=== PATIENT | male | born 1950 | race African-American/Black ===

== ENCOUNTER 2016-08-04 13:10 | Emergency (ER) | payer MEDICARE, MEDICAID ==
[2014-08-27 12:48] VITALS: BMI 15.9
[~2016-08-04 13:10] MED LIST: CELEXA20 MG PO; HYDROCODONE-APA1 TAB PO; LOMOTIL TABLET1 TAB PO; MAG-OX 400 MG400 MG PO; METAMUCIL PACKE1 PKT PO; PROTONIX40 MG PO; TUMS500 MG PO; ULTRAM50 MG PO
== END 2016-08-04 16:50 | disposition home or self-care (01) ==
LOC: D.ER 13:10
DX: M25.551 Pain in right hip (principal); F17.200 Nicotine dependence, unspecified, uncomplicated

== ENCOUNTER 2016-09-28 07:57 | Emergency (ER) | payer MEDICARE, MEDICAID ==
[2014-08-27 12:48] VITALS: BMI 15.9
[2016-09-28 08:55] LABS: APPEARANCE CLEAR (CLEAR); BILIRUBIN NEGATIVE (NEGATIVE); COLOR DK YELLOW (YELLOW); GLUCOSE NEGATIVE (NEGATIVE); KETONE NEGATIVE (NEGATIVE); LEUKOCYTE ESTERASE NEGATIVE (NEGATIVE); NITRITE NEGATIVE (NEGATIVE); PROTEIN NEGATIVE (NEGATIVE); UROBILINOGEN NORMAL (NORMAL)
[2016-09-28 09:49] LABS: BASOPHILS 0.3 % (0-2); EOSINOPHILS 18.9 % (0-7); HEMATOCRIT 35.2 % (42.0-54.0); HEMOGLOBIN 10.8 g/dL (13.5-17.5); IMMATURE GRANULOCYTES 0.3 % (0-5); LYMPHOCYTES 12.2 % (15-50); MCH 28.4 pg (26.0-34.0); MCHC 30.7 g/dL (31.0-37.0); MCV 92.6 fL (80.0-100.0); MEAN PLATELET VOLUME 10.7 fL (7.4-10.4); MONOCYTES 11.2 % (2-11); NEUTROPHILS 57.1 % (40-80); RDW 13.5 % (11.5-14.5); WBC 7.3 10x3/uL (4.8-10.8)
[2016-09-28 09:51] LABS: APTT 28.5 SECONDS (22.8-39.4); INR 1.09 (0.85-1.17)
[2016-09-28 09:52] LABS: PLATELET COUNT 219 10x3/uL (130-400)
[2016-09-28 09:54] LABS: ALBUMIN 3.3 g/dL (3.4-5.0); ANION GAP 10.6 mmol/L (8-16); BILIRUBIN - TOTAL 0.2 mg/dL (0.2-1.3); CALCIUM 7.9 mg/dL (8.5-10.1); CARBON DIOXIDE 30.3 mmol/L (21.0-32.0); CREATININE - SERUM 1.6 mg/dL (0.6-1.3); POTASSIUM - SERUM 3.9 mmol/L (3.5-5.1); PROTEIN - SERUM 7.2 g/dL (6.4-8.2)
== END 2016-09-28 12:27 | disposition home or self-care (01) ==
LOC: D.ER 07:57
PROVIDERS: Emergency Medicine
DX: L40.9 Psoriasis, unspecified (principal); R60.9 Edema, unspecified; L03.90 Cellulitis, unspecified; R10.9 Unspecified abdominal pain; Z93.3 Colostomy status; N28.9 Disorder of kidney and ureter, unspecified

== ENCOUNTER 2016-10-11 01:14 | Inpatient (IN) | payer MEDICARE, MEDICAID ==
[~2016-10-11] VITALS: Ht 180.3 cm; Wt 64.6 kg
[2016-10-11] VITALS (7 sets, daily range): BP systolic 102–128; BP diastolic 71–87; Ht 180.3 cm; Wt 64.6 kg
--- NOTE | ~2016-10-11 | DS ---
PATIENT:VALENTINA WEIR SR :52 MEDICAL RECORD: [id number] DISCHARGE SUMMARY ADMISSION DATE: 10/11/16 DISCHARGE DATE: DATE OF ADMISSION: 10/11/2016 DATE OF DISCHARGE: 10/14/2016 ADMITTING DIAGNOSES: Acute kidney injury, hyperkalemia, hyponatremia, leukocytosis, nicotine dependence with withdrawal, colostomy dysfunction, chronic pain from his colostomy. HOSPITAL COURSE: This is a gentleman of Dr. Delgadillo's, admitted with diagnoses as outlined above. Details are well-outlined in the history of the present illness, H&P. All events, lab procedures, diagnostic testing are well documented in the records. The patient was admitted, appropriate home medicines continued. CONSULTANTS: Dr. Han with nephrology, Dr. Lundberg with urology. He was put on sodium bicarbonate drip, SCDs for DVT prophylaxis, PPI for GI prophylaxis, nicotine patch. Labs and volume was closely followed. Renal ultrasound showed mild fullness of the right renal pelvis without alea hydro and mild left hydro. The urinary bladder was markedly distended and the patient was unable to void. He did have Ballesteros catheter placed, Dr. Lundberg says, he needs to keep it in place for 2 weeks. His hyperkalemia corrected. His serum creatinine came down nicely. Today, he is afebrile, vital signs stable. He is eating. He is ambulating. He is stable by all disciplines for dismissal home. LABORATORY DATA: White count 7, hemoglobin 10, platelets are 243. Sodium 137, potassium 3.8, chloride 102, CO2 of 25, BUN 33, serum creatinine 1.9, phosphorus is 2.1 and it had been high. Magnesium 1.5. Dr. Sahu replaced it today, calcium 8. He is stable for dismissal home. DIAGNOSES: 1. Acute kidney injury, resolved. 2. Metabolic acidosis, resolved. 3. Hyperkalemia, resolved. He does have some chronic kidney disease, at least stage III, hyperphosphatemia improved, hyponatremia, improved, benign prostatic hypertrophy, started on medicines per Dr. Lundberg. He will follow up with Dr. Delgadillo. Home health has been arranged to assist him with the Ballesteros catheter. We will get follow up with freight agent as well as Dr. Lundberg with urology. Greater than 30 minutes was spent on this discharge. TRANSINT:[id number] Voice Confirmation ID: [id number] DOCUMENT ID: [id number] Dictated By: KEIRA HARPER RN I have interviewed/examined the above patient and agree with these documented findings. DISCHARGE SUMMARY REPORT [id number] VALENTINA WEIR SR, ANNA J MD CC: [id number] DICTATION DATE: 10/14/16 1244 PRINCIPAL EMBEDDED SOFTWARE ENGINEER: 10/15/16 0733 ADM IN [place] [place] [address]
[2016-10-11 02:08] LABS: HEMATOCRIT 45.9 % (42.0-54.0); HEMOGLOBIN 15.2 g/dL (13.5-17.5); LYMPHOCYTES 3.4 % (15-50); MCH 28.6 pg (26.0-34.0); MCHC 33.1 g/dL (31.0-37.0); MCV 86.4 fL (80.0-100.0); MEAN PLATELET VOLUME 9.9 fL (7.4-10.4); NEUTROPHILS 92.1 % (40-80); PLATELET COUNT 380 10x3/uL (130-400); RBC 5.31 10x6/uL (4.20-6.10); RDW 14.2 % (11.5-14.5); WBC 12.4 10x3/uL (4.8-10.8)
[2016-10-11 02:23] LABS: ALBUMIN 4.7 g/dL (3.4-5.0); ANION GAP 26.7 mmol/L (8-16); BILIRUBIN - TOTAL 0.35 mg/dL (0.2-1.3); CALCIUM 8.9 mg/dL (8.5-10.1); CARBON DIOXIDE 15.8 mmol/L (21.0-32.0); CREATININE - SERUM 5.8 mg/dL (0.6-1.3); POTASSIUM - SERUM 5.5 mmol/L (3.5-5.1); PROTEIN - SERUM 10.1 g/dL (6.4-8.2)
--- NOTE | 2016-10-11 04:15 | NUR ---
RECIEVED TO ROOM 210 FROM ER VIA WC. PT A&O. VITALS STABLE. RESPERATIONS EVEN ON RA. IV TO RIGHT AC WITH D5W AND SODIUM BIACRB INFUSING AT 125 CC/HR. PLACED ON TELEMETRY, 98 SR. RIGHT LOWER ABD COLOSTOMY. PT DENEIS NEEDS AT THIS TIME, CUP OF COFFEE AND ICE WATER GIVEN AT PT REQUEST, WILL CONT TO MONITOR.
[2016-10-11] MEDS ORDERED: VITAMIN B-12500 MCG PO (05:00)
[2016-10-11] MEDS ORDERED: PROBENECID500 MG PO (05:01)
[2016-10-11] MEDS ORDERED: BACTRIM DS TABL1 TAB PO (05:02)
--- NOTE | 2016-10-11 06:01 | NUR ---
NORCO 1 TAB GIVEN AT PT REQUEST FOT C/O GENERALIZED PAIN, RATES PAIN AT AN 8 ON PAIN SCALE.
[2016-10-11 13:55] LABS: CHOL - HDL RATIO 1.3 ratio (2.3-4.9); LDL-HDL RATIO 0.2 ratio (1.5-3.5); MAGNESIUM - SERUM 1.9 mg/dL (1.8-2.4); PHOSPHOROUS 8.5 mg/dL (2.5-4.9)
[2016-10-11 14:15] LABS: COMPLEMENT C4 13.4 mg/dL (17.4-52.2)
--- NOTE | 2016-10-11 16:00 | NUR ---
ALERT AND ORIENTED X4. COLOSTOMY CARE INDEPENDENTLY. SHOWER AND LINEN CHANGE COMPLETE. DENIES ANY NEEDS. CONTINUE PLAN OF CARE AND SAFETY PRECAUTIONS. SINUS TACH 108bpm ON TELEMETRY.
--- NOTE | 2016-10-11 19:50 | NUR ---
ULTRASOUND STAFF CALLED: PT HAS 600ML URINE RETAIN IN BLADDER, DOCTOR NOTIFIED. PT REFUSED IN AND OUT CATHETER.
--- NOTE | 2016-10-11 20:45 | NUR ---
PT STATE HE CAN USE URINAL AND URINATED ABOUT 15 ML. CONTINUE MONITOR CLOSELY.
--- NOTE | 2016-10-11 23:40 | NUR ---
PT RIGHT ARM HAS IV INFILTRATED, START IV IN LEFT FORARM.
--- NOTE | 2016-10-12 00:10 | NUR ---
PT URINATE AND EMPTY URINAL 15ML.
[2016-10-12 03:43] VITALS: BP 102/73
--- NOTE | 2016-10-12 05:03 | NUR ---
EMPTY PT URINAL 15ML.
--- NOTE | 2016-10-12 05:04 | NUR ---
EMPTY PT URINAL 25 ML.
--- NOTE | 2016-10-12 06:10 | NUR ---
EMPTY URINAL 30ML.
[2016-10-12 06:42] LABS: BASOPHILS 0.2 % (0-2); EOSINOPHILS 2.4 % (0-7); HEMOGLOBIN 13.1 g/dL (13.5-17.5); IMMATURE GRANULOCYTES 0.2 % (0-5); LYMPHOCYTES 8.9 % (15-50); MCH 28.5 pg (26.0-34.0); MCHC 33.6 g/dL (31.0-37.0); MCV 84.8 fL (80.0-100.0); MONOCYTES 14.4 % (2-11); NEUTROPHILS 73.9 % (40-80); PLATELET COUNT 320 10x3/uL (130-400); RDW 13.2 % (11.5-14.5)
[2016-10-12 07:06] LABS: CALCIUM 8.3 mg/dL (8.5-10.1); CREATININE - SERUM 4.6 mg/dL (0.6-1.3); MAGNESIUM - SERUM 1.8 mg/dL (1.8-2.4)
[2016-10-12 07:07] LABS: ANION GAP 15.1 mmol/L (8-16); POTASSIUM - SERUM 4.1 mmol/L (3.5-5.1)
[2016-10-12 09:24] VITALS: BP 112/67
[2016-10-12 10:17] LABS: ANA REFLEX - DBL STRANDED DNA 1 IU/mL (0-9); ANA REFLEX - DIRECT Negative (Negative)
--- NOTE | 2016-10-12 10:22 | NUR ---
ALERT AND ORIENTED X4. RESTING IN BED. REQUEST UA SAMPLE. CUP PROVIDED. ENCOURAGE TO CALL AFTER URINATING IN URINAL. GUTIERREZ PLACEMENT ORDERED. REFUSE GUTIERREZ PLACEMENT. DENIES ANY NEEDS. SELF COLOSTOMY CARE. SINUS TACH 126bpm ON TELEMETRY. DENIES SOB. REFUSE OXYGEN. CONTINUE PLAN OF CARE. BED LOCKED AND LOW. CALL LIGHT IN REACH. TWO SIDERAILS UP. REFUSE SCDs.
[2016-10-12 12:19] VITALS: BP 125/81
--- NOTE | 2016-10-12 13:59 | NUR ---
ALERT AND ORIENTED X4. RESTING IN BED. AND EDUCATE OPTIONS IF GUTIERREZ CATHETER IS NOT PLACED. AGREES TO HAVE GUTIERREZ PLACED. [facility] GUTIERREZ CATHERTER 14FR INSERTED. BULB INFLATED 10ml. URINE TEREZA COLOR. 1000mL IMMEDIATELY DRAIN IN BAG. UA COLLECTED AND TAKEN TO LAB. NOTIFY OF GUTIERREZ PLACEMENT PER REQUEST. GUTIERREZ SECURED TO RT LEG WITH STAT LOCK. GUTIERREZ DRAINING BY GRAVITY AT SIDE OF BED. CONTINUE PLAN OF CARE AND SAFETY PRECAUTIONS. SINUS RHTHYM 92bpm ON TELEMETRY.
--- NOTE | 2016-10-12 14:08 | NUR ---
Patient Name: VALENTINA WEIR Admission Status: ER Accout number: [id number] Admission Date: 10-11-2016 : 1950 Admission Diagnosis: Attending: CHIP Current LOS: 1 Anticipated DC Date: Planned Disposition: Home Primary Insurance: WELLC[employer] MEDICARE ADV Discharge Planning Comments: * Is the patient Alert and Oriented? Yes 0 * How many steps to enter\\exit or inside your home? " A BUNCH" 0 * PCP DR. PRICE 0 * Pharmacy [facility] ( REPORTED BY PATIENT) 0 * Preadmission Environment Home with Family 0 * ADLs Independent 0 * Equipment Ostomy Supplies 0 * Other Equipment [facility] - MEDICAL EQUIPMENT PROVIDER PREFERENCE 0 * List name and contact numbers for known caregivers / representatives who currently or will assist patient after discharge: JED LOVE, , 0 * Community resources currently utilized None 0 * Please name any agencies selected above. NONE 0 * Additional services required to return to the preadmission environment? No 0 * Can the patient safely return to the preadmission environment? Yes 0 * Has this patient been hospitalized within the prior 30 days at any hospital? No 0 CM MET WITH PT IN ROOM TO DISCUSS DISCHARGE PLANNING AND NEEDS. PT REPORTS LIVING AT HOME INDEPENDENTLY AND ALONE IN HIS APARTMENT BUT SPENDS MOST OF HIS TIME STAYING AT HIS SISTER'S HOME. PT HAS OSTOMY SUPPLIES FROM [facility]. PT HAS NO OUTSIDE SERVICES ASSISTING IN THE HOME. CM DISCUSSED AVAILABILITY OF HOME HEALTH, REHAB SERVICES AND MEDICAL EQUIPMENT. PT DENIES DISCHARGE NEEDS AT THIS TIME, REPORTS HIS SISTER WILL PICK HIM UP FOR DISCHARGE TO HER HOME. PT PLANS TO DISCHARGE HOME WITH HIS SISTER, DENIES DISCHARGE NEEDS AT THIS TIME. CM TO FOLLOW AND ASSIST NEEDED. Tire Mold Tester: Kam Nye
[2016-10-12 14:40] LABS: APPEARANCE CLEAR (CLEAR); BILIRUBIN NEGATIVE (NEGATIVE); COLOR YELLOW (YELLOW); GLUCOSE NEGATIVE (NEGATIVE); KETONE NEGATIVE (NEGATIVE); LEUKOCYTE ESTERASE NEGATIVE (NEGATIVE); NITRITE NEGATIVE (NEGATIVE); PROTEIN 1+ mg/dL (NEGATIVE); SPECIFIC GRAVITY 1.025 (1.005-1.020); UROBILINOGEN NORMAL (NORMAL)
[2016-10-12 14:41] LABS: BACTERIA FEW /hpf (NONE SEEN); EPITHELIAL CELLS OCC /hpf (0-5); RED CELLS - URINE NONE SEEN /hpf (0-5); WHITE CELLS - URINE NSEEN /hpf (0-5)
[2016-10-12 15:32] VITALS: BP 94/65
[2016-10-12 20:20] VITALS: BP 98/52
--- NOTE | 2016-10-12 20:20 | NUR ---
PT SIT UP IN BED AND WATCH TV.
[2016-10-12 23:52] VITALS: BP 101/62
--- NOTE | 2016-10-13 02:32 | NUR ---
PT REST QUIETLY IN BED WITH EYE CLOSE, CALL LIGHT WITHIN REACH.
[2016-10-13 03:53] VITALS: BP 100/60
[2016-10-13 05:22] LABS: BASOPHILS 0.3 % (0-2); EOSINOPHILS 11.8 % (0-7); HEMATOCRIT 32.7 % (42.0-54.0); IMMATURE GRANULOCYTES 0.3 % (0-5); MCH 29.3 pg (26.0-34.0); MCHC 33.6 g/dL (31.0-37.0); MEAN PLATELET VOLUME 10.4 fL (7.4-10.4); MONOCYTES 15.5 % (2-11); NEUTROPHILS 59.1 % (40-80); PLATELET COUNT 281 10x3/uL (130-400); RBC 3.76 10x6/uL (4.20-6.10); RDW 13.6 % (11.5-14.5)
[2016-10-13 05:28] LABS: WBC 6.4 10x3/uL (4.8-10.8)
[2016-10-13 05:46] LABS: ANION GAP 11.2 mmol/L (8-16); CALCIUM 7.7 mg/dL (8.5-10.1); CARBON DIOXIDE 29.6 mmol/L (21.0-32.0); MAGNESIUM - SERUM 1.6 mg/dL (1.8-2.4); POTASSIUM - SERUM 3.8 mmol/L (3.5-5.1)
[2016-10-13 05:48] LABS: CREATININE - SERUM 2.9 mg/dL (0.6-1.3); PHOSPHOROUS 3.9 mg/dL (2.5-4.9)
--- NOTE | 2016-10-13 08:29 | NUR ---
AM ROUNDS - PT IS ALERT AND AWAKE IN BED. MONITOR SHOWING SR, HR 78. IV TO LEFT FA, NS @ 100CC/HR. PT IS ON RA. COLOSTOMY TO RIGHT SIDE, PT IS SELF CARE. UP AD TAMY. GUTIERREZ DRAINING CLEAR YELLOW, NO ODATE. PT STATES GUTIERREZ WAS PUT IN WHEN HE GOT TO THE HOSPITAL. NO NEEDS AT THIS TIME. WILL CONTINUE TO MONITOR
[2016-10-13 16:03] VITALS: BP 98/66
[2016-10-13 20:00] VITALS: BP 96/65
[2016-10-14] VITALS: BP 97/61
--- NOTE | 2016-10-14 03:27 | NUR ---
NURSE ROUNDS 21:00 - PT AWAKE, ALERT, ORIENTED, DENIES ANY NEEDS. CONTINUE TO MONITOR CLOSELY. PT UP AD TAMY.
[2016-10-14 04:00] VITALS: BP 113/54
[2016-10-14 05:14] LABS: BASOPHILS 0.3 % (0-2); EOSINOPHILS 17.8 % (0-7); HEMATOCRIT 31.8 % (42.0-54.0); HEMOGLOBIN 10.1 g/dL (13.5-17.5); IMMATURE GRANULOCYTES 0.3 % (0-5); LYMPHOCYTES 9.1 % (15-50); MCH 28.6 pg (26.0-34.0); MCHC 31.8 g/dL (31.0-37.0); MCV 90.1 fL (80.0-100.0); MEAN PLATELET VOLUME 10.8 fL (7.4-10.4); MONOCYTES 15.2 % (2-11); NEUTROPHILS 57.3 % (40-80); PLATELET COUNT 243 10x3/uL (130-400); RBC 3.53 10x6/uL (4.20-6.10); RDW 13.6 % (11.5-14.5)
[2016-10-14 05:39] LABS: ANION GAP 13.4 mmol/L (8-16); CARBON DIOXIDE 25.4 mmol/L (21.0-32.0); MAGNESIUM - SERUM 1.5 mg/dL (1.8-2.4); POTASSIUM - SERUM 3.8 mmol/L (3.5-5.1)
[2016-10-14 05:44] LABS: CREATININE - SERUM 1.9 mg/dL (0.6-1.3); PHOSPHOROUS 2.1 mg/dL (2.5-4.9)
--- NOTE | 2016-10-14 07:36 | NUR ---
AM ROUNDS - PT IN BED AND APPEARS TO BE SLEEPING WITH EQUAL AND NON LABORED BREATHING. MONITOR SHOWS SR, HR 75. PT IS UP AD TAMY. LEFT FA, NS AT 100CC/HR. PT IS ON RA. WILL CONTINUE TO MONITOR
[2016-10-14 08:16] VITALS: BP 103/66
[2016-10-14 11:42] VITALS: BP 110/54
--- NOTE | 2016-10-14 12:00 | NUR ---
Patient Name: VALENTINA WEIR Encounter No: [id number] : 1950 Primary Insurance: WELL[employer] MEDICARE ADV Anticipated DC Date: 10-14-2016 Planned Disposition: Home with Home Health External Planned Provider: [facility] DCP follow-up note: CM SPOKE TO MILLI HARPER WHO REPORTED PLAN TO DISCHARGE PT HOME TODAY WITH GUTIERREZ, NEEDING HOME HEALTH; PCP . CM MET WITH PT IN ROOM. PT REPORTED THAT HE WANTS TREATMENT FOR PSORIASIS THAT IS ITCHING BADLY AND FOR THE CYST ON HIS NECK. CM EXPLAINED THAT CM WILL NOTIFY THE NURSE. CM DISCUSSED DISCHARGE PLANNING AND NEEDS, GUTIERREZ CATHETER AND HOME HEALTH. PT CHOSE [facility], CHOICE SIGNED; PT REPORTS FAMILY TO PICK HIM UP FOR TRANSPORT HOME. NURSE NOTIFIED OF PT'S REQUEST FOR TREATMENT. PT REPORTS DISCHARGE ADDRESS OF [address] [place] [address], [id number] [address] PRICE PRIMARY DOCTOR AND MISSED APPOINTMENT FOR YESTERDAY HE WAS HERE IN THE HOSPITAL. CM WILL COMPLETE HOME HEALTH ARRANGEMENT WITH [facility] FOR DISCHARGE HOME UPON RECEIPT OF PHYSICIAN HOME HEALTH ORDERS. Kam Nye, CASE MANAGEMENT
[2016-10-14] MEDS ORDERED: FLOMAX0.4 MG PO (12:38)
[2016-10-14] MEDS ORDERED: LOTRISONE CREAM45 GM TOPICAL (12:39)
[2016-10-14] MEDS ORDERED: PROSCAR5 MG PO (12:40)
[2016-10-14 16:10] VITALS: BP 105/60
--- NOTE | 2016-10-14 18:09 | NUR ---
PT IN BED, AWAKE. IV TO LEFT FA WITH NS AT 100CC/HR. WILL CONTINUE TO MONITOR
[2016-10-14 20:00] VITALS: BP 101/61
--- NOTE | 2016-10-14 20:12 | NUR ---
PT AWAKE, ALERT, ORIENTED, LYING IN BED, LOOKING AT TV, DENIES ANY NEEDS. CONTINUE TO MONITOR CLOSELY. BED LOW, CALL LIGHT IN REACH, SIDE RAILS X 2, HOB 30 DEGREES.
[2016-10-15 04:00] VITALS: BP 99/62
--- NOTE | 2016-10-15 05:58 | NUR ---
PT LYING IN BED, EYES CLOSED, RESPIRATIONS EVEN AND UNLABORED. CONTINUE TO MONITOR CLOSELY.
[2016-10-15 05:59] LABS: BASOPHILS 0.4 % (0-2); EOSINOPHILS 16.2 % (0-7); HEMATOCRIT 30.6 % (42.0-54.0); HEMOGLOBIN 9.6 g/dL (13.5-17.5); IMMATURE GRANULOCYTES 0.3 % (0-5); LYMPHOCYTES 8.9 % (15-50); MCH 28.7 pg (26.0-34.0); MCHC 31.4 g/dL (31.0-37.0); MCV 91.6 fL (80.0-100.0); MEAN PLATELET VOLUME 10.7 fL (7.4-10.4); MONOCYTES 12.6 % (2-11); NEUTROPHILS 61.6 % (40-80); PLATELET COUNT 234 10x3/uL (130-400); RBC 3.34 10x6/uL (4.20-6.10); RDW 13.6 % (11.5-14.5); WBC 7.9 10x3/uL (4.8-10.8)
[2016-10-15 06:58] LABS: ANION GAP 12.4 mmol/L (8-16); CALCIUM 7.7 mg/dL (8.5-10.1); CARBON DIOXIDE 24.3 mmol/L (21.0-32.0); MAGNESIUM - SERUM 1.3 mg/dL (1.8-2.4)
[2016-10-15 06:59] LABS: POTASSIUM - SERUM 4.7 mmol/L (3.5-5.1)
--- NOTE | 2016-10-15 07:25 | NUR ---
AM ROUNDS - PT IS AWAKE IN BED AND ALERT. PT IS ON RA. IV TO LEFT FA WITH NS AT 100CC/HR. RIGHT COLOTOMY, PT IS SELF CARE. GUTIERREZ DRAINING CLEAR YELLOW. NON SKID SOCKS ON. SIDE RAILS UP X2. BED AT LOWEST POSITION. CALL REID IN REACH. PT IS UP AD TAMY. NO FUTHER NEEDS AT THIS TIME. WILL CONTINUE TO MONITOR.
[2016-10-15 08:00] VITALS: BP 109/65
[2016-10-15 08:18] LABS: SPE - ALBUMIN 3.9 g/dL (2.9-4.4); SPE - ALPHA-1 GLOBULIN 0.3 g/dL (0.0-0.4); SPE - ALPHA-2 GLOBULIN 0.8 g/dL (0.4-1.0); SPE - BETA GLOBULIN 1.5 g/dL (0.7-1.3); SPE - GAMMA GLOBULIN 1.5 g/dL (0.4-1.8); SPE - M-SPIKE Not Observed g/dL (Not Observed); SPE - TOTAL PROTEIN 7.9 g/dL (6.0-8.5)
[2016-10-15] MEDS ORDERED: MAG-OXIDE400 MG PO (10:56)
[2016-10-15 12:00] VITALS: BP 99/70
--- NOTE | 2016-10-15 15:59 | NUR ---
WRITTEN AND VERBAL D/C INSTRUCTIONS GIVEN TO PT. IV TO LEFT HAND D/C. CATH TIP INTACT. PT TOLERATED WELL. GUTIERREZ CARE/CLEANING INSTRUCTIONS GIVEN TO PT. PT IS WAITING ON A RIDE HOME. WILL CONTINUE TO MONITOR.
== END 2016-10-15 16:00 | disposition home or self-care (01) | DRG 683 ==
LOC: D.ER 01:14 → D.M2 03:42 → D.SDCHOLD 16:42 → D.M2 16:46
PROVIDERS: Family Medicine; Internal Medicine; ADMIT Family Medicine
PROC: 0T9B70Z Drainage of Bladder with Drainage Device, Via Natural or Artificial Opening (ICD-10-PCS; principal; 2016-10-12)
DX: N17.0 Acute kidney failure with tubular necrosis (principal); E87.1 Hypo-osmolality and hyponatremia; N13.8 Other obstructive and reflux uropathy; F17.203 Nicotine dependence unspecified, with withdrawal; E87.2 Acidosis; E87.5 Hyperkalemia; N40.1 Benign prostatic hyperplasia with lower urinary tract symptoms; N18.3 Chronic kidney disease, stage 3 (moderate); G89.29 Other chronic pain; Z93.3 Colostomy status; L40.9 Psoriasis, unspecified

== ENCOUNTER 2016-12-13 05:48 | Emergency (ER) | payer MEDICARE, MEDICAID ==
[2016-10-11 10:41] VITALS: BMI 17.3
[~2016-12-13 05:48] MED LIST changes: +BACTRIM DS TABL1 TAB PO; +FLOMAX0.4 MG PO; +LOTRISONE CREAM45 GM TOPICAL; +MAG-OXIDE400 MG PO; +PROBENECID500 MG PO; +PROSCAR5 MG PO; +VITAMIN B-12500 MCG PO
[2016-12-13 06:18] LABS: APPEARANCE HAZY (CLEAR); BILIRUBIN NEGATIVE (NEGATIVE); COLOR DK YELLOW (YELLOW); GLUCOSE NEGATIVE (NEGATIVE); KETONE NEGATIVE (NEGATIVE); LEUKOCYTE ESTERASE NEGATIVE (NEGATIVE); NITRITE NEGATIVE (NEGATIVE); PROTEIN NEGATIVE (NEGATIVE); UROBILINOGEN NORMAL (NORMAL)
[2016-12-13 06:42] LABS: BASOPHILS 0.1 % (0-2); EOSINOPHILS 4.9 % (0-7); HEMATOCRIT 39.2 % (42.0-54.0); LYMPHOCYTES 10.3 % (15-50); MCH 28.7 pg (26.0-34.0); MCHC 33.2 g/dL (31.0-37.0); MCV 86.5 fL (80.0-100.0); MEAN PLATELET VOLUME 9.8 fL (7.4-10.4); MONOCYTES 8.6 % (2-11); NEUTROPHILS 76.1 % (40-80); RBC 4.53 10x6/uL (4.20-6.10); RDW 13.8 % (11.5-14.5); WBC 8.9 10x3/uL (4.8-10.8)
[2016-12-13 06:46] LABS: PLATELET COUNT 355 10x3/uL (130-400)
[2016-12-13 07:02] LABS: ALBUMIN 4.4 g/dL (3.4-5.0); ANION GAP 17.1 mmol/L (8-16); BILIRUBIN - TOTAL 0.5 mg/dL (0.2-1.3); CALCIUM 9.7 mg/dL (8.5-10.1); CARBON DIOXIDE 26.3 mmol/L (21.0-32.0); CREATININE - SERUM 3.9 mg/dL (0.6-1.3); POTASSIUM - SERUM 5.4 mmol/L (3.5-5.1); PROTEIN - SERUM 10.4 g/dL (6.4-8.2)
== END 2016-12-13 10:00 | disposition home or self-care (01) ==
LOC: D.ER 05:48
PROVIDERS: Emergency Medicine
DX: K59.00 Constipation, unspecified (principal); N18.9 Chronic kidney disease, unspecified; R10.9 Unspecified abdominal pain; F17.200 Nicotine dependence, unspecified, uncomplicated

== ENCOUNTER 2017-04-27 17:22 | Emergency (ER) | payer MEDICARE, MEDICAID ==
[2016-10-11 10:41] VITALS: BMI 17.3
== END 2017-04-27 20:55 | disposition home or self-care (01) ==
LOC: D.ER 17:22
DX: L03.115 Cellulitis of right lower limb (principal); M25.461 Effusion, right knee; F17.200 Nicotine dependence, unspecified, uncomplicated

== ENCOUNTER 2017-06-17 08:12 | Inpatient (IN) | payer MEDICARE, MEDICAID ==
[~2017-06-17] VITALS: Ht 180.3 cm; Wt 65.8 kg
--- NOTE | ~2017-06-17 | OP ---
PATIENT NAME: VALENTINA WEIR SR MEDICAL RECORD: [id number] :52 LOCATION:D.MS [id number] ADMISSION DATE:06/17/17 SURGEON: TAWANDA EVANGELISTA MD DATE OF OPERATION: 06/18/2017 PREOPERATIVE DIAGNOSIS: Septic arthritis of the right knee. POSTOPERATIVE DIAGNOSIS: Septic arthritis of the right knee. PROCEDURE: Arthroscopic I&D of the right knee, arthroscopic synovectomy. SURGEON: Tawanda Evangelista MD ANESTHESIA: General. INTRAOPERATIVE COMPLICATIONS: None. SUMMARY OF PATHOLOGIC FINDINGS: Fluid obtained from the knee at the time of surgery did not appear to be gouty although the specimen was sent for synovial fluid analysis as well as cultures. The scope did not show any intraarticular pathology except synovitis. OPERATIVE SUMMARY IN DETAIL: After obtaining the appropriate preoperative orthopedic surgery consent as well as anesthetic consultation, evaluation and clearance, the patient was brought to the operating room and placed on the operating table in supine position. After general laryngeal mask was administered, tourniquet was placed about the proximal aspect of the right lower extremity. Right lower extremity was then prepped and draped in routine sterile fashion. Leg was elevated, tourniquet was inflated to 350 mmHg. A 18-gauge spinal needle was then placed from a lateral approach to the knee and 30 cc of turbid appearing fluid was withdrawn and sent to the lab for synovial fluid analysis as well as cultures. At this point, the inferolateral portal was created and the rest of the knee was drained for approximately another 100 mL of turbid fluid, superior medial and inferior medial portal were created. Under direct arthroscopic visualization, a 5.0 resector was utilized to clean out the medial and lateral gutters, the suprapopliteal recess, the meniscus were probed and evaluated and then a total of approximately 12 cc of fluid was washed throughout the knee. The synovium in all places was debrided and taken down. Having completed this, arthroscopy portals were closed in routine interrupted fashion using 4-0 Prolene. Sterile dressings were applied. Tourniquet was deflated. The patient was awakened, taken to recovery room in stable condition. All final needle and sponge counts were correct. TRANSINT:[id number] Voice Confirmation ID: [id number] DOCUMENT ID: [id number] TAAWNDA EVANGELISTA MD at 3552 CC: [id number] DICTATION DATE: 06/18/17 1431 TECHNICAL SERVICES LIBRARIAN: 06/18/17 1455 ADM IN [facility] [address] [id number]
[2017-06-17 11:16] LABS: BASOPHILS 0.2 % (0-2); EOSINOPHILS 0.1 % (0-7); HEMATOCRIT 29.3 % (42.0-54.0); IMMATURE GRANULOCYTES 0.2 % (0-5); LYMPHOCYTES 7.7 % (15-50); MCH 28.5 pg (26.0-34.0); MCHC 34.1 g/dL (31.0-37.0); MCV 83.5 fL (80.0-100.0); MEAN PLATELET VOLUME 9.1 fL (7.4-10.4); MONOCYTES 24.6 % (2-11); NEUTROPHILS 67.2 % (40-80); PLATELET COUNT 326 10x3/uL (130-400); RBC 3.51 10x6/uL (4.20-6.10); RDW 15.6 % (11.5-14.5); WBC 9.5 10x3/uL (4.8-10.8)
[2017-06-17 11:23] LABS: APPEARANCE HAZY (CLEAR); BILIRUBIN NEGATIVE (NEGATIVE); COLOR YELLOW (YELLOW); GLUCOSE NEGATIVE (NEGATIVE); KETONE NEGATIVE (NEGATIVE); NITRITE NEGATIVE (NEGATIVE); PROTEIN NEGATIVE (NEGATIVE); SPECIFIC GRAVITY 1.015 (1.005-1.020); UROBILINOGEN NORMAL (NORMAL)
[2017-06-17 11:24] LABS: BACTERIA MANY /hpf (NONE SEEN); WHITE CELLS - URINE 0-5 /hpf (0-5)
[2017-06-17 11:25] LABS: GRANULAR CAST 0-5 /lpf (NONE SEEN); HYALINE CAST OCC /lpf (NONE SEEN); MUCUS <1+ /lpf (NONE SEEN)
[2017-06-17 11:28] LABS: ANION GAP 16.4 mmol/L (8-16); BILIRUBIN - TOTAL 0.66 mg/dL (0.2-1.3); C-REACTIVE PROTEIN 7.4 mg/dL (0.0-0.9); CARBON DIOXIDE 22.7 mmol/L (21.0-32.0); POTASSIUM - SERUM 3.1 mmol/L (3.5-5.1); PROTEIN - SERUM 7.4 g/dL (6.4-8.2); URIC ACID 7.1 mg/dL (2.6-7.2)
[2017-06-17 11:36] LABS: CALCIUM 6.5 mg/dL (8.5-10.1); MAGNESIUM - SERUM 0.5 mg/dL (1.8-2.4)
[2017-06-17 12:55] LABS: ERYTHROCYTE SEDIMENTATION RATE 55 mm/hr (0-20)
[2017-06-17 23:50] VITALS: BP 109/71; BMI 20.2
[2017-06-18] VITALS: BP 101/70
[2017-06-18 04:00] VITALS: BP 127/59
[2017-06-18 07:55] LABS: HEMATOCRIT 25.2 % (42.0-54.0); HEMOGLOBIN 8.3 g/dL (13.5-17.5); MCH 27.8 pg (26.0-34.0); MCHC 32.9 g/dL (31.0-37.0); MCV 84.3 fL (80.0-100.0); MEAN PLATELET VOLUME 9.1 fL (7.4-10.4); RBC 2.99 10x6/uL (4.20-6.10); RDW 15.8 % (11.5-14.5)
[2017-06-18 07:59] LABS: WBC 7.1 10x3/uL (4.8-10.8)
[2017-06-18 08:11] LABS: ANION GAP 14.8 mmol/L (8-16); CARBON DIOXIDE 19.5 mmol/L (21.0-32.0); CREATININE - SERUM 1.9 mg/dL (0.6-1.3); POTASSIUM - SERUM 3.3 mmol/L (3.5-5.1)
[2017-06-18 08:12] LABS: CALCIUM 6.2 mg/dL (8.5-10.1); MAGNESIUM - SERUM 0.4 mg/dL (1.8-2.4)
[2017-06-18 08:21] VITALS: BP 107/72
[2017-06-18 12:59] VITALS: Ht 180.3 cm; Wt 65.8 kg
[2017-06-18 13:10] VITALS: BP 122/80
[2017-06-18 15:18] LABS: PROTEIN - BODY FLUID 3.6 G/DL
[2017-06-18 16:05] LABS: NEUT - BF 86 %
[2017-06-18 23:37] VITALS: BP 98/66
[2017-06-19 00:06] VITALS: BP 110/70
[2017-06-19 04:00] VITALS: BP 120/73
[2017-06-19 08:04] VITALS: BP 94/60
[2017-06-19 11:58] VITALS: BP 92/60
[2017-06-19 16:24] VITALS: BP 94/61
[2017-06-19 20:00] VITALS: BP 100/67
[2017-06-20 04:00] VITALS: BP 117/82
[2017-06-20 07:40] LABS: HEMATOCRIT 29.1 % (42.0-54.0); HEMOGLOBIN 9.4 g/dL (13.5-17.5); MCH 27.6 pg (26.0-34.0); MCHC 32.3 g/dL (31.0-37.0); MCV 85.6 fL (80.0-100.0); MEAN PLATELET VOLUME 9.3 fL (7.4-10.4); RDW 15.7 % (11.5-14.5)
[2017-06-20 07:42] LABS: PLATELET COUNT 340 10x3/uL (130-400); WBC 5.3 10x3/uL (4.8-10.8)
[2017-06-20 07:55] LABS: C-REACTIVE PROTEIN 11.6 mg/dL (0.0-0.9); CARBON DIOXIDE 18.1 mmol/L (21.0-32.0); CREATININE - SERUM 1.9 mg/dL (0.6-1.3)
[2017-06-20 07:57] LABS: ANION GAP 16.2 mmol/L (8-16); POTASSIUM - SERUM 4.3 mmol/L (3.5-5.1)
[2017-06-20 08:59] LABS: ERYTHROCYTE SEDIMENTATION RATE 60 mm/hr (0-20)
[2017-06-20 09:41] VITALS: BP 114/78
[2017-06-20 11:48] VITALS: BP 103/69
[2017-06-20 15:53] VITALS: BP 107/71
[2017-06-21 04:00] VITALS: BP 108/72
[2017-06-21] MEDS ORDERED: HYDROCODONE-APA1 TAB PO (08:00)
[2017-06-21 08:30] VITALS: BP 117/80
== END 2017-06-21 11:52 | disposition home or self-care (01) | DRG 488 ==
LOC: D.ER 08:12 → D.SDCHOLD 15:40 → D.MS 15:40
PROVIDERS: Nurse Practitioner Family; Orthopaedic Surgery
PROC: 0S9C4ZZ Drainage of Right Knee Joint, Percutaneous Endoscopic Approach (ICD-10-PCS; principal; 2017-06-17)
PROC: 0SBC4ZZ Excision of Right Knee Joint, Percutaneous Endoscopic Approach (ICD-10-PCS; 2017-06-17)
DX: M00.9 Pyogenic arthritis, unspecified (principal); E87.1 Hypo-osmolality and hyponatremia; F17.203 Nicotine dependence unspecified, with withdrawal; M10.9 Gout, unspecified; E83.42 Hypomagnesemia; E87.6 Hypokalemia; N18.9 Chronic kidney disease, unspecified; F41.9 Anxiety disorder, unspecified; K21.9 Gastro-esophageal reflux disease without esophagitis; M65.861 Other synovitis and tenosynovitis, right lower leg

== ENCOUNTER 2017-06-27 07:01 | Emergency (ER) | payer MEDICARE, MEDICAID ==
[2017-06-18 12:59] VITALS: BMI 20.2
[2017-06-27 07:41] LABS: BASOPHILS 0.3 % (0-2); HEMATOCRIT 35.5 % (42.0-54.0); HEMOGLOBIN 11.5 g/dL (13.5-17.5); IMMATURE GRANULOCYTES 0.5 % (0-5); LYMPHOCYTES 13.3 % (15-50); MCHC 32.4 g/dL (31.0-37.0); MCV 86.6 fL (80.0-100.0); MEAN PLATELET VOLUME 9.3 fL (7.4-10.4); MONOCYTES 13.9 % (2-11); RDW 15.6 % (11.5-14.5)
[2017-06-27 07:49] LABS: PLATELET COUNT 525 10x3/uL (130-400)
[2017-06-27 08:03] LABS: UDS - AMPHET NEGATIVE QUAL (NEGATIVE); UDS - BARB NEGATIVE QUAL (NEGATIVE); UDS - BENZO NEGATIVE QUAL (NEGATIVE); UDS - COCAINE NEGATIVE QUAL (NEGATIVE); UDS - OPIATE NEGATIVE QUAL (NEGATIVE); UDS - PCP NEGATIVE QUAL (NEGATIVE); UDS - THC NEGATIVE QUAL (NEGATIVE)
[2017-06-27 08:12] LABS: APPEARANCE HAZY (CLEAR); BILIRUBIN NEGATIVE (NEGATIVE); COLOR YELLOW (YELLOW); GLUCOSE NEGATIVE (NEGATIVE); KETONE NEGATIVE (NEGATIVE); NITRITE NEGATIVE (NEGATIVE); PROTEIN 1+ mg/dL (NEGATIVE); SPECIFIC GRAVITY 1.015 (1.005-1.020); UROBILINOGEN NORMAL (NORMAL)
[2017-06-27 08:14] LABS: BACTERIA MODERATE /hpf (NONE SEEN); EPITHELIAL CELLS 0-5 /hpf (0-5); MUCUS <1+ /lpf (NONE SEEN); RED CELLS - URINE OCC /hpf (0-5); SPERMATOZOA PRESENT /hpf (NONE SEEN); WHITE CELLS - URINE OCC /hpf (0-5)
[2017-06-27 08:15] LABS: AMORPHOUS SEDIMENT <1+ /lpf (NONE SEEN)
[2017-06-27 08:19] LABS: ALKALINE PHOSPHATASE 75 U/L (46-116); ALT (SGPT) 62 U/L (10-68); BILIRUBIN - TOTAL 0.15 mg/dL (0.2-1.3); CALC OSMOLALITY 272 mosm/kg (275-300); CARBON DIOXIDE 24.8 mmol/L (21.0-32.0); CHLORIDE - SERUM 96 mmol/L (98-107); CREATINE KINASE 1073 UL (21-232); CREATININE - SERUM 2.5 mg/dL (0.6-1.3); GLUCOSE 84 mg/dL (74-106); LIPASE 187 U/L (73-393); POTASSIUM - SERUM 4.8 mmol/L (3.5-5.1); PRO BNP 130 pg/mL (0-125); PROTEIN - SERUM 9.1 g/dL (6.4-8.2); SODIUM 135 mmol/L (136-145); TROPONIN-I < 0.017 ng/mL (0.000-0.060); UREA NITROGEN 24 mg/dL (7-18); eGFR NON AFRICAN AMERICAN 28 mL/min (90-120)
[2017-06-27 08:20] LABS: CKMB 5.9 U/L (0.0-3.6); MAGNESIUM - SERUM 0.6 mg/dL (1.8-2.4)
== END 2017-06-27 11:03 | disposition home or self-care (01) ==
LOC: D.ER 07:01
PROVIDERS: Family Medicine
DX: M25.561 Pain in right knee (principal); E83.51 Hypocalcemia; E83.42 Hypomagnesemia; N18.9 Chronic kidney disease, unspecified

== ENCOUNTER 2017-06-28 07:17 | Emergency (ER) | payer MEDICARE, MEDICAID ==
[2017-06-18 12:59] VITALS: BMI 20.2
[2017-06-28 08:09] LABS: HEMATOCRIT 34.8 % (42.0-54.0); HEMOGLOBIN 11.2 g/dL (13.5-17.5); LYMPHOCYTES 9.6 % (15-50); MCH 27.5 pg (26.0-34.0); MCHC 32.2 g/dL (31.0-37.0); MCV 85.5 fL (80.0-100.0); MEAN PLATELET VOLUME 8.9 fL (7.4-10.4); NEUTROPHILS 78.7 % (40-80); PLATELET COUNT 447 10x3/uL (130-400); RBC 4.07 10x6/uL (4.20-6.10); RDW 14.7 % (11.5-14.5); WBC 8.2 10x3/uL (4.8-10.8)
[2017-06-28 08:25] LABS: APPEARANCE HAZY (CLEAR); BACTERIA MODERATE /hpf (NONE SEEN); BILIRUBIN NEGATIVE (NEGATIVE); COLOR YELLOW (YELLOW); EPITHELIAL CELLS 0-5 /hpf (0-5); GLUCOSE NEGATIVE (NEGATIVE); KETONE NEGATIVE (NEGATIVE); MUCUS <1+ /lpf (NONE SEEN); NITRITE NEGATIVE (NEGATIVE); PROTEIN TRACE mg/dL (NEGATIVE); UROBILINOGEN NORMAL (NORMAL); YEAST >1+ WITH HYPHAE /hpf (NONE SEEN)
[2017-06-28 08:26] LABS: UDS - AMPHET NEGATIVE QUAL (NEGATIVE); UDS - BARB NEGATIVE QUAL (NEGATIVE); UDS - BENZO NEGATIVE QUAL (NEGATIVE); UDS - COCAINE POSITIVE QUAL (NEGATIVE); UDS - OPIATE NEGATIVE QUAL (NEGATIVE); UDS - PCP NEGATIVE QUAL (NEGATIVE); UDS - THC NEGATIVE QUAL (NEGATIVE)
[2017-06-28 08:44] LABS: ALBUMIN 3.8 g/dL (3.4-5.0); ALKALINE PHOSPHATASE 72 U/L (46-116); ALT (SGPT) 59 U/L (10-68); BILIRUBIN - TOTAL 0.27 mg/dL (0.2-1.3); C-REACTIVE PROTEIN 0.6 mg/dL (0.0-0.9); CALC OSMOLALITY 270 mosm/kg (275-300); CHLORIDE - SERUM 96 mmol/L (98-107); CREATININE - SERUM 2.7 mg/dL (0.6-1.3); GLUCOSE 83 mg/dL (74-106); LIPASE 180 U/L (73-393); POTASSIUM - SERUM 5.4 mmol/L (3.5-5.1); PRO BNP 267 pg/mL (0-125); PROTEIN - SERUM 9.1 g/dL (6.4-8.2); SODIUM 133 mmol/L (136-145); UREA NITROGEN 29 mg/dL (7-18); eGFR NON AFRICAN AMERICAN 25 mL/min (90-120)
[2017-06-28 08:49] LABS: CREATINE KINASE 1562 UL (21-232); TROPONIN-I < 0.017 ng/mL (0.000-0.060)
[2017-06-28 08:50] LABS: CALCIUM 5.6 mg/dL (8.5-10.1); MAGNESIUM - SERUM 0.7 mg/dL (1.8-2.4)
[2017-06-28 08:51] LABS: CKMB 7.2 U/L (0.0-3.6)
== END 2017-06-28 12:22 | disposition home or self-care (01) ==
LOC: D.ER 07:17
PROVIDERS: Family Medicine
DX: M25.50 Pain in unspecified joint (principal); E83.42 Hypomagnesemia; E83.51 Hypocalcemia; R74.8 Abnormal levels of other serum enzymes; N28.9 Disorder of kidney and ureter, unspecified

== ENCOUNTER 2018-01-25 09:03 | Emergency (ER) | payer MEDICARE, MEDICAID ==
[~2018-01-25] VITALS: Ht 180.3 cm; Wt 61.8 kg
[2018-01-25 09:05] VITALS: Ht 180.3 cm; Wt 61.8 kg
[2018-01-25] MEDS ORDERED: ATARAX 25 MG TA25 MG PO (09:08)
[2018-01-25 09:35] LABS: BASOPHILS 0.1 % (0-2); EOSINOPHILS 0.1 % (0-7); HEMATOCRIT 34.1 % (42.0-54.0); HEMOGLOBIN 11.3 g/dL (13.5-17.5); IMMATURE GRANULOCYTES 0.2 % (0-5); MCH 29.5 pg (26.0-34.0); MCHC 33.1 g/dL (31.0-37.0); MEAN PLATELET VOLUME 10.1 fL (7.4-10.4); MONOCYTES 10.2 % (2-11); NEUTROPHILS 77.4 % (40-80); RBC 3.83 10x6/uL (4.20-6.10); RDW 12.8 % (11.5-14.5); WBC 16.4 10x3/uL (4.8-10.8)
[2018-01-25 09:36] LABS: PLATELET COUNT 219 10x3/uL (130-400)
[2018-01-25 09:49] LABS: ALBUMIN 3.3 g/dL (3.4-5.0); ANION GAP 12.6 mmol/L (8-16); BILIRUBIN - TOTAL 1.48 mg/dL (0.2-1.3); CARBON DIOXIDE 27.3 mmol/L (21.0-32.0); CREATININE - SERUM 1.8 mg/dL (0.6-1.3); POTASSIUM - SERUM 3.9 mmol/L (3.5-5.1); PROTEIN - SERUM 8.1 g/dL (6.4-8.2); URIC ACID 10.5 mg/dL (2.6-7.2)
[2018-01-25] MEDS ORDERED: PREDNISONE20 MG PO (11:06)
[2018-01-25] MEDS ORDERED: TORADOL10 MG PO (11:06)
[2018-01-25 14:11] VITALS: BP 148/92
== END 2018-01-25 14:12 | disposition home or self-care (01) ==
LOC: D.ER 09:03
PROVIDERS: Emergency Medicine
DX: L40.50 Arthropathic psoriasis, unspecified (principal); M10.9 Gout, unspecified; Z93.3 Colostomy status

== ENCOUNTER 2018-07-06 14:13 | Inpatient (IN) | payer MEDICARE, MEDICAID ==
[~2018-07-06] VITALS: Ht 180.3 cm; Wt 62.8 kg
[~2018-07-06 14:13] MED LIST changes: +ATARAX 25 MG TA25 MG PO; +PREDNISONE20 MG PO; +TORADOL10 MG PO
[2018-07-06 15:31] LABS: BASOPHILS 0.3 % (0-2); HEMATOCRIT 34.2 % (42.0-54.0); HEMOGLOBIN 11.7 g/dL (13.5-17.5); IMMATURE GRANULOCYTES 0.9 % (0-5); LYMPHOCYTES 7.8 % (15-50); MCH 28.3 pg (26.0-34.0); MCHC 34.2 g/dL (31.0-37.0); MCV 82.6 fL (80.0-100.0); MEAN PLATELET VOLUME 9.1 fL (7.4-10.4); MONOCYTES 8.6 % (2-11); NEUTROPHILS 80.4 % (40-80); RBC 4.14 10x6/uL (4.20-6.10); RDW 13.6 % (11.5-14.5); WBC 11.1 10x3/uL (4.8-10.8)
[2018-07-06 15:36] LABS: PLATELET COUNT 474 10x3/uL (130-400)
[2018-07-06 15:57] LABS: ALBUMIN 3.5 g/dL (3.4-5.0); ANION GAP 27.9 mmol/L (8-16); BILIRUBIN - TOTAL 1.09 mg/dL (0.2-1.3); CALCIUM 7.1 mg/dL (8.5-10.1); CARBON DIOXIDE 16.9 mmol/L (21.0-32.0); CREATININE - SERUM 7.7 mg/dL (0.6-1.3); POTASSIUM - SERUM 4.8 mmol/L (3.5-5.1); PROTEIN - SERUM 8.6 g/dL (6.4-8.2)
[2018-07-06 15:58] LABS: APPEARANCE CLOUDY (CLEAR); BILIRUBIN NEGATIVE (NEGATIVE); COLOR YELLOW (YELLOW); GLUCOSE NEGATIVE (NEGATIVE); KETONE NEGATIVE (NEGATIVE); NITRITE NEGATIVE (NEGATIVE); PROTEIN 1+ mg/dL (NEGATIVE); UROBILINOGEN NORMAL (NORMAL)
[2018-07-06 15:59] LABS: RED CELLS - URINE 0-5 /hpf (0-5)
[2018-07-06 16:01] LABS: BACTERIA MODERATE /hpf (NONE SEEN); HYALINE CAST 0-5 /lpf (NONE SEEN); MUCUS <1+ /lpf (NONE SEEN)
--- NOTE | 2018-07-06 18:22 | NUR ---
PATIENT ACCIDENTLY DC'D IV STARTED BY EMS, CATH INTACT, RESITED IV 22G RIGHT HAND, AND 20G RIGHT AC BOTH S-LOCS AND PATENT.
--- NOTE | 2018-07-06 19:59 | NUR ---
68 yr old male admitted to Med 2 from ED. FULL Code status, alert and oriented x 4, ambulatory and in dependent with ADLs. Has a [id number] which he cares for himself. Came in with complaints of severe cramping in right flank area. Was Dx with UTI, has Hx of ARF but is not on dialysis yet. Has a Hx of heavy drinking, sober for many years, became quite upset when asked. Has two PIVs, one in Rt hand SL and one in Rt AC infusing NS @75ml/hr. Settled into room 2104.
[2018-07-06 20:00] VITALS: BP 117/81
[2018-07-06 20:10] VITALS: BP 125/84
--- NOTE | 2018-07-06 20:10 | NUR ---
Patient has psoriasis on arms and neck.
--- NOTE | 2018-07-06 20:45 | NUR ---
Given sandwich tray, and soda. States has not eaten since this morning.
--- NOTE | 2018-07-06 22:03 | NUR ---
educational assistant on, rhythm ST. HR currently = 116.
[2018-07-07] VITALS: BP 90/63
--- NOTE | 2018-07-07 00:14 | NUR ---
Resting quietly, no voiced concerns at this time.
--- NOTE | 2018-07-07 04:41 | NUR ---
Up to BR, ambulating well, pushing IV pole with him. Hungry, requested another snack, given soda and a sandwich. Has been in and out of bed several times, states he likes to keep active, SCDs not placed due to patient's frequent activity in and out of bed.
[2018-07-07 04:50] VITALS: BP 102/69
[2018-07-07 05:50] LABS: BASOPHILS 0.4 % (0-2); EOSINOPHILS 6.4 % (0-7); HEMATOCRIT 31.3 % (42.0-54.0); HEMOGLOBIN 10.4 g/dL (13.5-17.5); IMMATURE GRANULOCYTES 0.6 % (0-5); LYMPHOCYTES 8.9 % (15-50); MCH 27.8 pg (26.0-34.0); MCHC 33.2 g/dL (31.0-37.0); MCV 83.7 fL (80.0-100.0); MEAN PLATELET VOLUME 9.3 fL (7.4-10.4); MONOCYTES 10.4 % (2-11); NEUTROPHILS 73.3 % (40-80); PLATELET COUNT 453 10x3/uL (130-400); RBC 3.74 10x6/uL (4.20-6.10); RDW 13.9 % (11.5-14.5); WBC 9.7 10x3/uL (4.8-10.8)
[2018-07-07 05:59] LABS: CARBON DIOXIDE 14.6 mmol/L (21.0-32.0); CREATININE - SERUM 7.6 mg/dL (0.6-1.3); MAGNESIUM - SERUM 1.1 mg/dL (1.8-2.4); PHOSPHOROUS 8.2 mg/dL (2.5-4.9)
[2018-07-07 06:17] LABS: POTASSIUM - SERUM 3.6 mmol/L (3.5-5.1)
[2018-07-07 06:18] LABS: CALCIUM 6.2 mg/dL (8.5-10.1)
--- NOTE | 2018-07-07 07:00 | NUR ---
Lab called with critical lab value, Calcium = 6.2, Sodium, Chloride and Mag also are low. Called notified of same, received orders for Renal US, UA with micro and Jose Stain. Patient also to be placed on electrolyte protocol.
--- NOTE | 2018-07-07 07:55 | NUR ---
PT WAS COMING OUT OF BATHROOM I ENTERED. IN PLESANT MOOD, REQUESTS COFFEE. STATES NO PAIN/QUESTIONS/CONCERNS AT THIS TIME. CL IN REACH. SRX1.
[2018-07-07 08:14] VITALS: BP 105/67
--- NOTE | 2018-07-07 09:07 | NUR ---
PT IV CAME OUT. OTHER IV IS BAD. WHILE INSPECTING I/V'S I ASKED PT HOW IT CAME OUT. PT STARTS GETTING ANGRY WITH ME AND ACCUSING ME OF SAYING HE PULLED IT OUT ON PURPOSE. I DID NOT SAY THAT. EVERY TIME I TALK, PT TALKS OVER ME AND GETS ANGRY AT THINGS I DIDN'T SAY. I'M VERY CONFUSED. PT REQUESTED PAIN MEDS, I SAID OK LET ME FIX THIS IV REAL QUICK, PT IMMEDIATELY GOT ANGRY AND TOLD ME I DIDN'T NEED TO SPEAK TO HIM THAT WAY
[2018-07-07 12:31] VITALS: Ht 180.3 cm; Wt 62.8 kg
--- NOTE | 2018-07-07 14:14 | NUR ---
I have reviewed this patient and I concur with the Shift Assessment completed by the Licensed Practical Nurse today this shift.
[2018-07-07 14:48] LABS: % SATURATION 23 % (15-55); IRON 66 ug/dl (35-150); TOTAL IRON BIND CAPACITY 282 ug/dl (260-445); UNSAT IRON BIND CAPACITY 216 ug/dl (150-375)
[2018-07-07 15:02] VITALS: BP 108/79
--- NOTE | 2018-07-07 17:03 | NUR ---
ATTEMPT POST RESIDUAL, PT REFUSES TO ATTEMPT TO URINATE AGAIN AFTER FIRST URINATION. EXPLAINED THE PROCESS. PT STILL REFUSED.
[2018-07-07 20:00] VITALS: BP 148/90
--- NOTE | 2018-07-07 20:20 | NUR ---
RESUMING PT CARE. PT IS ALERT LAYING IN BED WATCHING TV. NO C/O VOICED AT THIS TIME. PT HAS A IV IN THE LEFT FOREARM. BED IN LOW POSITION WITH CALL LIGHT IN REACH. WILL CONTINUE TO MONITOR PT AND FOLLOW PLAN OF CARE.
[2018-07-08] VITALS (7 sets, daily range): BP systolic 101–113; BP diastolic 57–81
--- NOTE | 2018-07-08 03:06 | NUR ---
PT ASLEEP. AROUSES TO NURSE IN ROOM. PT IS AAO, HAS NS INFUSING TO LEFT FOREARM ORDERED. COLOSTOMY NOTED RIGHT QUAD. PT HAS DRY FLACKY SKIN. NO S/S OF DISTRESS. RESP EVEN AND UNLABORED. NO S/S OF DISTRESS. NURSE IN AGREEMENT WITH MANAGER ICU ASSESSMENT THIS SHIFT. WILL CPOC
[2018-07-08 12:16] LABS: CARBON DIOXIDE 15.4 mmol/L (21.0-32.0)
[2018-07-08 12:18] LABS: ANION GAP 22.8 mmol/L (8-16); POTASSIUM - SERUM 4.2 mmol/L (3.5-5.1)
[2018-07-08 12:20] LABS: CALCIUM 6.3 mg/dL (8.5-10.1)
[2018-07-08 12:28] LABS: BASOPHILS 0.3 % (0-2); EOSINOPHILS 14.2 % (0-7); HEMATOCRIT 25.9 % (42.0-54.0); HEMOGLOBIN 8.8 g/dL (13.5-17.5); IMMATURE GRANULOCYTES 0.4 % (0-5); LYMPHOCYTES 14.2 % (15-50); MCH 28.2 pg (26.0-34.0); MEAN PLATELET VOLUME 8.9 fL (7.4-10.4); MONOCYTES 11.5 % (2-11); NEUTROPHILS 59.4 % (40-80); PLATELET COUNT 420 10x3/uL (130-400); RBC 3.12 10x6/uL (4.20-6.10); RDW 13.9 % (11.5-14.5)
[2018-07-08 12:29] LABS: WBC 6.8 10x3/uL (4.8-10.8)
--- NOTE | 2018-07-08 12:29 | NUR ---
PT ASLEEP DID NOT WAKE I ENTERED. CL IN REACH. SRX2.
--- NOTE | 2018-07-08 14:35 | NUR ---
I have reviewed this patient and I concur with the Shift Assessment completed by the Licensed Practical Nurse today this shift.
--- NOTE | 2018-07-08 18:41 | NUR ---
PT REQUESTED RAZOR TO SHAVE FACE, PROVIDED. ASKED PT ABOUT COLOSTOMY, HE STATES HE TAKES CARE OF IT HIMSELF.
--- NOTE | 2018-07-08 21:41 | NUR ---
INITIAL ROUNDS COMPLETED AT 1910 HRS. PT DENIED ANY DISCOMFORT. ASSESSMENT COMPLETED AT 1945 HRS. VSS. IV TO RFA WITH NS AT 75CC/HR. IV PATENT. LUNGS ESSENTIALLY CTA. COLOSTOMY NOTED. ALERT AND ORIENTED TO PERSON, PLACE AND TIME. REMINDED PT NEED UA. PT STATED UNDERSTANDING. PT CURRENTLY RESTING WITH EYES CLOSED. RESP EVEN AND REGULAR. SR UP X2, CALL LIGHT WITHIN REACH.
--- NOTE | 2018-07-09 00:39 | NUR ---
MORTEZA SANCHES GIVEN PER REQUEST. VSS. PT DENIES ANY NEEDS. SR UP X2, CALL LIGHT WITHIN REACH.
--- NOTE | 2018-07-09 01:53 | NUR ---
PT AWAKE; DENIES ANY DISCOMFORT. ORANGE SHERBERT GIVEN PER REQUEST. SR UP X2, CALL LIGHT WITHIN REACH.
--- NOTE | 2018-07-09 04:14 | NUR ---
PT AWAKE; DENIES AN DISCOMFORT. PT DENIES SAVING ANY URINE. REMINDED PT NEED A URINE SAMPLE. CALL LIGHT WITHIN REACH.
[2018-07-09 04:30] VITALS: BP 107/65
[2018-07-09 04:55] LABS: BASOPHILS 0.3 % (0-2); EOSINOPHILS 13.7 % (0-7); HEMATOCRIT 30.9 % (42.0-54.0); HEMOGLOBIN 10.2 g/dL (13.5-17.5); IMMATURE GRANULOCYTES 0.5 % (0-5); LYMPHOCYTES 15.9 % (15-50); MCH 28.4 pg (26.0-34.0); MONOCYTES 9.7 % (2-11); NEUTROPHILS 59.9 % (40-80); PLATELET COUNT 443 10x3/uL (130-400); RBC 3.59 10x6/uL (4.20-6.10); RDW 14.2 % (11.5-14.5); WBC 7.7 10x3/uL (4.8-10.8)
[2018-07-09 05:18] LABS: MCV 86.1 fL (80.0-100.0)
[2018-07-09 05:39] LABS: CARBON DIOXIDE 12.7 mmol/L (21.0-32.0); POTASSIUM - SERUM 4.7 mmol/L (3.5-5.1)
[2018-07-09 05:40] LABS: CALCIUM 6.5 mg/dL (8.5-10.1); CREATININE - SERUM 3.4 mg/dL (0.6-1.3)
--- NOTE | 2018-07-09 06:30 | NUR ---
VSS THROUGHOUT NIGHT. PT DENIED ANY DISCOMFORT. PT AMBULATING HALLS AT THIS TIME. GAIT EVEN AND STEADY. NEEDS MET; WILL CONTINUE TO MONITOR.
--- NOTE | 2018-07-09 07:27 | NUR ---
PT LYING IN BED. C/O OF HEADACHE. REQUESTS TYLENOL. WILL PROVIDE WITH MORNING MEDS. NO OTHER CONCERNS/COMLAINTS AT THIS TIME. CL IN REACH. SRX2.
[2018-07-09 08:30] VITALS: BP 92/57
--- NOTE | 2018-07-09 11:00 | NUR ---
I have reviewed this patient and I concur with the Shift Assessment completed by the Licensed Practical Nurse today this shift.
[2018-07-09 12:09] VITALS: BP 121/82
[2018-07-09 15:59] VITALS: BP 94/67
[2018-07-09 20:31] VITALS: BP 103/72
--- NOTE | 2018-07-09 20:48 | NUR ---
INITIAL ROOUNDS COMPLETED AT 1910 HRS. PT DENIED ANY DISCOMFORT. ASSESSMENT COMPLETED AT [address] PER CM HR 107. ALERT AND ORIENTED TO PERSON, PLACE AND TIME. [place]. LUNGS CTA. COLOSTOMY NOTED. PT CURRENTLY WATCHING TV; DENIES ANY DISCOMFORT. SR UP X2, CALL LIGHT WITHIN REACH.
--- NOTE | 2018-07-09 23:57 | NUR ---
PT RESTING WITH EYES CLOSED. RESP EVEN AND REGULAR. SR UP X2, CALL LIGHT WITHIN REACH.
[2018-07-10 00:23] VITALS: BP 104/71
--- NOTE | 2018-07-10 03:10 | NUR ---
ICE CREAM GIVEN PER REQUEST. DENIES ANY DISCOMFORT. CALL LIGHT WITHIN REACH.
--- NOTE | 2018-07-10 04:07 | NUR ---
PT AWKE; DENIES ANY DISCOMFORT. CALL LIGHT WITHIN REACH.
[2018-07-10 05:09] LABS: BASOPHILS 0.1 % (0-2); EOSINOPHILS 14.4 % (0-7); HEMOGLOBIN 9.6 g/dL (13.5-17.5); IMMATURE GRANULOCYTES 0.7 % (0-5); MCH 28.3 pg (26.0-34.0); MCHC 33.1 g/dL (31.0-37.0); MCV 85.5 fL (80.0-100.0); MEAN PLATELET VOLUME 9.2 fL (7.4-10.4); MONOCYTES 11.8 % (2-11); PLATELET COUNT 425 10x3/uL (130-400); RBC 3.39 10x6/uL (4.20-6.10); RDW 14.2 % (11.5-14.5); WBC 7.6 10x3/uL (4.8-10.8)
[2018-07-10 05:27] LABS: CARBON DIOXIDE 14.8 mmol/L (21.0-32.0); POTASSIUM - SERUM 4.8 mmol/L (3.5-5.1)
[2018-07-10 05:30] VITALS: BP 114/82
[2018-07-10 05:33] LABS: CREATININE - SERUM 2.5 mg/dL (0.6-1.3)
[2018-07-10 05:34] LABS: CALCIUM 6.4 mg/dL (8.5-10.1)
--- NOTE | 2018-07-10 06:10 | NUR ---
VSS THROUGHOUT NIGHT. SR PER CM. PT DENIED ANY DISCOMFORT. NEDS MET; WILL CONTINUE TO MONITOR.
[2018-07-10 08:04] VITALS: BP 120/82
--- NOTE | 2018-07-10 08:20 | NUR ---
PT SITTING ON SIDE OF BED. EATING BREAKFAST. PT HAS NO FURTHER NEEDS AT THIS TIME. WILL CONTINUE WITH PLAN OF CARE. BED LOW. CL IN REACH. ROOM AIR. UP ADLIB.
--- NOTE | 2018-07-10 10:52 | NUR ---
Nutrition follow-up: Diet: Renal ADA PO intake 75-100% of meals Labs reviewed +BM Wt: 136# RDN following.
[2018-07-10 11:23] VITALS: BP 100/71
[2018-07-10 15:11] VITALS: BP 121/78
--- NOTE | 2018-07-10 15:37 | MORECARE ---
CASE MANAGEMENT DISCHARGE SUMMARY PATIENT: VALENTINA WEIR SR UNIT: [id number] ADM DATE: 07/06/18 AGE: 68 : 51 SEX: M ROOM/BED: D.2105 AUTHOR: ADINA PAREKH PHYSICIAN: REFERRING PHYSICIAN: NOELLE OATES MD DATE OF SERVICE: 07/10/18 Discharge Plan Patient Name: VALENTINA WEIR [facility] [facility] 1950 Planned Disposition: Home Anticipated Discharge Date: 07/11/18 Discharge Date: Expected LOS: 5 Initial Reviewer: [email or web address] Initial Review Date: 07/06/2018 Generated: 07/10/18 4:37 pm Patient Name: VALENTINA WEIR Page [phone] at 1537 All edits/amendments must be made on the electronic document DICTATION DATE: 07/10/18 153 BASS STRING WINDER: CATERINA 07/10/18 153 RPT#: [id number] DC DATE: STATUS: ADM IN [facility] [address] [place] [address] END OF REPORT
--- NOTE | 2018-07-10 15:46 | MORECARE ---
CASE MANAGEMENT DISCHARGE SUMMARY PATIENT: VALENTINA WEIR SR UNIT: [id number] ADM DATE: 07/06/18 AGE: 68 : 51 SEX: M ROOM/BED: D.2105 AUTHOR: ADINA PAREKH PHYSICIAN: REFERRING PHYSICIAN: NOELLE OATES MD DATE OF SERVICE: 07/10/18 Discharge Plan Patient Name: VALENTINA WEIR [facility] [facility] 1950 Planned Disposition: Home Anticipated Discharge Date: 07/11/18 Discharge Date: Expected LOS: 5 Initial Reviewer: [email or web address] Initial Review Date: 07/06/2018 Generated: 07/10/18 4:45 pm DCPIA - Discharge Planning Initial Assessment Updated by [email or web address]: Kam Nye on 07/10/18 3:38 pm * Is the patient Alert and Oriented? Yes * How many steps to enter\exit or inside your home? 13 * PCP DR. NESBITT IN [place] * Pharmacy [facility]. * Preadmission Environment Home with Family * ADLs Independent * Equipment None * Other Equipment NO MEDICAL EQUIPMENT PROVIDER PREFERENCE * List name and contact numbers for known caregivers / representatives who currently or will assist patient after discharge: JED LOVE, , * Verbal permission to speak to the caregivers and representatives has been obtained from the patient. N/A * Community resources currently utilized None * Please name any agencies selected above. NONE * Additional services required to return to the preadmission environment? No * Can the patient safely return to the preadmission environment? Yes * Has this patient been hospitalized within the prior 30 days at any hospital? No Last DP export: 07/10/18 2:37 pm Patient Name: VALENTINA WEIR Page [phone] at 1546 All edits/amendments must be made on the electronic document DICTATION DATE: 07/10/18 154 FEATHER SEPARATOR: CATERINA 07/10/18 1545 RPT#: [id number] DC DATE: STATUS: ADM IN [facility] [address] [place] [address] END OF REPORT
--- NOTE | 2018-07-10 16:03 | MORECARE ---
CASE MANAGEMENT DISCHARGE SUMMARY PATIENT: VALENTINA WEIR SR UNIT: [id number] ADM DATE: 07/06/18 AGE: 68 : 51 SEX: M ROOM/BED: D.2105 AUTHOR: IZABELLA,DOC PHYSICIAN: REFERRING PHYSICIAN: NOELLE OATES MD DATE OF SERVICE: 07/10/18 Discharge Plan Patient Name: VALENTINA WEIR Facility: [facility]:[place] : 1950 Planned Disposition: Home Anticipated Discharge Date: 07/11/18 Discharge Date: Expected LOS: 5 Initial Reviewer: [email or web address] Initial Review Date: 07/06/2018 Generated: 07/10/18 5:03 pm Comments DCP- Discharge Planning Updated by [email or web address]: Kam Nye on 07/10/18 3:[address] Patient Name: VALENTINA WEIR Admission Status: ER Accout number: [id number] Admission Date: 07-06-2018 : 1950 Admission Diagnosis:RIGHT LOWER QUADRANT PAIN Attending: NOELLE OATES Current LOS: 4 Anticipated DC Date: 07-11-2018 Planned Disposition: Home Primary Insurance: WELL[employer] MEDICARE ADV Discharge Planning Comments: CM MET WITH PT IN ROOM TO DISCUSS DISCHARGE PLANNING AND NEEDS. PT REPORTS LIVING AT HOME INDEPENDENTLY WITH HIS SISTER. PT HAS NO MEDICAL EQUIPMENT AND NO OUTSIDE SERVICES ASSISTING IN THE HOME. CM DISCUSSED AVAILABILITY OF HOME HEALTH, REHAB SERVICES AND MEDICAL EQUIPMENT. PT DENIES DISCHARGE NEEDS, REPORTS HIS SISTER WILL SEND ONE OF HER ADULT CHILDREN TO PICK HIM UP FOR DISCHARGE HOME. IMPORTANT MESSAGE FROM MEDICARE PROVIDED AND EXPLAINED. PT REPORTS HE IS GETTING UP AND OUT OF BED AND IS INDEPENDENT IN THE ROOM WITHOUT ANY ISSUES WITH STRENGTH OR BALANCE. PT DENIES NEEDS, REPORTS PLAN TO DISCHARGE HOME WITH ADULT SISTER, FAMILY TO TRANSPORT. Swage Tender: Kam Nye DCPIA - Discharge Planning Initial Assessment Updated by [email or web address]: Kam Nye on 07/10/18 3:38 pm * Is the patient Alert and Oriented? Yes * How many steps to enter\exit or inside your home? 13 * PCP DR. NESBITT IN [place] * Pharmacy [facility]. * Preadmission Environment Home with Family * ADLs Independent * Equipment None * Other Equipment NO MEDICAL EQUIPMENT PROVIDER PREFERENCE * List name and contact numbers for known caregivers / representatives who currently or will assist patient after discharge: JED LOVE, SISTER, * Verbal permission to speak to the caregivers and representatives has been obtained from the patient. N/A * Community resources currently utilized None * Please name any agencies selected above. NONE * Additional services required to return to the preadmission environment? No * Can the patient safely return to the preadmission environment? Yes * Has this patient been hospitalized within the prior 30 days at any hospital? No Last DP export: 07/10/18 2:45 pm Patient Name: VALENTINA WEIR Page [phone] at 1603 All edits/amendments must be made on the electronic document DICTATION DATE: 07/10/181602 CUTTER OPERATOR: CATERINA 07/10/181602 RPT#: [id number] DC DATE: STATUS: ADM IN [facility] [address] [place] [address] END OF REPORT
--- NOTE | 2018-07-10 19:51 | NUR ---
RESUMING PATIENT CARE. PATIENT IS ALERT AND ORIENTED. RESPIRATIONS ARE EVEN AND UNLABORED. NO S/S OF DISTRESS. NO C/O PAIN. DENIES NEEDS AT THIS TIME. CALL LIGHT WITHIN REACH. WILL CPOC.
[2018-07-10 21:26] VITALS: BP 112/72
[2018-07-11 00:29] VITALS: BP 92/64
[2018-07-11 05:38] LABS: BASOPHILS 0.1 % (0-2); EOSINOPHILS 12.3 % (0-7); HEMATOCRIT 31.5 % (42.0-54.0); HEMOGLOBIN 10.3 g/dL (13.5-17.5); IMMATURE GRANULOCYTES 0.7 % (0-5); MCH 28.5 pg (26.0-34.0); MCHC 32.7 g/dL (31.0-37.0); MCV 87.3 fL (80.0-100.0); MEAN PLATELET VOLUME 9.4 fL (7.4-10.4); MONOCYTES 6.7 % (2-11); NEUTROPHILS 66.2 % (40-80); PLATELET COUNT 458 10x3/uL (130-400); RBC 3.61 10x6/uL (4.20-6.10); RDW 14.7 % (11.5-14.5); WBC 9.1 10x3/uL (4.8-10.8)
[2018-07-11 05:51] LABS: ANION GAP 21.3 mmol/L (8-16); CARBON DIOXIDE 15.2 mmol/L (21.0-32.0); CREATININE - SERUM 2.4 mg/dL (0.6-1.3); POTASSIUM - SERUM 4.5 mmol/L (3.5-5.1)
[2018-07-11 06:06] LABS: CALCIUM 6.2 mg/dL (8.5-10.1)
[2018-07-11 06:22] VITALS: BP 106/55
--- NOTE | 2018-07-11 07:15 | NUR ---
REPORT RECIEVED AND MORNING ROUNDING COMPLETE. PT LAYING IN BED EYES CLOSED. EASILY AROUSED BY ME ENETERING ROOM. PT HAS A LEFT FOREARM PIV RUNNING NORMAL SALINE @ 75. PT REQUESTED SUPPLIES FOR HIS COLOSTOMY. PT STATES NO THER NEEDS AT THIS TIME CALL LIGHT WITHIN REACH AND BED IN LOWEST POSTION.
[2018-07-11 09:52] VITALS: BP 113/78
[2018-07-11 15:18] VITALS: BP 101/76
--- NOTE | 2018-07-11 17:26 | NUR ---
I have reviewed this patient and I concur with the Shift Assessment completed by the Licensed Practical Nurse today this shift.
--- NOTE | 2018-07-11 18:22 | NUR ---
PT REPORTS IV IS LEAKING. ASSESED PIV IN LEFT FOREARM, THE CATH TIP WAS OUT OF THE SKIN. REMOVED PIV FROM LEFT FOREARM. PLACED A 22 GAUGE PIV IN LEFT HAND 1 STICK PT TOLERATED WELL. NO OTHER NEEDS AT THIS TIME. CALL LIGHT WITHIN REACH.
--- NOTE | 2018-07-11 19:44 | NUR ---
RESUMING PATIENT CARE. PATIENT IS ALERT AND ORIENTED, RESTING COMFORTABLY IN BED. RESPIRATIONS ARE EVEN AND UNLABORED. DENIES NEEDS AT THIS TIME. NO S/S OF DISTRESS. NO C/O PAIN. CALL LIGHT WITHIN REACH. WILL CPOC.
[2018-07-11 21:01] VITALS: BP 99/71
[2018-07-12 01:06] VITALS: BP 94/71
--- NOTE | 2018-07-12 02:00 | NUR ---
PATIENT RESTING COMFORTABLY IN BED. RESPIRATIONS ARE EVEN AND UNLABORED. NO S/S OF DISTRESS. NO C/O PAIN. NS CONTINUES TO INFUSE. CALL LIGHT WITHIN REACH. WILL CPOC.
--- NOTE | 2018-07-12 04:39 | NUR ---
PATIENT RESTING COMFORTABLY IN BED. RESPIRATIONS ARE EVEN AND UNLABORED. NS CONTINUES TO INFUSE. NO S/S OF DISTRESS. CALL LIGHT WITHIN REACH. WILL CPOC.
[2018-07-12 06:05] VITALS: BP 103/76
[2018-07-12 06:12] LABS: APPEARANCE CLEAR (CLEAR); BILIRUBIN NEGATIVE (NEGATIVE); COLOR YELLOW (YELLOW); GLUCOSE NEGATIVE (NEGATIVE); KETONE NEGATIVE (NEGATIVE); NITRITE NEGATIVE (NEGATIVE); PROTEIN 2+ mg/dL (NEGATIVE); UROBILINOGEN NORMAL (NORMAL)
[2018-07-12 06:13] LABS: BACTERIA FEW /hpf (NONE SEEN); EPITHELIAL CELLS 0-5 /hpf (0-5); GRANULAR CAST OCC /lpf (NONE SEEN); RED CELLS - URINE 0-5 /hpf (0-5); WHITE CELLS - URINE 0-5 /hpf (0-5)
[2018-07-12 06:47] LABS: BASOPHILS 0.2 % (0-2); EOSINOPHILS 12.4 % (0-7); HEMATOCRIT 27.9 % (42.0-54.0); HEMOGLOBIN 9.1 g/dL (13.5-17.5); IMMATURE GRANULOCYTES 0.5 % (0-5); LYMPHOCYTES 11.7 % (15-50); MCH 27.9 pg (26.0-34.0); MCHC 32.6 g/dL (31.0-37.0); MCV 85.6 fL (80.0-100.0); MEAN PLATELET VOLUME 8.9 fL (7.4-10.4); NEUTROPHILS 65.2 % (40-80); PLATELET COUNT 385 10x3/uL (130-400); RBC 3.26 10x6/uL (4.20-6.10); RDW 14.7 % (11.5-14.5); WBC 9.5 10x3/uL (4.8-10.8)
--- NOTE | 2018-07-12 07:20 | NUR ---
REPORT RECEIVED. WILL CONTINUE WITH POC. PT CURRENTLY SITTING ON EDGE OF BED. CALL LIGHT W/I REACH. PT IS AAO AND UP AD TAMY. RR EVEN AND UNLABORED ON 2L 02. NS INFUSING @50ML/HR VIA R.HAND PIV. PT DENIES ANY NEEDS AT THIS TIME. NO S/S OF DISTRESS NOTED. WILL CTM.
[2018-07-12 07:21] LABS: CARBON DIOXIDE 17.3 mmol/L (21.0-32.0); POTASSIUM - SERUM 4.3 mmol/L (3.5-5.1)
[2018-07-12 07:37] LABS: CALCIUM 5.8 mg/dL (8.5-10.1)
[2018-07-12 09:38] VITALS: BP 101/67
--- NOTE | 2018-07-12 11:31 | NUR ---
PREVIOUS PIV INFILTRATED. LIZA MORAN INITIATED NEW PIV TO THE L.HAND 22GA X1 ATTEMPT. PT TOLERATED WELL. FLUSHED WITH 10CC NS TO CONFIRM PATENCY. PT DENIES ANY NEEDS. WILL CTM.
[2018-07-12] MEDS ORDERED: LEVOFLOXACIN500 MG PO (12:22)
[2018-07-12 13:17] VITALS: BP 100/67
--- NOTE | 2018-07-12 13:26 | NUR ---
PT DISCHARGED HOME VIA WHEELCHAIR WITH FAMILY. TELEMETRY REMOVED AND RETURNED. PIV REMOVED WITH CATHETER TIP FULLY INTACT. PT SIGNED PROPER DISCHARGE PAPERWORK AND REMOVED ALL VALUALBES FROM THE ROOM.
--- NOTE | 2018-07-12 14:25 | MORECARE ---
CASE MANAGEMENT DISCHARGE SUMMARY PATIENT: VALENTINA WEIR SR UNIT: [id number] ADM DATE: 07/06/18 AGE: 68 : 51 SEX: M ROOM/BED: D.2105 AUTHOR: IZABELLA,DOC PHYSICIAN: REFERRING PHYSICIAN: NOELLE OATES MD DATE OF SERVICE: 07/12/18 Discharge Plan Patient Name: VALENTINA WEIR Facility: [facility]:[place] : 1950 Planned Disposition: Home Anticipated Discharge Date: 07/12/18 Discharge Date: 07/12/2018 Expected LOS: 6 Initial Reviewer: [email or web address] Initial Review Date: 07/06/2018 Generated: 07/12/18 3:25 pm DCP- Discharge Planning Updated by [email or web address]: Kam Nye on 07/10/18 3:[address] Patient Name: VALENTINA WEIR Admission Status: ER Accout number: [id number] Admission Date: 07-06-2018 : 1950 Admission Diagnosis:RIGHT LOWER QUADRANT PAIN Attending: NOELLE OATES Current LOS: 4 Anticipated DC Date: 07-11-2018 Planned Disposition: Home Primary Insurance: [employer] ADV Discharge Planning Comments: CM MET WITH PT IN ROOM TO DISCUSS DISCHARGE PLANNING AND NEEDS. PT REPORTS LIVING AT HOME INDEPENDENTLY WITH HIS SISTER. PT HAS NO MEDICAL EQUIPMENT AND NO OUTSIDE SERVICES ASSISTING IN THE HOME. CM DISCUSSED AVAILABILITY OF HOME HEALTH, REHAB SERVICES AND MEDICAL EQUIPMENT. PT DENIES DISCHARGE NEEDS, REPORTS HIS SISTER WILL SEND ONE OF HER ADULT CHILDREN TO PICK HIM UP FOR DISCHARGE HOME. IMPORTANT MESSAGE FROM MEDICARE PROVIDED AND EXPLAINED. PT REPORTS HE IS GETTING UP AND OUT OF BED AND IS INDEPENDENT IN THE ROOM WITHOUT ANY ISSUES WITH STRENGTH OR BALANCE. PT DENIES NEEDS, REPORTS PLAN TO DISCHARGE HOME WITH ADULT SISTER, FAMILY TO TRANSPORT. Child Health Associate: Kam Nye DCPIA - Discharge Planning Initial Assessment Updated by [id number]: Kam Nye on 07/10/18 3:38 pm * Is the patient Alert and Oriented? Yes * How many steps to enter\exit or inside your home? 13 * PCP DR. NESBITT IN [place] * Pharmacy [facility]. * Preadmission Environment Home with Family * ADLs Independent * Equipment None * Other Equipment NO MEDICAL EQUIPMENT PROVIDER PREFERENCE * List name and contact numbers for known caregivers / representatives who currently or will assist patient after discharge: JED LOVE, SISTER, * Verbal permission to speak to the caregivers and representatives has been obtained from the patient. N/A * Community resources currently utilized None * Please name any agencies selected above. NONE * Additional services required to return to the preadmission environment? No * Can the patient safely return to the preadmission environment? Yes * Has this patient been hospitalized within the prior 30 days at any hospital? No Coverage Notice Reviewer: [id number] Bianca Nye Notice Issued Date-Time: 07/10/2018 14:25 Notice Type: IM Discharge Notice Notice Delivered To: Patient Relationship to Patient: Tribal Delegate Name: Delivery Method: HAND - Hand Delivered Jennifer Days: Prior Verbal Notification: Recipient Understood Notice: Yes Recipient Signature: Yes Med Rec Note Co-signed by Attending: Coverage Notice Comment: Last DP export: 07/10/18 3:03 pm Patient Name: VALENTINA WEIR Page [phone] at 1425 All edits/amendments must be made on the electronic document DICTATION DATE: 07/12/18 1425 ROVING WINDER: CATERINA 07/12/18 1425 RPT#: [id number] DC DATE:07/12/18 STATUS: DIS IN [facility] [address] [place] [address] END OF REPORT
== END 2018-07-12 13:27 | disposition home or self-care (01) | DRG 683 ==
LOC: D.ER 14:13 → D.M2 19:00 → D.EDHOLD 19:00 → D.M2 19:30
PROVIDERS: Family Medicine; ADMIT Internal Medicine Nephrology; ATTEND Internal Medicine Nephrology
DX: N17.9 Acute kidney failure, unspecified (principal); N39.0 Urinary tract infection, site not specified; E87.1 Hypo-osmolality and hyponatremia; F17.213 Nicotine dependence, cigarettes, with withdrawal; D50.9 Iron deficiency anemia, unspecified; N18.9 Chronic kidney disease, unspecified; E83.42 Hypomagnesemia; L40.9 Psoriasis, unspecified; B95.4 Other streptococcus as the cause of diseases classified elsewhere; N12 Tubulo-interstitial nephritis, not specified as acute or chronic

== ENCOUNTER 2018-07-19 10:03 | Inpatient (IN) | payer MEDICARE, MEDICAID ==
[~2018-07-19] VITALS: Ht 180.3 cm; Wt 62.6 kg
[~2018-07-19 10:03] MED LIST changes: +LEVOFLOXACIN500 MG PO
--- NOTE | 2018-07-19 10:45 | NUR ---
PT REFUSING INSERTION OF GUTIERREZ CATHETER, TREATING PROVIDER NOTIFIED.
[2018-07-19 10:50] LABS: BASOPHILS 0.1 % (0-2); EOSINOPHILS 0.6 % (0-7); HEMATOCRIT 35.4 % (42.0-54.0); IMMATURE GRANULOCYTES 0.3 % (0-5); LYMPHOCYTES 4.6 % (15-50); MCH 28.6 pg (26.0-34.0); MCHC 33.9 g/dL (31.0-37.0); MCV 84.5 fL (80.0-100.0); MEAN PLATELET VOLUME 9.5 fL (7.4-10.4); MONOCYTES 10.4 % (2-11); RBC 4.19 10x6/uL (4.20-6.10); WBC 15.7 10x3/uL (4.8-10.8)
[2018-07-19 10:56] LABS: PLATELET COUNT 470 10x3/uL (130-400)
[2018-07-19 11:04] LABS: ALBUMIN 3.9 g/dL (3.4-5.0); ALKALINE PHOSPHATASE 104 U/L (46-116); ALT (SGPT) 29 U/L (10-68); CALC OSMOLALITY 284 mosm/kg (275-300); CALCIUM 7.7 mg/dL (8.5-10.1); CARBON DIOXIDE 16.8 mmol/L (21.0-32.0); CHLORIDE - SERUM 99 mmol/L (98-107); CREATININE - SERUM 4.3 mg/dL (0.6-1.3); GLUCOSE 109 mg/dL (74-106); POTASSIUM - SERUM 5.1 mmol/L (3.5-5.1); PROTEIN - SERUM 9.8 g/dL (6.4-8.2); SODIUM 133 mmol/L (136-145); UREA NITROGEN 64 mg/dL (7-18); eGFR NON AFRICAN AMERICAN 15 mL/min (90-120)
--- NOTE | 2018-07-19 11:10 | NUR ---
MULTIPLE SMALL INSECTS NOTED ON PT'S BEDDING. ONE INSECT COLLECTED AND VERIFIED WITH INFECTION CONTROL NURSE THAT IT WAS A BED BUG. INFECTION CONTROL POLICY INITIATED. BED BATH PERFORMED BY THIS NURSE AND CHARGE NURSE. ONCE PT'S BELONGINGS HAD BENT SENT WITH EVS, PT STATED THAT HE NEEDED HIS PHONE AND WALLET. THESE ITEMS WERE PROMTLY RETURNED TO PT.
[2018-07-19 11:15] LABS: AMYLASE - SERUM 235 U/L (25-115); CKMB 1.3 U/L (0.0-3.6); CREATINE KINASE 115 UL (21-232); LIPASE 130 U/L (73-393); MAGNESIUM - SERUM 1.2 mg/dL (1.8-2.4)
[2018-07-19 11:19] LABS: TROPONIN-I < 0.017 ng/mL (0.000-0.060)
[2018-07-19 11:51] LABS: APPEARANCE SL CLDY (CLEAR); BACTERIA MODERATE /hpf (NONE SEEN); BILIRUBIN NEGATIVE (NEGATIVE); COLOR YELLOW (YELLOW); EPITHELIAL CELLS 0-5 /hpf (0-5); GLUCOSE NEGATIVE (NEGATIVE); KETONE NEGATIVE (NEGATIVE); MUCUS <1+ /lpf (NONE SEEN); NITRITE NEGATIVE (NEGATIVE); PROTEIN 1+ mg/dL (NEGATIVE); SPECIFIC GRAVITY 1.015 (1.005-1.020); SPERMATOZOA PRESENT /hpf (NONE SEEN); UROBILINOGEN NORMAL (NORMAL)
[2018-07-19 11:56] LABS: YEAST >1+ WITH HYPHAE /hpf (NONE SEEN)
[2018-07-19 12:26] VITALS: BP 139/103
--- NOTE | 2018-07-19 12:41 | NUR ---
PT LEFT ED VIA STRETCHER FOR ORDERED CT SCAN. NO SIGNS OF DISTRESS NOTED WHEN LEAVING. IV INFUSING ORDERED WITHOUT SIGNS OF INFILTRATION.
--- NOTE | 2018-07-19 12:51 | NUR ---
PT RETURNED TO THE ED AT THIS TIME VIA STRETCHER.
[2018-07-19 13:45] VITALS: BP 127/104
--- NOTE | 2018-07-19 14:02 | NUR ---
PT PREVIOUSLY REFUSED GUTIERREZ CATHETER, PER EDP DR. HAWKINS, PT NEEDING GUTIERREZ AT THIS TIME. PT AGREES TO ALLOW NURSE TO DO SO.
--- NOTE | 2018-07-19 15:02 | NUR ---
PRIOR TO ADMINISTERING ORDERED VANCOMYIN, THIS NURSE SPOKE WITH MADI IN PHARMACY TO VERIFY THAT ORDERED DOSE WAS SAFE TO ADMINISTER D/T ELEVATED STAINED GLASS WINDOW DESIGNER LEVEL.
--- NOTE | 2018-07-19 15:15 | NUR ---
PT ARRIVED TO ROOM 2206 VIA STRETCHER AWAKE AND ALERT. RESP EVEN AND UNLABORED WITH NO DISTRESS NOTED. CAN EXPRESS NEEDS AND WANTS. DENIES ANY PAIN OR DISCOMFORT. ORIENTED TO C/L SYSTEM AND VOICE UNDERSTANDING. ASSESSMENT COMPLETED. H2O AND C/L IN REACH AT BEDSIDE
[2018-07-19 16:19] VITALS: BMI 19.2
[2018-07-19 16:45] VITALS: BP 122/71
[2018-07-19 16:50] LABS: % SATURATION 18 % (15-55); IRON 78 ug/dl (35-150); TOTAL IRON BIND CAPACITY 422 ug/dl (260-445); UNSAT IRON BIND CAPACITY 344 ug/dl (150-375)
[2018-07-19] MEDS ORDERED: ATARAX 25 MG TA25 MG (17:21)
[2018-07-19] MEDS ORDERED: CYCLOBENZAPRINE10 MG PO (17:23)
[2018-07-20 01:16] VITALS: BP 112/60
--- NOTE | 2018-07-20 03:31 | NUR ---
REC'D. AT CHGE OF SHIFT SITTING ON SIDE OF BED TALKING ON PHONE.STATES BETTER NOW NO PAIN AT PRESENT TIME WILL CONTINUE TO MONITOR FOR ANY CHGES. AND FOLLOW CURRENT PLAN OF CARE
[2018-07-20 04:37] VITALS: BP 100/71
[2018-07-20 04:52] LABS: BASOPHILS 0.3 % (0-2); EOSINOPHILS 3.3 % (0-7); HEMATOCRIT 29.2 % (42.0-54.0); HEMOGLOBIN 9.7 g/dL (13.5-17.5); IMMATURE GRANULOCYTES 0.3 % (0-5); LYMPHOCYTES 7.4 % (15-50); MCHC 33.2 g/dL (31.0-37.0); MCV 84.4 fL (80.0-100.0); MEAN PLATELET VOLUME 9.6 fL (7.4-10.4); MONOCYTES 9.3 % (2-11); NEUTROPHILS 79.4 % (40-80); PLATELET COUNT 392 10x3/uL (130-400); RBC 3.46 10x6/uL (4.20-6.10); RDW 14.6 % (11.5-14.5)
[2018-07-20 05:01] LABS: WBC 11.3 10x3/uL (4.8-10.8)
[2018-07-20 05:10] LABS: BILIRUBIN - TOTAL 0.46 mg/dL (0.2-1.3); CARBON DIOXIDE 17.7 mmol/L (21.0-32.0); CREATININE - SERUM 3.8 mg/dL (0.6-1.3); PROTEIN - SERUM 7.5 g/dL (6.4-8.2); VANCOMYCIN - RANDOM 13.5 ug/mL (10.0-20.0)
[2018-07-20 05:13] LABS: ANION GAP 19.2 mmol/L (8-16); POTASSIUM - SERUM 3.9 mmol/L (3.5-5.1)
[2018-07-20 05:14] LABS: CALCIUM 6.7 mg/dL (8.5-10.1)
--- NOTE | 2018-07-20 07:51 | NUR ---
PT WATCHING TV. AAOX4. NO S/S OF ACUTE DISTRESS. CL IN PLACE.
--- NOTE | 2018-07-20 07:53 | NUR ---
I have reviewed this patient and I concur with the Shift Assessment completed by the Licensed Practical Nurse today this shift.
[2018-07-20 10:39] VITALS: BP 92/47
[2018-07-20 11:04] VITALS: BMI 19.2
[2018-07-20 13:03] VITALS: BP 91/55
--- NOTE | 2018-07-20 14:05 | NUR ---
1015 SPN DC IV WITH TIP IN TACT TO L AC.
--- NOTE | 2018-07-20 14:50 | NUR ---
Went to expalin the lung ventilation and perfusion scan to the patient. He refused the ventilation portion and did not want to do it. Explained the perfusion portion of the exam and he stated he did not want to do any part of the exam. Exam is cancelled. Please re-order if patient agrees
[2018-07-20 17:59] VITALS: BP 101/49
--- NOTE | 2018-07-20 18:32 | NUR ---
IV CAME OUT WITH TIP IN TACT. RESITED TO R HAND PER KATY MORAN. FLUSHED WELL. NO S/S OF ACUTE DISTRESS. CL IN PLACE.
[2018-07-20 18:47] VITALS: Ht 180.3 cm; Wt 62.6 kg
[2018-07-20 20:20] VITALS: BP 94/54
[2018-07-20 22:06] LABS: HEMOGLOBIN 8.1 g/dL (13.5-17.5)
[2018-07-21 00:31] VITALS: BP 91/51
[2018-07-21 04:17] VITALS: BP 156/115
[2018-07-21 04:28] LABS: BASOPHILS 0.1 % (0-2); EOSINOPHILS 7.2 % (0-7); HEMATOCRIT 24.9 % (42.0-54.0); HEMOGLOBIN 8.2 g/dL (13.5-17.5); IMMATURE GRANULOCYTES 0.2 % (0-5); LYMPHOCYTES 8.4 % (15-50); MCH 27.8 pg (26.0-34.0); MCHC 32.9 g/dL (31.0-37.0); MCV 84.4 fL (80.0-100.0); MEAN PLATELET VOLUME 9.4 fL (7.4-10.4); MONOCYTES 12.1 % (2-11); PLATELET COUNT 332 10x3/uL (130-400); RBC 2.95 10x6/uL (4.20-6.10); RDW 14.7 % (11.5-14.5); WBC 8.5 10x3/uL (4.8-10.8)
[2018-07-21 05:09] LABS: % SATURATION 12 % (15-55); IRON 31 ug/dl (35-150); TOTAL IRON BIND CAPACITY 249 ug/dl (260-445); UNSAT IRON BIND CAPACITY 218 ug/dl (150-375)
[2018-07-21 05:14] LABS: ANION GAP 19.4 mmol/L (8-16); CARBON DIOXIDE 16.9 mmol/L (21.0-32.0); CREATININE - SERUM 3.3 mg/dL (0.6-1.3); POTASSIUM - SERUM 4.3 mmol/L (3.5-5.1); VANCOMYCIN - RANDOM 8.1 ug/mL (10.0-20.0)
--- NOTE | 2018-07-21 05:56 | NUR ---
LAB CALLED WITH CALCIUM OF 6.[address] OATES NO NEW ORDERS
[2018-07-21 09:38] VITALS: BP 84/57
[2018-07-21 10:20] LABS: FOLATE (FOLIC ACID) - SERUM 15.9 ng/mL (>3.0)
[2018-07-21 11:31] LABS: UDS - AMPHET NEGATIVE QUAL (NEGATIVE); UDS - BARB NEGATIVE QUAL (NEGATIVE); UDS - BENZO NEGATIVE QUAL (NEGATIVE); UDS - COCAINE POSITIVE QUAL (NEGATIVE); UDS - OPIATE POSITIVE QUAL (NEGATIVE); UDS - PCP NEGATIVE QUAL (NEGATIVE); UDS - THC NEGATIVE QUAL (NEGATIVE)
[2018-07-21 13:16] LABS: SPE - A/G RATIO 1.1 (0.7-1.7); SPE - ALBUMIN 3.6 g/dL (2.9-4.4); SPE - ALPHA-1 GLOBULIN 0.2 g/dL (0.0-0.4); SPE - ALPHA-2 GLOBULIN 0.7 g/dL (0.4-1.0); SPE - BETA GLOBULIN 1.1 g/dL (0.7-1.3); SPE - GAMMA GLOBULIN 1.1 g/dL (0.4-1.8); SPE - M-SPIKE Not Observed g/dL (Not Observed); SPE - TOTAL PROTEIN 6.8 g/dL (6.0-8.5)
[2018-07-21 13:55] VITALS: BP 85/50
[2018-07-21 14:17] LABS: HEMATOCRIT 29.3 % (42.0-54.0); HEMOGLOBIN 9.6 g/dL (13.5-17.5)
[2018-07-21 18:07] VITALS: BP 82/54
--- NOTE | 2018-07-21 19:00 | NUR ---
PT ALERT AND ORIENTED WHEN ENTERING ROOM. PT REPORTS NO ISSUES AT THIS TIME. LEFT HAND IV PATENT AND SALINE LOCKED. RIGHT THUMB IV PATENT INFUSING LR AT 100 ML PER HOUR. PT HAS COLOSTOMY BAG TO RIGHT SIDE AND PROVIDES SELF CARE. PT ALSO HAS GUTIERREZ CATHETER. REPORTS NO PAIN OR DISTRESS. DEMONSTRATES HOW TO USE CALL LIGHT. WEARING TELEMETRY AT THIS TIME.
[2018-07-21 20:53] VITALS: BP 84/59
[2018-07-21 21:54] LABS: HEMATOCRIT 25.2 % (42.0-54.0); HEMOGLOBIN 8.3 g/dL (13.5-17.5)
--- NOTE | 2018-07-21 22:00 | NUR ---
HCT 25.2 FROM 2200 LABS. ORDER STATES H&H EVERY 8 HOURS. SPOKE WITH CHARGE NURSE. CBC WITH DIFF ORDERED FOR 0500. WILL OBTAIN H&H FROM THOSE LABS INSTEAD OF ORDERING AN ADDITIONAL H&H AT 0600.
[2018-07-22 01:19] VITALS: BP 100/59
--- NOTE | 2018-07-22 04:41 | NUR ---
I have reviewed this patient and I concur with the Shift Assessment completed by the Licensed Practical Nurse today this shift.
[2018-07-22 05:27] VITALS: BP 91/56
[2018-07-22 06:59] LABS: BASOPHILS 0.2 % (0-2); EOSINOPHILS 8.8 % (0-7); HEMATOCRIT 25.1 % (42.0-54.0); HEMOGLOBIN 8.1 g/dL (13.5-17.5); IMMATURE GRANULOCYTES 0.4 % (0-5); LYMPHOCYTES 13.2 % (15-50); MCH 27.6 pg (26.0-34.0); MCHC 32.3 g/dL (31.0-37.0); MCV 85.4 fL (80.0-100.0); MEAN PLATELET VOLUME 9.7 fL (7.4-10.4); NEUTROPHILS 70.4 % (40-80); PLATELET COUNT 360 10x3/uL (130-400); RBC 2.94 10x6/uL (4.20-6.10); RDW 14.9 % (11.5-14.5)
[2018-07-22 07:00] LABS: WBC 11.8 10x3/uL (4.8-10.8)
[2018-07-22 07:08] LABS: ANION GAP 17.3 mmol/L (8-16); CARBON DIOXIDE 18.2 mmol/L (21.0-32.0); POTASSIUM - SERUM 4.5 mmol/L (3.5-5.1); VANCOMYCIN - RANDOM 5.6 ug/mL (10.0-20.0)
[2018-07-22 07:09] LABS: CREATININE - SERUM 2.4 mg/dL (0.6-1.3)
[2018-07-22 07:11] LABS: CALCIUM 5.9 mg/dL (8.5-10.1)
[2018-07-22 09:19] VITALS: BP 106/70
--- NOTE | 2018-07-22 12:15 | NUR ---
FAMILY TAKING MEDICATIONS HOME.
[2018-07-22 14:25] VITALS: BP 113/76
[2018-07-22 15:15] LABS: HEMATOCRIT 27.3 % (42.0-54.0)
--- NOTE | 2018-07-22 15:16 | NUR ---
PATIENT CO GOUT IN HIS THUMBS. TRIED AN ICE PACK IT DIDN'T WORK. GAVE A NORCO 7.5 AT 1309. TRYING A HEATING PACK
[2018-07-22 18:05] VITALS: BP 116/80
[2018-07-22 20:00] VITALS: BP 125/81
[2018-07-23] VITALS: BP 130/78
--- NOTE | 2018-07-23 02:59 | NUR ---
PT STARTED NIGHT OFF COMPLAINING OF HAND PAIN. NOTICED JOINTS WERE SWOLLEN. ADMINSITERED PAIN MEDICINES PER EMAR SEE FOR DOCUMENTATION. PT COLOSTOMY LEAKING. CHANGED PT COLOSTOMY. AIRPORT OPERATIONS SPECIALIST CALLED ABOUT PATIENT HEART RATE RUNNING BETWEEN 130-140. STAYED WITH PATIENT FOR ALMOST AN HOUR PROVIDING OSTOMY CARE AND ASSISTING WITH OTHER NEEDS. PT DOES NOT HAVE ANY OTHER COMPLAINTS OTHER THAN HANDS HURTING. CPOC.
[2018-07-23 04:00] VITALS: BP 126/70
--- NOTE | 2018-07-23 04:06 | NUR ---
I have reviewed this patient and I concur with the Shift Assessment completed by the Licensed Practical Nurse today this shift.
[2018-07-23 05:00] LABS: BASOPHILS 0.1 % (0-2); EOSINOPHILS 3.6 % (0-7); HEMOGLOBIN 8.9 g/dL (13.5-17.5); IMMATURE GRANULOCYTES 0.4 % (0-5); LYMPHOCYTES 6.1 % (15-50); MCH 27.8 pg (26.0-34.0); MCV 84.4 fL (80.0-100.0); MEAN PLATELET VOLUME 9.2 fL (7.4-10.4); MONOCYTES 20.7 % (2-11); NEUTROPHILS 69.1 % (40-80); PLATELET COUNT 311 10x3/uL (130-400); RDW 14.6 % (11.5-14.5); WBC 14.3 10x3/uL (4.8-10.8)
[2018-07-23 05:21] LABS: ANION GAP 17.6 mmol/L (8-16); CARBON DIOXIDE 19.1 mmol/L (21.0-32.0); CREATININE - SERUM 2.1 mg/dL (0.6-1.3); POTASSIUM - SERUM 4.7 mmol/L (3.5-5.1); VANCOMYCIN - RANDOM 3.4 ug/mL (10.0-20.0)
[2018-07-23 05:23] LABS: CALCIUM 6.3 mg/dL (8.5-10.1)
[2018-07-23 10:10] VITALS: BP 119/74
[2018-07-23 14:23] VITALS: BP 119/81
[2018-07-23 16:00] VITALS: BP 111/76
[2018-07-23 20:00] VITALS: BP 125/86
[2018-07-23 22:48] LABS: HEMATOCRIT 24.7 % (42.0-54.0); HEMOGLOBIN 8.4 g/dL (13.5-17.5)
[2018-07-24] VITALS: BP 123/79
[2018-07-24 03:00] VITALS: BP 113/83
--- NOTE | 2018-07-24 04:58 | NUR ---
PT IN BED IN LOW FOWLERS POSITION. ALERT AND ORIENTED X4. RESPIRATIONS EVEN AND UNLABORED. VITAL SIGNS STABLE AND AFEBRILE. NO VISUAL CUES OF DISTRESS NOTED. DENIES ANY OTHER NEEDS AT THIS TIME. BED LOW, SIDE RAILS UP X2. CALL LIGHT IN REACH. WILL CONTINUE TO MONITOR.
[2018-07-24 05:41] LABS: ANION GAP 16.8 mmol/L (8-16); CARBON DIOXIDE 20.8 mmol/L (21.0-32.0); CREATININE - SERUM 1.9 mg/dL (0.6-1.3); POTASSIUM - SERUM 4.6 mmol/L (3.5-5.1)
[2018-07-24 05:48] LABS: BASOPHILS 0.1 % (0-2); CALCIUM 6.1 mg/dL (8.5-10.1); EOSINOPHILS 3.8 % (0-7); HEMOGLOBIN 10.1 g/dL (13.5-17.5); IMMATURE GRANULOCYTES 0.4 % (0-5); LYMPHOCYTES 12.1 % (15-50); MCH 28.3 pg (26.0-34.0); MCHC 33.7 g/dL (31.0-37.0); MEAN PLATELET VOLUME 10.1 fL (7.4-10.4); MONOCYTES 11.1 % (2-11); NEUTROPHILS 72.5 % (40-80); PLATELET COUNT 308 10x3/uL (130-400); RBC 3.57 10x6/uL (4.20-6.10); RDW 14.5 % (11.5-14.5); WBC 13.6 10x3/uL (4.8-10.8)
--- NOTE | 2018-07-24 08:00 | NUR ---
MORNING ASSSESSMENT COMPLETE. SEE ASSESSMENT FLOWSHEET FOR FURTHER DETAILS PT LYING IN BED AAO X4 TO PERSON, PLACE, TIME, AND SITUATION. DENIES NEEDS AT THIS TIME. CL IN REACH
[2018-07-24 09:23] VITALS: BP 113/80
--- NOTE | 2018-07-24 13:42 | NUR ---
NUTRITION F/U CHART REVIEWED. PT TOLERATING AHA DIET WITH 50% INTAKE LUNCH. WILL CONTINUE TO PROVIDE DIET, MONITOR PO INTAKE. RD FOLLOWING
[2018-07-24 13:49] VITALS: BP 107/67
[2018-07-24 15:03] LABS: HEMATOCRIT 31.5 % (42.0-54.0); HEMOGLOBIN 10.7 g/dL (13.5-17.5)
[2018-07-24 18:34] VITALS: BP 114/79
--- NOTE | 2018-07-24 19:00 | NUR ---
ALERT AND ORIENTED WHEN ENTERING THE ROOM. RIGHT SIDE COLOSTOMY. PT STATES HE PROVIDES HIS OWN COLOSTOMY CARE. RIGHT HAND JOINTS SLIGHTLY SWOLLEN TO HAND. LEFT HAND PRESENTS MORE SWOLLEN. RIGHT SHOULDER IV WITH LR @ 100 INFUSING. LEFT FOREARM SALINE LOCKED. GUTIERREZ CATHETER WITH DARK URINE NOTED. CALL LIGHT IN REACH. CPOC.
[2018-07-24 21:09] VITALS: BP 116/77
[2018-07-24 23:01] LABS: HEMATOCRIT 29.6 % (42.0-54.0); HEMOGLOBIN 10.1 g/dL (13.5-17.5)
[2018-07-25 00:23] VITALS: BP 124/80
--- NOTE | 2018-07-25 03:07 | NUR ---
I have reviewed this patient and I concur with the Shift Assessment completed by the Licensed Practical Nurse today this shift.
[2018-07-25 05:09] VITALS: BP 138/84
[2018-07-25 06:06] LABS: BASOPHILS 0.1 % (0-2); EOSINOPHILS 0.2 % (0-7); HEMATOCRIT 27.8 % (42.0-54.0); HEMOGLOBIN 9.4 g/dL (13.5-17.5); IMMATURE GRANULOCYTES 0.3 % (0-5); LYMPHOCYTES 4.4 % (15-50); MCH 28.4 pg (26.0-34.0); MCHC 33.8 g/dL (31.0-37.0); MEAN PLATELET VOLUME 10.1 fL (7.4-10.4); MONOCYTES 14.2 % (2-11); NEUTROPHILS 80.8 % (40-80); PLATELET COUNT 292 10x3/uL (130-400); RBC 3.31 10x6/uL (4.20-6.10); RDW 14.7 % (11.5-14.5); WBC 12.6 10x3/uL (4.8-10.8)
[2018-07-25 06:13] LABS: ANION GAP 17.5 mmol/L (8-16); CARBON DIOXIDE 21.2 mmol/L (21.0-32.0); POTASSIUM - SERUM 4.7 mmol/L (3.5-5.1)
[2018-07-25 06:24] LABS: CREATININE - SERUM 2.4 mg/dL (0.6-1.3)
[2018-07-25 06:27] LABS: CALCIUM 5.7 mg/dL (8.5-10.1)
--- NOTE | 2018-07-25 06:40 | NUR ---
PAGED KEIRA HARPER APRN ABOUT 5.7 CALCIUM. IMMEDIATE RETURN PHONE CALL. RELAYED CALCIUM TO QC TECH. NO ORDERS GIVEN AT THIS TIME.
--- NOTE | 2018-07-25 08:00 | NUR ---
MORNING ASSESSMENT COMPLETE. SEE ASSESSMENT FLOWSHEET FOR FURTHER DETAILS. PT LYING IN BED AAO X4 TO PERSON, PLACE, TIME, AND SITUATION. DENIES NEEDS AT THIS TIME. CL IN REACH
[2018-07-25 08:13] VITALS: BP 113/83
[2018-07-25 12:21] VITALS: BP 97/73
--- NOTE | 2018-07-25 14:01 | MORECARE ---
CASE MANAGEMENT DISCHARGE SUMMARY PATIENT: VALENTINA WEIR SR UNIT: [id number] ADM DATE: 07/19/18 AGE: 68 : 51 SEX: M ROOM/BED: D.2206 AUTHOR: ADINA PAREKH PHYSICIAN: REFERRING PHYSICIAN: NOELLE OATES MD DATE OF SERVICE: 07/25/18 Discharge Plan Patient Name: VALENTINA WEIR [facility] [facility] 1950 Planned Disposition: Home Anticipated Discharge Date: Discharge Date: Expected LOS: Initial Reviewer: [email or web address] Initial Review Date: 07/19/2018 Generated: 07/25/18 3:01 pm DCPIA - Discharge Planning Initial Assessment Updated by [email or web address]: Tracey Tolbert on 07/25/18 2:00 pm * Is the patient Alert and Oriented? Yes * How many steps to enter\exit or inside your home? * PCP [facility]IRA [facility] [place] * Pharmacy [facility] * Preadmission Environment Home with Family * ADLs Independent * Equipment Cane Ostomy Supplies * List name and contact numbers for known caregivers / representatives who currently or will assist patient after discharge: JED LOVE (SISTER) [phone] * Verbal permission to speak to the caregivers and representatives has been obtained from the patient. N/A * Community resources currently utilized None * Additional services required to return to the preadmission environment? No * Can the patient safely return to the preadmission environment? Yes * Has this patient been hospitalized within the prior 30 days at any hospital? No Patient Name: VALENTINA WEIR Page [phone] at 1401 All edits/amendments must be made on the electronic document DICTATION DATE: 07/25/18 1401 CLAIMS ANALYST: CATERINA 07/25/18 1401 RPT#: [id number] DC DATE: STATUS: ADM IN [facility] [address] [place] [address] END OF REPORT
--- NOTE | 2018-07-25 14:09 | MORECARE ---
CASE MANAGEMENT DISCHARGE SUMMARY PATIENT: VALENTINA WEIR UNIT: [id number] ADM DATE: 07/19/18 AGE: 68 : 51 SEX: M ROOM/BED: D.2206 AUTHOR: IZABELLA,DOC PHYSICIAN: REFERRING PHYSICIAN: NOELLE OATES MD DATE OF SERVICE: 07/25/18 Discharge Plan Patient Name: VALENTINA WEIR Facility: [facility]:[place] : 1950 Planned Disposition: Home Anticipated Discharge Date: Discharge Date: Expected LOS: Initial Reviewer: [email or web address] Initial Review Date: 07/19/2018 Generated: 07/25/18 3:09 pm Comments DCP- Discharge Planning Updated by [email or web address]: Tracey Tolbert on 07/25/18 1:[address] Patient Name: VALENTINA WEIR Admission Status: ER Accout number: [id number] Admission Date: 07-19-2018 : 1950 Admission Diagnosis:SEPSIS, UNSPECIFIED ORGANISM Attending: NOELLE OATES Current LOS: 6 Anticipated DC Date: Planned Disposition: Home Primary Insurance: [employer]ICARE ADV Discharge Planning Comments: CM met with patient to complete initial dc planning assessment. CM educated patient on the CM role and verbal consent given by patient to complete assessment. Patient lives at home with his sister. At discharge patient plans to return home and feels this is a safe discharge. CM discussed availability of home health, rehab services, and medical equipment. He stated that a family member will be driving him home at discharge. Patient denied known discharge needs at this time. He does have ostomy supplies and a cane, but stated he does not use it. CM will continue to follow and will assist as needed with dc plans/needs. Indexer: Tracey Tolbert DCPIA - Discharge Planning Initial Assessment Updated by [email or web address]: Tracey Tolbert on 07/25/18 2:00 pm * Is the patient Alert and Oriented? Yes * How many steps to enter\exit or inside your home? * PCP NADIRA [place] * Pharmacy [facility] * Preadmission Environment Home with Family * ADLs Independent * Equipment Cane Ostomy Supplies * List name and contact numbers for known caregivers / representatives who currently or will assist patient after discharge: JED LOVE (SISTER) [phone] * Verbal permission to speak to the caregivers and representatives has been obtained from the patient. N/A * Community resources currently utilized None * Additional services required to return to the preadmission environment? No * Can the patient safely return to the preadmission environment? Yes * Has this patient been hospitalized within the prior 30 days at any hospital? No Last DP export: 07/25/18 1:01 p Patient Name: VALENTINA WEIR Page [phone] at 1409 All edits/amendments must be made on the electronic document DICTATION DATE: 07/25/181408 MARKETING ASSISTANT MANAGER: CATERINA 07/25/181408 RPT#: [id number] DC DATE: STATUS: ADM IN [facility] [address] [place] [address] END OF REPORT
[2018-07-25 16:30] VITALS: BP 115/82
--- NOTE | 2018-07-25 20:14 | NUR ---
AWAKE,ALERT,UP AD TAMY IN ROOM. RESP EVEN AND UNLABORED. COMPLAINTS OF PAIN TO HANDS AND COLOSTOMY SITE. NORCO 7.5 MG GIVEN PER ORDERS. IV INFUSING TO LEFT SHOULDER WITHOUT REDNESS OR EDEMA NOTED. HAS SL TO LFA INTACT. CL IN REACH
[2018-07-25 21:05] VITALS: BP 112/85
--- NOTE | 2018-07-26 02:50 | NUR ---
I have reviewed this patient and I concur with the Shift Assessment completed by the Licensed Practical Nurse today this shift.
--- NOTE | 2018-07-26 04:03 | NUR ---
I have reviewed this patient and I concur with the Shift Assessment completed by the Licensed Practical Nurse today this shift.
[2018-07-26 04:43] VITALS: BP 134/84
[2018-07-26 05:02] LABS: BASOPHILS 0.1 % (0-2); HEMATOCRIT 29.3 % (42.0-54.0); HEMOGLOBIN 9.9 g/dL (13.5-17.5); IMMATURE GRANULOCYTES 0.6 % (0-5); MCH 28.4 pg (26.0-34.0); MCHC 33.8 g/dL (31.0-37.0); MCV 84.2 fL (80.0-100.0); MEAN PLATELET VOLUME 9.5 fL (7.4-10.4); NEUTROPHILS 66.3 % (40-80); PLATELET COUNT 290 10x3/uL (130-400); RBC 3.48 10x6/uL (4.20-6.10); WBC 9.7 10x3/uL (4.8-10.8)
[2018-07-26 05:21] LABS: ALBUMIN 2.5 g/dL (3.4-5.0); BILIRUBIN - TOTAL 0.17 mg/dL (0.2-1.3); CARBON DIOXIDE 19.3 mmol/L (21.0-32.0); CREATININE - SERUM 2.3 mg/dL (0.6-1.3); POTASSIUM - SERUM 4.3 mmol/L (3.5-5.1); PROTEIN - SERUM 7.1 g/dL (6.4-8.2)
[2018-07-26 05:24] LABS: CALCIUM 5.7 mg/dL (8.5-10.1); MAGNESIUM - SERUM 0.5 mg/dL (1.8-2.4)
[2018-07-26 08:47] VITALS: BP 115/84
[2018-07-26 12:17] LABS: UPE RAND - ALBUMIN 29.1 % (()); UPE RAND - ALPHA 1 GLOBULIN 3.2 % (()); UPE RAND - BETA GLOBULIN 29.5 % (()); UPE RAND - GAMMA GLOBULIN 25.1 % (())
[2018-07-26 12:49] VITALS: BP 122/94
[2018-07-26 16:48] VITALS: BP 118/79
--- NOTE | 2018-07-26 20:51 | NUR ---
AWAKE,ALERT,NO COMPLAITNS VOICED. UP AD TAMY IN ROOM. RESP UNLABORED. IV INFUSING TO RIGHT SHOULDER WITHOUT REDNESS OR EDEMA NOTED. CL IN REACH
[2018-07-26 21:03] VITALS: BP 98/60
[2018-07-27 04:45] VITALS: BP 104/59
--- NOTE | 2018-07-27 04:48 | NUR ---
PT IN BED IN LOW FOWLERS POSITION. REPIRATIONS EVEN AND UNLABORED. VITAL SIGNS STABLE AND AFEBRILE. NO VISUAL CUES OF DISTRESS NOTED. DENIES ANY OTHER NEEDS AT THIS TIME. BED LOW, SIDE RAILS UP X2. CALL LIGHT IN REACH. WILL CONTINUE TO MONITOR.
[2018-07-27 06:00] LABS: BASOPHILS 0.2 % (0-2); EOSINOPHILS 14.5 % (0-7); HEMATOCRIT 27.9 % (42.0-54.0); HEMOGLOBIN 9.4 g/dL (13.5-17.5); IMMATURE GRANULOCYTES 0.3 % (0-5); LYMPHOCYTES 16.4 % (15-50); MCH 28.2 pg (26.0-34.0); MCHC 33.7 g/dL (31.0-37.0); MCV 83.8 fL (80.0-100.0); MEAN PLATELET VOLUME 9.6 fL (7.4-10.4); MONOCYTES 4.6 % (2-11); PLATELET COUNT 308 10x3/uL (130-400); RBC 3.33 10x6/uL (4.20-6.10); RDW 14.9 % (11.5-14.5); WBC 9.3 10x3/uL (4.8-10.8)
[2018-07-27 06:11] LABS: INR 1.09 (0.85-1.17); PROTIME 13.6 SECONDS (11.6-15.0)
[2018-07-27 06:27] LABS: ALBUMIN 2.2 g/dL (3.4-5.0); ANION GAP 17.3 mmol/L (8-16); BILIRUBIN - TOTAL 0.33 mg/dL (0.2-1.3); CARBON DIOXIDE 20.5 mmol/L (21.0-32.0); CREATININE - SERUM 2.4 mg/dL (0.6-1.3); PHOSPHOROUS 3.5 mg/dL (2.5-4.9); POTASSIUM - SERUM 3.8 mmol/L (3.5-5.1); PROTEIN - SERUM 6.4 g/dL (6.4-8.2)
[2018-07-27 06:32] LABS: MAGNESIUM - SERUM 1.8 mg/dL (1.8-2.4)
[2018-07-27 06:33] LABS: CALCIUM 5.6 mg/dL (8.5-10.1)
--- NOTE | 2018-07-27 07:00 | NUR ---
OFF UNIT VIA BED TO GI LAB.
--- NOTE | 2018-07-27 08:25 | NUR ---
REQUESTED AND GIVNE ONE HYDROCODONE PO FOR C/O LEFTLOWER QUAD PAIN LEVEL 10. HE REPORTS THIS CHRONIC. WILL MONITOR.
--- NOTE | 2018-07-27 09:00 | NUR ---
RETURNED FROM GI LAB. A/O X3. LUNGS ARE CLEAR BILATERALLY, NO COUGH NOTED. SKIN IS INTACT WITHOUT REDNESS. COLOSTOMY IS PATENT WITH LIQUID GREEN STOOL. IV TO RIGHT FOREARM IS PATENT WITHOUT REDNESS AT INSERTION SITE. GUTIERREZ PATENT WITH CLEAR YELLOW URINE. DENIES NEEDS.
--- NOTE | 2018-07-27 10:19 | NUR ---
NUTRITION F/U PT TOLERATING REG SOFT DIET. 75% INTAKE BREAKFAST. WILL CONTINUE TO PROVIDE DIET, ADD ENSURE. MONITOR INTAKE. RD FOLLOWING
--- NOTE | 2018-07-27 12:00 | NUR ---
CHANGED OSTOMY BAG PER SELF. ATTEMPTS TO INSTRUCT IN PROPER TECHNIQUE WERE REPULSSED. WILL CONTINUE TO MONITOR.
[2018-07-27 13:37] VITALS: BP 124/89
--- NOTE | 2018-07-27 15:45 | NUR ---
REQUESTED AND GIVEN ONE HYDROCODONE PO FOR C/O LEFT LOWER QUAD PAIN LEVEL 10. WILL MONITOR.
[2018-07-27 17:26] VITALS: BP 98/69
--- NOTE | 2018-07-27 18:32 | NUR ---
ATE MOST OF SUPPER TRAY. DENIES NEEDS. NO CHANGES NOTED.
[2018-07-27 20:37] VITALS: BP 103/64
[2018-07-28 00:55] VITALS: BP 124/60
--- NOTE | 2018-07-28 01:22 | NUR ---
REFUSED TELEMETRY. 20G IV RESITED TO LEFT FOREARM. WILL CONTINUE TO MONITOR.
--- NOTE | 2018-07-28 04:52 | NUR ---
I have reviewed this patient and I concur with the Shift Assessment completed by the Licensed Practical Nurse today this shift.
[2018-07-28 05:33] VITALS: BP 112/60
[2018-07-28 06:22] LABS: BASOPHILS 0.2 % (0-2); EOSINOPHILS 20.6 % (0-7); HEMATOCRIT 27.2 % (42.0-54.0); IMMATURE GRANULOCYTES 0.4 % (0-5); LYMPHOCYTES 15.3 % (15-50); MCH 28.1 pg (26.0-34.0); MCHC 33.1 g/dL (31.0-37.0); MEAN PLATELET VOLUME 9.5 fL (7.4-10.4); MONOCYTES 7.5 % (2-11); PLATELET COUNT 294 10x3/uL (130-400); RDW 14.8 % (11.5-14.5); WBC 8.5 10x3/uL (4.8-10.8)
[2018-07-28 06:40] LABS: ALBUMIN 2.2 g/dL (3.4-5.0); BILIRUBIN - TOTAL 0.19 mg/dL (0.2-1.3); CARBON DIOXIDE 21.5 mmol/L (21.0-32.0); CREATININE - SERUM 2.2 mg/dL (0.6-1.3); PHOSPHOROUS 4.2 mg/dL (2.5-4.9); PROTEIN - SERUM 6.4 g/dL (6.4-8.2)
[2018-07-28 06:42] LABS: ANION GAP 15.9 mmol/L (8-16); MAGNESIUM - SERUM 1.3 mg/dL (1.8-2.4); POTASSIUM - SERUM 4.4 mmol/L (3.5-5.1)
--- NOTE | 2018-07-28 07:35 | NUR ---
REQUESTED AND GIVEN ONE HYDROCODONE PO FOR C/O LEFT LOWER QUAD PAIN LEVEL 10. WILL MONITOR. LUNGS ARE CLEAR BILATERALLY, NO COUGH NOTED. SKIN IS INTACT WITHOUT REDNESS. COLOSTOMY IS PATENT WITH LIQUID GREEN STOOL. PATIENT HAD TO REPLACE APPLIANCE THIS AM. WILL ATTEMPT TO EDUCATE ON CORRECT PLACEMENT AGAIN. IV TO LEFT FOREARM IS PATENT WITHOUT REDNESS AT INSERTION SITE. DISCUSSED REMOVAL OF GUTIERREZ. PATIENT REQUESTED I REMOVE IT. D/C WITH TIP INTACT WITHOUT DIFFCULTY. DENIES NEEDS.
[2018-07-28 08:54] VITALS: BP 109/77
[2018-07-28 12:11] VITALS: BP 108/75
--- NOTE | 2018-07-28 12:30 | NUR ---
ATE ABOUT HALF OF LUNCH TRAY. DENIES NEEDS.
[2018-07-28] MEDS ORDERED: QUESTRAN PACKET PO (14:01)
[2018-07-28] MEDS ORDERED: CARAFATE1 G PO (14:01)
[2018-07-28] MEDS ORDERED: PROTONIX40 MG PO (14:01)
[2018-07-28] MEDS ORDERED: MAG-OXIDE400 MG PO (14:01)
[2018-07-28] MEDS ORDERED: ZYLOPRIM100 MG PO (14:01)
[2018-07-28] MEDS ORDERED: FLORAJEN3 CAPS460 MG PO (14:01)
[2018-07-28] MEDS ORDERED: OMNICEF300 MG PO (14:01)
--- NOTE | 2018-07-28 15:00 | NUR ---
ATTEMPTED TO INSTRUCT ON APPLIING OSTOMY APPLIANCE. PATIENT UNWILLING TO LISTEN. STATED THIS WAS THE WAY HE DID IT AND STAFF DIDN'T KNOW WHAT THEY WERE TALKNG ABOUT.
--- NOTE | 2018-07-28 15:49 | NUR ---
DISCHARGE ON HOLD PER NEPHROLOGY AT THIS TIME. PATIENT CONTENT TO STAY SINCE HE HAS NO RIDE TODAY.
--- NOTE | 2018-07-28 15:55 | MORECARE ---
CASE MANAGEMENT DISCHARGE SUMMARY PATIENT: VALENTINA WEIR UNIT: [id number] ADM DATE: 07/19/18 AGE: 68 : 51 SEX: M ROOM/BED: D.2206 AUTHOR: IZABELLADOC PHYSICIAN: REFERRING PHYSICIAN: NOELLE OATES MD DATE OF SERVICE: 07/28/18 Discharge Plan Patient Name: VALENTINA WEIR Facility: [facility]:[place] : 1950 Planned Disposition: Home Anticipated Discharge Date: Discharge Date: Expected LOS: Initial Reviewer: [email or web address] Initial Review Date: 07/19/2018 Generated: 07/28/18 4:55 pm Comments DCP- Discharge Planning Updated by [id number]: Tracey Tolbert on 07/28/18 2:[address] Patient will be discharged home tomorrow, per renal. IMM served and explained DCP- Discharge Planning Updated by [id number]: Tracey Tolbert on 07/25/18 1:[address] Patient Name: VALENTINA WEIR Admission Status: ER Accout number: [id number] Admission Date: 07-19-2018 : 1950 Admission Diagnosis:SEPSIS, UNSPECIFIED ORGANISM Attending: NOELLE OATES Current LOS: 6 Anticipated DC Date: Planned Disposition: Home Primary Insurance: [employer] [facility] Discharge Planning Comments: CM met with patient to complete initial dc planning assessment. CM educated patient on the CM role and verbal consent given by patient to complete assessment. Patient lives at home with his sister. At discharge patient plans to return home and feels this is a safe discharge. CM discussed availability of home health, rehab services, and medical equipment. He stated that a family member will be driving him home at discharge. Patient denied known discharge needs at this time. He does have ostomy supplies and a cane, but stated he does not use it. CM will continue to follow and will assist as needed with dc plans/needs. Hose Finisher: Tracey Tolbert DCPIA - Discharge Planning Initial Assessment Updated by [email or web address]: Tracey Tolbert on 07/25/18 2:00 pm * Is the patient Alert and Oriented? Yes * How many steps to enter\exit or inside your home? * PCP [facility]IRA [facility] [place] * Pharmacy [facility] * Preadmission Environment Home with Family * ADLs Independent * Equipment Cane Ostomy Supplies * List name and contact numbers for known caregivers / representatives who currently or will assist patient after discharge: JED LOVE (SISTER) [phone] * Verbal permission to speak to the caregivers and representatives has been obtained from the patient. N/A * Community resources currently utilized None * Additional services required to return to the preadmission environment? No * Can the patient safely return to the preadmission environment? Yes * Has this patient been hospitalized within the prior 30 days at any hospital? No Coverage Notice Reviewer: [email or web address] Bianca Tolbert Notice Issued Date-Time: 07/28/2018 15:50 Notice Type: IM Discharge Notice Notice Delivered To: Patient Relationship to Patient: Geriatric Psychiatrist Name: Delivery Method: HAND - Hand Delivered Jennifer Days: Prior Verbal Notification: Recipient Understood Notice: Yes Recipient Signature: Yes Med Rec Note Co-signed by Attending: Coverage Notice Comment: Last DP export: 07/25/18 1:09 p Patient Name: VALENTINA WEIR Page [phone] at 1555 All edits/amendments must be made on the electronic document DICTATION DATE: 07/28/181553 CREW SCHEDULER: CATERINA 07/28/181553 RPT#: [id number] DC DATE: STATUS: ADM IN [facility] [address] [place] [address] END OF REPORT
[2018-07-28 16:58] VITALS: BP 112/80
[2018-07-29 00:13] VITALS: BP 120/80
--- NOTE | 2018-07-29 04:20 | NUR ---
I have reviewed this patient and I concur with the Shift Assessment completed by the Licensed Practical Nurse today this shift.
--- NOTE | 2018-07-29 04:21 | NUR ---
SUPINE IN BED, EYES CLOSED, RESPIRATIONS EVEN. SPONTANEOUS EYE OPENING UPON VERBAL STIMULATION. DENIES NEEDS AT THIS TIME.
[2018-07-29 05:47] LABS: BASOPHILS 0.1 % (0-2); EOSINOPHILS 21.6 % (0-7); HEMATOCRIT 28.4 % (42.0-54.0); HEMOGLOBIN 9.3 g/dL (13.5-17.5); IMMATURE GRANULOCYTES 0.5 % (0-5); LYMPHOCYTES 9.1 % (15-50); MCH 28.4 pg (26.0-34.0); MCHC 32.7 g/dL (31.0-37.0); MCV 86.6 fL (80.0-100.0); MEAN PLATELET VOLUME 9.7 fL (7.4-10.4); MONOCYTES 14.9 % (2-11); NEUTROPHILS 53.8 % (40-80); PLATELET COUNT 325 10x3/uL (130-400); RBC 3.28 10x6/uL (4.20-6.10); WBC 8.6 10x3/uL (4.8-10.8)
[2018-07-29 06:05] LABS: ALBUMIN 2.2 g/dL (3.4-5.0); ANION GAP 15.8 mmol/L (8-16); BILIRUBIN - TOTAL 0.21 mg/dL (0.2-1.3); CARBON DIOXIDE 21.7 mmol/L (21.0-32.0); CREATININE - SERUM 2.1 mg/dL (0.6-1.3); MAGNESIUM - SERUM 1.1 mg/dL (1.8-2.4); POTASSIUM - SERUM 4.5 mmol/L (3.5-5.1); PROTEIN - SERUM 6.5 g/dL (6.4-8.2)
[2018-07-29 06:19] LABS: PHOSPHOROUS 2.9 mg/dL (2.5-4.9)
--- NOTE | 2018-07-29 08:04 | NUR ---
PT SITTING UP IN BED WATCHING TV. DENIES ANY NEEDS. NO S/S OF ACUTE DISTRESS. CL IN PLACE.
[2018-07-29] MEDS ORDERED: MAG-OXIDE400 MG PO ×2 (08:43→10:09)
[2018-07-29 09:57] VITALS: BP 103/68
[2018-07-29] MEDS ORDERED: TUMS X-STR300 MG PO (09:59)
[2018-07-29] MEDS ORDERED: OS-CAL500 MG PO (10:09)
--- NOTE | 2018-07-29 10:13 | NUR ---
SPOKE WITH JAYJAY AWAN FOR RENAL ABOUT IV MG. PT HAS NO IV AND HAD PREVIOUSLY REFUSED TO BE RESITED. [employer] AIRCRAFT CONTROLLER WANTED ME TO ATTEMPT. SPOKE WITH PT ABOUT IMPORTANCE OF REPLACING MAGNESUIM AND NEEDING NEW IV. PT "UNDERSTANDS", BUT REFUSED TO HAVE IV RESITED. CONT TO FOLLOW EP. NO S/S OF ACUTE DISTRESS. CL IN PLACE.
--- NOTE | 2018-07-29 12:53 | NUR ---
DC INSTRUCTIONS AND EDUCATION GIVEN TO PT. STRESSED IMPORTANCE OF TAKING MEDICATIONS AND FOLLOWING UP WITH THE MD. EXPLAINED THE NEGATIVE EFFECTS NOT HAVING A GOOD MAGNESIUM AND CALCIUM LEVEL CAN TAKE ON A PT. PT "UNDERSTANDS" A;L BELONGINGS WITH PT. PT PHONED NIECE FOR EXPLOSION WELDER. NO S/S OF ACUTE DISTRESS. NO IV NOTED. CL IN PLACE.
--- NOTE | 2018-07-29 13:19 | NUR ---
NETWORK CONTROL TECHNICIAN ASSISTED PT OFF THE FLOOR. ALL BELONGINGS WITH PT. NO S/S OF ACUTE DISTRESS.
--- NOTE | 2018-07-31 12:59 | MORECARE ---
CASE MANAGEMENT DISCHARGE SUMMARY PATIENT: VALENTINA WEIR UNIT: [id number] ADM DATE: 07/19/18 AGE: 68 : 51 SEX: M ROOM/BED: D.2206 AUTHOR: IZABELLADOC PHYSICIAN: REFERRING PHYSICIAN: NOELLE OATES MD DATE OF SERVICE: 07/31/18 Discharge Plan Patient Name: VALENTINA WEIR Facility: [facility]:[place] : 1950 Planned Disposition: Home Anticipated Discharge Date: Discharge Date: 07/29/2018 Expected LOS: 0 Initial Reviewer: [email or web address] Initial Review Date: 07/19/2018 Generated: 07/31/18 1:59 pm Comments DCP- Discharge Planning Updated by [id number]: Tracey Tolbert on 07/28/18 2:[address] Patient will be discharged home tomorrow, per renal. IMM served and explained DCP- Discharge Planning Updated by [id number]: Tracey Tolbert on 07/25/18 1:[address] Patient Name: VALENTINA WEIR Admission Status: ER Accout number: [id number] Admission Date: 07-19-2018 : 1950 Admission Diagnosis:SEPSIS, UNSPECIFIED ORGANISM Attending: NOELLE OATES Current LOS: 6 Anticipated DC Date: Planned Disposition: Home Primary Insurance: WELLC[employer] MEDICARE ADV Discharge Planning Comments: CM met with patient to complete initial dc planning assessment. CM educated patient on the CM role and verbal consent given by patient to complete assessment. Patient lives at home with his sister. At discharge patient plans to return home and feels this is a safe discharge. CM discussed availability of home health, rehab services, and medical equipment. He stated that a family member will be driving him home at discharge. Patient denied known discharge needs at this time. He does have ostomy supplies and a cane, but stated he does not use it. CM will continue to follow and will assist as needed with dc plans/needs. Embedded Software Manager: Tracey Tolbert DCPIA - Discharge Planning Initial Assessment Updated by [id number]: Tracey Tolbert on 07/25/18 2:00 pm * Is the patient Alert and Oriented? Yes * How many steps to enter\exit or inside your home? * PCP NADIRA BRAXTON * Pharmacy [facility] * Preadmission Environment Home with Family * ADLs Independent * Equipment Cane Ostomy Supplies * List name and contact numbers for known caregivers / representatives who currently or will assist patient after discharge: JED LOVE (SISTER) [phone] * Verbal permission to speak to the caregivers and representatives has been obtained from the patient. N/A * Community resources currently utilized None * Additional services required to return to the preadmission environment? No * Can the patient safely return to the preadmission environment? Yes * Has this patient been hospitalized within the prior 30 days at any hospital? No Coverage Notice Reviewer: [id number] Bianca Tolbert Notice Issued Date-Time: 07/28/2018 15:50 Notice Type: IM Discharge Notice Notice Delivered To: Patient Relationship to Patient: Hospital Insurance Clerk Name: Delivery Method: HAND - Hand Delivered Jennifer Days: Prior Verbal Notification: Recipient Understood Notice: Yes Recipient Signature: Yes Med Rec Note Co-signed by Attending: Coverage Notice Comment: Last DP export: 07/28/18 2:55 p Patient Name: VALENTINA WEIR Page 60670 at 1259 All edits/amendments must be made on the electronic document DICTATION DATE: 07/31/181257 TABLE MAKER: CATERINA 07/31/181257 RPT#: [id number] DC DATE:07/29/18 STATUS: DIS IN [place] [address] [place] [address] END OF REPORT
== END 2018-07-29 13:24 | disposition home or self-care (01) | DRG 683 ==
LOC: D.ER 10:03 → D.EDHOLD 14:16 → D.MS 14:16
PROVIDERS: Emergency Medicine; Family Medicine; Internal Medicine Gastroenterology; ADMIT Internal Medicine Nephrology; ATTEND Internal Medicine Nephrology
DX: N17.9 Acute kidney failure, unspecified (principal); K94.03 Colostomy malfunction; K56.609 Unspecified intestinal obstruction, unspecified as to partial versus complete obstruction; N13.8 Other obstructive and reflux uropathy; N39.0 Urinary tract infection, site not specified; E87.1 Hypo-osmolality and hyponatremia; K91.2 Postsurgical malabsorption, not elsewhere classified; N13.30 Unspecified hydronephrosis; N40.1 Benign prostatic hyperplasia with lower urinary tract symptoms; R33.8 Other retention of urine; D64.9 Anemia, unspecified; N18.9 Chronic kidney disease, unspecified

== ENCOUNTER 2018-08-02 13:42 | Emergency (ER) | payer MEDICARE, MEDICAID ==
[~2018-08-02] VITALS: Ht 180.3 cm; Wt 59.1 kg
[~2018-08-02 13:42] MED LIST changes: +ATARAX 25 MG TA25 MG; +CARAFATE1 G PO; +CYCLOBENZAPRINE10 MG PO; +FLORAJEN3 CAPS460 MG PO; +OMNICEF300 MG PO; +OS-CAL500 MG PO; +QUESTRAN PACKET PO; +TUMS X-STR300 MG PO; +ZYLOPRIM100 MG PO
[2018-08-02 13:47] VITALS: Ht 180.3 cm; Wt 59.1 kg
[2018-08-02 15:54] LABS: BASOPHILS 0.2 % (0-2); EOSINOPHILS 7.3 % (0-7); HEMATOCRIT 34.1 % (42.0-54.0); IMMATURE GRANULOCYTES 0.3 % (0-5); LYMPHOCYTES 9.6 % (15-50); MCH 28.5 pg (26.0-34.0); MCHC 32.3 g/dL (31.0-37.0); MCV 88.3 fL (80.0-100.0); MEAN PLATELET VOLUME 9.2 fL (7.4-10.4); MONOCYTES 9.2 % (2-11); NEUTROPHILS 73.4 % (40-80); PLATELET COUNT 381 10x3/uL (130-400); RBC 3.86 10x6/uL (4.20-6.10); RDW 15.2 % (11.5-14.5); WBC 9.6 10x3/uL (4.8-10.8)
[2018-08-02 16:27] LABS: ALBUMIN 3.1 g/dL (3.4-5.0); ANION GAP 19.4 mmol/L (8-16); BILIRUBIN - TOTAL 0.36 mg/dL (0.2-1.3); CALCIUM 7.8 mg/dL (8.5-10.1); CARBON DIOXIDE 22.3 mmol/L (21.0-32.0); CREATININE - SERUM 2.4 mg/dL (0.6-1.3); POTASSIUM - SERUM 4.7 mmol/L (3.5-5.1); PROTEIN - SERUM 8.6 g/dL (6.4-8.2)
[2018-08-02 17:58] LABS: APPEARANCE CLEAR (CLEAR); BILIRUBIN NEGATIVE (NEGATIVE); COLOR YELLOW (YELLOW); GLUCOSE NEGATIVE (NEGATIVE); KETONE NEGATIVE (NEGATIVE); NITRITE NEGATIVE (NEGATIVE); PROTEIN NEGATIVE (NEGATIVE); SPECIFIC GRAVITY 1.015 (1.005-1.020); UROBILINOGEN NORMAL (NORMAL)
[2018-08-02 20:30] VITALS: BP 124/82
== END 2018-08-02 20:30 | disposition home or self-care (01) ==
LOC: D.ER 13:42
PROVIDERS: Emergency Medicine
DX: R33.9 Retention of urine, unspecified (principal); F17.200 Nicotine dependence, unspecified, uncomplicated

== ENCOUNTER 2018-09-26 08:26 | Inpatient (IN) | payer MEDICARE, MEDICAID ==
[~2018-09-26] VITALS: Ht 180.3 cm; Wt 62.6 kg
[2018-09-26 08:47] LABS: BASOPHILS 0.3 % (0-2); EOSINOPHILS 1.8 % (0-7); HEMATOCRIT 42.7 % (42.0-54.0); HEMOGLOBIN 14.5 g/dL (13.5-17.5); IMMATURE GRANULOCYTES 0.7 % (0-5); LYMPHOCYTES 12.2 % (15-50); MCH 30.1 pg (26.0-34.0); MCV 88.8 fL (80.0-100.0); MEAN PLATELET VOLUME 9.6 fL (7.4-10.4); MONOCYTES 12.6 % (2-11); NEUTROPHILS 72.4 % (40-80); RBC 4.81 10x6/uL (4.20-6.10); RDW 15.9 % (11.5-14.5)
[2018-09-26 08:58] LABS: PLATELET COUNT 281 10x3/uL (130-400)
[2018-09-26 09:09] LABS: ALBUMIN 4.4 g/dL (3.4-5.0); ALKALINE PHOSPHATASE 107 U/L (46-116); ALT (SGPT) 54 U/L (10-68); BILIRUBIN - TOTAL 0.49 mg/dL (0.2-1.3); CALC OSMOLALITY 281 mosm/kg (275-300); CALCIUM 8.9 mg/dL (8.5-10.1); CARBON DIOXIDE 21.8 mmol/L (21.0-32.0); CHLORIDE - SERUM 97 mmol/L (98-107); CREATININE - SERUM 2.4 mg/dL (0.6-1.3); GLUCOSE 94 mg/dL (74-106); PROTEIN - SERUM 8.9 g/dL (6.4-8.2); SODIUM 134 mmol/L (136-145); UREA NITROGEN 51 mg/dL (7-18); eGFR NON AFRICAN AMERICAN 29 mL/min (90-120)
[2018-09-26 09:25] LABS: AMYLASE - SERUM 167 U/L (25-115); CKMB 3.9 U/L (0.0-3.6); CREATINE KINASE 452 UL (21-232); LIPASE 253 U/L (73-393); MAGNESIUM - SERUM 1.3 mg/dL (1.8-2.4); TROPONIN-I < 0.017 ng/mL (0.000-0.060)
[2018-09-26 10:43] VITALS: BP 132/98
--- NOTE | 2018-09-26 11:51 | NUR ---
PT TO FLOOR VIA WHEELCHAIR. A/O X 4. UP AB TAMY. IV TO L FA, PATENT, DRSG C/D/I, MAG SULFATE INFUSING UPON TRANSFER. TELE APPLIED, SINUS TACH. RM AIR. BREATHING EVEN AND UNLABORED. COLOSTOMY TO RLQ. NO EDEMA NOTED. PT STATES PAIN TO RLQ. INFOMED PT THAT NEEDED URINE SAMPLE. URINAL GIVEN. DENIES PUTTING ON A GOWN AT THIS TIME. NON SKID SOCKS APPLIED. FALL PRECAUTIONS IN PLACE. BED LOWERED AND LOCKED. CL IN REACH. WILL CTM.
[2018-09-26 12:02] VITALS: BP 124/82; BMI 19.2
[2018-09-26 12:03] VITALS: BP 124/82
[2018-09-26 14:48] LABS: APPEARANCE CLEAR (CLEAR); BILIRUBIN NEGATIVE (NEGATIVE); COLOR YELLOW (YELLOW); GLUCOSE NEGATIVE (NEGATIVE); KETONE NEGATIVE (NEGATIVE); NITRITE NEGATIVE (NEGATIVE); PROTEIN 1+ mg/dL (NEGATIVE); SPECIFIC GRAVITY 1.015 (1.005-1.020); UROBILINOGEN NORMAL (NORMAL)
[2018-09-26 14:51] LABS: BACTERIA FEW /hpf (NONE SEEN); EPITHELIAL CELLS 0-5 /hpf (0-5); WHITE CELLS - URINE 0-5 /hpf (0-5)
[2018-09-26 14:52] LABS: AMORPHOUS SEDIMENT >1+ /lpf (NONE SEEN)
--- NOTE | 2018-09-26 14:57 | NUR ---
PT C/O PAIN IN ABD NEAR COLOSTOMY. 4 MG MORPHINE GIVEN IN IV TO L FA, PATENT, NO REDNESS OR EDEMA NOTED, DRSG C/D/I. DENIES FURTHER CONCERNS AT THIS TIME. WILL CTM.
[2018-09-26 15:55] VITALS: BP 121/76
--- NOTE | 2018-09-26 20:08 | NUR ---
PT SITTING UP IN BED ALERT AND ORIENTED X4 DRINKING COFFEE. PT DENIES ANY PAIN OR NEEDS AT THIS TIME. PT HAS MEDICATIONS THAT NEED TO BE RECONCILED. STATES HE HASN'T TAKEN MEDS IN TWO WEEKS. BED LOW CALL LIGHT WITHIN REACH. WILL CONTINUE TO MONITOR.
[2018-09-26 20:28] VITALS: BP 109/78
--- NOTE | 2018-09-26 22:14 | NUR ---
PT EATING ORANGE SHERBERT ALERT AND ORIENTED X4 WATCHING TV. BED LOW CALL LIGHT WITHIN REACH. WILL CONTINU TO MONITOR.
--- NOTE | 2018-09-27 00:06 | NUR ---
I have reviewed this patient and I concur with the Shift Assessment completed by the Licensed Practical Nurse today this shift.
[2018-09-27 00:14] VITALS: BP 109/78
--- NOTE | 2018-09-27 00:27 | NUR ---
PT RESTING IN BED ALERT AND ORIENTED. PT DENIES ANY PAIN OR NEEDS AT THIS TIME. BED LOW CALL LIGHT WITHIN REACH. WILL CONTINUE TO MONITOR.
--- NOTE | 2018-09-27 03:35 | NUR ---
PT COMPLAINS OF PAIN 8/10 IN LLQ OF ABDOMEN. PT ALERT AND ORIENTEDX4. PRN PAIN MEDICATION GIVEN. PT DENIES ANY FURTHER NEEDSAT THIS TIME. WILL CONTINUE TO MONITOR.
[2018-09-27 04:46] VITALS: BP 120/78
[2018-09-27 07:04] LABS: BASOPHILS 0.3 % (0-2); EOSINOPHILS 3.7 % (0-7); HEMATOCRIT 37.6 % (42.0-54.0); HEMOGLOBIN 12.4 g/dL (13.5-17.5); IMMATURE GRANULOCYTES 0.4 % (0-5); LYMPHOCYTES 11.6 % (15-50); MCH 29.5 pg (26.0-34.0); MCV 89.5 fL (80.0-100.0); MEAN PLATELET VOLUME 9.5 fL (7.4-10.4); MONOCYTES 10.5 % (2-11); NEUTROPHILS 73.5 % (40-80); PLATELET COUNT 270 10x3/uL (130-400); RDW 15.9 % (11.5-14.5); WBC 7.7 10x3/uL (4.8-10.8)
[2018-09-27 07:43] LABS: ALBUMIN 3.5 g/dL (3.4-5.0); ALKALINE PHOSPHATASE 88 U/L (46-116); BILIRUBIN - TOTAL 0.64 mg/dL (0.2-1.3); CALCIUM 8.4 mg/dL (8.5-10.1); CARBON DIOXIDE 21.4 mmol/L (21.0-32.0); CHLORIDE - SERUM 101 mmol/L (98-107); CREATINE KINASE 357 UL (21-232); CREATININE - SERUM 1.9 mg/dL (0.6-1.3); GLUCOSE 93 mg/dL (74-106); POTASSIUM - SERUM 3.5 mmol/L (3.5-5.1); PROTEIN - SERUM 7.8 g/dL (6.4-8.2); SODIUM 134 mmol/L (136-145); eGFR NON AFRICAN AMERICAN 38 mL/min (90-120)
[2018-09-27 07:45] LABS: ALT (SGPT) 38 U/L (10-68); CALC OSMOLALITY 275 mosm/kg (275-300); UREA NITROGEN 35 mg/dL (7-18)
[2018-09-27 07:46] LABS: CKMB 2.9 U/L (0.0-3.6)
[2018-09-27 08:15] VITALS: BP 93/68
[2018-09-27 11:40] VITALS: BP 123/77
[2018-09-27 14:56] VITALS: Ht 180.3 cm; Wt 62.6 kg
[2018-09-27 15:24] VITALS: BP 108/87
--- NOTE | 2018-09-27 15:31 | NUR ---
POST VOID RESIDUAL 0ML ON THE BLADDER SCANNER.
--- NOTE | 2018-09-27 19:29 | NUR ---
PT IN BED. DENIES NEEDS AT THIS TIME.
[2018-09-27 22:50] VITALS: BP 113/78
[2018-09-28 05:14] VITALS: BP 96/70
[2018-09-28 07:27] VITALS: BP 99/71
--- NOTE | 2018-09-28 07:36 | NUR ---
ROUNDING DONE WITH PATIENT REQUESTING IV PAIN MEDS TO SIDE OF COLOSTOMY. MS 4 MG GIVEN AT 0715 PER REQUEST. LEFT FA PIV SEEN WITH SALINE LOCK. ON ROOM AIR. HX OF PATIENT HAVING COLOSTOMY.
--- NOTE | 2018-09-28 08:22 | NUR ---
URINE SENT TO LAB FOR CULTURE ORDERED.
--- NOTE | 2018-09-28 08:52 | NUR ---
POTASSIUM THIS AM IS 4.5.
[2018-09-28 11:10] VITALS: BP 100/75
--- NOTE | 2018-09-28 14:00 | NUR ---
SALINE LOCK REMOVED WITH CATH TIP INTACT. BELONGINGS BAG GIVEN TO PATIENT FOR HIS STUFF HE IS BEING DISCHARGED, WAITING ON PAPERWORK. PATIENT STATES HE IS GOING TO GO "WALK AROUND" FOR A BIT WHILE WORKING ON PAPERWORK.
--- NOTE | 2018-09-28 15:06 | NUR ---
VERBAL AND WRITTEN DISCHARGE INSTRUCTIONS GIVEN TO PATIENT. PATIENT IS AMBULATORY HIMSELF TO BUS STOP.
--- NOTE | 2018-09-28 17:20 | MORECARE ---
CASE MANAGEMENT DISCHARGE SUMMARY PATIENT: VALENTINA WEIR SR UNIT: [id number] ADM DATE: 09/26/18 AGE: 68 : 51 SEX: M ROOM/BED: D.2133 AUTHOR: IZABELLA,DOC PHYSICIAN: REFERRING PHYSICIAN: NOELLE OATES MD DATE OF SERVICE: 09/28/18 Discharge Plan Patient Name: VALENTINA WEIR Facility: [facility]:[place] : 1950 Planned Disposition: Home Anticipated Discharge Date: 09/28/18 Discharge Date: 09/28/2018 Expected LOS: 2 Initial Reviewer: [id number] Initial Review Date: 09/28/2018 Generated: 09/28/18 6:19 pm Comments DCP- Discharge Planning Updated by [id number]: Kam Nye on 09/28/18 4:[address] Patient Name: VALENTINA WEIR Admission Status: ER Accout number: [id number] Admission Date: 09-26-2018 : 1950 Admission Diagnosis: Attending: NOELLE OATES Current LOS: 2 Anticipated DC Date: 09-28-2018 Planned Disposition: Home Primary Insurance: WELLCARE MEDICARE ADV Discharge Planning Comments: CM MET WITH PT IN ROOM TO DISCUSS DISCHARGE PLANNING AND NEEDS. PT REPORTS LIVING AT HOME INDEPENDENTLY WITH HIS ADULT SISTER. PT HAS NO MEDICAL EQUIPMENT AND NO OUTSIDE SERVICES ASSISTING IN THE HOME. PT HAS COLOSTOMY THAT HE RECEIVES MAIL ORDER SUPPLIES AND MANAGES ON HIS OWN. CM DISCUSSED AVAILABILITY OF HOME HEALTH, REHAB SERVICES AND MEDICAL EQUIPMENT. PT DENIES DISCHARGE NEEDS, REPORTS HE IS RIDING [employer] BUS HOME FOR DISCHARGE TODAY. IMPORTANT MESSAGE FROM MEDICARE PROVIDED AND EXPLAINED. AMUSEMENT RIDE OPERATOR NURSE NOTIFIED. Equipment Engineer: Kam Nye DCPIA - Discharge Planning Initial Assessment Updated by [id number]: Kam Nye on 09/28/18 5:16 pm * Is the patient Alert and Oriented? Yes * How many steps to enter\exit or inside your home? NONE * PCP DR. NADIRA NESBITT, [place] * Pharmacy CHANGING TO [facility] [place] [facility] USING [facility] [address] * Preadmission Environment Home with Family * ADLs Independent * Equipment Ostomy Supplies * Other Equipment NO MEDICAL EQUIPMENT PROVIDER PREFERENCE * List name and contact numbers for known caregivers / representatives who currently or will assist patient after discharge: JED LOVE, SPOUSE, * Verbal permission to speak to the caregivers and representatives has been obtained from the patient. N/A * Community resources currently utilized None * Please name any agencies selected above. NONE * Additional services required to return to the preadmission environment? No * Can the patient safely return to the preadmission environment? Yes * Has this patient been hospitalized within the prior 30 days at any hospital? No Coverage Notice Reviewer: [id number] Bianca Nye Notice Issued Date-Time: 09/28/2018 13:00 Notice Type: IM Discharge Notice Notice Delivered To: Patient Relationship to Patient: Shaper Operator Name: Delivery Method: HAND - Hand Delivered Jennifer Days: Prior Verbal Notification: Recipient Understood Notice: Yes Recipient Signature: Yes Med Rec Note Co-signed by Attending: Coverage Notice Comment: Patient Name: VALENTINA WEIR Page 96402 at 1720 All edits/amendments must be made on the electronic document DICTATION DATE: 09/28/181718 FOOD SERVICES COORDINATOR: CATERINA 09/28/181718 RPT#: [id number] DC DATE:09/28/18 STATUS: DIS IN [facility] [address] [place] [address] END OF REPORT
== END 2018-09-28 15:07 | disposition home or self-care (01) | DRG 392 ==
LOC: D.ER 08:26 → D.M2 10:44
PROVIDERS: Family Medicine; ADMIT Internal Medicine Nephrology; ATTEND Internal Medicine Nephrology
DX: K29.70 Gastritis, unspecified, without bleeding (principal); N17.9 Acute kidney failure, unspecified; E87.1 Hypo-osmolality and hyponatremia; N18.3 Chronic kidney disease, stage 3 (moderate); D64.9 Anemia, unspecified; E83.42 Hypomagnesemia; M10.9 Gout, unspecified; E86.0 Dehydration; K25.9 Gastric ulcer, unspecified as acute or chronic, without hemorrhage or perforation; K20.9 Esophagitis, unspecified; K44.9 Diaphragmatic hernia without obstruction or gangrene; K31.7 Polyp of stomach and duodenum; Z87.891 Personal history of nicotine dependence

== ENCOUNTER 2019-01-24 09:10 | Emergency (ER) | payer MEDICARE, MEDICAID ==
[~2019-01-24] VITALS: Ht 180.3 cm; Wt 61.4 kg
[2019-01-24 09:15] VITALS: Ht 180.3 cm; Wt 61.4 kg
[2019-01-24 10:01] LABS: ALBUMIN 4.5 g/dL (3.4-5.0); ALKALINE PHOSPHATASE 76 U/L (46-116); ALT (SGPT) 25 U/L (10-68); BILIRUBIN - TOTAL 0.96 mg/dL (0.2-1.3); CALC OSMOLALITY 279 mosm/kg (275-300); CARBON DIOXIDE 21.1 mmol/L (21.0-32.0); CHLORIDE - SERUM 98 mmol/L (98-107); CREATININE - SERUM 3.3 mg/dL (0.6-1.3); GLUCOSE 82 mg/dL (74-106); PROTEIN - SERUM 8.9 g/dL (6.4-8.2); SODIUM 135 mmol/L (136-145); UREA NITROGEN 42 mg/dL (7-18); eGFR NON AFRICAN AMERICAN 20 mL/min (90-120)
[2019-01-24 10:05] LABS: AMYLASE - SERUM 140 U/L (25-115); LIPASE 165 U/L (73-393)
[2019-01-24 10:10] LABS: TROPONIN-I < 0.017 ng/mL (0.000-0.060)
[2019-01-24 10:11] LABS: HEMATOCRIT 40.8 % (42.0-54.0); HEMOGLOBIN 13.6 g/dL (13.5-17.5); LYMPHOCYTES 14.5 % (15-50); MCH 30.5 pg (26.0-34.0); MCHC 33.3 g/dL (31.0-37.0); MCV 91.5 fL (80.0-100.0); MEAN PLATELET VOLUME 10.1 fL (7.4-10.4); NEUTROPHILS 74.3 % (40-80); PLATELET COUNT 247 10x3/uL (130-400); POTASSIUM - SERUM 5.3 mmol/L (3.5-5.1); RBC 4.46 10x6/uL (4.20-6.10); RDW 13.7 % (11.5-14.5); WBC 8.2 10x3/uL (4.8-10.8)
[2019-01-24 10:45] LABS: APPEARANCE CLEAR (CLEAR); BACTERIA FEW /hpf (NONE SEEN); BILIRUBIN NEGATIVE (NEGATIVE); COLOR YELLOW (YELLOW); EPITHELIAL CELLS OCC /hpf (0-5); GLUCOSE NEGATIVE (NEGATIVE); HYALINE CAST 0-5 /lpf (NONE SEEN); KETONE SMALL mg/dL (NEGATIVE); MUCUS <1+ /lpf (NONE SEEN); NITRITE NEGATIVE (NEGATIVE); PROTEIN 1+ mg/dL (NEGATIVE); RED CELLS - URINE 0-5 /hpf (0-5); SPECIFIC GRAVITY 1.015 (1.005-1.020); UROBILINOGEN NORMAL (NORMAL); WHITE CELLS - URINE RARE /hpf (0-5)
[2019-01-24] MEDS ORDERED: HYDROCODON-ACE1 EAC7 PO (12:05)
[2019-01-24 12:46] VITALS: BP 109/68
[2019-01-24] MEDS ORDERED: MACROBID100 MG PO (23:54)
== END 2019-01-24 12:30 | disposition home or self-care (01) ==
LOC: D.ER 09:10
PROVIDERS: Emergency Medicine
DX: N39.0 Urinary tract infection, site not specified (principal)

== ENCOUNTER 2019-01-24 16:51 | Inpatient (IN) | payer MEDICARE, MEDICAID ==
[~2019-01-24] VITALS: Ht 180.3 cm; Wt 60.9 kg
[~2019-01-24 16:51] MED LIST changes: +HYDROCODON-ACE1 EAC7 PO
[2019-01-24 19:16] VITALS: BP 119/91
[2019-01-24 22:53] LABS: BASOPHILS 0.2 % (0-2); EOSINOPHILS 0.6 % (0-7); IMMATURE GRANULOCYTES 0.4 % (0-5); LYMPHOCYTES 10.8 % (15-50); MCH 31.1 pg (26.0-34.0); MCHC 34.9 g/dL (31.0-37.0); MEAN PLATELET VOLUME 10.2 fL (7.4-10.4); MONOCYTES 11.1 % (2-11); NEUTROPHILS 76.9 % (40-80); PLATELET COUNT 286 10x3/uL (130-400); RBC 4.82 10x6/uL (4.20-6.10); RDW 13.3 % (11.5-14.5)
[2019-01-24 23:03] LABS: MCV 89.2 fL (80.0-100.0); WBC 10.9 10x3/uL (4.8-10.8)
[2019-01-24 23:08] LABS: ALBUMIN 4.8 g/dL (3.4-5.0); ANION GAP 23.9 mmol/L (8-16); BILIRUBIN - TOTAL 0.86 mg/dL (0.2-1.3); CALCIUM 7.9 mg/dL (8.5-10.1); CARBON DIOXIDE 20.3 mmol/L (21.0-32.0); PROTEIN - SERUM 9.7 g/dL (6.4-8.2)
[2019-01-24 23:11] LABS: CREATININE - SERUM 5.2 mg/dL (0.6-1.3); POTASSIUM - SERUM 4.2 mmol/L (3.5-5.1)
[2019-01-24] MEDS ORDERED: MACROBID100 MG PO (23:54)
[2019-01-25] VITALS (7 sets, daily range): BP systolic 104–144; BP diastolic 68–94; Ht 180.3 cm; Wt 60.9 kg
[2019-01-25 00:11] LABS: APPEARANCE CLEAR (CLEAR); BILIRUBIN NEGATIVE (NEGATIVE); COLOR YELLOW (YELLOW); GLUCOSE NEGATIVE (NEGATIVE); KETONE NEGATIVE (NEGATIVE); NITRITE NEGATIVE (NEGATIVE); PROTEIN 1+ mg/dL (NEGATIVE); SPECIFIC GRAVITY 1.025 (1.005-1.020); UROBILINOGEN NORMAL (NORMAL)
[2019-01-25 00:12] LABS: BACTERIA MODERATE /hpf (NEGATIVE); EPITHELIAL CELLS 0-5 /hpf (0-5); HYALINE CAST 0-5 /lpf (NONE SEEN); RED CELLS - URINE 0-5 /hpf (0-5); WHITE CELLS - URINE 0-5 /hpf (NEGATIVE)
[2019-01-25 01:25] LABS: CREATINE KINASE 720 UL (21-232)
[2019-01-25 01:28] LABS: CKMB 6.3 U/L (0.0-3.6)
--- NOTE | 2019-01-25 03:48 | NUR ---
WENT TO CONDUCT MEDICAL RECONCILIATION WITH PATIENT. PATIENT STATED HE COULD NOT REMEMBER THE NAMES OF THE MEDICATIONS HE WAS TAKING AND THAT HE HAS NOT TAKING THEM IN AWHILE. PATIENT PROVIDED A PHARMACY CARD TO [facility]. WILL PASS ON TO DAY SHIFT TO CALL [facility] TO VERIFY MEDICATIONS.
--- NOTE | 2019-01-25 07:49 | NUR ---
ASSESSMENT DONE. DENIES NEEDS
--- NOTE | 2019-01-25 09:10 | NUR ---
I have reviewed this patient and I concur with the Shift Assessment completed by the Licensed Practical Nurse today this shift.
[2019-01-25 12:38] LABS: BASOPHILS 0.2 % (0-2); EOSINOPHILS 1.1 % (0-7); HEMATOCRIT 39.4 % (42.0-54.0); HEMOGLOBIN 13.8 g/dL (13.5-17.5); IMMATURE GRANULOCYTES 0.3 % (0-5); LYMPHOCYTES 11.6 % (15-50); MCH 31.2 pg (26.0-34.0); MCV 88.9 fL (80.0-100.0); MEAN PLATELET VOLUME 9.9 fL (7.4-10.4); MONOCYTES 12.7 % (2-11); NEUTROPHILS 74.1 % (40-80); PLATELET COUNT 260 10x3/uL (130-400); RBC 4.43 10x6/uL (4.20-6.10)
[2019-01-25 12:47] LABS: INR 1.06 (0.85-1.17); PROTIME 13.3 SECONDS (11.6-15.0)
[2019-01-25 12:49] LABS: D-DIMER-QUANTITATIVE 0.58 ug/mLFEU (0.20-0.54)
[2019-01-25 13:07] LABS: CKMB 9.5 U/L (0.0-3.6); PRO BNP 389 pg/mL (0-125)
[2019-01-25 13:09] LABS: CREATINE KINASE 1099 UL (21-232); TROPONIN-I < 0.017 ng/mL (0.000-0.060)
--- NOTE | 2019-01-25 17:36 | NUR ---
WITHOUT CHANGES OR DISTRESS NOTED AT TIME. DENIES NEEDS
--- NOTE | 2019-01-25 19:11 | NUR ---
MANAGER IMPLEMENTATION AT BED SIDE.
[2019-01-25 19:38] LABS: CKMB 8.5 U/L (0.0-3.6)
[2019-01-25 19:39] LABS: CREATINE KINASE 1050 UL (21-232); TROPONIN-I < 0.017 ng/mL (0.000-0.060)
--- NOTE | 2019-01-25 20:50 | NUR ---
HS MEDS GIVEN WITH FRESH ICE WATER. PT DENIES PAIN OR NEEDS, BED LOW, CL IN REACH.
[2019-01-25 23:45] LABS: CKMB 6.9 U/L (0.0-3.6)
[2019-01-25 23:47] LABS: CREATINE KINASE 921 UL (21-232); TROPONIN-I < 0.017 ng/mL (0.000-0.060)
[2019-01-26] VITALS (7 sets, daily range): BP systolic 98–153; BP diastolic 65–85
--- NOTE | 2019-01-26 02:07 | NUR ---
RESTING WITH EYES CLOSED, RESPERATIONS EVEN, NO S/S DISTRESS NOTED.
--- NOTE | 2019-01-26 03:22 | NUR ---
I have reviewed this patient and I concur with the Shift Assessment completed by the Licensed Practical Nurse today this shift.
[2019-01-26 06:40] LABS: BASOPHILS 0.2 % (0-2); EOSINOPHILS 2.9 % (0-7); HEMATOCRIT 32.8 % (42.0-54.0); HEMOGLOBIN 11.2 g/dL (13.5-17.5); IMMATURE GRANULOCYTES 0.2 % (0-5); LYMPHOCYTES 9.7 % (15-50); MCH 30.2 pg (26.0-34.0); MCHC 34.1 g/dL (31.0-37.0); MCV 88.4 fL (80.0-100.0); MEAN PLATELET VOLUME 10.3 fL (7.4-10.4); PLATELET COUNT 235 10x3/uL (130-400); RBC 3.71 10x6/uL (4.20-6.10); RDW 12.8 % (11.5-14.5); WBC 8.5 10x3/uL (4.8-10.8)
[2019-01-26 07:04] LABS: BILIRUBIN - TOTAL 0.65 mg/dL (0.2-1.3); CARBON DIOXIDE 22.2 mmol/L (21.0-32.0); MAGNESIUM - SERUM 2.2 mg/dL (1.8-2.4); PHOSPHOROUS 4.6 mg/dL (2.5-4.9)
[2019-01-26 07:22] LABS: ALBUMIN 3.2 g/dL (3.4-5.0); ANION GAP 16.2 mmol/L (8-16); CREATININE - SERUM 3.6 mg/dL (0.6-1.3); POTASSIUM - SERUM 3.4 mmol/L (3.5-5.1); PROTEIN - SERUM 6.5 g/dL (6.4-8.2)
[2019-01-26 07:23] LABS: CALCIUM 6.4 mg/dL (8.5-10.1)
--- NOTE | 2019-01-26 07:30 | NUR ---
ASSESSMENT DONE. DENIES NEEDS
--- NOTE | 2019-01-26 10:36 | NUR ---
I have reviewed this patient and I concur with the Shift Assessment completed by the Licensed Practical Nurse today this shift.
[2019-01-26 11:57] LABS: UDS - AMPHET NEGATIVE QUAL (NEGATIVE); UDS - BARB NEGATIVE QUAL (NEGATIVE); UDS - BENZO NEGATIVE QUAL (NEGATIVE); UDS - COCAINE POSITIVE QUAL (NEGATIVE); UDS - OPIATE NEGATIVE QUAL (NEGATIVE); UDS - PCP NEGATIVE QUAL (NEGATIVE); UDS - THC NEGATIVE QUAL (NEGATIVE)
--- NOTE | 2019-01-26 22:15 | NUR ---
INITIAL ROUNDS CMPLETED AT 1915 HRS. PT DNEID ANY DISCOMFORT. ASSESSMENT COMPLETED AT [address] PER CM HR 105. ALERT AND ORIENTED TO PERSON, PLACE AND TIME. [place]. LUNGS ESSENTIALLY CTA. COLOSTOMY NOTED. [place]. PALPABLE PERIPHERAL PULSES. IV TO LFA WITH NS AT 150CC/HR. IV PATENT. PT CHANGED OUT HIS COLOSTOMY BAG AT 2030 HRS. PM MEDS GIVEN. PT CURRENTLY RESTING WITH EYES CLOSED. RESP EVEN AND REGULAR. SR UP X2,CALL LIGHT WITHIN REACH.
--- NOTE | 2019-01-26 23:57 | NUR ---
PT RESTING WITH EYES CLOSED. RESP EVEN AND REGULAR. SR UP X2, CALL LIGHT WITHIN REACH.
--- NOTE | 2019-01-27 02:36 | NUR ---
PT AWAKE; DENIES ANY DISCOMFORT. SR UP X2, CALL LIGHT WITHIN REACH.
[2019-01-27 04:13] VITALS: BP 101/68
--- NOTE | 2019-01-27 04:13 | NUR ---
PT AWAKE; DENIES ANY DISCOMFORT. SR UP X2, CALL LIGHT WITHIN REACH.
--- NOTE | 2019-01-27 06:03 | NUR ---
VSSTHROUGHOUT NIGHT. ST PER CM. PT DENIED ANY DISCOMFORT. NEEDS MET; WILL CONTINUE TO MONITOR.
[2019-01-27 06:04] LABS: BASOPHILS 0.3 % (0-2); EOSINOPHILS 5.2 % (0-7); HEMATOCRIT 29.7 % (42.0-54.0); HEMOGLOBIN 9.8 g/dL (13.5-17.5); LYMPHOCYTES 13.3 % (15-50); MCH 30.2 pg (26.0-34.0); MEAN PLATELET VOLUME 10.2 fL (7.4-10.4); MONOCYTES 11.9 % (2-11); NEUTROPHILS 69.3 % (40-80); PLATELET COUNT 209 10x3/uL (130-400); RBC 3.25 10x6/uL (4.20-6.10)
[2019-01-27 06:10] LABS: MCV 91.4 fL (80.0-100.0); WBC 6.3 10x3/uL (4.8-10.8)
[2019-01-27 06:42] LABS: ALBUMIN 3.1 g/dL (3.4-5.0); ANION GAP 14.4 mmol/L (8-16); BILIRUBIN - TOTAL 0.47 mg/dL (0.2-1.3); CARBON DIOXIDE 21.4 mmol/L (21.0-32.0); POTASSIUM - SERUM 3.8 mmol/L (3.5-5.1); PROTEIN - SERUM 6.2 g/dL (6.4-8.2)
[2019-01-27 06:43] LABS: CREATININE - SERUM 2.1 mg/dL (0.6-1.3); MAGNESIUM - SERUM 1.5 mg/dL (1.8-2.4)
[2019-01-27 06:44] LABS: CALCIUM 6.9 mg/dL (8.5-10.1)
[2019-01-27 08:00] VITALS: BP 108/80
--- NOTE | 2019-01-27 09:18 | NUR ---
AM MEDS GIVEN AT THIS TIME. PT A/O X4, RESP EVEN AND NONLABORED ON RA. LT FA INFUSING NS AT 150CC/HR. PT DENIES ANY NEEDS AT THIS TIME. CALL LIGHT IN REACH, NAD NOTED, WILL CONTINUE TO MONITOR.
[2019-01-27 12:00] VITALS: BP 109/84
--- NOTE | 2019-01-27 14:12 | NUR ---
IVPB ANGELA HUNG AT THIS TIME. PT REQUESTED A CUP OF ICE WATER. PT DENIES ANY OTHER NEEDS AT THIS TIME. CALL LIGHT IN REACH, NAD NOTED, WILL CONITNUE TO MONITOR.
--- NOTE | 2019-01-27 15:57 | NUR ---
PT UP TO BATHROOM, DENIES ANY NEEDS AT THIS TIME. CALL LIGHT IN REACH.
[2019-01-27 16:11] VITALS: BP 104/75
--- NOTE | 2019-01-27 19:35 | NUR ---
INITIAL ROUNDS COMPLETED. PT DENIES ANY DISCOMFORT. AMBULATING HALLS. GAIT EVEN AND STEADY.
[2019-01-27 20:04] VITALS: BP 110/75
--- NOTE | 2019-01-27 22:42 | NUR ---
ASSESSMENT COMPLETED AT 1935 HRS. VSS. ALERT AND ORIENTED TO PERSON, PLACE AND TIME. [place]UR[place]. ST PER CM HR 103. LUNGS CTA. IV TO LFA WITH NS AT 150CC/HR. IV PATENT. COLOSTOMY BAG DRAINING LIQUID STOOL. PM MEDS GIVEN. PT CURRENTLY DOING SELF COLOSTOMY CARE. CALL LIGHT WITHIN REACH.
[2019-01-27 23:23] VITALS: BP 98/69
--- NOTE | 2019-01-28 00:30 | NUR ---
PT RESTING WITH EYES CLOSED. RESP EVEN AND REGULAR. SR UP X2,CALL LIGHT WITHIN REACH.
--- NOTE | 2019-01-28 01:16 | NUR ---
IV OUT WITH CATHETER INTACT. PT REFUSES NEW IV STATING IS GOING HOME IN THE AM. CALL LIGHT WITHIN REACH.
--- NOTE | 2019-01-28 02:29 | NUR ---
PT RESTING WITH EYES CLOSED. RESP EVEN AND REGULAR. SR UP X1, CALL LIGHT WITHIN REACH.
[2019-01-28 04:00] VITALS: BP 98/70
--- NOTE | 2019-01-28 04:30 | NUR ---
PT RESTING WITH EYES CLOSED. RESP EVEN AND REGULAR. SR UP X1, CALL LIGHT WITHIN REACH.
[2019-01-28 06:18] LABS: ALBUMIN 2.9 g/dL (3.4-5.0); ANION GAP 13.8 mmol/L (8-16); BILIRUBIN - TOTAL 0.49 mg/dL (0.2-1.3); CARBON DIOXIDE 21.9 mmol/L (21.0-32.0); CREATININE - SERUM 1.6 mg/dL (0.6-1.3); POTASSIUM - SERUM 3.7 mmol/L (3.5-5.1); PROTEIN - SERUM 5.8 g/dL (6.4-8.2)
[2019-01-28 06:26] LABS: BASOPHILS 0.3 % (0-2); EOSINOPHILS 5.7 % (0-7); HEMATOCRIT 28.3 % (42.0-54.0); HEMOGLOBIN 9.3 g/dL (13.5-17.5); IMMATURE GRANULOCYTES 0.1 % (0-5); LYMPHOCYTES 12.9 % (15-50); MCH 29.9 pg (26.0-34.0); MCHC 32.9 g/dL (31.0-37.0); MEAN PLATELET VOLUME 10.2 fL (7.4-10.4); MONOCYTES 12.2 % (2-11); NEUTROPHILS 68.8 % (40-80); PLATELET COUNT 213 10x3/uL (130-400); RBC 3.11 10x6/uL (4.20-6.10); RDW 13.1 % (11.5-14.5); WBC 7.1 10x3/uL (4.8-10.8)
[2019-01-28 06:34] LABS: CALCIUM 6.6 mg/dL (8.5-10.1); MAGNESIUM - SERUM 0.9 mg/dL (1.8-2.4)
--- NOTE | 2019-01-28 06:40 | NUR ---
AM MAG 0.9. MAG-OX 400MG PO GIVEN PER ELECTROLYTE PROTOCOL. NEEDS MET; WILL CONTINUE TO MONITOR.
--- NOTE | 2019-01-28 07:40 | NUR ---
ASSESSMENT COMPLETED. DENIES ANY NEEDS. TELEMERTY SHOWS SR 84. REFUSES TO HAVE IV RESTARTED. PT IS UP AB TAMY. ALERT AND ORIENTED. WILL MONITOR
--- NOTE | 2019-01-28 07:53 | NUR ---
PT HAS A COLOSTOMY
[2019-01-28 08:00] VITALS: BP 116/83
--- NOTE | 2019-01-28 11:27 | NUR ---
I have reviewed this patient and I concur with the Shift Assessment completed by the Licensed Practical Nurse today this shift.
[2019-01-28 12:00] VITALS: BP 105/83
[2019-01-28] MEDS ORDERED: SODIUM BICARBO650 MG PO (12:58)
--- NOTE | 2019-01-28 17:12 | NUR ---
PT DISCHARGED. INSTRUCTIONS GIVEN TO PT. TO PRIVATE CAR PER WHEELCHAIR.
--- NOTE | 2019-01-29 08:55 | MORECARE ---
CASE MANAGEMENT DISCHARGE SUMMARY PATIENT: VALENTINA WEIR SR UNIT: [id number] ADM DATE: 01/25/19 AGE: 68 : 51 SEX: M ROOM/BED: D.2125 AUTHOR: ADINA PAREKH PHYSICIAN: REFERRING PHYSICIAN: DAVIDE GARCIAS MD DATE OF SERVICE: 01/29/19 Discharge Plan Patient Name: VALENTINA WEIR [facility] : 1950 Planned Disposition: Home Anticipated Discharge Date: 01/28/19 Discharge Date: 01/28/2019 Expected LOS: 3 Initial Reviewer: [email or web address] Initial Review Date: 01/29/2019 Generated: 01/29/19 9:54 am Patient Name: VALENTINA WEIR Page [phone] at 0855 All edits/amendments must be made on the electronic document DICTATION DATE: 01/29/19 0854 HISTOLOGY TECH: CATERINA 01/29/19 0854 RPT#: [id number] DC DATE:01/28/19 STATUS: DIS IN [facility] [address] [place] [address] END OF REPORT
== END 2019-01-28 17:13 | disposition home or self-care (01) | DRG 689 ==
LOC: D.ER 16:51 → D.M2 01-25 00:59 → D.SDCHOLD 01-25 15:39 → D.M2 01-25 15:39
PROVIDERS: Family Medicine; ADMIT Emergency Medicine; ATTEND Emergency Medicine
DX: N39.0 Urinary tract infection, site not specified (principal); N17.0 Acute kidney failure with tubular necrosis; E87.1 Hypo-osmolality and hyponatremia; K91.2 Postsurgical malabsorption, not elsewhere classified; K29.70 Gastritis, unspecified, without bleeding; E83.42 Hypomagnesemia; M10.9 Gout, unspecified; N18.3 Chronic kidney disease, stage 3 (moderate); E86.0 Dehydration; F14.10 Cocaine abuse, uncomplicated

== ENCOUNTER 2019-03-13 08:27 | Inpatient (IN) | payer MEDICARE, MEDICAID ==
[2019-03-13] VITALS (7 sets, daily range): BP systolic 96–111; BP diastolic 70–88; BMI 19.4
[~2019-03-13] VITALS: Ht 180.3 cm; Wt 63.0 kg
[~2019-03-13 08:27] MED LIST changes: +MACROBID100 MG PO; +SODIUM BICARBO650 MG PO
[2019-03-13 09:26] LABS: BASOPHILS 0.2 % (0-2); EOSINOPHILS 1.3 % (0-7); HEMATOCRIT 42.3 % (42.0-54.0); HEMOGLOBIN 14.6 g/dL (13.5-17.5); IMMATURE GRANULOCYTES 0.3 % (0-5); LYMPHOCYTES 12.6 % (15-50); MCHC 34.5 g/dL (31.0-37.0); MCV 89.8 fL (80.0-100.0); MEAN PLATELET VOLUME 10.3 fL (7.4-10.4); MONOCYTES 7.6 % (2-11); RBC 4.71 10x6/uL (4.20-6.10); WBC 9.6 10x3/uL (4.8-10.8)
[2019-03-13 09:33] LABS: ANION GAP 21.6 mmol/L (8-16); CALCIUM 8.3 mg/dL (8.5-10.1); CARBON DIOXIDE 22.5 mmol/L (21.0-32.0); CREATININE - SERUM 5.9 mg/dL (0.6-1.3); POTASSIUM - SERUM 3.1 mmol/L (3.5-5.1)
[2019-03-13 09:35] LABS: PLATELET COUNT 317 10x3/uL (130-400)
[2019-03-13 09:39] LABS: ALBUMIN 4.8 g/dL (3.4-5.0); BILIRUBIN - TOTAL 0.68 mg/dL (0.2-1.3); PROTEIN - SERUM 9.8 g/dL (6.4-8.2)
--- NOTE | 2019-03-13 14:48 | NUR ---
CALLED WATCH REPAIRER APPRENTICE FOR HEART MONITOR NONE AVAILABLE, WILL BE PLACE ON WAITING LIST.
--- NOTE | 2019-03-13 15:42 | NUR ---
RECEIVED PT TO ROOM 1213 VIA STRETCHER, PT WAS ALBE TO AMBULATE FROM STRETCHER TO BED WITH STAND BY ASSIST. ORIENTED PT TO ROOM AND CALL LIGHT, WILL ASSESS PT AND START PLAN OF CARE.
--- NOTE | 2019-03-13 16:23 | NUR ---
PROVIDED VERBAL AND WRITTEN DISCHARGE TEACHING. HEP LOCK INFUSAPORT. D.C GIMENEZ NEEDLE WITH TIP INTACT. PT WILL NOTIFY WHEN READY FOR WHEELCHAIR.
--- NOTE | 2019-03-13 18:28 | NUR ---
GAVE 2MG OF MORPHINE FOR PAIN LEVEL OF 10/10. BLADDER SCAN DONE AT THIS TIME. 130CC IN BLADDER AT THIS TIME. PT DENIES ANY OTHER NEEDS AT THIS TIME. CALL LIGHT IN REACH, NAD NOTED, WILL CONTINUE TO MONITOR.
[2019-03-14 04:00] VITALS: BP 105/79
[2019-03-14 07:24] VITALS: BP 100/67
[2019-03-14 07:31] LABS: ANION GAP 19.8 mmol/L (8-16); CARBON DIOXIDE 19.4 mmol/L (21.0-32.0); PHOSPHOROUS 5.8 mg/dL (2.5-4.9); POTASSIUM - SERUM 4.2 mmol/L (3.5-5.1)
--- NOTE | 2019-03-14 07:40 | NUR ---
NEW BAG OF LR HUNG TO INFUSE TO LT FA. PT A/O X4, RESP EVEN AND NONLABORED ON RA. PT DENIES ANY PAIN AT THIS TIME. PROVIDED PT WITH A URINAL AND COLLECTION CUP FOR UA NEEDED. PT DENIES ANY NEEDS AT THIS TIME. CALL LIT IN REACH, NAD NOTED,WILL CONTINUE TO MONITOR.
[2019-03-14 07:56] LABS: BASOPHILS 0.3 % (0-2); EOSINOPHILS 2.7 % (0-7); HEMATOCRIT 36.5 % (42.0-54.0); IMMATURE GRANULOCYTES 0.1 % (0-5); LYMPHOCYTES 15.3 % (15-50); MCH 29.9 pg (26.0-34.0); MCHC 32.9 g/dL (31.0-37.0); MCV 90.8 fL (80.0-100.0); MEAN PLATELET VOLUME 10.4 fL (7.4-10.4); NEUTROPHILS 70.6 % (40-80); RBC 4.02 10x6/uL (4.20-6.10); RDW 12.1 % (11.5-14.5)
[2019-03-14 07:58] LABS: PLATELET COUNT 236 10x3/uL (130-400); WBC 6.7 10x3/uL (4.8-10.8)
[2019-03-14 09:29] LABS: UDS - AMPHET NEGATIVE QUAL (NEGATIVE); UDS - BARB NEGATIVE QUAL (NEGATIVE); UDS - BENZO NEGATIVE QUAL (NEGATIVE); UDS - COCAINE POSITIVE QUAL (NEGATIVE); UDS - OPIATE POSITIVE QUAL (NEGATIVE); UDS - PCP NEGATIVE QUAL (NEGATIVE); UDS - THC NEGATIVE QUAL (NEGATIVE)
[2019-03-14 09:40] LABS: APPEARANCE CLEAR (CLEAR); BILIRUBIN NEGATIVE (NEGATIVE); COLOR YELLOW (YELLOW); GLUCOSE NEGATIVE (NEGATIVE); KETONE NEGATIVE (NEGATIVE); NITRITE NEGATIVE (NEGATIVE); PROTEIN NEGATIVE (NEGATIVE); SPECIFIC GRAVITY 1.025 (1.005-1.020); UROBILINOGEN NORMAL (NORMAL)
[2019-03-14 11:47] VITALS: BP 93/64
--- NOTE | 2019-03-14 12:27 | NUR ---
GAVE 2MG OF MORPHINE FOR PAIN LEVEL OF 10/10, ALSO HUNG MAG FOR LOW MAG OF 1.1. PT DENIES ANY OTHER NEEDS AT THIS TIME. CALL LIGHT IN REACH,NAD NOTED, WILL CONTINUE TO MONITOR.
[2019-03-14 15:25] VITALS: BP 102/75
--- NOTE | 2019-03-14 17:50 | NUR ---
BED BATH AND COMPLETE LINEN CHANGE DONE. PT RESTING COMFORTABLY IN BED, DENIES ANY NEEDS AT THIS TIME. CALL LIGHT IN REACH, NAD NOTED.
[2019-03-14 19:19] VITALS: BP 95/64
--- NOTE | 2019-03-14 21:43 | MORECARE ---
CASE MANAGEMENT DISCHARGE SUMMARY PATIENT: VALENTINA WEIR SR UNIT: [id number] ADM DATE: 03/13/19 AGE: 68 : 51 SEX: M ROOM/BED: D.1213 AUTHOR: IZABELLA,DOC PHYSICIAN: REFERRING PHYSICIAN: NOELLE OATES MD DATE OF SERVICE: 03/14/19 Discharge Plan Patient Name: VALENTINA WEIR Facility: [facility]:[place] : 1950 Planned Disposition: Home Anticipated Discharge Date: Discharge Date: Expected LOS: Initial Reviewer: [email or web address] Initial Review Date: 03/14/2019 Generated: 03/14/19 10:42 pm Comments DCP- Discharge Planning Updated by [email or web address]: Tereza Louis on 03/14/19 8:[address] Patient Name: VALENTINA WEIR Admission Status: ER Accout number: [id number] Admission Date: 03-13-2019 : 1950 Admission Diagnosis: Attending: NOELLE OATES Current LOS: 1 Anticipated DC Date: Planned Disposition: Home Primary Insurance: WELLC[employer] MEDICARE ADV Discharge Planning Comments: CM met with patient at bedside after explaining CM role and obtaining verbal consent. Patient lives at home with his sister Nella where he is independent with his care and plans to return there upon discharge. Patient feels this would be a safe discharge. CM discussed availability / needs of home health and medical equipment. Patient denies any discharge needs at this time. Patient states he will have his family drive him home upon discharge. CM will continue to follow and assist as needed with discharge planning / needs. Goal Umpire: Tereza Louis DCPIA - Discharge Planning Initial Assessment Updated by [id number]: Tereza Louis on 03/14/19 9:39 pm * Is the patient Alert and Oriented? Yes * How many steps to enter\exit or inside your home? 5-6 * PCP NADIRA KAMINSKI * Pharmacy [facility] * Preadmission Environment Home with Family * ADLs Independent * Other Equipment CANE * List name and contact numbers for known caregivers / representatives who currently or will assist patient after discharge: NELLA LOVE - SISTER- [phone] * Verbal permission to speak to the caregivers and representatives has been obtained from the patient. Yes * Community resources currently utilized None * Additional services required to return to the preadmission environment? No * Can the patient safely return to the preadmission environment? Yes * Has this patient been hospitalized within the prior 30 days at any hospital? No Patient Name: VALENTINA WEIR Page [phone] at 2143 All edits/amendments must be made on the electronic document DICTATION DATE: 03/14/192141 TELECOMMUNICATIONS CABLE JOINTER: CATERINA 03/14/192141 RPT#: [id number] DC DATE: STATUS: ADM IN [facility] [address] [place] [address] END OF REPORT
[2019-03-14 23:31] VITALS: BP 112/72
[2019-03-15 04:00] VITALS: BP 120/65
[2019-03-15 05:25] LABS: BASOPHILS 0.2 % (0-2); EOSINOPHILS 2.7 % (0-7); IMMATURE GRANULOCYTES 0.2 % (0-5); LYMPHOCYTES 14.8 % (15-50); MCH 29.9 pg (26.0-34.0); MCHC 32.7 g/dL (31.0-37.0); MCV 91.2 fL (80.0-100.0); MEAN PLATELET VOLUME 9.7 fL (7.4-10.4); MONOCYTES 11.3 % (2-11); NEUTROPHILS 70.8 % (40-80); PLATELET COUNT 209 10x3/uL (130-400); RDW 12.1 % (11.5-14.5)
[2019-03-15 06:02] LABS: HEMATOCRIT 28.1 % (42.0-54.0); HEMOGLOBIN 9.2 g/dL (13.5-17.5); RBC 3.08 10x6/uL (4.20-6.10)
[2019-03-15 06:27] LABS: ANION GAP 14.1 mmol/L (8-16); CARBON DIOXIDE 23.1 mmol/L (21.0-32.0); PHOSPHOROUS 5.2 mg/dL (2.5-4.9); POTASSIUM - SERUM 4.2 mmol/L (3.5-5.1)
[2019-03-15 06:29] LABS: CREATININE - SERUM 4.1 mg/dL (0.6-1.3)
[2019-03-15 06:31] LABS: CALCIUM 6.6 mg/dL (8.5-10.1)
--- NOTE | 2019-03-15 07:10 | NUR ---
REPORT RECEIVED FROM WAFER MOUNTER AND PATIENT CARE ASSUMED. PATIENT LAYING IN BED ON BACK AWAKE, ALERT AND ORIENTED X 4. PATIENT IS STABLE AND VSS. PATIENT DEINES ANY NEEDS OR PAIN. WILL CONTINUE WITH PLAN OF CARE. SR UP X 2 BED IN LOW POSITION AND CALL LIGHT IN REACH.
[2019-03-15 09:30] VITALS: Ht 180.3 cm; Wt 63.0 kg
--- NOTE | 2019-03-15 10:38 | NUR ---
GAVE PATIENT ICE CREAM PER PATIENT REQUEST. PATIENT IS STABLE AND DENIES ANY OTHER NEEDS OR PAIN. SR UP X 2 BED IN LOW POSITION AND CALL LIGHT IN REACH.
--- NOTE | 2019-03-15 16:31 | NUR ---
PATIENT COMPLAINS OF RT SIDE PAIN OF A 10. MEDICATED PER MAR WITH MORPHINE 2 MG. PATIENT TOLERATED WELL. WILL CONTINUE TO MONITOR. SR UP X 2 BED IN LOW POSITION AND CALL LIGHT IN REACH.
--- NOTE | 2019-03-15 17:20 | NUR ---
PATIENT STATES FEELS MUCH BETTER. PATIENT SITTING UP EATING SUPPER. WILL CONTINUE TO MONITOR. SR UP X 2 BED IN LOW POSITION AND CALL LIGHT IN REACH.
[2019-03-15 20:42] VITALS: BP 106/73
[2019-03-16] VITALS: BP 127/67
[2019-03-16 04:00] VITALS: BP 101/70
[2019-03-16 07:30] VITALS: BP 118/72
[2019-03-16 07:44] LABS: BASOPHILS 0.2 % (0-2); EOSINOPHILS 2.4 % (0-7); HEMATOCRIT 26.8 % (42.0-54.0); HEMOGLOBIN 8.8 g/dL (13.5-17.5); IMMATURE GRANULOCYTES 0.2 % (0-5); LYMPHOCYTES 13.9 % (15-50); MCH 30.3 pg (26.0-34.0); MCHC 32.8 g/dL (31.0-37.0); MCV 92.4 fL (80.0-100.0); MEAN PLATELET VOLUME 10.1 fL (7.4-10.4); MONOCYTES 12.7 % (2-11); NEUTROPHILS 70.6 % (40-80); PLATELET COUNT 185 10x3/uL (130-400); RDW 12.3 % (11.5-14.5); WBC 6.4 10x3/uL (4.8-10.8)
[2019-03-16 07:53] LABS: ANION GAP 14.2 mmol/L (8-16); CARBON DIOXIDE 20.5 mmol/L (21.0-32.0); MAGNESIUM - SERUM 1.1 mg/dL (1.8-2.4); POTASSIUM - SERUM 3.7 mmol/L (3.5-5.1)
[2019-03-16 08:02] LABS: CREATININE - SERUM 2.5 mg/dL (0.6-1.3); PHOSPHOROUS 3.4 mg/dL (2.5-4.9)
[2019-03-16 08:03] LABS: CALCIUM 6.9 mg/dL (8.5-10.1)
[2019-03-16 20:28] VITALS: BP 105/66
[2019-03-17] VITALS: BP 95/67
[2019-03-17 04:51] VITALS: BP 106/71
[2019-03-17 06:58] LABS: BASOPHILS 0.3 % (0-2); EOSINOPHILS 2.9 % (0-7); HEMATOCRIT 28.3 % (42.0-54.0); HEMOGLOBIN 9.2 g/dL (13.5-17.5); IMMATURE GRANULOCYTES 0.3 % (0-5); LYMPHOCYTES 8.1 % (15-50); MCH 30.4 pg (26.0-34.0); MCHC 32.5 g/dL (31.0-37.0); MCV 93.4 fL (80.0-100.0); MEAN PLATELET VOLUME 10.1 fL (7.4-10.4); MONOCYTES 17.6 % (2-11); NEUTROPHILS 70.8 % (40-80); PLATELET COUNT 196 10x3/uL (130-400); RBC 3.03 10x6/uL (4.20-6.10); RDW 12.7 % (11.5-14.5); WBC 7.3 10x3/uL (4.8-10.8)
--- NOTE | 2019-03-17 07:10 | NUR ---
REPORT RECEIVED FROM CONTINUOUS PROCESS ROTARY DRUM TANNER AND PATIENT CARE ASSUMED. PATIENT UP TO BR. PATIENT IS STABLE AND VSS. WILL CONTINUE WITH PLAN OF CARE.
[2019-03-17 07:11] LABS: ANION GAP 12.4 mmol/L (8-16); CALCIUM 7.1 mg/dL (8.5-10.1); CARBON DIOXIDE 22.6 mmol/L (21.0-32.0); MAGNESIUM - SERUM 1.2 mg/dL (1.8-2.4)
[2019-03-17 07:14] LABS: CREATININE - SERUM 1.8 mg/dL (0.6-1.3); PHOSPHOROUS 1.8 mg/dL (2.5-4.9)
[2019-03-17 08:11] VITALS: BP 103/68
--- NOTE | 2019-03-17 11:30 | NUR ---
PATIENT LAYING IN BED ON BACK WITH EYES CLOSED AND BREATHING EVENLY. PATIENT IS STABLE AND VSS. WILL CONTINUE TO MONITOR. SR UP X 2 BED IN LOW POSITION AND CALL LIGHT IN REACH.
[2019-03-17 12:47] VITALS: BP 105/77
--- NOTE | 2019-03-17 14:46 | NUR ---
PATIENT IS STABLE AND VSS. PATIENT DENIES ANY NEEDS OR PAIN. ORDERS RECIEVED FOR DC . WRITTEN AND VERBAL INSTRUCTIONS GIVEN. PATIENT VERBALIZED UNDERSTANDING AND SIGNED WRITTEN INSTRUCTIONS. PATIENT CALLED FOR RIDE HOME AND AWAITING ARRIVAL.
--- NOTE | 2019-03-17 16:12 | NUR ---
PATIENT IS STABLE AND VSS. PATIENT RIDE HERE IV DCD W/O DIFFICULTY WITH ENTIRE CATHETER REMOVED. DRSG APPLIED. PATIENT TO FRONT DOOR VIA WC ACCOMPANIED BY HOPSITAL PERSONNEL AND FAMILY MEMBER. PATIENT DCD HOME FOR SELF CARE TO PRIVATE VEHICLE DRIVEN BY FAMILY MEMBER.
--- NOTE | 2019-03-19 08:57 | MORECARE ---
CASE MANAGEMENT DISCHARGE SUMMARY PATIENT: VALENTINA WEIR SR UNIT: [id number] ADM DATE: 03/13/19 AGE: 68 : 51 SEX: M ROOM/BED: D.1213 AUTHOR: IZABELLA,DOC PHYSICIAN: REFERRING PHYSICIAN: NOELLE OATES MD DATE OF SERVICE: 03/19/19 Discharge Plan Patient Name: VALENTINA WEIR Facility: [facility]:[place] : 1950 Planned Disposition: Home Anticipated Discharge Date: Discharge Date: 03/17/2019 Expected LOS: Initial Reviewer: [email or web address] Initial Review Date: 03/14/2019 Generated: 03/19/19 9:56 am DCP- Discharge Planning Updated by [email or web address]: Tereza Louis on 03/14/19 8:[address] Patient Name: VALENTINA WEIR Admission Status: ER Accout number: [id number] Admission Date: 03-13-2019 : 1950 Admission Diagnosis: Attending: NOELLE OATES Current LOS: 1 Anticipated DC Date: Planned Disposition: Home Primary Insurance: WELLCARE MEDICARE ADV Discharge Planning Comments: CM met with patient at bedside after explaining CM role and obtaining verbal consent. Patient lives at home with his sister Nella where he is independent with his care and plans to return there upon discharge. Patient feels this would be a safe discharge. CM discussed availability / needs of home health and medical equipment. Patient denies any discharge needs at this time. Patient states he will have his family drive him home upon discharge. CM will continue to follow and assist as needed with discharge planning / needs. Barrel Washer Machine: Tereza Louis DCPIA - Discharge Planning Initial Assessment Updated by [id number]: Tereza Louis on 03/14/19 9:39 pm * Is the patient Alert and Oriented? Yes * How many steps to enter\exit or inside your home? 5-6 * PCP NADIRA KAMINSKI * Pharmacy [facility] * Preadmission Environment Home with Family * ADLs Independent * Other Equipment CANE * List name and contact numbers for known caregivers / representatives who currently or will assist patient after discharge: NELLA LOVE - SISTER- [phone] * Verbal permission to speak to the caregivers and representatives has been obtained from the patient. Yes * Community resources currently utilized None * Additional services required to return to the preadmission environment? No * Can the patient safely return to the preadmission environment? Yes * Has this patient been hospitalized within the prior 30 days at any hospital? No Coverage Notice Reviewer: [id number] Bianca Louis Notice Issued Date-Time: 03/16/2019 12:25 Notice Type: IM Discharge Notice Notice Delivered To: Patient Relationship to Patient: Self Telephone Sales Representative Name: Delivery Method: HAND - Hand Delivered Jennifer Days: Prior Verbal Notification: Recipient Understood Notice: Yes Recipient Signature: Yes Med Rec Note Co-signed by Attending: Coverage Notice Comment: Last DP export: 03/14/19 8:43 p Patient Name: VALENTINA WEIR Page [phone] at 0857 All edits/amendments must be made on the electronic document DICTATION DATE: 03/19/19855 QC ANALYST: CATERINA 03/19/1955 RPT#: [id number] DC DATE:03/17/19 STATUS: DIS IN [facility] [address] [place] [address] END OF REPORT
== END 2019-03-17 16:13 | disposition home or self-care (01) | DRG 640 ==
LOC: D.ER 08:27 → D.M3 13:10
PROVIDERS: Emergency Medicine; Internal Medicine Nephrology; ADMIT Internal Medicine Nephrology; ATTEND Internal Medicine Nephrology
DX: E86.0 Dehydration (principal); N17.0 Acute kidney failure with tubular necrosis; N18.3 Chronic kidney disease, stage 3 (moderate); E87.1 Hypo-osmolality and hyponatremia; E87.6 Hypokalemia; F60.89 Other specific personality disorders; F14.10 Cocaine abuse, uncomplicated

== ENCOUNTER 2019-05-17 13:59 | Inpatient (IN) | payer MEDICARE, MEDICAID ==
[~2019-05-17] VITALS: Ht 180.3 cm; Wt 69.6 kg
--- NOTE | 2019-05-17 14:51 | NUR ---
PT PRESENTS TO ED VIA [facility] WITH REPORTS OF RLQ ABDOMINAL PAIN RADIATING INTO THE FLANK. HE HAS A COLOSTOMY THAT APPEARS TO BE WORKING EXPECTED. HE REPORTS "I HAVE KIDNEY FAILURE BUT I DON'T DO DIALYSIS." PT REPORTS HE HAS BEEN NAUSEOUS AND WEAK.
[2019-05-17 16:23] LABS: BASOPHILS 0.2 % (0-2); EOSINOPHILS 0.3 % (0-7); HEMATOCRIT 39.5 % (42.0-54.0); HEMOGLOBIN 13.7 g/dL (13.5-17.5); IMMATURE GRANULOCYTES 0.3 % (0-5); MCH 30.2 pg (26.0-34.0); MCHC 34.7 g/dL (31.0-37.0); MCV 87.2 fL (80.0-100.0); MEAN PLATELET VOLUME 10.4 fL (7.4-10.4); MONOCYTES 7.7 % (2-11); NEUTROPHILS 82.5 % (40-80); RBC 4.53 10x6/uL (4.20-6.10); RDW 12.5 % (11.5-14.5); WBC 10.9 10x3/uL (4.8-10.8)
[2019-05-17 16:27] LABS: PLATELET COUNT 317 10x3/uL (130-400)
[2019-05-17 16:36] LABS: CALC OSMOLALITY 287 mosm/kg (275-300); CALCIUM 9.6 mg/dL (8.5-10.1); CARBON DIOXIDE 21.1 mmol/L (21.0-32.0); CHLORIDE - SERUM 97 mmol/L (98-107); CREATININE - SERUM 4.2 mg/dL (0.6-1.3); GLUCOSE 81 mg/dL (74-106); POTASSIUM - SERUM 4.4 mmol/L (3.5-5.1); SODIUM 133 mmol/L (136-145); UREA NITROGEN 76 mg/dL (7-18); eGFR NON AFRICAN AMERICAN 15 mL/min (90-120)
[2019-05-17 16:46] LABS: ALBUMIN 4.6 g/dL (3.4-5.0); ALKALINE PHOSPHATASE 76 U/L (46-116); ALT (SGPT) 29 U/L (10-68); AMYLASE - SERUM 208 U/L (25-115); BILIRUBIN - TOTAL 0.76 mg/dL (0.2-1.3); LIPASE 354 U/L (73-393); PROTEIN - SERUM 9.2 g/dL (6.4-8.2); TROPONIN-I < 0.017 ng/mL (0.000-0.060)
--- NOTE | 2019-05-17 17:06 | NUR ---
PT BOLUS HAD TO BE STOPPED. PT CO PAIN AT IV SITE. IV REMOVED DUE TO SUSPECT POSSIBLE INFILTRATE
[2019-05-17 18:34] LABS: APPEARANCE CLEAR (CLEAR); BILIRUBIN NEGATIVE (NEGATIVE); COLOR YELLOW (YELLOW); GLUCOSE NEGATIVE (NEGATIVE); KETONE NEGATIVE (NEGATIVE); NITRITE NEGATIVE (NEGATIVE); PROTEIN 1+ mg/dL (NEGATIVE); SPECIFIC GRAVITY 1.015 (1.005-1.020); UROBILINOGEN NORMAL (NORMAL)
[2019-05-17 18:37] LABS: BACTERIA FEW /hpf (NEGATIVE); EPITHELIAL CELLS OCC /hpf (0-5); RED CELLS - URINE RARE /hpf (0-5); WHITE CELLS - URINE RARE /hpf (NEGATIVE)
[2019-05-17 19:04] VITALS: BP 109/79
--- NOTE | 2019-05-17 20:20 | NUR ---
1000 ML NORMAL SALINE BOLUS RESTARTED AT THIS TIME IN NEW PATENT IV.
[2019-05-17 20:54] VITALS: BP 124/90; BMI 17.6
--- NOTE | 2019-05-17 21:00 | NUR ---
REC'D PT FROM ER AT 2039. NS AT 125 ML/HR INFUSING ALONG WITH 1 L NS BOLUS. C/O 02/15 PAIN TO RLQ ABD RADIATING TO FLANK. NEW ORDER FOR MORPHINE PRN. ADMINISTERED AT THIS TIME. PULSE OX RUNNING IN 80'S%, PLACED O2 AT 2L VIA NC AND PULSE OX CAME UP TO 93%. RT AND MG RAYGOZA SOFTWARE MANAGER AWARE. COLOSTOMY BAG INTACT. PATIENT EMPTIED BAG ON OWN PER HIS REQUEST. CALL LIGHT IN REACH OF PATIENT
[2019-05-17 22:00] VITALS: BP 113/93
[2019-05-17 23:00] VITALS: BP 107/89
--- NOTE | 2019-05-17 23:00 | NUR ---
RE-ASSESSMENT COMPLETED. NO CHANGES SINCE ADMISSION
[2019-05-17 23:20] LABS: INR 1.03 (0.85-1.17); PROTIME 13.5 SECONDS (11.6-15.0)
[2019-05-18] VITALS (24 sets, daily range): BP systolic 81–112; BP diastolic 32–93; Ht 180.3 cm; Wt 69.6 kg
--- NOTE | 2019-05-18 01:00 | NUR ---
LAYING IN BED, EYES OPEN. WATCHING TV. REQUESTING MORPHINE FOR RLQ PAIN. PT REFUSED TO WEAR THE SCD ANY LONGER.
[2019-05-18 02:37] LABS: BASOPHILS 0.2 % (0-2); EOSINOPHILS 0.3 % (0-7); HEMATOCRIT 37.4 % (42.0-54.0); HEMOGLOBIN 12.5 g/dL (13.5-17.5); IMMATURE GRANULOCYTES 0.2 % (0-5); MCH 29.4 pg (26.0-34.0); MCHC 33.4 g/dL (31.0-37.0); MEAN PLATELET VOLUME 10.5 fL (7.4-10.4); NEUTROPHILS 82.3 % (40-80); PLATELET COUNT 296 10x3/uL (130-400); RBC 4.25 10x6/uL (4.20-6.10); RDW 12.7 % (11.5-14.5); WBC 10.4 10x3/uL (4.8-10.8)
[2019-05-18 02:58] LABS: ALBUMIN 3.7 g/dL (3.4-5.0); ANION GAP 18.3 mmol/L (8-16); BILIRUBIN - TOTAL 0.65 mg/dL (0.2-1.3); CALCIUM 8.1 mg/dL (8.5-10.1); CARBON DIOXIDE 20.2 mmol/L (21.0-32.0); CREATININE - SERUM 4.4 mg/dL (0.6-1.3); MAGNESIUM - SERUM 1.2 mg/dL (1.8-2.4); PHOSPHOROUS 5.6 mg/dL (2.5-4.9); POTASSIUM - SERUM 4.5 mmol/L (3.5-5.1); PROTEIN - SERUM 7.9 g/dL (6.4-8.2)
--- NOTE | 2019-05-18 03:00 | NUR ---
RE-ASSESSMENT COMPLETED. NO CHANGES SINCE LAST ASSESSMENT. WATCHING TV
--- NOTE | 2019-05-18 05:02 | NUR ---
PATIENT SITTING UP APPROX EVERY COUPLE HOURS TO EMPTY COLOSTOMY BAG. DENIES ANY NEEDS AT THIS TIME
[2019-05-18 12:53] LABS: AMYLASE - SERUM 212 U/L (25-115)
[2019-05-18 12:54] LABS: LIPASE 209 U/L (73-393)
--- NOTE | 2019-05-18 13:51 | NUR ---
PATIENT STATED HAVING A PAIN OF 10/10. MORPHINE GIVEN PER SALVADOR
--- NOTE | 2019-05-18 19:00 | NUR ---
ASSESSMENT COMPLETED. DENIES ANY NEEDS. INDEPENDENT WITH REPOSITIONING. REFUSES TO WEAR SCD
--- NOTE | 2019-05-18 21:00 | NUR ---
DENIES ANY NEEDS. REFUSES CHG BATH. STATES HE WILL GET ONE TOMORROW
--- NOTE | 2019-05-18 23:00 | NUR ---
RE-ASSESSMENT COMPLETED. NO CHANGES SINCE LAST ASSESSMENT. PATIENT STATES HE CANNOT GIVE A SPUTUM SAMPLE AT THIS TIME.
[2019-05-19] VITALS (23 sets, daily range): BP systolic 89–118; BP diastolic 49–87
--- NOTE | 2019-05-19 01:00 | NUR ---
LAYING IN BED, EYES CLOSED, EASILY WAKES. DENIES ANY NEEDS
--- NOTE | 2019-05-19 03:00 | NUR ---
RE-ASSESSMENT COMPLETED. NO CHANGES SINCE LAST ASSESSMENT. DENIES ANY NEEDS
[2019-05-19 04:37] LABS: BASOPHILS 0.3 % (0-2); EOSINOPHILS 2.9 % (0-7); IMMATURE GRANULOCYTES 0.1 % (0-5); LYMPHOCYTES 10.6 % (15-50); MCH 29.4 pg (26.0-34.0); MCHC 33.7 g/dL (31.0-37.0); MCV 87.3 fL (80.0-100.0); MEAN PLATELET VOLUME 9.9 fL (7.4-10.4); NEUTROPHILS 74.1 % (40-80); RDW 12.7 % (11.5-14.5)
[2019-05-19 04:40] LABS: HEMATOCRIT 26.7 % (42.0-54.0); RBC 3.06 10x6/uL (4.20-6.10); WBC 6.8 10x3/uL (4.8-10.8)
[2019-05-19 04:41] LABS: PLATELET COUNT 193 10x3/uL (130-400)
[2019-05-19 04:50] LABS: ANION GAP 12.2 mmol/L (8-16); CALCIUM 7.1 mg/dL (8.5-10.1); CARBON DIOXIDE 21.3 mmol/L (21.0-32.0); MAGNESIUM - SERUM 1.9 mg/dL (1.8-2.4); PHOSPHOROUS 4.5 mg/dL (2.5-4.9)
[2019-05-19 04:51] LABS: CREATININE - SERUM 2.9 mg/dL (0.6-1.3); POTASSIUM - SERUM 3.5 mmol/L (3.5-5.1)
--- NOTE | 2019-05-19 05:00 | NUR ---
DENIES ANY COMPLAINTS. CALL LIGHT IN REACH. INDEPENDENT WITH REPOSTITIONING
--- NOTE | 2019-05-19 09:12 | NUR ---
0800 AM ASSESMENT IS COMPLETE SEE FLOW SHEET FOR FINDINGS.. PT IS AWAKE AND VOCAL.. STATES THAT HE DOS NOT WANT TO BE IN THIS AREA AND TO LEAVE HIM ALONE.. 0815 BREAKFAST IS SERVED AND DR MONZON IS AT THE BESIDE.. UPDATE IS GIVEN EDWIN NEFF APN RENAL IN TO ERIN PT AT THIS TIME ALSO AND UPDATE IS GIVEN.. 0900 WITHOUT VISITORS AND 100 % DIET IS EATEN..
--- NOTE | 2019-05-19 14:08 | NUR ---
1100 PT VOIDS WITHOUT DIFFICULTY INTO URINAL.. PT ALSO DOES SELF COLOSTOMY CARE.. 1200 LUNCH SERVED FEEDING SELF.. WIHTOUT VISITORS 1300 DOZING AT THIS TIME.. 100% DIET EATEN
--- NOTE | 2019-05-19 17:20 | NUR ---
1600 I AND O DONE 1700 DIET SERVED PT FEEDINMG SELF
--- NOTE | 2019-05-19 19:35 | NUR ---
PT A/OX4, LUNGS CLEAR, LEFT FOREARM PIV INTACT WITH LR @ 100 CC/HR, URINAL IN REACH AT BEDSIDE, NO C/O @ THIS TIME, VITALS STABLE
--- NOTE | 2019-05-19 21:15 | NUR ---
PT REMAINS AWAKE WATCHING TV, TAKES PO MEDS WITHOUT DIFFICULTY, WILL CONT TO MONITOR
--- NOTE | 2019-05-19 23:16 | NUR ---
PT REMAINS AWAKE WITH NO C/O, WILL CONT TO MONITOR
[2019-05-20] VITALS (12 sets, daily range): BP systolic 96–120; BP diastolic 52–77
--- NOTE | 2019-05-20 01:00 | NUR ---
PT RESTING QUIETLY WITH NO DISTRESS, VITALS STABLE
--- NOTE | 2019-05-20 03:20 | NUR ---
PT AWAKE IN BED WATCHING TV, NO CHANGES NOTED, WILL CONT TO MONITOR
--- NOTE | 2019-05-20 04:20 | NUR ---
PT CONT TO C/O SEVERE RIGHT EAR PAIN RADIATING INTO HIS JAW, D/C'D DOBUTAMINE GTT, PT FELL ASLEEP AFTER ABOUT 15 MINUTES
[2019-05-20 04:55] LABS: BASOPHILS 0.2 % (0-2); EOSINOPHILS 2.6 % (0-7); HEMATOCRIT 28.7 % (42.0-54.0); HEMOGLOBIN 9.3 g/dL (13.5-17.5); IMMATURE GRANULOCYTES 0.1 % (0-5); LYMPHOCYTES 12.4 % (15-50); MCH 29.2 pg (26.0-34.0); MCHC 32.4 g/dL (31.0-37.0); MEAN PLATELET VOLUME 10.5 fL (7.4-10.4); MONOCYTES 13.7 % (2-11); PLATELET COUNT 222 10x3/uL (130-400); RBC 3.18 10x6/uL (4.20-6.10); RDW 12.9 % (11.5-14.5)
[2019-05-20 04:59] LABS: MCV 90.3 fL (80.0-100.0); WBC 8.8 10x3/uL (4.8-10.8)
[2019-05-20 05:09] LABS: ANION GAP 13.3 mmol/L (8-16); CALCIUM 7.4 mg/dL (8.5-10.1); CARBON DIOXIDE 22.5 mmol/L (21.0-32.0); POTASSIUM - SERUM 3.8 mmol/L (3.5-5.1)
[2019-05-20 05:11] LABS: MAGNESIUM - SERUM 1.1 mg/dL (1.8-2.4); PHOSPHOROUS 3.2 mg/dL (2.5-4.9)
--- NOTE | 2019-05-20 05:20 | NUR ---
SPOKE WITH DR JETT, INFORMED HIM DOBUTAMINE GTT WAS D/C'D, PT STATES HIS EAR FEELS BETTER, VITALS STABLE AT THIS TIME
--- NOTE | 2019-05-20 05:20 | NUR ---
PT SLEEPING WITH NO DISTRESS, VITALS STABLE
--- NOTE | 2019-05-20 10:01 | NUR ---
0800 AM ASSESMENT IS COMPLETE SEE FLOW SHEET FOR FINDINGS.. PT IS C/O PAIN IN RIGHT GREATER TOE.. STATES THAT HE HAS GOUT.. 0820 ROYAL FROM RENAL IN TO SEE PT.. UPDATE GIVEN .. OK TO TRANSFER TO FLOOR FROM RENAL STANDPOINT 0830 BREAKFAST SERVED PT IS FEEDING SELF 0845 OOB AND VOIDING INTO URINAL SELF CARE OF COLOSTOMY [address] STACK IN TO SEE PT UPDATE GIVEN ORDER TO TRANSFER TO FLOOR RECIEVED 1000 ROOM OBTAINED ON FLOOR. 2136
--- NOTE | 2019-05-20 10:50 | NUR ---
1045 NEW IV BAG WITH TUBING CHNAGE DONE.. REPORT CALLED TO FLOOR AND PT TRANSPORTED VIA WHEELCHAIR TO [phone]
--- NOTE | 2019-05-20 13:04 | NUR ---
PATIENT RESTING IN BED WITH EYES OPEN. RESP EVEN AND UNLABORED. PATIENT REQUESTING PAIN MEDICATION, EXPLAINED TO PATIENT THAT IT IS TOO SOON TO ADMINISTERED. PATIENT VERBALIZED HIS UNDERSTANDS. PATIENT RECENT TRANSFER FROM ICU IN STABLE CONDITION. NO DISTRESS. CALL LIGHT WITHIN REACH.
--- NOTE | 2019-05-20 19:55 | NUR ---
RECEIVED UP IN BED IWTH EYES OPEN AND TV ON. ALERT AND ORIENTED X4. UP AD TAMY TO B/R. IV TO LEFT FA SL. DSG CLEAN DRY AND INTACT. RIGHT FOOT SWOLLEN AND PAINFUL. STATED MORPHINE WORKED AND HAS NO PAIN AT THIS TIME. COLOSTOMY TO LEFT ABD QUADRANT. DENIES ANY NEEDS AT THIS TIME.
[2019-05-21] VITALS: BP 103/74
[2019-05-21 04:28] VITALS: BP 100/67
[2019-05-21 05:26] LABS: BASOPHILS 0.1 % (0-2); EOSINOPHILS 0 % (0-7); HEMATOCRIT 29.5 % (42.0-54.0); HEMOGLOBIN 9.4 g/dL (13.5-17.5); IMMATURE GRANULOCYTES 0.2 % (0-5); LYMPHOCYTES 4.4 % (15-50); MCH 28.6 pg (26.0-34.0); MCHC 31.9 g/dL (31.0-37.0); MCV 89.7 fL (80.0-100.0); MONOCYTES 5.1 % (2-11); NEUTROPHILS 90.2 % (40-80); PLATELET COUNT 226 10x3/uL (130-400); RBC 3.29 10x6/uL (4.20-6.10); RDW 13.2 % (11.5-14.5); WBC 10.3 10x3/uL (4.8-10.8)
[2019-05-21 05:55] LABS: CARBON DIOXIDE 21.2 mmol/L (21.0-32.0); CREATININE - SERUM 1.7 mg/dL (0.6-1.3)
[2019-05-21 06:00] LABS: ANION GAP 14.9 mmol/L (8-16); CALCIUM 6.9 mg/dL (8.5-10.1); MAGNESIUM - SERUM 0.8 mg/dL (1.8-2.4); PHOSPHOROUS 2.3 mg/dL (2.5-4.9); POTASSIUM - SERUM 3.1 mmol/L (3.5-5.1)
[2019-05-21 10:09] VITALS: BP 115/72
--- NOTE | 2019-05-21 10:28 | NUR ---
PT AWAKE AN DORIENTED, LYIGN IN BE. NO COMPLAINTS/CONCERNS. REQUESTING PAIN MEDICATION FOR PAIN PILLS. CL IN REACH,SRX2.
[2019-05-21 13:01] VITALS: BP 96/66
[2019-05-21 13:12] LABS: % SATURATION 12 % (15-55); IRON 31 ug/dl (35-150); TOTAL IRON BIND CAPACITY 249 ug/dl (260-445); UNSAT IRON BIND CAPACITY 218 ug/dl (150-375)
[2019-05-21 14:31] LABS: FERRITIN 234 ng/mL (3-244)
--- NOTE | 2019-05-21 14:54 | NUR ---
I have reviewed this patient and I concur with the Shift Assessment completed by the Licensed Practical Nurse today this shift.
--- NOTE | 2019-05-21 15:16 | NUR ---
Nutrition Follow-up: Eating well. 100% intake today. Diet: Renal Wt: 153.2# (05/20) Last BM: 05/21 Labs noted: K+ 3.1, GFR 52, Glu 133, Ca 6.9, PO4 2.3, Claudia 149 Meds noted: MagOx, LR @ 100, KDur, Oscal -May consider cardiac diet; renal labs normalizing. -Monitor wt; noted daily wts ordered. -RD following.
[2019-05-21 16:09] LABS: MAGNESIUM - SERUM 1.3 mg/dL (1.8-2.4); POTASSIUM - SERUM 3.6 mmol/L (3.5-5.1)
[2019-05-21 16:55] VITALS: BP 100/61
[2019-05-21 18:32] LABS: APPEARANCE CLEAR (CLEAR); COLOR YELLOW (YELLOW)
[2019-05-21 18:33] LABS: BILIRUBIN NEGATIVE (NEGATIVE); GLUCOSE NEGATIVE (NEGATIVE); KETONE NEGATIVE (NEGATIVE); NITRITE NEGATIVE (NEGATIVE); PROTEIN NEGATIVE (NEGATIVE); UROBILINOGEN NORMAL (NORMAL)
[2019-05-21 18:39] LABS: UDS - AMPHET NEGATIVE QUAL (NEGATIVE); UDS - BARB NEGATIVE QUAL (NEGATIVE); UDS - BENZO NEGATIVE QUAL (NEGATIVE); UDS - COCAINE NEGATIVE QUAL (NEGATIVE); UDS - OPIATE POSITIVE QUAL (NEGATIVE); UDS - PCP NEGATIVE QUAL (NEGATIVE); UDS - THC NEGATIVE QUAL (NEGATIVE)
--- NOTE | 2019-05-21 19:40 | NUR ---
RECEIVED UP IN BED WITH EYES OPEN AND TV ON. ALERT AND ORIENTED X4. UP AD TAMY. IV TO LEFT FA SL.. COLOSTOMY TO LLQ WITH SELF CARE. RIGHT FOOT REMAINS SWOLLEN. DOES AMBULATE ON IT WITH OUT DIFFICULTY. GOT UP TO GO GET COFFEE AFTER ASSESSMENT COMPLETED.
[2019-05-21 20:30] VITALS: BP 100/65
[2019-05-22 00:30] VITALS: BP 98/67
[2019-05-22 04:30] VITALS: BP 118/75
[2019-05-22 07:01] LABS: BASOPHILS 0.1 % (0-2); EOSINOPHILS 0 % (0-7); HEMATOCRIT 30.2 % (42.0-54.0); HEMOGLOBIN 9.6 g/dL (13.5-17.5); IMMATURE GRANULOCYTES 0.3 % (0-5); LYMPHOCYTES 3.9 % (15-50); MCH 28.7 pg (26.0-34.0); MCHC 31.8 g/dL (31.0-37.0); MCV 90.1 fL (80.0-100.0); MEAN PLATELET VOLUME 10.5 fL (7.4-10.4); MONOCYTES 7.6 % (2-11); NEUTROPHILS 88.1 % (40-80); PLATELET COUNT 239 10x3/uL (130-400); RBC 3.35 10x6/uL (4.20-6.10); RDW 13.6 % (11.5-14.5); WBC 12.4 10x3/uL (4.8-10.8)
[2019-05-22 07:28] LABS: ANION GAP 14.8 mmol/L (8-16); CALCIUM 7.2 mg/dL (8.5-10.1); CARBON DIOXIDE 21.7 mmol/L (21.0-32.0); MAGNESIUM - SERUM 1.1 mg/dL (1.8-2.4); POTASSIUM - SERUM 3.5 mmol/L (3.5-5.1)
--- NOTE | 2019-05-22 07:29 | NUR ---
REPORT RECEIVED. WILL CONTINUE WITH POC. PT CURRENTLY LYING SUPINE. CALL LIGHT W/I REACH. PT IS AAO AND UP AD TAMY. RR EVEN AND UNLABORED ON RA. L.FOR PIV IS SALINE LOCKED. NO S/S OF DISTRESS NOTED. PT DENIES ANY NEEDS. WILL CTM.
[2019-05-22 07:52] LABS: PHOSPHOROUS 1.3 mg/dL (2.5-4.9)
[2019-05-22 09:58] VITALS: BP 132/69
--- NOTE | 2019-05-22 10:23 | NUR ---
PHOSPHOROUS TREATED ALONG WITH MAGNESIUM PER PROTOCOL. SPUTUM COLLECTION GIVEN TO PT AND INSTRUCTION PROVIDED. WILL CTM.
--- NOTE | 2019-05-22 15:28 | NUR ---
I have reviewed this patient and I concur with the Shift Assessment completed by the Licensed Practical Nurse today this shift.
--- NOTE | 2019-05-22 16:55 | NUR ---
REDRAW FOR PHOSPHOROUS LAB PLACED PER PROTOCOL. WILL CTM.
[2019-05-22 17:32] VITALS: BP 107/76
--- NOTE | 2019-05-22 19:11 | NUR ---
RECIEVED UP IN BED WITH EYES OPEN AND TV ON. A;ERT AND ORIENTED X4. UP AD TAMY. IV TO LEFT FA SL. COLOSTOMY TO LLQ. DENIES ANY NEEDS AT THIS TIME.
[2019-05-22 20:45] VITALS: BP 101/63
--- NOTE | 2019-05-22 23:48 | NUR ---
CRITICAL LAB OF PHOS OF 1.4 CALLED TO ME NOTED PHOS WAS 1.3 TOLD RESULT TO PTS NURSE
[2019-05-23 00:56] VITALS: BP 111/79
[2019-05-23 05:19] VITALS: BP 100/64
[2019-05-23 05:20] LABS: BASOPHILS 0.1 % (0-2); EOSINOPHILS 0 % (0-7); HEMATOCRIT 29.8 % (42.0-54.0); HEMOGLOBIN 9.8 g/dL (13.5-17.5); IMMATURE GRANULOCYTES 0.3 % (0-5); LYMPHOCYTES 6.6 % (15-50); MCH 29.3 pg (26.0-34.0); MCHC 32.9 g/dL (31.0-37.0); MEAN PLATELET VOLUME 10.8 fL (7.4-10.4); MONOCYTES 8.4 % (2-11); NEUTROPHILS 84.6 % (40-80); PLATELET COUNT 264 10x3/uL (130-400); RBC 3.35 10x6/uL (4.20-6.10); RDW 13.8 % (11.5-14.5); WBC 13.7 10x3/uL (4.8-10.8)
[2019-05-23 05:30] LABS: CALCIUM 7.1 mg/dL (8.5-10.1); CARBON DIOXIDE 22.2 mmol/L (21.0-32.0); CREATININE - SERUM 1.6 mg/dL (0.6-1.3)
[2019-05-23 05:37] LABS: PHOSPHOROUS 1.5 mg/dL (2.5-4.9); POTASSIUM - SERUM 4.2 mmol/L (3.5-5.1)
--- NOTE | 2019-05-23 07:45 | NUR ---
REPORT RECEIVED FROM CRA AND PATIENT CARE ASSUMED. PATIENT AMBULATING IN HW WITH STEADY GAIT AND TOLERATING WELL. WILL CONTINUE WITH PLAN OF CARE. SR UPX 2 BED IN LOW POSITION AND CALL LIGHT IN REACH.
[2019-05-23 10:21] VITALS: BP 108/81
[2019-05-23] MEDS ORDERED: NEUTRA-PHOS PAC1 PK1 PO (10:53)
[2019-05-23] MEDS ORDERED: CYANOCOBAL1000 MCG/4 IM (10:54)
--- NOTE | 2019-05-23 14:30 | NUR ---
PATIENT IS STABLE AND VSS. PATIENT DENIES ANY NEEDS OR PAIN. ORDERS RECEIVED FOR DC. WRITTEN AND VERBAL INSTGRUCTIONS GIVEN. PATIENT VERBALIZED UNDERSTANDING AND SIGNED DC ORDERS. IV DCD WITHOUT DIFFICULTY WITH ENTIRE CATHERTER INTACT. PRESSURE BANDAGE APPLIED. PATIENT TO FRONT DOOR VIA WC ACCOMPANIED BY [facility]OPS[facility] PERSONNEL TO PRIVATE VEHICLE DRIVEN BY FAMILY MEMBER. PATIENT IS DC HOME FOR SELF CARE.
[2019-05-23 14:52] VITALS: BP 125/75
--- NOTE | 2019-05-23 17:53 | MORECARE ---
CASE MANAGEMENT DISCHARGE SUMMARY PATIENT: VALENTINA WEIR SR UNIT: [id number] ADM DATE: 05/17/19 AGE: 68 : 51 SEX: M ROOM/BED: D.2137 AUTHOR: ADINA PAREKH PHYSICIAN: REFERRING PHYSICIAN: RENO CARTER MD DATE OF SERVICE: 05/23/19 Discharge Plan Patient Name: VALENTINA WEIR [facility] [facility] 1950 Planned Disposition: Home Anticipated Discharge Date: 05/23/19 Discharge Date: 05/23/2019 Expected LOS: 6 Initial Reviewer: [email or web address] Initial Review Date: 05/23/2019 Generated: 05/23/19 6:53 pm DCPIA - Discharge Planning Initial Assessment Updated by [email or web address]: Kam Nye on 05/23/19 5:52 pm * Is the patient Alert and Oriented? Yes * How many steps to enter\exit or inside your home? * PCP DR. BROOKS IN [place] * Pharmacy [facility] IN [place] * Preadmission Environment Home with Family * ADLs Independent * Equipment Cane * Other Equipment NO MEDICAL EQUIPMENT PROVIDER PREFERENCE * List name and contact numbers for known caregivers / representatives who currently or will assist patient after discharge: JED LOVE, , * Verbal permission to speak to the caregivers and representatives has been obtained from the patient. N/A * Community resources currently utilized None * Please name any agencies selected above. NONE * Additional services required to return to the preadmission environment? No * Can the patient safely return to the preadmission environment? Yes * Has this patient been hospitalized within the prior 30 days at any hospital? No Patient Name: VALENTINA WEIR Page [phone] at 1753 All edits/amendments must be made on the electronic document DICTATION DATE: 05/23/191752 OFFICE ASSISTANT RECEPTIONIST: CATERINA 05/23/191752 RPT#: [id number] DC DATE:05/23/19 STATUS: DIS IN [place] [address] [place] [address] END OF REPORT
--- NOTE | 2019-05-23 18:02 | MORECARE ---
CASE MANAGEMENT DISCHARGE SUMMARY PATIENT: VALENTINA WEIR SR UNIT: [id number] ADM DATE: 05/17/19 AGE: 68 : 51 SEX: M ROOM/BED: D.3444 AUTHOR: IZABELLA,DOC PHYSICIAN: REFERRING PHYSICIAN: RENO CARTER MD DATE OF SERVICE: 05/23/19 Discharge Plan Patient Name: VALENTINA WEIR Facility: [facility]:[place] : 1950 Planned Disposition: Home Anticipated Discharge Date: 05/23/19 Discharge Date: 05/23/2019 Expected LOS: 6 Initial Reviewer: [email or web address] Initial Review Date: 05/23/2019 Generated: 05/23/19 7:01 pm Comments DCP- Discharge Planning Updated by [email or web address]: Kam Nye on 05/23/19 4:[address] Patient Name: VALENTINA WEIR Admission Status: ER Accout number: [id number] Admission Date: 05-17-2019 : 1950 Admission Diagnosis: Attending: RUBY Current LOS: 6 Anticipated DC Date: 05-23-2019 Planned Disposition: Home Primary Insurance: meets MEDICARE ADV Discharge Planning Comments: CM MET WITH PT IN ROOM TO DISCUSS DISCHARGE PLANNING AND NEEDS. PT REPORTS LIVING AT HOME INDEPENDENTLY WITH HIS SISTER. PT HAS CANE WITH NO MEDICAL EQUIPMENT PROVIDER PREFERENCE. PT HAS NO OUTSIDE SERVICES ASSISTING IN THE HOME. CM DISCUSSED AVAILABILITY OF HOME HEALTH, REHAB SERVICES AND MEDICAL EQUIPMENT. PT DENIES DISCHARGE NEEDS, REPORTS NEEDING RIDE FOR DISCHARGE HOME. CM ASSISTED WITH EXPLORING OPTIONS, PT HAS meets, CM ASSISTED PT WITH CALLING meets, , WHO ARRANGE METAL ROLLING MILL OPERATOR FOR TRANSPORTION TODAY. IMPORTANT MESSAGE FROM MEDICARE PROVIDED AND EXPLAINED. COTTON TIPPER NURSE NOTIFIED. Feed Mill Lab Technician: Kam Nye DCPIA - Discharge Planning Initial Assessment Updated by [email or web address]: Kam Nye on 05/23/19 5:52 pm * Is the patient Alert and Oriented? Yes * How many steps to enter\exit or inside your home? * PCP DR. BROOKS IN [place] * Pharmacy [facility] IN [place] * Preadmission Environment Home with Family * ADLs Independent * Equipment Cane * Other Equipment NO MEDICAL EQUIPMENT PROVIDER PREFERENCE * List name and contact numbers for known caregivers / representatives who currently or will assist patient after discharge: JED LOVE, , * Verbal permission to speak to the caregivers and representatives has been obtained from the patient. N/A * Community resources currently utilized None * Please name any agencies selected above. NONE * Additional services required to return to the preadmission environment? No * Can the patient safely return to the preadmission environment? Yes * Has this patient been hospitalized within the prior 30 days at any hospital? No Coverage Notice Reviewer: [email or web address] Bianca Nye Notice Issued Date-Time: 05/23/2019 13:45 Notice Type: IM Discharge Notice Notice Delivered To: Patient Relationship to Patient: Seed Sales Manager Name: Delivery Method: HAND - Hand Delivered Jennifer Days: Prior Verbal Notification: Recipient Understood Notice: Yes Recipient Signature: Yes Med Rec Note Co-signed by Attending: Coverage Notice Comment: Last DP export: 05/23/19 4:53 p Patient Name: VALENTINA WEIR Page [phone] at 1802 All edits/amendments must be made on the electronic document DICTATION DATE: 05/23/191800 NATIONAL SERVICE OFFICER: CATERINA 05/23/191800 RPT#: [id number] DC DATE:05/23/19 STATUS: DIS IN [facility] [address] [place] [address] END OF REPORT
== END 2019-05-23 14:30 | disposition home or self-care (01) | DRG 683 ==
LOC: D.ER 13:59 → D.ICU 19:05 → D.M2 05-20 10:47
PROVIDERS: Family Medicine; Internal Medicine Nephrology; ADMIT Family Medicine; ATTEND Family Medicine
DX: N17.9 Acute kidney failure, unspecified (principal); E87.1 Hypo-osmolality and hyponatremia; E87.2 Acidosis; N18.3 Chronic kidney disease, stage 3 (moderate); E83.42 Hypomagnesemia; R10.9 Unspecified abdominal pain; Z93.3 Colostomy status; M10.9 Gout, unspecified; F10.21 Alcohol dependence, in remission; E53.8 Deficiency of other specified B group vitamins; E86.0 Dehydration

== ENCOUNTER 2019-05-29 05:33 | Emergency (ER) | payer MEDICARE, MEDICAID ==
[~2019-05-29] VITALS: Ht 180.3 cm; Wt 63.6 kg
[~2019-05-29 05:33] MED LIST changes: +CYANOCOBAL1000 MCG/4 IM; +NEUTRA-PHOS PAC1 PK1 PO
[2019-05-29 05:35] VITALS: Ht 180.3 cm; Wt 63.6 kg
[2019-05-29 06:34] LABS: ANION GAP 13.9 mmol/L (8-16); CALCIUM 7.2 mg/dL (8.5-10.1); CARBON DIOXIDE 26.9 mmol/L (21.0-32.0); CREATININE - SERUM 1.9 mg/dL (0.6-1.3); POTASSIUM - SERUM 3.8 mmol/L (3.5-5.1)
[2019-05-29 06:40] LABS: ALBUMIN 3.4 g/dL (3.4-5.0); BILIRUBIN - TOTAL 0.85 mg/dL (0.2-1.3); PROTEIN - SERUM 8.3 g/dL (6.4-8.2); URIC ACID 9.3 mg/dL (2.6-7.2)
[2019-05-29] MEDS ORDERED: HYDROCODON-ACE1 EAC7 PO (06:50)
[2019-05-29] MEDS ORDERED: INDOCIN-SR75 MG PO (06:50)
[2019-05-29 06:52] LABS: BASOPHILS 0.1 % (0-2); EOSINOPHILS 0.5 % (0-7); HEMATOCRIT 32.1 % (42.0-54.0); HEMOGLOBIN 10.3 g/dL (13.5-17.5); IMMATURE GRANULOCYTES 0.3 % (0-5); LYMPHOCYTES 12.3 % (15-50); MCH 29.3 pg (26.0-34.0); MCHC 32.1 g/dL (31.0-37.0); MCV 91.2 fL (80.0-100.0); MONOCYTES 8.6 % (2-11); NEUTROPHILS 78.2 % (40-80); PLATELET COUNT 284 10x3/uL (130-400); RBC 3.52 10x6/uL (4.20-6.10); RDW 13.8 % (11.5-14.5); WBC 11.9 10x3/uL (4.8-10.8)
[2019-05-29] MEDS ORDERED: ZYLOPRIM100 MG PO (07:02)
[2019-05-29] MEDS ORDERED: ULTRAM50 MG PO (07:02)
[2019-05-29 07:40] VITALS: BP 134/78
== END 2019-05-29 07:41 | disposition home or self-care (01) ==
LOC: D.ER 05:33
PROVIDERS: Emergency Medicine
DX: M10.031 Idiopathic gout, right wrist (principal); M10.09 Idiopathic gout, multiple sites; N18.3 Chronic kidney disease, stage 3 (moderate)

== ENCOUNTER 2019-05-31 07:48 | Emergency (ER) | payer MEDICARE, MEDICAID ==
[~2019-05-31] VITALS: Ht 180.3 cm; Wt 63.2 kg
[~2019-05-31 07:48] MED LIST changes: +INDOCIN-SR75 MG PO
[2019-05-31 07:52] VITALS: Ht 180.3 cm; Wt 63.2 kg
[2019-05-31 08:23] LABS: BASOPHILS 0.1 % (0-2); EOSINOPHILS 1.1 % (0-7); HEMATOCRIT 37.9 % (42.0-54.0); HEMOGLOBIN 12.4 g/dL (13.5-17.5); IMMATURE GRANULOCYTES 0.1 % (0-5); LYMPHOCYTES 15.6 % (15-50); MCH 29.2 pg (26.0-34.0); MCHC 32.7 g/dL (31.0-37.0); MCV 89.4 fL (80.0-100.0); MEAN PLATELET VOLUME 10.1 fL (7.4-10.4); MONOCYTES 11.3 % (2-11); NEUTROPHILS 71.8 % (40-80); PLATELET COUNT 337 10x3/uL (130-400); RBC 4.24 10x6/uL (4.20-6.10); RDW 13.6 % (11.5-14.5); WBC 7.2 10x3/uL (4.8-10.8)
[2019-05-31 08:36] LABS: ANION GAP 23.1 mmol/L (8-16); CALCIUM 8.7 mg/dL (8.5-10.1); CARBON DIOXIDE 25.3 mmol/L (21.0-32.0); CREATININE - SERUM 5.2 mg/dL (0.6-1.3); POTASSIUM - SERUM 4.4 mmol/L (3.5-5.1)
[2019-05-31 08:40] LABS: ALBUMIN 3.9 g/dL (3.4-5.0); BILIRUBIN - TOTAL 0.66 mg/dL (0.2-1.3); PROTEIN - SERUM 10.2 g/dL (6.4-8.2)
[2019-05-31] MEDS ORDERED: PHOSLO667 MG PO (10:06)
[2019-05-31 10:31] VITALS: BP 114/82
[2019-06-01 15:10] LABS: SPE - A/G RATIO 0.8 (0.7-1.7); SPE - ALBUMIN 3.9 g/dL (2.9-4.4); SPE - ALPHA-1 GLOBULIN 0.5 g/dL (0.0-0.4); SPE - ALPHA-2 GLOBULIN 1.2 g/dL (0.4-1.0); SPE - GAMMA GLOBULIN 1.2 g/dL (0.4-1.8); SPE - M-SPIKE 0.7 g/dL (Not Observed); SPE - TOTAL PROTEIN 8.9 g/dL (6.0-8.5)
== END 2019-05-31 10:31 | disposition home or self-care (01) ==
LOC: D.ER 07:48
PROVIDERS: Emergency Medicine
DX: D64.9 Anemia, unspecified (principal); M79.18 Myalgia, other site; N18.9 Chronic kidney disease, unspecified; E88.09 Other disorders of plasma-protein metabolism, not elsewhere classified; R74.8 Abnormal levels of other serum enzymes

== ENCOUNTER 2019-06-02 08:12 | Inpatient (IN) | payer MEDICARE, MEDICAID ==
[~2019-06-02] VITALS: Ht 180.3 cm; Wt 54.1 kg
[~2019-06-02 08:12] MED LIST changes: +PHOSLO667 MG PO
[2019-06-02 08:33] LABS: BASOPHILS 0.2 % (0-2); EOSINOPHILS 0.3 % (0-7); HEMATOCRIT 35.7 % (42.0-54.0); HEMOGLOBIN 12.3 g/dL (13.5-17.5); IMMATURE GRANULOCYTES 0.2 % (0-5); LYMPHOCYTES 10.7 % (15-50); MCH 30.1 pg (26.0-34.0); MCHC 34.5 g/dL (31.0-37.0); MCV 87.5 fL (80.0-100.0); MEAN PLATELET VOLUME 9.4 fL (7.4-10.4); MONOCYTES 8.7 % (2-11); NEUTROPHILS 79.9 % (40-80); PLATELET COUNT 326 10x3/uL (130-400); RBC 4.08 10x6/uL (4.20-6.10); WBC 10.8 10x3/uL (4.8-10.8)
[2019-06-02 08:40] LABS: CALC OSMOLALITY 286 mosm/kg (275-300); CALCIUM 7.7 mg/dL (8.5-10.1); CARBON DIOXIDE 24.9 mmol/L (21.0-32.0); CHLORIDE - SERUM 86 mmol/L (98-107); CREATININE - SERUM 9.6 mg/dL (0.6-1.3); GLUCOSE 93 mg/dL (74-106); SODIUM 130 mmol/L (136-145); UREA NITROGEN 85 mg/dL (7-18); eGFR NON AFRICAN AMERICAN 6 mL/min (90-120)
[2019-06-02 08:53] LABS: ALBUMIN 3.9 g/dL (3.4-5.0); ALKALINE PHOSPHATASE 93 U/L (30-120); ALT (SGPT) 35 U/L (10-68); BILIRUBIN - TOTAL 0.53 mg/dL (0.2-1.3); LIPASE 119 U/L (73-393); PROTEIN - SERUM 9.7 g/dL (6.4-8.2)
[2019-06-02 08:54] LABS: AMYLASE - SERUM 2371 U/L (25-115); TROPONIN-I < 0.017 ng/mL (0.000-0.060)
--- NOTE | 2019-06-02 08:56 | NUR ---
CRITICAL AMYLASE 6723 EDP, ROSS DICKEY.
[2019-06-02 10:55] VITALS: BP 128/68
[2019-06-02 11:07] LABS: APPEARANCE CLEAR (CLEAR); COLOR YELLOW (YELLOW); GLUCOSE NEGATIVE (NEGATIVE); KETONE NEGATIVE (NEGATIVE); NITRITE NEGATIVE (NEGATIVE); PROTEIN 1+ mg/dL (NEGATIVE)
[2019-06-02 11:08] LABS: BACTERIA MODERATE /hpf (NEGATIVE); BILIRUBIN NEGATIVE (NEGATIVE); EPITHELIAL CELLS 0-5 /hpf (0-5); UROBILINOGEN NORMAL (NORMAL); WHITE CELLS - URINE 0-5 /hpf (NEGATIVE)
[2019-06-02 11:09] LABS: AMORPHOUS SEDIMENT >1+ /lpf (NONE SEEN); GRANULAR CAST OCC /lpf (NONE SEEN); MUCUS >1+ /lpf (NONE SEEN)
--- NOTE | 2019-06-02 12:59 | NUR ---
PT IN ROOM, [facility]. ALERT AND ORIENTED, CL IN REACH, SRX2
[2019-06-02 14:57] VITALS: BP 136/96
[2019-06-02 14:58] LABS: ERYTHROCYTE SEDIMENTATION RATE 76 mm/hr (0-20)
[2019-06-02 16:00] VITALS: BP 120/76
[2019-06-02 16:35] VITALS: BP 136/96; BMI 16.7
[2019-06-02 16:59] LABS: % SATURATION 39 % (15-55); IRON 65 ug/dl (35-150); TOTAL IRON BIND CAPACITY 164 ug/dl (260-445); UNSAT IRON BIND CAPACITY 99 ug/dl (150-375)
[2019-06-02] MEDS ORDERED: HYDROCO/APAP TAB 7.5 PO (20:20)
[2019-06-02 20:29] VITALS: BP 130/84
[2019-06-03 01:24] VITALS: BP 122/68
[2019-06-03 04:59] VITALS: BP 103/78
[2019-06-03 05:14] LABS: BASOPHILS 0.1 % (0-2); EOSINOPHILS 0.7 % (0-7); HEMATOCRIT 34.7 % (42.0-54.0); HEMOGLOBIN 11.8 g/dL (13.5-17.5); IMMATURE GRANULOCYTES 0.2 % (0-5); LYMPHOCYTES 11.8 % (15-50); MCH 29.2 pg (26.0-34.0); MCV 85.9 fL (80.0-100.0); MEAN PLATELET VOLUME 9.8 fL (7.4-10.4); NEUTROPHILS 80.2 % (40-80); PLATELET COUNT 327 10x3/uL (130-400); RBC 4.04 10x6/uL (4.20-6.10); RDW 12.8 % (11.5-14.5); WBC 8.2 10x3/uL (4.8-10.8)
[2019-06-03 05:46] LABS: ALBUMIN 3.5 g/dL (3.4-5.0); ANION GAP 23.5 mmol/L (8-16); BILIRUBIN - TOTAL 0.48 mg/dL (0.2-1.3); CALCIUM 7.2 mg/dL (8.5-10.1); CARBON DIOXIDE 23.1 mmol/L (21.0-32.0); MAGNESIUM - SERUM 1.6 mg/dL (1.8-2.4); POTASSIUM - SERUM 4.6 mmol/L (3.5-5.1); PROTEIN - SERUM 8.8 g/dL (6.4-8.2)
--- NOTE | 2019-06-03 07:22 | NUR ---
PT AWAKE AND ORIETNED, LYING IN BED RELAXING. NO COMPLAINTS, STATES PAIN IS BETTER TODAY. NO FAMILY AT BEDSIDE. CL IN REACH, SRX2.
[2019-06-03 09:08] LABS: URIC ACID 18.8 mg/dL (2.6-7.2)
[2019-06-03 09:15] LABS: PHOSPHOROUS 10.8 mg/dL (2.5-4.9)
[2019-06-03 09:50] VITALS: BP 120/87
--- NOTE | 2019-06-03 13:54 | NUR ---
PT AWAKE AND ORIENTED, LYING IN BED WATCHING TV, DOSING ON AND OFF. STATES THAT OVERALL HIS PAIN IS BETTER AND MORE MANAGED TODAY. REFUSED VITAMIN B12 SHOT THIS AM STATING HE WON'T GIVE HIS SELF A SHOT AT HOME AND HE WON'T RECIEVE ONE HERE. NO COMPLAINTS/CONCERNS, ALL QUESTIONS ANSWERD TO THE BEST OF MY ABILTIY. CL IN REACH, SRX2.
[2019-06-03 14:15] VITALS: BP 114/86
[2019-06-03 16:19] LABS: CKMB 7.6 U/L (0.0-3.6); CREATINE KINASE 1082 UL (21-232)
--- NOTE | 2019-06-03 17:18 | NUR ---
I have reviewed this patient and I concur with the Shift Assessment completed by the Licensed Practical Nurse today this shift.
[2019-06-03 17:38] LABS: CREATINE KINASE 1049 UL (21-232)
[2019-06-03 18:34] VITALS: BP 107/71
--- NOTE | 2019-06-03 19:00 | NUR ---
RECEIVED PT, BEDSIDE SHIFT REPORT COMPLETE. PT UP IN BED, RR EVEN AND UNLABORED. NO S/SX OF DISTRESS OBSERVED AT THIS TIME. SRX2, CALL LIGHT IN REACH. DENIES NEEDS. WILL CTM.
[2019-06-03 19:55] LABS: CKMB 6.3 U/L (0.0-3.6)
[2019-06-03 20:00] VITALS: BP 118/66
[2019-06-04] VITALS (7 sets, daily range): BP systolic 92–126; BP diastolic 65–86; Ht 180.3 cm; Wt 54.1 kg
[2019-06-04 05:35] LABS: HEMATOCRIT 31.4 % (42.0-54.0); HEMOGLOBIN 10.5 g/dL (13.5-17.5); MCH 29.1 pg (26.0-34.0); MCHC 33.4 g/dL (31.0-37.0); MEAN PLATELET VOLUME 10.7 fL (7.4-10.4); NEUTROPHILS 59.6 % (40-80); RBC 3.61 10x6/uL (4.20-6.10); RDW 12.8 % (11.5-14.5)
[2019-06-04 05:47] LABS: PLATELET COUNT 223 10x3/uL (130-400)
--- NOTE | 2019-06-04 07:13 | NUR ---
PT AWAKE AND ORIENTED, LYING IN BED. NO COMPLAINTS OR CONCERNS AT THIS TIME. PLESANT MOOD. CL IN REACH, SRX2, NO FAMILY PRESENT AT BEDSIDE.
[2019-06-04 07:31] LABS: ALBUMIN 3.2 g/dL (3.4-5.0); ALKALINE PHOSPHATASE 80 U/L (30-120); ALT (SGPT) 28 U/L (10-68); BILIRUBIN - TOTAL 0.34 mg/dL (0.2-1.3); CALC OSMOLALITY 284 mosm/kg (275-300); CARBON DIOXIDE 28.4 mmol/L (21.0-32.0); CHLORIDE - SERUM 87 mmol/L (98-107); GLUCOSE 89 mg/dL (74-106); MAGNESIUM - SERUM 1.3 mg/dL (1.8-2.4); PROTEIN - SERUM 7.7 g/dL (6.4-8.2); SODIUM 129 mmol/L (136-145); UREA NITROGEN 87 mg/dL (7-18)
[2019-06-04 07:38] LABS: CREATINE KINASE 1206 UL (21-232); CREATININE - SERUM 5.8 mg/dL (0.6-1.3); PHOSPHOROUS 7.6 mg/dL (2.5-4.9); POTASSIUM - SERUM 3.2 mmol/L (3.5-5.1); eGFR NON AFRICAN AMERICAN 10 mL/min (90-120)
[2019-06-04 07:40] LABS: CALCIUM 5.8 mg/dL (8.5-10.1)
[2019-06-04 07:41] LABS: CKMB 5.1 U/L (0.0-3.6)
--- NOTE | 2019-06-04 09:48 | NUR ---
PT AWAKE AND ORIENTED, STARTED I/V FLUIDS PER NEPHROLOGY'S BUT PTS I/V WENT BAD. WILL RESTART SOON POSSIBLE. TOOK PILLS WELL AND UNASSISTED, TX POTASSIUM AND MAGNESIUM.
[2019-06-04 09:50] LABS: PROTEIN - URINE 76.8 mg/dL (0.0-11.9)
[2019-06-04 09:51] LABS: CREATININE - URINE 300.6 mg/dL (30-125); PRO/CRE RATIO URINE 0.3 mg/g
[2019-06-04 10:29] LABS: APPEARANCE CLEAR (CLEAR); BILIRUBIN NEGATIVE (NEGATIVE); COLOR YELLOW (YELLOW); EPITHELIAL CELLS 0-5 /hpf (0-5); GLUCOSE NEGATIVE (NEGATIVE); KETONE NEGATIVE (NEGATIVE); NITRITE NEGATIVE (NEGATIVE); PROTEIN TRACE mg/dL (NEGATIVE); RED CELLS - URINE OCC /hpf (0-5); SPECIFIC GRAVITY 1.025 (1.005-1.020); UROBILINOGEN NORMAL (NORMAL); WHITE CELLS - URINE OCC /hpf (NEGATIVE)
[2019-06-04 10:30] LABS: BACTERIA FEW /hpf (NEGATIVE)
--- NOTE | 2019-06-04 10:51 | NUR ---
I have reviewed this patient and I concur with the Shift Assessment completed by the Licensed Practical Nurse today this shift.
--- NOTE | 2019-06-04 12:14 | MORECARE ---
CASE MANAGEMENT DISCHARGE SUMMARY PATIENT: VALENTINA WEIR SR UNIT: [id number] ADM DATE: 06/02/19 AGE: 69 : 51 SEX: M ROOM/BED: D.2105 AUTHOR: IZABELLA,DOC PHYSICIAN: REFERRING PHYSICIAN: NOELLE OATES MD DATE OF SERVICE: 06/04/19 Discharge Plan Patient Name: VALENTINA WEIR Facility: [facility]:[place] : 1950 Planned Disposition: Home Anticipated Discharge Date: Discharge Date: Expected LOS: Initial Reviewer: [email or web address] Initial Review Date: 06/02/2019 Generated: 06/04/19 1:13 pm Comments DCP- Discharge Planning Updated by [id number]: Bette Omer on 06/04/19 11:[address] Patient Name: VALENTINA WEIR Admission Status: ER Accout number: [id number] Admission Date: 06-02-2019 : 1950 Admission Diagnosis: Attending: NOELLE OATES Current LOS: 2 Anticipated DC Date: Planned Disposition: Home Primary Insurance: WELL[employer] MEDICARE ADV Discharge Planning Comments: CM met with patient to complete initial dc planning assessment. CM educated patient on the CM role and verbal consent given by patient to complete assessment. CM verified patient's address, phone number, and emergency contact phone numbers. Patient lives at home alone. At discharge patient plans to return home and feels this is a safe discharge. CM discussed availability of home health, rehab services, and medical equipment. Patient denied known discharge needs at this time, states he needs ostomy supplies but does not remember where he gets them. Transportation provider at discharge will be . CM will continue to follow and will assist as needed with dc plans/needs. DC IMM delivered, explained, signed by the patient, and placed in his chart. Signed form also left with patient. Glue Size Machine Operator: Bette Omer MSN,CM DCPIA - Discharge Planning Initial Assessment Updated by [email or web address]: Bette Omer on 06/04/19 12:07 pm * Is the patient Alert and Oriented? Yes * How many steps to enter\exit or inside your home? 0/0 * PCP Satish * [facility] * Preadmission Environment Home Alone * ADLs Independent * Equipment Ostomy Supplies * List name and contact numbers for known caregivers / representatives who currently or will assist patient after discharge: Nella Hullt [phone] * Verbal permission to speak to the caregivers and representatives has been obtained from the patient. Yes * Community resources currently utilized None * Additional services required to return to the preadmission environment? No * Can the patient safely return to the preadmission environment? Yes * Has this patient been hospitalized within the prior 30 days at any hospital? No Patient Name: VALENTINA WEIR Page [phone] at 1214 All edits/amendments must be made on the electronic document DICTATION DATE: 06/04/191212 PLANT CONTROLLER: CATERINA 06/04/191212 RPT#: [id number] DC DATE: STATUS: ADM IN [facility] [address] [place] [address] END OF REPORT
--- NOTE | 2019-06-04 13:02 | NUR ---
PT AWAKE AND ORIENTED, LYING IN BED WATCHING T/V. I/V RESITED TO LEFT FOREARM. NO COMPLAINTS OR CONCERNS AT THIS TIME. CL INREACH, SRX2.
--- NOTE | 2019-06-04 17:37 | MORECARE ---
CASE MANAGEMENT DISCHARGE SUMMARY PATIENT: VALENTINA WEIR SR UNIT: [id number] ADM DATE: 06/02/19 AGE: 69 : 52 SEX: M ROOM/BED: D.2103 AUTHOR: IZABELLA,DOC PHYSICIAN: REFERRING PHYSICIAN: NOELLE OATES MD DATE OF SERVICE: 06/04/19 Discharge Plan Patient Name: VALENTINA WEIR Facility: [facility]:[place] : 1950 Planned Disposition: Home Anticipated Discharge Date: 06/04/19 Discharge Date: Expected LOS: 2 Initial Reviewer: [email or web address] Initial Review Date: 06/02/2019 Generated: 06/04/19 6:37 pm Comments DCP- Discharge Planning Updated by [email or web address]: Bette Omer on 06/04/19 11:[address] Patient Name: VALENTINA WEIR Admission Status: ER Accout number: [id number] Admission Date: 06-02-2019 : 1950 Admission Diagnosis: Attending: NOELLE OATES Current LOS: 2 Anticipated DC Date: Planned Disposition: Home Primary Insurance: WELL[employer] MEDICARE ADV Discharge Planning Comments: CM met with patient to complete initial dc planning assessment. CM educated patient on the CM role and verbal consent given by patient to complete assessment. CM verified patient's address, phone number, and emergency contact phone numbers. Patient lives at home alone. At discharge patient plans to return home and feels this is a safe discharge. CM discussed availability of home health, rehab services, and medical equipment. Patient denied known discharge needs at this time, states he needs ostomy supplies but does not remember where he gets them. Transportation provider at discharge will be . CM will continue to follow and will assist as needed with dc plans/needs. DC IMM delivered, explained, signed by the patient, and placed in his chart. Signed form also left with patient. Frit Coater: Betet Omer MSN,CM DCPIA - Discharge Planning Initial Assessment Updated by [id number]: Bette Omer on 06/04/19 12:07 pm * Is the patient Alert and Oriented? Yes * How many steps to enter\exit or inside your home? 0/0 * PCP Satish * [facility]acy [facility] * Preadmission Environment Home Alone * ADLs Independent * Equipment Ostomy Supplies * List name and contact numbers for known caregivers / representatives who currently or will assist patient after discharge: Nella Sands [phone] * Verbal permission to speak to the caregivers and representatives has been obtained from the patient. Yes * Community resources currently utilized None * Additional services required to return to the preadmission environment? No * Can the patient safely return to the preadmission environment? Yes * Has this patient been hospitalized within the prior 30 days at any hospital? No Coverage Notice Reviewer: [email or web address] Bianca Omer Notice Issued Date-Time: 06/04/2019 11:25 Notice Type: IM Discharge Notice Notice Delivered To: Patient Relationship to Patient: Plate Worker Name: Delivery Method: HAND - Hand Delivered Jennifer Days: Prior Verbal Notification: Recipient Understood Notice: Yes Recipient Signature: Yes Med Rec Note Co-signed by Attending: Coverage Notice Comment: IMM delivered, explained, signed by the patient, and placed in his chart. Signed form also left with patient. Last DP export: 06/04/19 11:14 a Patient Name: VALENTINA WEIR Page [phone] at 1737 All edits/amendments must be made on the electronic document DICTATION DATE: 06/04/191736 MILLINERY BLOCKER: CATERINA 06/04/191736 RPT#: [id number] DC DATE: STATUS: ADM IN [facility] [address] [place] [address] END OF REPORT
--- NOTE | 2019-06-04 19:15 | NUR ---
REPORT RECEIVED, WILL CONTINUE POC. PATIENT IS AAOX4, LYING ON RT SIDE. NO S/S OF DISTRESS OBSERVED, RR EVEN AND UNLABORED ON ROOM AIR. PIV TO LT FA INFUSING NS @ 75ML/HR. PATIENT HAS A COLOSTOMY THAT HE MAINTAINS HIMSELF. PATIENT DENIES NEEDS AT THIS TIME. CL IN REACH, BED LOCKED AND LOWERED. WILL CTM.
--- NOTE | 2019-06-04 22:05 | NUR ---
PATIENT C/O PAIN TO SIDE. PRN NORCO ADMINISTERED PER ORDERS.
--- NOTE | 2019-06-05 03:47 | NUR ---
I have reviewed this patient and I concur with the Shift Assessment completed by the Licensed Practical Nurse today this shift.
[2019-06-05 04:30] VITALS: BP 116/74
[2019-06-05 06:34] LABS: BASOPHILS 0.2 % (0-2); EOSINOPHILS 0.8 % (0-7); HEMATOCRIT 29.6 % (42.0-54.0); IMMATURE GRANULOCYTES 0.2 % (0-5); LYMPHOCYTES 8.6 % (15-50); MCH 29.4 pg (26.0-34.0); MCHC 33.8 g/dL (31.0-37.0); MCV 87.1 fL (80.0-100.0); MEAN PLATELET VOLUME 10.2 fL (7.4-10.4); MONOCYTES 10.5 % (2-11); NEUTROPHILS 79.7 % (40-80); RDW 13.1 % (11.5-14.5)
[2019-06-05 06:49] LABS: PLATELET COUNT 277 10x3/uL (130-400); WBC 6.3 10x3/uL (4.8-10.8)
--- NOTE | 2019-06-05 07:22 | NUR ---
REPORT RECEIVED. WILL CONTINUE WITH POC. PT CURRENTLY LYING SEMI FOWLERS. CALL LIGHT W/I REACH. PT IS AAO AND UP AD TAMY. RR EVEN AND UNLABORED ON RA. NS INFUSING @75ML/HR VIA L.FOR PIV. NO S/S OF DISTRESS NOTED. PT DENIES ANY NEEDS AT THIS TIME. WILL CTM.
[2019-06-05 07:26] LABS: ALBUMIN 3.3 g/dL (3.4-5.0); ALKALINE PHOSPHATASE 69 U/L (30-120); ALT (SGPT) 29 U/L (10-68); BILIRUBIN - TOTAL 0.39 mg/dL (0.2-1.3); CALC OSMOLALITY 285 mosm/kg (275-300); CARBON DIOXIDE 25.6 mmol/L (21.0-32.0); CHLORIDE - SERUM 92 mmol/L (98-107); GLUCOSE 115 mg/dL (74-106); POTASSIUM - SERUM 3.4 mmol/L (3.5-5.1); PROTEIN - SERUM 7.5 g/dL (6.4-8.2); SODIUM 131 mmol/L (136-145); UREA NITROGEN 73 mg/dL (7-18)
[2019-06-05 07:43] LABS: CREATINE KINASE 936 UL (21-232); MAGNESIUM - SERUM 1.7 mg/dL (1.8-2.4); eGFR NON AFRICAN AMERICAN 16 mL/min (90-120)
[2019-06-05 07:44] LABS: CALCIUM 6.4 mg/dL (8.5-10.1); CKMB 3.1 U/L (0.0-3.6)
[2019-06-05 08:32] VITALS: BP 109/77
--- NOTE | 2019-06-05 08:48 | MORECARE ---
CASE MANAGEMENT DISCHARGE SUMMARY PATIENT: VALENTINA WEIR SR UNIT: [id number] ADM DATE: 06/02/19 AGE: 69 : 52 SEX: M ROOM/BED: D.2108 AUTHOR: IZABELLA,DOC PHYSICIAN: REFERRING PHYSICIAN: NOELLE OATES MD DATE OF SERVICE: 06/05/19 Discharge Plan Patient Name: VALENTINA WEIR Facility: [facility]:[place] : 1950 Planned Disposition: Home Anticipated Discharge Date: 06/04/19 Discharge Date: Expected LOS: 2 Initial Reviewer: [email or web address] Initial Review Date: 06/02/2019 Generated: 06/05/19 9:48 am Comments DCP- Discharge Planning Updated by [email or web address]: Bette Omer on 06/04/19 11:[address] Patient Name: VALENTINA WEIR Admission Status: ER Accout number: [id number] Admission Date: 06-02-2019 : 1950 Admission Diagnosis: Attending: NOELLE OATES Current LOS: 2 Anticipated DC Date: Planned Disposition: Home Primary Insurance: WELL[employer] MEDICARE ADV Discharge Planning Comments: CM met with patient to complete initial dc planning assessment. CM educated patient on the CM role and verbal consent given by patient to complete assessment. CM verified patient's address, phone number, and emergency contact phone numbers. Patient lives at home alone. At discharge patient plans to return home and feels this is a safe discharge. CM discussed availability of home health, rehab services, and medical equipment. Patient denied known discharge needs at this time, states he needs ostomy supplies but does not remember where he gets them. Transportation provider at discharge will be . CM will continue to follow and will assist as needed with dc plans/needs. DC IMM delivered, explained, signed by the patient, and placed in his chart. Signed form also left with patient. Caregivers Homecare: Bette Omer MSN,CM DCPIA - Discharge Planning Initial Assessment Updated by [email or web address]: Bette Omer on 06/04/19 12:07 pm * Is the patient Alert and Oriented? Yes * How many steps to enter\exit or inside your home? 0/0 * PCP Satish * [facility]acy [facility]/ * Preadmission Environment Home Alone * ADLs Independent * Equipment Ostomy Supplies * List name and contact numbers for known caregivers / representatives who currently or will assist patient after discharge: Nella Sands [phone] * Verbal permission to speak to the caregivers and representatives has been obtained from the patient. Yes * Community resources currently utilized None * Additional services required to return to the preadmission environment? No * Can the patient safely return to the preadmission environment? Yes * Has this patient been hospitalized within the prior 30 days at any hospital? No Coverage Notice Reviewer: [email or web address] Bianca Omer Notice Issued Date-Time: 06/04/2019 11:25 Notice Type: IM Discharge Notice Notice Delivered To: Patient Relationship to Patient: Legal Associate Name: Delivery Method: HAND - Hand Delivered Jennifer Days: Prior Verbal Notification: Recipient Understood Notice: Yes Recipient Signature: Yes Med Rec Note Co-signed by Attending: Coverage Notice Comment: IMM delivered, explained, signed by the patient, and placed in his chart. Signed form also left with patient. Last DP export: 06/04/19 4:37 p Patient Name: VALENTINA WEIR Page [phone] at 0848 All edits/amendments must be made on the electronic document DICTATION DATE: 06/05/19847 OFFSHORE DIVER: CATERINA 06/05/19847 RPT#: [id number] DC DATE: STATUS: ADM IN [facility] [address] [place] [address] END OF REPORT
[2019-06-05 13:01] VITALS: BP 124/95
[2019-06-05 15:10] LABS: SPE - A/G RATIO 0.8 (0.7-1.7); SPE - ALBUMIN 3.4 g/dL (2.9-4.4); SPE - ALPHA-1 GLOBULIN 0.4 g/dL (0.0-0.4); SPE - BETA GLOBULIN 1.9 g/dL (0.7-1.3); SPE - GAMMA GLOBULIN 1.1 g/dL (0.4-1.8); SPE - M-SPIKE Not Observed g/dL (Not Observed); SPE - TOTAL PROTEIN 7.8 g/dL (6.0-8.5)
--- NOTE | 2019-06-05 15:41 | NUR ---
I have reviewed this patient and I concur with the Shift Assessment completed by the Licensed Practical Nurse today this shift.
[2019-06-05 16:53] VITALS: BP 125/84
[2019-06-05 19:08] LABS: UPE RAND - ALBUMIN 40.1 % (()); UPE RAND - ALPHA 1 GLOBULIN 3.1 % (()); UPE RAND - ALPHA 2 GLOBULIN 10.6 % (()); UPE RAND - GAMMA GLOBULIN 24.2 % (())
--- NOTE | 2019-06-05 19:20 | NUR ---
REPORT RECEIVED, WILL CONTINUE POC. PATIENT IS AAOX4, LYING ON LT SIDE. NO S/S OF DISTRESS OBSERVED, RR EVEN AND UNLABORED ON ROOM AIR. PATIENT C/O PAIN AND WANTED TO KNOW WHEN HE CAN HAVE A NORCO. INFORMED PATIENT HE CAN HAVE ONE NOW AND WOULD BRING IT BACK IN A FEW MINUTES. PIV TO LT AC INFUSING LR @ 100ML/HR DRSG C/D/I. PATIENT DENIES FURTHER NEEDS AT THIS TIME. CL IN REACH, BED LOCKED AND LOWERED. WILL CTM.
--- NOTE | 2019-06-05 19:34 | NUR ---
ADMINISTERED PRN NORCO FOR PAIN
[2019-06-05 20:00] VITALS: BP 121/84
--- NOTE | 2019-06-05 22:07 | NUR ---
I ENTERED PATIENT ROOM HE SAID HE VOMITED ON THE FLOOR. PATIENT REFUSED QUESTRAN. GOT ASSISTANCE TO CLEAN UP VOMIT AND CHANGE LINENS.
--- NOTE | 2019-06-05 22:31 | NUR ---
PATIENT VOMITED APPROXIMATELY 500CC OF BROWN LIQUID. PATIENT FEELING VERY WEAK AND NAUSEATED. WILL ADMINISTERED PRN ZOFRAN PER ORDERS.
--- NOTE | 2019-06-05 23:33 | NUR ---
PATIENT BP 145/105 AFTER THE VOMITING EPISODE. HAD AGRISCIENCE INSTRUCTOR RECHECK NOW AND IS 153/107 HR 108. CONSULTED JAYJAY HOLLIDAY, ORDERS RECEIVED.
[2019-06-06] VITALS (7 sets, daily range): BP systolic 88–145; BP diastolic 51–105
--- NOTE | 2019-06-06 01:13 | NUR ---
I have reviewed this patient and I concur with the Shift Assessment completed by the Licensed Practical Nurse today this shift.
--- NOTE | 2019-06-06 03:45 | NUR ---
PATIENT C/O NAUSEA. NOTICE IV WAS OUT WITH CATH TIP INTACT. RESITED IV TO RT FOREARM WITH 22G X1 ATTEMPT. GOOD BLOOD RETURN, FLUSHED WITH EASE. PATIENT C/O ABDMONIAL PAIN, THAT SLIGHTLY EASES WITH ZOFRAN. PRN ZOFRAN ADMINISTERED PER ORDERS. PATIENT BLOOD PRESSUE STILL ELEVATED 144/101. HAVEN'T HAD ANY CONTENTS IN COLOSTOMY.
--- NOTE | 2019-06-06 07:40 | NUR ---
PATIENT IS VERY NAUSEATED AND IN PAIN. HE IS VOMITING BROWN LIQUID. HE DOES NOT HAVE ANY STOOL IN HIS COLOSTOMY BAG. THE VOMIT IS BLACK AND BROWN. DR IS AWARE. WILL REPORT THIS AGAIN.
[2019-06-06 08:06] LABS: BASOPHILS 0 % (0-2); EOSINOPHILS 0.1 % (0-7); HEMOGLOBIN 10.7 g/dL (13.5-17.5); IMMATURE GRANULOCYTES 0.2 % (0-5); LYMPHOCYTES 7.3 % (15-50); MCH 29.5 pg (26.0-34.0); MCHC 33.4 g/dL (31.0-37.0); MCV 88.2 fL (80.0-100.0); MEAN PLATELET VOLUME 10.2 fL (7.4-10.4); MONOCYTES 2.3 % (2-11); NEUTROPHILS 90.1 % (40-80); PLATELET COUNT 304 10x3/uL (130-400); RBC 3.63 10x6/uL (4.20-6.10)
[2019-06-06 08:14] LABS: WBC 8.2 10x3/uL (4.8-10.8)
--- NOTE | 2019-06-06 08:15 | NUR ---
REPORTED THE BROWN VOMIT TO , WILL COLLECT EMISIS ORDERED.
[2019-06-06 08:21] LABS: ALBUMIN 3.6 g/dL (3.4-5.0); ALKALINE PHOSPHATASE 75 U/L (30-120); BILIRUBIN - TOTAL 0.86 mg/dL (0.2-1.3); CALC OSMOLALITY 287 mosm/kg (275-300); CARBON DIOXIDE 27.8 mmol/L (21.0-32.0); CHLORIDE - SERUM 95 mmol/L (98-107); CREATININE - SERUM 3.3 mg/dL (0.6-1.3); GLUCOSE 110 mg/dL (74-106); MAGNESIUM - SERUM 2.1 mg/dL (1.8-2.4); PHOSPHOROUS 4.2 mg/dL (2.5-4.9); POTASSIUM - SERUM 3.8 mmol/L (3.5-5.1); PROTEIN - SERUM 8.5 g/dL (6.4-8.2); SODIUM 134 mmol/L (136-145); UREA NITROGEN 67 mg/dL (7-18); eGFR NON AFRICAN AMERICAN 20 mL/min (90-120)
[2019-06-06 08:22] LABS: ALT (SGPT) 41 U/L (10-68); CALCIUM 8.6 mg/dL (8.5-10.1); CREATINE KINASE 611 UL (21-232)
[2019-06-06 08:23] LABS: CKMB 2.7 U/L (0.0-3.6)
--- NOTE | 2019-06-06 09:51 | NUR ---
16 HUNGARIAN GUTIERREZ PLACED AND 2000ML DARK YELLOW URINE CAME OUT RIGHT AWAY. 10CC STERILE WATER USED TO FILL THE BALLOON. PATIENT REPORTS LESS DISCOMFORT.
--- NOTE | 2019-06-06 11:23 | NUR ---
PATIENT IS REFUSING NG TUBE. PATIENT REPORTS THAT HE IS HAVING RELIEF. AT THIS TIME HE DOES NOT REPORT ANY PAIN. HE IS NPO AT THIS TIME.
--- NOTE | 2019-06-06 13:01 | NUR ---
Nutrition Follow-up: Noted SBO per CT and surgery consulted. Per RN, pt refusing NGT. Diet: NPO Wt: 119.3# (06/04) Labs noted: Na 134, Glu 110, Ca 8.6, Mg 2.1, Alb 3.6 Meds noted: LR @ 100, Pepcid -If pt remains NPO, rec initiate nutrition support within 24-48 hrs. -Need new wt; noted daily wts ordered. -RD following.
--- NOTE | 2019-06-06 17:19 | NUR ---
PATIENT HAS HAD A FULL COLOSTOMY BAG, OVER 1000ML. SENT IN SAMPLE TO LAB. PATIENT IS NOT C/O NAUSEA ANY MORE.
--- NOTE | 2019-06-06 17:50 | NUR ---
PATIENT IS REFUSING TO STAY NPO. HE MUST HAVE FOOD NOW. HE IS DEMANDING FOOD. CALLED SURGERY AND NIRANJAN RO, THEY ARE AWARE. NIRANJAN SAYS IF HE EATS AND STARTS VOMITING ,DO NOT CALL HER. SURGERY SAYS IF HE EATS CANCEL THE CONSULT. I AM CANCELLING THE CONSULT NOW. THE PATIENT SAYS NO MATTER WHAT HE WILL NOT STAY NPO. HE WILL EAT EVEN IF HE HAS TO SNEAK OFF THE FLOOR AND GET FOOD.
--- NOTE | 2019-06-06 19:15 | NUR ---
REPORT RECEIVED, WILL CONTINUE POC. PATIENT IS AAOX4, UP WITH MINIMAL ASSIST. NO S/S OF DISTRESS OBSERVED, RR EVEN AND UNLABORED ON ROOM AIR. PIV TO RT FA INFUSING LR @ 100ML/HR, PATENT, DRSG C/D/I. PATIENT DENIES NEEDS AT THIS TIME. CL IN REACH, BED LOCKED AND LOWERED. WILL CTM.
--- NOTE | 2019-06-07 04:44 | NUR ---
PATIENT BP HAS BEEN TRENDING DOWN THROUGH THE NIGHT. THIS AM BP 86/54. PAGED JAYJAY HOLLIDAY AND WAS GIVEN ORDERS TO BOLUS 500ML NS. SOON THE FLUIDS BEGAN HIS IV INFILTRATED. IV RESITED WITH 2OG TO LT FA X1 ATTEMPT. GOOD BLOOD RETURN, FLUSHED WITH EASE. PATIENT TOLERATED WELL.
--- NOTE | 2019-06-07 06:22 | NUR ---
I have reviewed this patient and I concur with the Shift Assessment completed by the Licensed Practical Nurse today this shift.
[2019-06-07 06:33] LABS: BASOPHILS 0.1 % (0-2); EOSINOPHILS 1.6 % (0-7); HEMATOCRIT 28.5 % (42.0-54.0); HEMOGLOBIN 9.2 g/dL (13.5-17.5); IMMATURE GRANULOCYTES 0.3 % (0-5); LYMPHOCYTES 7.3 % (15-50); MCH 29.2 pg (26.0-34.0); MCHC 32.3 g/dL (31.0-37.0); MCV 90.5 fL (80.0-100.0); MEAN PLATELET VOLUME 10.4 fL (7.4-10.4); NEUTROPHILS 79.7 % (40-80); PLATELET COUNT 260 10x3/uL (130-400); RBC 3.15 10x6/uL (4.20-6.10); RDW 13.5 % (11.5-14.5); WBC 8.7 10x3/uL (4.8-10.8)
[2019-06-07 07:12] LABS: ALBUMIN 2.9 g/dL (3.4-5.0); ALKALINE PHOSPHATASE 61 U/L (30-120); ALT (SGPT) 34 U/L (10-68); CALC OSMOLALITY 292 mosm/kg (275-300); CALCIUM 7.7 mg/dL (8.5-10.1); CARBON DIOXIDE 30.5 mmol/L (21.0-32.0); CHLORIDE - SERUM 101 mmol/L (98-107); CREATININE - SERUM 3.1 mg/dL (0.6-1.3); GLUCOSE 76 mg/dL (74-106); POTASSIUM - SERUM 3.9 mmol/L (3.5-5.1); PROTEIN - SERUM 6.4 g/dL (6.4-8.2); SODIUM 139 mmol/L (136-145); UREA NITROGEN 57 mg/dL (7-18); eGFR NON AFRICAN AMERICAN 21 mL/min (90-120)
[2019-06-07 07:13] LABS: CREATINE KINASE 281 UL (21-232); MAGNESIUM - SERUM 1.4 mg/dL (1.8-2.4)
[2019-06-07 07:14] LABS: CKMB 1.7 U/L (0.0-3.6)
--- NOTE | 2019-06-07 07:27 | NUR ---
PATIENT IS AWAKE AND ALERT. HE DENIES ANY NEEDS AT THIS TIME. HE IS SITTING UP IN BED. HE DID NOT HAVE ANY NAUSEA LAST NIGHT. HE CHOSE TO EAT AND CANCEL HIS SURGERY CONSULT LAST NIGHT. GUTIERREZ IS IN PLACE, AND DRAINING CLEAR YELLOW URINE. HE TAKES CARE OF HIS COLOSTOMY BAG HIMSELF.
--- NOTE | 2019-06-07 08:31 | MORECARE ---
CASE MANAGEMENT DISCHARGE SUMMARY PATIENT: VALENTINA WEIR SR UNIT: [id number] ADM DATE: 06/02/19 AGE: 69 : 51 SEX: M ROOM/BED: D.2106 AUTHOR: IZABELLA,DOC PHYSICIAN: REFERRING PHYSICIAN: NOELLE OAETS MD DATE OF SERVICE: 06/07/19 Discharge Plan Patient Name: VALENTINA WEIR Facility: [facility]:[place] : 1950 Planned Disposition: Home Anticipated Discharge Date: 06/04/19 Discharge Date: Expected LOS: 2 Initial Reviewer: [email or web address] Initial Review Date: 06/02/2019 Generated: 06/07/19 9:31 am DCP- Discharge Planning Updated by [email or web address]: Bette Omer on 06/04/19 11:[address] Patient Name: VALENTINA WEIR Admission Status: ER Accout number: [id number] Admission Date: 06-02-2019 : 1950 Admission Diagnosis: Attending: NOELLE OATES Current LOS: 2 Anticipated DC Date: Planned Disposition: Home Primary Insurance: [employer] MEDICARE ADV Discharge Planning Comments: CM met with patient to complete initial dc planning assessment. CM educated patient on the CM role and verbal consent given by patient to complete assessment. CM verified patient's address, phone number, and emergency contact phone numbers. Patient lives at home alone. At discharge patient plans to return home and feels this is a safe discharge. CM discussed availability of home health, rehab services, and medical equipment. Patient denied known discharge needs at this time, states he needs ostomy supplies but does not remember where he gets them. Transportation provider at discharge will be . CM will continue to follow and will assist as needed with dc plans/needs. DC IMM delivered, explained, signed by the patient, and placed in his chart. Signed form also left with patient. Resident Surgeon: Bette Omer MSN,CM DCPIA - Discharge Planning Initial Assessment Updated by [email or web address]: Bette Omer on 06/04/19 12:07 pm * Is the patient Alert and Oriented? Yes * How many steps to enter\exit or inside your home? 0/0 * PCP Satish * Pharmacy [facility] * Preadmission Environment Home Alone * ADLs Independent * Equipment Ostomy Supplies * List name and contact numbers for known caregivers / representatives who currently or will assist patient after discharge: Nella Sands [phone] * Verbal permission to speak to the caregivers and representatives has been obtained from the patient. Yes * Community resources currently utilized None * Additional services required to return to the preadmission environment? No * Can the patient safely return to the preadmission environment? Yes * Has this patient been hospitalized within the prior 30 days at any hospital? No Coverage Notice Reviewer: [id number] Bianca Omer Notice Issued Date-Time: 06/04/2019 11:25 Notice Type: IM Discharge Notice Notice Delivered To: Patient Relationship to Patient: Boxing Instructor Name: Delivery Method: HAND - Hand Delivered Jennifer Days: Prior Verbal Notification: Recipient Understood Notice: Yes Recipient Signature: Yes Med Rec Note Co-signed by Attending: Coverage Notice Comment: IMM delivered, explained, signed by the patient, and placed in his chart. Signed form also left with patient. Last DP export: 06/05/19 7:48 a Patient Name: VALENTINA WEIR Page [phone] at 0831 All edits/amendments must be made on the electronic document DICTATION DATE: 06/07/19830 FILLER SIFTER MACHINE: CATERINA 06/07/19830 RPT#: [id number] DC DATE: STATUS: ADM IN [facility] [address] [place] [address] END OF REPORT
[2019-06-07 09:03] VITALS: BP 98/64
[2019-06-07 13:27] VITALS: BP 108/62
[2019-06-07 15:47] VITALS: BP 107/70
--- NOTE | 2019-06-07 15:59 | NUR ---
PATIENT IS RESTING QUIETLY NOW. DENIES ANY NEEDS . IV INFUSING ORDERED.
[2019-06-07 20:30] VITALS: BP 93/58
[2019-06-08 00:30] VITALS: BP 111/73
[2019-06-08 05:07] VITALS: BP 87/56
--- NOTE | 2019-06-08 05:17 | NUR ---
I have reviewed this patient and I concur with the Shift Assessment completed by the Licensed Practical Nurse today this shift.
[2019-06-08 06:33] LABS: ALBUMIN 2.6 g/dL (3.4-5.0); ANION GAP 12.6 mmol/L (8-16); BILIRUBIN - TOTAL 0.38 mg/dL (0.2-1.3); CALCIUM 7.9 mg/dL (8.5-10.1); CARBON DIOXIDE 25.8 mmol/L (21.0-32.0); POTASSIUM - SERUM 3.4 mmol/L (3.5-5.1); PROTEIN - SERUM 6.3 g/dL (6.4-8.2)
[2019-06-08 06:35] LABS: CREATININE - SERUM 2.1 mg/dL (0.6-1.3)
--- NOTE | 2019-06-08 06:48 | NUR ---
POTASSIUM AND PHOS LOW THIS AM. ELECTROLYTE PROTOCOL FOLLOWED. ORDERS PLACED FOR LAB DRAW TO RECHECK K+ IN 4HRS
[2019-06-08 09:01] VITALS: BP 93/67
[2019-06-08 09:03] LABS: BASOPHILS 0.1 % (0-2); EOSINOPHILS 2.3 % (0-7); HEMATOCRIT 25.2 % (42.0-54.0); HEMOGLOBIN 8.1 g/dL (13.5-17.5); IMMATURE GRANULOCYTES 0.2 % (0-5); LYMPHOCYTES 7.8 % (15-50); MCH 29.1 pg (26.0-34.0); MCHC 32.1 g/dL (31.0-37.0); MCV 90.6 fL (80.0-100.0); MEAN PLATELET VOLUME 10.4 fL (7.4-10.4); MONOCYTES 15.7 % (2-11); NEUTROPHILS 73.9 % (40-80); PLATELET COUNT 266 10x3/uL (130-400); RBC 2.78 10x6/uL (4.20-6.10); RDW 13.3 % (11.5-14.5); WBC 8.6 10x3/uL (4.8-10.8)
--- NOTE | 2019-06-08 12:17 | NUR ---
Nutrition Follow-up: Eating well. Noted 100% of breakfast eaten this AM per record. Reports drinking 2 Nepro yesterday. Ok to liberalize diet per Dr. Lee. Reporting output from ostomy. Diet: Renal PO intake: 50-100% No new wt; last wt: 119.3# (06/04) Labs noted: Na 135, K+ 3.4, GFR 41, Ca 7.9, PO4 2.0, Alb 2.6 Meds noted: LR @ 100, Neutra-Phos, KDur -Liberalize to cardiac diet. -Need new wt; noted daily wts ordered. -RD following.
[2019-06-08 13:23] VITALS: BP 104/70
--- NOTE | 2019-06-08 15:39 | NUR ---
I have reviewed this patient and I concur with the Shift Assessment completed by the Licensed Practical Nurse today this shift.
[2019-06-08 16:19] VITALS: BP 101/68
[2019-06-08 20:17] VITALS: BP 90/51
[2019-06-09 00:15] VITALS: BP 100/62
--- NOTE | 2019-06-09 03:23 | NUR ---
I have reviewed this patient and I concur with the Shift Assessment completed by the Licensed Practical Nurse today this shift.
--- NOTE | 2019-06-09 03:37 | NUR ---
RESTING WITH EYES CLOSED, RESPERATIONS EVEN, NO S/S DISTRESS NOTED.
[2019-06-09 04:24] VITALS: BP 96/56
[2019-06-09 05:22] LABS: MAGNESIUM - SERUM 1.5 mg/dL (1.8-2.4)
[2019-06-09 05:23] LABS: PHOSPHOROUS 2.7 mg/dL (2.5-4.9)
--- NOTE | 2019-06-09 07:53 | NUR ---
PT A/O X4 RESTING IN BED AT THIS TIME. RR EVEN AND UNLABORED. NO S/S OF DISTRESS. BED LOW CALL LIGHT WITHIN REACH. WILL CONTINUE TO MONITOR.
[2019-06-09 08:32] VITALS: BP 120/81
[2019-06-09 09:42] LABS: ANION GAP 15.6 mmol/L (8-16); CALCIUM 8.1 mg/dL (8.5-10.1); CARBON DIOXIDE 25.1 mmol/L (21.0-32.0); CREATININE - SERUM 1.7 mg/dL (0.6-1.3); POTASSIUM - SERUM 3.7 mmol/L (3.5-5.1)
[2019-06-09 11:59] VITALS: BP 111/70
--- NOTE | 2019-06-09 12:57 | NUR ---
I have reviewed this patient and I concur with the Shift Assessment completed by the Licensed Practical Nurse today this shift.
[2019-06-09 16:30] VITALS: BP 104/64
--- NOTE | 2019-06-09 20:00 | NUR ---
INITIAL ROUNDS COMPLETED AT 1915 HRS. PT DENIED ANY DISCOMFORT. ASSESSMENT COMPLETED AT 2004 HRS. VSS. ALERT AND ORIENTED TO PERSON,PLACE AND TIME. [place]. IV TO LFA WITH LRA T 100CC/HR. IV PATENT. O2 2LNC. LUNGS DIMINISHED INBASES BILAT. [place]. COLOSTOMY NOTED. GUTIERREZ DRAINING YELLOW URINE. LARGE BRIDGET GROWTH NOTED TO L SHOULDER. SR UP X2, CALL LIGHT WITHIN REACH.
[2019-06-09 20:30] VITALS: BP 105/63
--- NOTE | 2019-06-09 21:36 | NUR ---
PM MED GIVEN. PT DENIES ANY DISTRESS OR NEEDS. SR UP X2, CALL LIGHT WITHIN REACH.
--- NOTE | 2019-06-09 23:45 | NUR ---
PT AWAKE; NO DISTRESS NOTED. SR UP X2, CALL LIGHT WITHIN REACH.
[2019-06-10 00:20] VITALS: BP 98/67
--- NOTE | 2019-06-10 01:37 | NUR ---
WATCHING TV. NO DISTRESS NOTED. SR UP X2, CALL LIGHT WITHIN REACH.
[2019-06-10 04:30] VITALS: BP 102/68
--- NOTE | 2019-06-10 04:30 | NUR ---
ROOM SMELLS OF CIGARETTES. PT DENEIS SMOKING. CIGARETTE CARLOS FOUND IN BR. PT STILL DENIES SMOKING STATING "IT WASN'T ME." INFORMED PT NO SMOKING IN THE HOSPITAL AND OF POTENTIAL EXPLOSION WIHT O2 ON IN ROOM. PT DID NOT SAY ANYTHING.
--- NOTE | 2019-06-10 06:03 | NUR ---
VSS THROUGHOUT NIGHT. PT DENIED ANY DISCOMFORT. NEEDS MET;WILL CONTINUE TO MONITOR.
--- NOTE | 2019-06-10 07:14 | NUR ---
REPORT RECEIVED FROM AQUARIUM TANK ATTENDANT AND PATIENT CARE ASSUMED. PATIENT LAYING IN BED AWAKE, ALERT AND ORIENTED X 4. PATIENT DENIES ANY NEEDS OR PAIN. WILL CONTINUE WITH PLAN OF CARE. SR UPX 2 BED IN LOW POSITIION AND CALL LIGHT IN REACH.
[2019-06-10 08:07] VITALS: BP 92/64
[2019-06-10] MEDS ORDERED: QUESTRAN PACKET PO (10:23)
[2019-06-10] MEDS ORDERED: FLOMAX0.4 MG PO (10:23)
[2019-06-10] MEDS ORDERED: QUESTRAN LIG1 PACKET PO (10:23)
[2019-06-10] MEDS ORDERED: MAG 6464 MG PO (10:23)
[2019-06-10 10:30] LABS: BASOPHILS 0.1 % (0-2); EOSINOPHILS 2.8 % (0-7); HEMATOCRIT 27.8 % (42.0-54.0); HEMOGLOBIN 8.7 g/dL (13.5-17.5); IMMATURE GRANULOCYTES 0.3 % (0-5); LYMPHOCYTES 10.1 % (15-50); MCH 29.4 pg (26.0-34.0); MCHC 31.3 g/dL (31.0-37.0); MEAN PLATELET VOLUME 11.1 fL (7.4-10.4); MONOCYTES 13.4 % (2-11); NEUTROPHILS 73.3 % (40-80); PLATELET COUNT 293 10x3/uL (130-400); RBC 2.96 10x6/uL (4.20-6.10); RDW 13.4 % (11.5-14.5); WBC 7.9 10x3/uL (4.8-10.8)
[2019-06-10 10:36] LABS: MCV 93.9 fL (80.0-100.0)
[2019-06-10 10:37] LABS: ANION GAP 16.4 mmol/L (8-16); CALCIUM 7.8 mg/dL (8.5-10.1); CARBON DIOXIDE 25.2 mmol/L (21.0-32.0); CREATININE - SERUM 1.5 mg/dL (0.6-1.3); MAGNESIUM - SERUM 1.3 mg/dL (1.8-2.4); POTASSIUM - SERUM 3.6 mmol/L (3.5-5.1)
--- NOTE | 2019-06-10 11:08 | MORECARE ---
CASE MANAGEMENT DISCHARGE SUMMARY PATIENT: VALENTINA WEIR SR UNIT: [id number] ADM DATE: 06/02/19 AGE: 69 : 52 SEX: M ROOM/BED: D.210 AUTHOR: IZABELLA,DOC PHYSICIAN: REFERRING PHYSICIAN: NOELLE OATES MD DATE OF SERVICE: 06/10/19 Discharge Plan Patient Name: VALENTINA WEIR Facility: [facility]:[place] : 1950 Planned Disposition: Home Anticipated Discharge Date: 06/04/19 Discharge Date: Expected LOS: 2 Initial Reviewer: Initial Review Date: 06/02/2019 Generated: 06/10/19 12:08 pm DCP- Discharge Planning Updated by [email or web address]: Bette Omer on 06/04/19 11:[address] Patient Name: VALENTINA WEIR Admission Status: ER Accout number: [id number] Admission Date: 06-02-2019 : 1950 Admission Diagnosis: Attending: NOELLE OATES Current LOS: 2 Anticipated DC Date: Planned Disposition: Home Primary Insurance: [employer] MEDICARE ADV Discharge Planning Comments: CM met with patient to complete initial dc planning assessment. CM educated patient on the CM role and verbal consent given by patient to complete assessment. CM verified patient's address, phone number, and emergency contact phone numbers. Patient lives at home alone. At discharge patient plans to return home and feels this is a safe discharge. CM discussed availability of home health, rehab services, and medical equipment. Patient denied known discharge needs at this time, states he needs ostomy supplies but does not remember where he gets them. Transportation provider at discharge will be . CM will continue to follow and will assist as needed with dc plans/needs. DC IMM delivered, explained, signed by the patient, and placed in his chart. Signed form also left with patient. Float Builder: Bette Omer MSN,CM DCPIA - Discharge Planning Initial Assessment Updated by [id number]: Bette Omer on 06/04/19 12:07 pm * Is the patient Alert and Oriented? Yes * How many steps to enter\exit or inside your home? 0/0 * PCP Satish * Pharmacy [facility] * Preadmission Environment Home Alone * ADLs Independent * Equipment Ostomy Supplies * List name and contact numbers for known caregivers / representatives who currently or will assist patient after discharge: Nella Sands [phone] * Verbal permission to speak to the caregivers and representatives has been obtained from the patient. Yes * Community resources currently utilized None * Additional services required to return to the preadmission environment? No * Can the patient safely return to the preadmission environment? Yes * Has this patient been hospitalized within the prior 30 days at any hospital? No External Providers External Provider: [facility] Next Contact Date: Service Request Date: Service Type: Resolution: Reviewer: Comments: Coverage Notice Reviewer: [email or web address] - Bette Omer Notice Issued Date-Time: 06/04/2019 11:25 Notice Type: IM Discharge Notice Notice Delivered To: Patient Relationship to Patient: Ob Nurse Name: Delivery Method: HAND - Hand Delivered Jennifer Days: Prior Verbal Notification: Recipient Understood Notice: Yes Recipient Signature: Yes Med Rec Note Co-signed by Attending: Coverage Notice Comment: IMM delivered, explained, signed by the patient, and placed in his chart. Signed form also left with patient. Last DP export: 06/07/19 7:31 a Patient Name: VALENTINA WEIR Page [phone] at 1108 All edits/amendments must be made on the electronic document DICTATION DATE: 06/10/191107 SITE LEASING AGENT: CATERINA 06/10/19 1108 RPT#: [id number] DC DATE: STATUS: ADM IN [facility] [address] [place] [address] END OF REPORT
--- NOTE | 2019-06-10 11:23 | NUR ---
PATIENT IS STABLE AND VSS. SPOKE WITH JAYJAY UREÑA. INSTRUCTED THAT PATIENT CAN BE DCD HOME.
--- NOTE | 2019-06-10 13:33 | NUR ---
PATIENT IS STABLE AND VSS. PATIENT DENIES ANY NEEDS OR PAIN. ORDERS RECEIVED FOR DCD TO HOME FOR SELF CARE. ORDERS RECEIVED TO LEAVE GUTIERREZ CATHETER IN. PATIENT TO SEE PCP AND GET REFERRAL TO [facility]. PATIENT ADMANTLY REFUSES TO LEAVE GUTIERREZ CATHETER IN . SPENT SEVERAL MINUTES INFORMING PATIENT OF RISKS OF REMOVAL. PATIENT CONTINUES TO STATE THAT HE WILL NOT GO HOME WITH CATHETER INTACT. LET JAYJAY UREÑA KNOW AND GUTIERREZ DCD WITHOUT DIFFICULTY. WRITTEN AND VERBAL INSTRUCTIONS GIVEN. PATIENT VERBALIZED UNDERSTANDING AND SIGNED PAPERWORK. IV DCD WITHOUT DIFFICULTY WITH ENTIRE CATHETER INTACT. PRESSURE DRSG APPLIED. PATIENT TO FRONT DOOR VIA WC ACCOMPANIED BY HOSPITAL PERSONNEL TO PRIVATE VEHICLE DRIVEN BY A FAMILY MEMBER.
--- NOTE | 2019-06-10 16:44 | MORECARE ---
CASE MANAGEMENT DISCHARGE SUMMARY PATIENT: VALENTINA WEIR SR UNIT: [id number] ADM DATE: 06/02/19 AGE: 69 : 52 SEX: M ROOM/BED: D.2102 AUTHOR: IZABELLA,DOC PHYSICIAN: REFERRING PHYSICIAN: NOELLE OATES MD DATE OF SERVICE: 06/10/19 Discharge Plan Patient Name: VALENTINA WEIR Facility: [facility]:[place] : 1950 Planned Disposition: Home Anticipated Discharge Date: 06/04/19 Discharge Date: 06/10/2019 Expected LOS: 2 Initial Reviewer: [email or web address] Initial Review Date: 06/02/2019 Generated: 06/10/19 5:44 pm DCP- Discharge Planning Updated by [email or web address]: Bette Omer on 06/04/19 11:[address] Patient Name: VALENTINA WEIR Admission Status: ER Accout number: [id number] Admission Date: 06-02-2019 : 1950 Admission Diagnosis: Attending: NOELLE OATES Current LOS: 2 Anticipated DC Date: Planned Disposition: Home Primary Insurance: [employer] MEDICARE ADV Discharge Planning Comments: CM met with patient to complete initial dc planning assessment. CM educated patient on the CM role and verbal consent given by patient to complete assessment. CM verified patient's address, phone number, and emergency contact phone numbers. Patient lives at home alone. At discharge patient plans to return home and feels this is a safe discharge. CM discussed availability of home health, rehab services, and medical equipment. Patient denied known discharge needs at this time, states he needs ostomy supplies but does not remember where he gets them. Transportation provider at discharge will be . CM will continue to follow and will assist as needed with dc plans/needs. DC IMM delivered, explained, signed by the patient, and placed in his chart. Signed form also left with patient. Car Barn Laborer: Bette Omer MSN,CM DCPIA - Discharge Planning Initial Assessment Updated by [id number]: Bette Omer on 06/04/19 12:07 pm * Is the patient Alert and Oriented? Yes * How many steps to enter\exit or inside your home? 0/0 * PCP Covarrubias * Pharmacy [facility] * Preadmission Environment Home Alone * ADLs Independent * Equipment Ostomy Supplies * List name and contact numbers for known caregivers / representatives who currently or will assist patient after discharge: Nella Sands [phone] * Verbal permission to speak to the caregivers and representatives has been obtained from the patient. Yes * Community resources currently utilized None * Additional services required to return to the preadmission environment? No * Can the patient safely return to the preadmission environment? Yes * Has this patient been hospitalized within the prior 30 days at any hospital? No Coverage Notice Reviewer: [email or web address] Bianca Omer Notice Issued Date-Time: 06/04/2019 11:25 Notice Type: IM Discharge Notice Notice Delivered To: Patient Relationship to Patient: Remote Broadcast Technician Name: Delivery Method: HAND - Hand Delivered Jennifer Days: Prior Verbal Notification: Recipient Understood Notice: Yes Recipient Signature: Yes Med Rec Note Co-signed by Attending: Coverage Notice Comment: IMM delivered, explained, signed by the patient, and placed in his chart. Signed form also left with patient. Last DP export: 06/10/19 10:08 am Patient Name: VALENTINA WEIR Page [phone] at 1644 All edits/amendments must be made on the electronic document DICTATION DATE: 06/10/191643 SUPERVISOR HANGING AND TRIMMING: CATERINA 06/10/191643 RPT#: [id number] DC DATE:06/10/19 STATUS: DIS IN [facility] [address] [place] [address] END OF REPORT
--- NOTE | 2019-06-10 16:54 | MORECARE ---
CASE MANAGEMENT DISCHARGE SUMMARY PATIENT: VALENTINA WEIR SR UNIT: [id number] ADM DATE: 06/02/19 AGE: 69 : 52 SEX: M ROOM/BED: D.210 AUTHOR: IZABELLA,DOC PHYSICIAN: REFERRING PHYSICIAN: NOELLE OATES MD DATE OF SERVICE: 06/10/19 Discharge Plan Patient Name: VALENTINA WEIR Facility: [facility]:[place] : 1950 Planned Disposition: Home Anticipated Discharge Date: 06/04/19 Discharge Date: 06/10/2019 Expected LOS: 2 Initial Reviewer: [email or web address] Initial Review Date: 06/02/2019 Generated: 06/10/19 5:53 pm Comments DCP- Discharge Planning Updated by [id number]: Tereza Louis on 06/10/19 3:[address] CM received notification of discharge and patient needs for Home health. CM spoke with patient and he agreed to Home Health - SERGIO signed. CM contacted [facility] to see if they are in network with [facility]. They are in network. Debbie with [facility] stated they would be out to admit within 48 hrs. CM will continue to follow and assist as needed with discharge planning / needs. DCP- Discharge Planning Updated by [email or web address]: Bette Omer on 06/04/19 11:[address] Patient Name: VALENTINA WEIR Admission Status: ER Accout number: [id number] Admission Date: 06-02-2019 : 1950 Admission Diagnosis: Attending: NOELLE OATES Current LOS: 2 Anticipated DC Date: Planned Disposition: Home Primary Insurance: [email or web address] MEDICARE ADV Discharge Planning Comments: CM met with patient to complete initial dc planning assessment. CM educated patient on the CM role and verbal consent given by patient to complete assessment. CM verified patient's address, phone number, and emergency contact phone numbers. Patient lives at home alone. At discharge patient plans to return home and feels this is a safe discharge. CM discussed availability of home health, rehab services, and medical equipment. Patient denied known discharge needs at this time, states he needs ostomy supplies but does not remember where he gets them. Transportation provider at discharge will be . CM will continue to follow and will assist as needed with dc plans/needs. DC IMM delivered, explained, signed by the patient, and placed in his chart. Signed form also left with patient. Electric Arc Welder: Bette Omer MSN,CM DCPIA - Discharge Planning Initial Assessment Updated by [email or web address]: Bette Omer on 06/04/19 12:07 pm * Is the patient Alert and Oriented? Yes * How many steps to enter\exit or inside your home? 0/0 * PCP Satish * Pharmacy [facility] * Preadmission Environment Home Alone * ADLs Independent * Equipment Ostomy Supplies * List name and contact numbers for known caregivers / representatives who currently or will assist patient after discharge: Nella Shavon [phone] * Verbal permission to speak to the caregivers and representatives has been obtained from the patient. Yes * Community resources currently utilized None * Additional services required to return to the preadmission environment? No * Can the patient safely return to the preadmission environment? Yes * Has this patient been hospitalized within the prior 30 days at any hospital? No Coverage Notice Reviewer: [id number] - Bette Omer Notice Issued Date-Time: 06/04/2019 11:25 Notice Type: IM Discharge Notice Notice Delivered To: Patient Relationship to Patient: Crimping Press Operator Name: Delivery Method: HAND - Hand Delivered Jennifer Days: Prior Verbal Notification: Recipient Understood Notice: Yes Recipient Signature: Yes Med Rec Note Co-signed by Attending: Coverage Notice Comment: IMM delivered, explained, signed by the patient, and placed in his chart. Signed form also left with patient. Last DP export: 06/10/19 3:44 pm Patient Name: VALENTINA WEIR Page [phone] at 1654 All edits/amendments must be made on the electronic document DICTATION DATE: 06/10/191652 HAND BULLDOZER: CATERINA 06/10/191652 RPT#: [id number] DC DATE:06/10/19 STATUS: DIS IN [facility] [address] [place] [address] END OF REPORT
== END 2019-06-10 12:30 | disposition home health service (06) | DRG 682 ==
LOC: D.ER 08:12 → D.M2 11:27
PROVIDERS: Family Medicine; Internal Medicine Nephrology; ADMIT Internal Medicine Nephrology; ATTEND Internal Medicine Nephrology
DX: N17.9 Acute kidney failure, unspecified (principal); E43 Unspecified severe protein-calorie malnutrition; E87.1 Hypo-osmolality and hyponatremia; N39.0 Urinary tract infection, site not specified; Z68.1 Body mass index [BMI] 19.9 or less, adult; E83.42 Hypomagnesemia; E83.51 Hypocalcemia; F10.21 Alcohol dependence, in remission; N18.4 Chronic kidney disease, stage 4 (severe); E86.0 Dehydration; E53.8 Deficiency of other specified B group vitamins; R62.7 Adult failure to thrive; D63.1 Anemia in chronic kidney disease

== ENCOUNTER 2019-07-01 11:52 | Emergency (ER) | payer MEDICARE, MEDICAID ==
[~2019-07-01] VITALS: Ht 180.3 cm; Wt 57.7 kg
[2019-07-01 12:01] VITALS: Ht 180.3 cm; Wt 57.7 kg
[2019-07-01 12:12] LABS: BILIRUBIN NEGATIVE (NEGATIVE); GLUCOSE NEGATIVE (NEGATIVE); KETONE NEGATIVE (NEGATIVE); NITRITE NEGATIVE (NEGATIVE); SPECIFIC GRAVITY 1.015 (1.005-1.020); UROBILINOGEN NORMAL (NORMAL)
[2019-07-01 12:17] LABS: BACTERIA FEW /hpf (NEGATIVE); EPITHELIAL CELLS NSEEN /hpf (0-5); RED CELLS - URINE 0-5 /hpf (0-5); WHITE CELLS - URINE 0-5 /hpf (NEGATIVE)
[2019-07-01 12:18] LABS: GRANULAR CAST 0-5 /lpf (NONE SEEN)
[2019-07-01 13:49] LABS: BASOPHILS 0.4 % (0-2); EOSINOPHILS 2.6 % (0-7); HEMATOCRIT 40.5 % (42.0-54.0); HEMOGLOBIN 13.5 g/dL (13.5-17.5); IMMATURE GRANULOCYTES 0.1 % (0-5); LYMPHOCYTES 13.6 % (15-50); MCH 29.5 pg (26.0-34.0); MCHC 33.3 g/dL (31.0-37.0); MCV 88.6 fL (80.0-100.0); MEAN PLATELET VOLUME 9.9 fL (7.4-10.4); MONOCYTES 7.9 % (2-11); NEUTROPHILS 75.4 % (40-80); PLATELET COUNT 259 10x3/uL (130-400); RBC 4.57 10x6/uL (4.20-6.10); RDW 13.7 % (11.5-14.5); WBC 6.9 10x3/uL (4.8-10.8)
[2019-07-01 14:05] LABS: ANION GAP 20.3 mmol/L (8-16); CALCIUM 8.9 mg/dL (8.5-10.1); CARBON DIOXIDE 13.1 mmol/L (21.0-32.0); CREATININE - SERUM 1.9 mg/dL (0.6-1.3); POTASSIUM - SERUM 4.4 mmol/L (3.5-5.1)
[2019-07-01 14:07] LABS: ALBUMIN 3.6 g/dL (3.4-5.0); BILIRUBIN - TOTAL 0.58 mg/dL (0.2-1.3); PROTEIN - SERUM 7.7 g/dL (6.4-8.2)
[2019-07-01 17:24] VITALS: BP 104/82
== END 2019-07-01 17:25 | disposition home or self-care (01) ==
LOC: D.ER 11:52
PROVIDERS: Family Medicine
DX: N18.3 Chronic kidney disease, stage 3 (moderate) (principal); Z76.5 Malingerer [conscious simulation]; K21.9 Gastro-esophageal reflux disease without esophagitis; Z91.19 Patient's noncompliance with other medical treatment and regimen

== ENCOUNTER 2019-07-19 06:47 | Inpatient (IN) | payer MEDICARE, MEDICAID ==
[~2019-07-19] VITALS: Ht 180.3 cm; Wt 58.1 kg
[~2019-07-19 06:47] MED LIST changes: +HYDROCO/APAP TAB 7.5 PO; +MAG 6464 MG PO; +QUESTRAN LIG1 PACKET PO
[2019-07-19 07:06] LABS: ANION GAP 21.7 mmol/L (8-16); CALCIUM 9.1 mg/dL (8.5-10.1); CARBON DIOXIDE 15.9 mmol/L (21.0-32.0); CREATININE - SERUM 4.7 mg/dL (0.6-1.3); POTASSIUM - SERUM 4.6 mmol/L (3.5-5.1)
[2019-07-19 07:15] LABS: HEMATOCRIT 38.4 % (42.0-54.0); HEMOGLOBIN 13.4 g/dL (13.5-17.5); MCH 30.2 pg (26.0-34.0); MCHC 34.9 g/dL (31.0-37.0); MCV 86.5 fL (80.0-100.0); MEAN PLATELET VOLUME 9.6 fL (7.4-10.4); RBC 4.44 10x6/uL (4.20-6.10); RDW 15.3 % (11.5-14.5); WBC 24.7 10x3/uL (4.8-10.8)
--- NOTE | 2019-07-19 07:27 | NUR ---
5186-SPOKE WITH DR. CABRERA VIA PHONE REGARDING CBC,BMP RESULTS. NEW ORDERS FOR CXR AND UA RECEIVED.
--- NOTE | 2019-07-19 07:51 | NUR ---
0740-CHEST XRAY DONE AND URINE COLLECTED AND TAKEN TO LAB. 0750-BLADDER SCAN TIMES THREE SCANS GIVES 128-134CC URINE IN BLADDER-THIS REPORTED TO DR. CABRERA.
[2019-07-19 08:32] LABS: BACTERIA MANY /hpf (NEGATIVE); BILIRUBIN NEGATIVE (NEGATIVE); GLUCOSE NEGATIVE (NEGATIVE); KETONE NEGATIVE (NEGATIVE); NITRITE NEGATIVE (NEGATIVE); UROBILINOGEN NORMAL (NORMAL); WHITE CELLS - URINE >50 /hpf (NEGATIVE)
[2019-07-19 08:35] LABS: EPITHELIAL CELLS 0-5 /hpf (0-5); RED CELLS - URINE 0-5 /hpf (0-5)
[2019-07-19 11:00] VITALS: BP 81/54
--- NOTE | 2019-07-19 11:24 | NUR ---
PT TO BE ADMITTED TO ROOM [address] CABR[address]A. REPORT CALLED AT THIS TIME BY LUISA EASTMAN TO NURSE OF ROOM 2233-INSTRUCTOR TRAFFIC SAFETY. PT WHEELED TO ROOM BY STAFF.
[2019-07-19 12:20] LABS: ANION GAP 24.6 mmol/L (8-16); CALCIUM 8.5 mg/dL (8.5-10.1); CARBON DIOXIDE 15.2 mmol/L (21.0-32.0); CREATININE - SERUM 5.1 mg/dL (0.6-1.3)
[2019-07-19 12:21] LABS: POTASSIUM - SERUM 3.8 mmol/L (3.5-5.1)
[2019-07-19 12:23] LABS: HEMATOCRIT 37.6 % (42.0-54.0); HEMOGLOBIN 13.3 g/dL (13.5-17.5); MCH 30.5 pg (26.0-34.0); MCHC 35.4 g/dL (31.0-37.0); MCV 86.2 fL (80.0-100.0); MEAN PLATELET VOLUME 10.2 fL (7.4-10.4); PLATELET COUNT 223 10x3/uL (130-400); RBC 4.36 10x6/uL (4.20-6.10); RDW 15.2 % (11.5-14.5); WBC 28.2 10x3/uL (4.8-10.8)
--- NOTE | 2019-07-19 12:38 | NUR ---
RECEIVED PT FROM OP, PT IS ALERT AND ORIENTED, 20G IV PLACED IN PT RT FA BY OP NURSE, PT TOLERATED WELL, PT REQUESTED PAIN MEDICATION, CALLED AND RECEIVED VERBAL ORDERS FROM DR CABRERA FOR MEDICATION, ADMINISTERED PRN AND SCHEDULED MEDS, PT DIET ORDER WAS PLACED TO START THIS EVENING, CHANGED PT ORDER TO LUNCH TIME. NO OTHER NEEDS VOICED AT THIS TIME, CONTINUE WITH PLAN OF CARE
[2019-07-19 13:01] LABS: LYMPHOCYTES 10 % (15-50); MONOCYTES 10 % (2-11); NEUTROPHILS 74 % (40-80); PLATELET ESTIMATE NORMAL
[2019-07-19 13:52] VITALS: BP 108/65
--- NOTE | 2019-07-19 14:05 | NUR ---
PT C/O PAIN EVERYWHERE, STATES HE IS JUST HURTING AND NEEDS SOMETHING MORE THAN NORCO. ADVISED PT I WILL CHECK WITH
[2019-07-19 18:11] VITALS: BP 108/65; BMI 17.8
[2019-07-19 20:00] VITALS: BP 74/53
[2019-07-19 23:49] VITALS: BP 74/53
--- NOTE | 2019-07-20 00:21 | NUR ---
resting in bed with no needs at this time. IV to right FA with NS at [address] and paten, ileostomy with bag in place and intact to right side. No needs at this time.
[2019-07-20 04:00] VITALS: BP 81/56
[2019-07-20 08:47] VITALS: BP 101/62
--- NOTE | 2019-07-20 09:40 | NUR ---
ALERT AND ORIENTED. LUNGS CLEAR BILATERALLY. HEART SOUNDS S1 AND S2 HEARD IN ALL [place]. BOWEL SOUNDS ACTIVE X 4. SKIN INTACT WITHOUT REDNESS. IV TO RFA PATENT WITHOUT REDNESS. DENIES NEEDS. REFUSES VIT B12 SHOT. BED LOW. CALL REID AND PERSONAL ITEMS IN REACH. WILL CONTINUE TO MONITOR.
[2019-07-20 12:38] VITALS: BP 92/63
[2019-07-20 12:48] VITALS: BMI 17.8
--- NOTE | 2019-07-20 16:45 | MORECARE ---
CASE MANAGEMENT DISCHARGE SUMMARY PATIENT: VALENTINA WEIR SR UNIT: [id number] ADM DATE: 07/19/19 AGE: 69 : 52 SEX: M ROOM/BED: D.2233 AUTHOR: ADINA PAREKH PHYSICIAN: REFERRING PHYSICIAN: FEDERICO CABRERA MD DATE OF SERVICE: 07/20/19 Discharge Plan Patient Name: VALENTINA WEIR [facility] [facility] 1950 Planned Disposition: Anticipated Discharge Date: Discharge Date: Expected LOS: Initial Reviewer: [email or web address] Initial Review Date: 07/20/2019 Generated: 07/20/19 5:45 pm Comments DCP- Discharge Planning Updated by [email or web address]: Julia Kamara on 07/20/19 3:[address] Patient Name: VALENTINA WEIR Admission Status: Elective Accout number: [id number] Admission Date: 07-19-2019 : 1950 Admission Diagnosis:ELEVATED WHITE BLOOD CELL COUNT, UNSPECIFIED Attending: VICKY CABRERA Current LOS: 1 Anticipated DC Date: Planned Disposition: Primary Insurance: [employer] MEDICARE ADV Discharge Planning Comments: CM met with patient to discuss discharge planning/needs. He states he lives alone at [address] [place] [address] in [place]. Phone number verified [phone]. I attempted to ask other questions and he states he's not in the mood to answer any more questions. I will try and meet with him again at a later date. CM will continue to follow and assist with discharge planning/needs. Woodworking Shop Hand: Julia Kamara Patient Name: VALENTINA WEIR Page 18435 at 1645 All edits/amendments must be made on the electronic document DICTATION DATE: 07/20/191644 ENVIRONMENTAL MARKETER: CATERINA 07/20/191644 RPT#: [id number] DC DATE: STATUS: ADM IN [facility] [address] [place] [address] END OF REPORT
[2019-07-20 16:50] LABS: BASOPHILS 0.1 % (0-2); EOSINOPHILS 0.6 % (0-7); HEMATOCRIT 30.8 % (42.0-54.0); IMMATURE GRANULOCYTES 0.4 % (0-5); LYMPHOCYTES 7.9 % (15-50); MCH 29.6 pg (26.0-34.0); MCHC 34.1 g/dL (31.0-37.0); MCV 86.8 fL (80.0-100.0); MEAN PLATELET VOLUME 9.4 fL (7.4-10.4); MONOCYTES 5.1 % (2-11); NEUTROPHILS 85.9 % (40-80); PLATELET COUNT 203 10x3/uL (130-400); RBC 3.55 10x6/uL (4.20-6.10)
[2019-07-20 17:00] LABS: ANION GAP 14.8 mmol/L (8-16); CALCIUM 7.1 mg/dL (8.5-10.1)
[2019-07-20 17:01] LABS: CARBON DIOXIDE 20.2 mmol/L (21.0-32.0)
[2019-07-20 17:03] LABS: HEMOGLOBIN 10.5 g/dL (13.5-17.5); WBC 14.1 10x3/uL (4.8-10.8)
[2019-07-20 17:16] VITALS: BP 107/623
--- NOTE | 2019-07-20 17:25 | NUR ---
RESTING IN BED. DENIES NEEDS. WILL CONTINUE TO MONITOR.
[2019-07-20 20:00] VITALS: BP 88/44
--- NOTE | 2019-07-20 20:00 | NUR ---
PATIENT RESTING IN BED WATCHING TV. NO S/S OF ACUTE DISTRESS. NO C/O AT THIS TIME. PATIENT HAS IV IN RIGHT FOREARM NORMAL SALINE @ 75 ML/HR. IV IS PATENT WITHOUT REDNESS, SWELLING, OR TENDERNESS. PATIENT HAS ILEOSTOMY TO THE RIGHT SIDE. PATIENT CHANGES OSTOMY BAG BY HIMSELF. PATIENT HAS CYST ON LEFT SHOULDER. PATIENT IS UP AD-TAMY. CALL LIGHT IN PLACE. WILL CONTINUE TO [facility].
--- NOTE | 2019-07-21 01:27 | NUR ---
I have reviewed this patient and I concur with the Shift Assessment completed by the Licensed Practical Nurse today this shift.
[2019-07-21 04:00] VITALS: BP 83/58
[2019-07-21 08:33] VITALS: BP 108/60
--- NOTE | 2019-07-21 10:26 | NUR ---
RESTING IN BED, NO DISTRESS NOTED, IV INFUSING, CONT TO MONITOR PAIN AND OUTPUT
[2019-07-21 12:28] VITALS: BP 119/65
[2019-07-21 16:39] VITALS: BP 104/62
--- NOTE | 2019-07-21 18:13 | NUR ---
PT STATES THAT HE DOESNT KNOW WHAT HIS MEDS ARE OR THE LAST TIME HE TOOK THEM
[2019-07-21 19:46] VITALS: BP 86/53
--- NOTE | 2019-07-21 20:00 | NUR ---
PATIENT RESTING IN BED WATCHING TV. NO S/S OF DISTRESS. NO C/O AT THIS TIME. PATIENT HAS IV IN RIGHT FOREARM NORMAL SALINE @ 75 ML/HR. IV IS PATENT WITHOUT REDNESS, SWELLING, OR TENDERNESS. PATIENT HAS ILEOSTOMY THAT HE TAKES CARE HIMSELF. PATIENT HAS A CYST ON LEFT SHOULDER. PATIENT IS UP AD-TAMY. CALL LIGHT IN PLACE. WILL CONTINUE TO MONITOR.
[2019-07-22 01:20] VITALS: BP 121/70
--- NOTE | 2019-07-22 04:54 | NUR ---
I have reviewed this patient and I concur with the Shift Assessment completed by the Licensed Practical Nurse today this shift.
--- NOTE | 2019-07-22 04:54 | NUR ---
I have reviewed this patient and I concur with the Shift Assessment completed by the Licensed Practical Nurse today this shift.
[2019-07-22 05:12] VITALS: BP 70/45
[2019-07-22 08:21] VITALS: BP 83/56
[2019-07-22 11:59] VITALS: BP 108/58
[2019-07-22 16:06] VITALS: BP 104/62
--- NOTE | 2019-07-22 19:42 | NUR ---
REPORT RECIEVED AND ROUNDING COMPLETE. PATIENT LAYING IN BED IN LOW FOWLERS POSITION, RIGHT FOREARM PIV RUNNING FLUIDS AT THIS TIME.PIV IS PATIENT WITH NO S/SX OF INFILTRATION. PATIENT ASKED ME TO BRING PAIN MEDICATIONS WITH HIS PM MEDICATIONS, RATES PAIN A 5/10 AT THIS TIME, BUT WILL LIKE TO STAY AHEED OF PAIN. WILL TREAT PER MAR. NO OTHER NEEDS AT THIS TIME. CALL LIGHT WITHIN REACH AND BED IN LOWEST LOCKED POSITION.
[2019-07-22 20:00] VITALS: BP 83/43
[2019-07-23] VITALS (7 sets, daily range): BP systolic 81–152; BP diastolic 54–67
--- NOTE | 2019-07-23 00:40 | NUR ---
I have reviewed this patient and I concur with the Shift Assessment completed by the Licensed Practical Nurse today this shift.
--- NOTE | 2019-07-23 06:03 | NUR ---
PATIIENT LAYING IN BED ON LOW FOWLERS, PATIENT EASILY AWAKEN WHEN I ENTERED HIS ROOM. PATIENT STATES HE HAS NO NEEDS AT THIS TIME. CALL LIGHT WITHIN REACH AND BED IN LOWEST LOCKED POSITION.
[2019-07-23 09:21] LABS: BASOPHILS 0.1 % (0-2); EOSINOPHILS 2.1 % (0-7); HEMATOCRIT 30.7 % (42.0-54.0); IMMATURE GRANULOCYTES 1.1 % (0-5); LYMPHOCYTES 10.2 % (15-50); MCH 29.4 pg (26.0-34.0); MCHC 32.6 g/dL (31.0-37.0); MCV 90.3 fL (80.0-100.0); MEAN PLATELET VOLUME 9.7 fL (7.4-10.4); MONOCYTES 17.6 % (2-11); NEUTROPHILS 68.9 % (40-80); PLATELET COUNT 254 10x3/uL (130-400); RDW 15.7 % (11.5-14.5); WBC 7.2 10x3/uL (4.8-10.8)
[2019-07-23 09:33] LABS: CARBON DIOXIDE 18.9 mmol/L (21.0-32.0); CREATININE - SERUM 1.7 mg/dL (0.6-1.3); POTASSIUM - SERUM 3.9 mmol/L (3.5-5.1)
[2019-07-23 09:49] LABS: CALCIUM 6.4 mg/dL (8.5-10.1)
--- NOTE | 2019-07-23 10:09 | NUR ---
CORRECTED CALCIUM LEVEL IS 7.3, NOT CRITICAL
--- NOTE | 2019-07-23 10:19 | NUR ---
PT ALERT X 4. BREATH SOUNDS CLEAR BILAT. COLOSTOMY TO RLQ. IV TO RIGHT FOREARM, PATENT, DRESSING CDI. PT REPORTING NO PAIN AT THIS TIME. BED LOW, CALL LIGHT IN REACH. NO OTHER NEEDS AT THIS TIME.
--- NOTE | 2019-07-23 15:16 | MORECARE ---
CASE MANAGEMENT DISCHARGE SUMMARY PATIENT: VALENTINA WEIR SR UNIT: [id number] ADM DATE: 07/19/19 AGE: 69 : 51 SEX: M ROOM/BED: D.2233 AUTHOR: IZABELLA,DOC PHYSICIAN: REFERRING PHYSICIAN: FEDERICO CABRERA MD DATE OF SERVICE: 07/23/19 Discharge Plan Patient Name: VALENTINA WEIR Facility: [facility]:[place] : 1950 Planned Disposition: Home Anticipated Discharge Date: 07/24/19 Discharge Date: Expected LOS: 5 Initial Reviewer: [email or web address] Initial Review Date: 07/20/2019 Generated: 07/23/19 4:16 pm Comments DCP- Discharge Planning Updated by [email or web address]: Julia Kamara on 07/20/19 3:[address] Patient Name: VALENTINA WEIR Admission Status: Elective Accout number: [id number] Admission Date: 07-19-2019 : 1950 Admission Diagnosis:ELEVATED WHITE BLOOD CELL COUNT, UNSPECIFIED Attending: VICKY CABRERA Current LOS: 1 Anticipated DC Date: Planned Disposition: Primary Insurance: [employer] MEDICARE ADV Discharge Planning Comments: CM met with patient to discuss discharge planning/needs. He states he lives alone at [address] [place] [address] in [place]. Phone number verified [phone]. I attempted to ask other questions and he states he's not in the mood to answer any more questions. I will try and meet with him again at a later date. CM will continue to follow and assist with discharge planning/needs. Potato Chip Sacking Machine Operator: Julia Kamara DCPIA - Discharge Planning Initial Assessment Updated by [email or web address]: Julia Kamara on 07/23/19 3:09 pm * Is the patient Alert and Oriented? Yes * How many steps to enter\exit or inside your home? 0/0 * PCP Dr. Franca Castañeda in [place] * Pharmacy [facility] on [address] * Preadmission Environment Home Alone * ADLs Independent * Equipment Ostomy Supplies * List name and contact numbers for known caregivers / representatives who currently or will assist patient after discharge: Nella Sands - [facility] - [phone] * Verbal permission to speak to the caregivers and representatives has been obtained from the patient. No * Community resources currently utilized None * Additional services required to return to the preadmission environment? No * Can the patient safely return to the preadmission environment? Yes * Has this patient been hospitalized within the prior 30 days at any hospital? No Last DP export: 07/20/19 3:45 p Patient Name: VALENTINA WEIR Page 24123 at 1516 All edits/amendments must be made on the electronic document DICTATION DATE: 07/23/191515 TUNNEL DRIER OPERATOR: CATERINA 07/23/191515 RPT#: [id number] DC DATE: STATUS: ADM IN [facility] [address] [place] [address] END OF REPORT
--- NOTE | 2019-07-23 15:55 | MORECARE ---
CASE MANAGEMENT DISCHARGE SUMMARY PATIENT: VALENTINA WEIR UNIT: [id number] ADM DATE: 07/19/19 AGE: 69 : 51 SEX: M ROOM/BED: D.2233 AUTHOR: IZABELLADOC PHYSICIAN: REFERRING PHYSICIAN: FEDERICO CABRERA MD DATE OF SERVICE: 07/23/19 Discharge Plan Patient Name: VALENTINA WEIR Facility: [facility]:[place] : 1950 Planned Disposition: Home Anticipated Discharge Date: 07/24/19 Discharge Date: Expected LOS: 5 Initial Reviewer: [email or web address] Initial Review Date: 07/20/2019 Generated: 07/23/19 4:54 pm Comments DCP- Discharge Planning Updated by [email or web address]: Julia Kamara on 07/23/19 2:[address] Patient Name: VALENTINA WEIR Admission Status: Elective Accout number: [id number] Admission Date: 07-19-2019 : 1950 Admission Diagnosis:ELEVATED WHITE BLOOD CELL COUNT, UNSPECIFIED Attending: VICKY CABRERA Current LOS: 4 Anticipated DC Date: 07-24-2019 Planned Disposition: Home Primary Insurance: [employer] MEDICARE ADV Discharge Planning Comments: CM met with patient to complete initial dc planning assessment. CM educated patient on the CM role and verbal consent given by patient to complete assessment. Patient lives at [address] [place] [address]. He lives alone. At discharge patient plans to return and feels this is a safe discharge. CM discussed availability of home health, rehab services, and medical equipment. Patient denied known discharge needs at this time. States he has friends that probably will transport him home. I informed him that he will be on 2 antibiotics, he states he will be able to get them. CM will continue to follow and will assist as needed with dc plans/needs. Day Worker: Julia Kamara DCP- Discharge Planning Updated by [email or web address]: Julia Kamara on 07/20/19 3:[address] Patient Name: VALENTINA WEIR Admission Status: Elective Accout number: [id number] Admission Date: 07-19-2019 : 1950 Admission Diagnosis:ELEVATED WHITE BLOOD CELL COUNT, UNSPECIFIED Attending: VICKY CABRERA Current LOS: 1 Anticipated DC Date: Planned Disposition: Primary Insurance: [employer] MEDICARE ADV Discharge Planning Comments: CM met with patient to discuss discharge planning/needs. He states he lives alone at [address] [place] [address] in [place]. Phone number verified [phone]. I attempted to ask other questions and he states he's not in the mood to answer any more questions. I will try and meet with him again at a later date. CM will continue to follow and assist with discharge planning/needs. Day Worker: Julia Kamara DCPIA - Discharge Planning Initial Assessment Updated by [email or web address]: Julia Kamara on 07/23/19 3:09 pm * Is the patient Alert and Oriented? Yes * How many steps to enter\exit or inside your home? 0/0 * PCP Dr. Franca Castañeda in [place] * Pharmacy [facility] on [address] * Preadmission Environment Home Alone * ADLs Independent * Equipment Ostomy Supplies * List name and contact numbers for known caregivers / representatives who currently or will assist patient after discharge: Nella Sands - sister - [phone] * Verbal permission to speak to the caregivers and representatives has been obtained from the patient. No * Community resources currently utilized None * Additional services required to return to the preadmission environment? No * Can the patient safely return to the preadmission environment? Yes * Has this patient been hospitalized within the prior 30 days at any hospital? No Last DP export: 07/23/19 2:16 p Patient Name: VALENTINA WEIR Page 46510 at 1555 All edits/amendments must be made on the electronic document DICTATION DATE: 07/23/191553 MAGNETO REPAIRER: CATERINA 07/23/191553 RPT#: [id number] DC DATE: STATUS: ADM IN [facility] [address] [place] [address] END OF REPORT
[2019-07-24 01:07] VITALS: BP 106/56
--- NOTE | 2019-07-24 02:31 | NUR ---
PT IV LEAKING IN RIGHT FOREARM, REMOVED CATH TIP INTACT, ATTEMPTED TO PLACE NEW IV, VEIN BLEW, REQUESTED ANOTHER NURSE TO PLACE IV, CHARGE NURSE ATTEMPTED NEW IV VEIN BLEW 2 TIMES ON LEFT ARM, ANOTHER NURSE ATTEMPTED, WILL CHART IF SUCCESSFUL
--- NOTE | 2019-07-24 03:02 | NUR ---
IV CONTINUES TO BLOW VEINS, PT STATES GOING HOME TOMORROW, REFUSING NS IV
[2019-07-24 06:00] VITALS: BP 85/55
--- NOTE | 2019-07-24 07:20 | NUR ---
REC'D IN BED AWAKE AND ALERT. RESP EVEN AND UNLABORED WITH NO DISTRESS NOTED. CAN EXPRESS NEED AND WANTS. NO C/O NOTED OR VOICED AT THIS TIME. ASSESSMENT COMPLETED. C/L IN REACH.
[2019-07-24 09:12] VITALS: BP 100/70
--- NOTE | 2019-07-24 09:35 | NUR ---
C/O ABD PAIN RATING 10/10 ON PAIN SCALE WAS MEDICATED WITH NORCO PER ORDERS. C/L IN REACH AT BEDSIDE.
[2019-07-24 10:50] LABS: ANION GAP 12.8 mmol/L (8-16); CARBON DIOXIDE 20.9 mmol/L (21.0-32.0); CREATININE - SERUM 1.7 mg/dL (0.6-1.3); POTASSIUM - SERUM 3.7 mmol/L (3.5-5.1)
[2019-07-24 10:56] LABS: CALCIUM 6.8 mg/dL (8.5-10.1)
[2019-07-24 12:29] VITALS: Ht 180.3 cm; Wt 58.1 kg
[2019-07-24 13:06] VITALS: BP 98/65
--- NOTE | 2019-07-24 13:29 | NUR ---
I have reviewed this patient and I concur with the Shift Assessment completed by the Licensed Practical Nurse today this shift.
[2019-07-24 17:03] VITALS: BP 105/73
--- NOTE | 2019-07-24 19:40 | NUR ---
PATIENT RESTING IN BED WITH NO S/S OF DISTRESS. BROUGHT PATIENT A SNACK PER HIS REQUEST. PATIENT DENIES OTHER NEEDS AT THIS TIME. BED IN LOWEST POSITION AND CALL LIGHT WITHIN REACH. ENCOURAGED THE PATIENT TO CALL IF HE HAS NEEDS. WILL CONTINUE TO MONITOR.
[2019-07-24 20:00] VITALS: BP 97/68
--- NOTE | 2019-07-24 20:39 | NUR ---
ADMINISTERED MEDS PER ORDERS. PATIENT DENIES OTHER NEEDS. WILL CONTINUE TO MONITOR.
[2019-07-25] VITALS: BP 102/73
[2019-07-25 04:00] VITALS: BP 102/73
--- NOTE | 2019-07-25 06:45 | NUR ---
ALERT AND ORIENTED. NO C/O PAIN. NO S/S OF ACUTE DISTRESS NOTED. IV TO RIGHT FOREARM, NS INFUSING @ 75ML/HR. SITE PATENT WITHOUT REDNESS OR SWELLING. COLOSTOMY TO RUQ. PATIENT MANAGES COLOSTOMY. DENIES ANY NEEDS AT THIS TIME. CALL LIGHT IN REACH. WILL CONTINUE TO MONITOR.
[2019-07-25 09:06] VITALS: BP 105/74
--- NOTE | 2019-07-25 11:02 | NUR ---
NUTRITION F/U PT TOLERATING REG DIET. 100% INTAKE BREAKFAST PLUS 100% INTAKE ENSURE. WILL CONTINUE TO PROVIDE DIET AND ENSURE. HONOR FOOD PREFERENCES. RD FOLLOWING
[2019-07-25 12:50] VITALS: BP 92/62
[2019-07-25 12:58] LABS: BASOPHILS 0.4 % (0-2); EOSINOPHILS 3.6 % (0-7); HEMATOCRIT 33.7 % (42.0-54.0); HEMOGLOBIN 10.6 g/dL (13.5-17.5); IMMATURE GRANULOCYTES 4.5 % (0-5); LYMPHOCYTES 15.5 % (15-50); MCH 29.3 pg (26.0-34.0); MCHC 31.5 g/dL (31.0-37.0); MCV 93.1 fL (80.0-100.0); MEAN PLATELET VOLUME 9.6 fL (7.4-10.4); MONOCYTES 12.5 % (2-11); NEUTROPHILS 63.5 % (40-80); PLATELET COUNT 290 10x3/uL (130-400); RBC 3.62 10x6/uL (4.20-6.10); RDW 15.8 % (11.5-14.5); WBC 8.1 10x3/uL (4.8-10.8)
[2019-07-25 13:16] LABS: ANION GAP 15.4 mmol/L (8-16); CALCIUM 7.1 mg/dL (8.5-10.1); CARBON DIOXIDE 22.3 mmol/L (21.0-32.0); CREATININE - SERUM 1.5 mg/dL (0.6-1.3); POTASSIUM - SERUM 3.7 mmol/L (3.5-5.1)
[2019-07-25 16:44] VITALS: BP 94/66
--- NOTE | 2019-07-25 18:19 | NUR ---
ALERT AND ORIENTED. NO C/O PAIN. NO S/S OF ACUTE DISTRESS NOTED. DENIES ANY NEEDS AT THIS TIME. CALL LIGHT IN REACH. WILL CONTINUE TO MONITOR.
--- NOTE | 2019-07-25 19:45 | NUR ---
SITTING UP IN CHAIR. RESP EVEN AND NONLABORED. ALERT AND ORIENTED X4. COLOSTOMY NOTED TO ABD. PT TAKES CARE OF THIS. REPORTS PAIN AROUND COLSTOMY SITE IN ABD RATING 10. MEDICATED WITH NORCO ORDERED. REQUESTING SNACKS AT THIS TIME. NO DISTRESS. AMBULATORY. CL IN REACH.
[2019-07-25 20:00] VITALS: BP 92/60
--- NOTE | 2019-07-25 22:00 | NUR ---
REQUESTING SNACKS. SITTING UP ON SIDE OF BED. NO DISTRESS. CL IN REACH.
--- NOTE | 2019-07-26 03:06 | NUR ---
RESTING QUIETLY WITH EYES CLOSED. RESP NONLABORED. NO DISTRES. CL IN REACH.
[2019-07-26 04:00] VITALS: BP 102/65
--- NOTE | 2019-07-26 08:12 | NUR ---
ALERT AND ORIENTED. LUNGS CLEAR BILATERALLY. HEART SOUNDS S1 AND S2 HEARD IN ALL [place]. BOWEL SOUNDS ACTIVE X 4. SKIN INTACT WITHOUT REDNESS. RIGHT SIDE OSTOMY PATENT. IV TO RFA PATENT WITHOUT REDNESS. DENIES PAIN. DENIES NEEDS. BED LOW. CALL REID AND PERSONAL ITEMS IN REACH. WILL CONTINUE TO MONITOR.
[2019-07-26 09:06] VITALS: BP 108/70
[2019-07-26] MEDS ORDERED: AMOXICILLIN500 M1 PO (12:24)
[2019-07-26] MEDS ORDERED: LEVOFLOXACIN500 MG PO (12:24)
--- NOTE | 2019-07-26 12:28 | MORECARE ---
CASE MANAGEMENT DISCHARGE SUMMARY PATIENT: VALENTINA WEIR SR UNIT: [id number] ADM DATE: 07/19/19 AGE: 69 : 51 SEX: M ROOM/BED: D.2233 AUTHOR: ADINA PAREKH PHYSICIAN: REFERRING PHYSICIAN: FEDERICO CABRERA MD DATE OF SERVICE: 07/26/19 Discharge Plan Patient Name: VALENTINA WEIR Facility: [facility]:[place] : 1950 Planned Disposition: Home Anticipated Discharge Date: 07/24/19 Discharge Date: Expected LOS: 5 Initial Reviewer: [email or web address] Initial Review Date: 07/20/2019 Generated: 07/26/19 1:27 pm Comments DCP- Discharge Planning Updated by [email or web address]: Julia Kamara on 07/26/19 11:[address] Patient Name: VALENTINA WEIR Encounter No: [id number] : 1950 Primary Insurance: [employer] ADV Anticipated DC Date: 07-24-2019 Planned Disposition: Home External Planned Provider: : DCP follow-up note: Patient in agreement with discharge plan. No changes to plan. He will need a taxi ride home. I approved taxi to [address] [place] [address] for 8 dollars per Bette Goldsmith. Nurse to call taxi when ready for discharge. Julia Kamara DCP- Discharge Planning Updated by [email or web address]: Julia Kamara on 07/23/19 2:[address] Patient Name: VALENTNIA WEIR Admission Status: Elective Accout number: [id number] Admission Date: 07-19-2019 : 1950 Admission Diagnosis:ELEVATED WHITE BLOOD CELL COUNT, UNSPECIFIED Attending: VICKY CABRERA Current LOS: 4 Anticipated DC Date: 07-24-2019 Planned Disposition: Home Primary Insurance: [employer] MEDICARE ADV Discharge Planning Comments: CM met with patient to complete initial dc planning assessment. CM educated patient on the CM role and verbal consent given by patient to complete assessment. Patient lives at [address] [place] [address] in [place]. He lives alone. At discharge patient plans to return and feels this is a safe discharge. CM discussed availability of home health, rehab services, and medical equipment. Patient denied known discharge needs at this time. States he has friends that probably will transport him home. I informed him that he will be on 2 antibiotics, he states he will be able to get them. CM will continue to follow and will assist as needed with dc plans/needs. Secretary Of Police: Julia Kamara DCP- Discharge Planning Updated by [email or web address]: Julia Orozcomahnaz on 07/20/19 3:[address] Patient Name: VALENTINA WEIR Admission Status: Elective Accout number: [id number] Admission Date: 07-19-2019 : 1950 Admission Diagnosis:ELEVATED WHITE BLOOD CELL COUNT, UNSPECIFIED Attending: VICKY CABRERA Current LOS: 1 Anticipated DC Date: Planned Disposition: Primary Insurance: [employer] ADV Discharge Planning Comments: CM met with patient to discuss discharge planning/needs. He states he lives alone at [address] [place] [address] in [place]. Phone number verified [phone]. I attempted to ask other questions and he states he's not in the mood to answer any more questions. I will try and meet with him again at a later date. CM will continue to follow and assist with discharge planning/needs. Secretary Of Police: Julia Kamara DCPIA - Discharge Planning Initial Assessment Updated by [email or web address]: Julia Kamara on 07/23/19 3:09 pm * Is the patient Alert and Oriented? Yes * How many steps to enter\exit or inside your home? 0/0 * PCP Dr. Franca Castañeda in [place] * Pharmacy [facility] * Preadmission Environment Home Alone * ADLs Independent * Equipment Ostomy Supplies * List name and contact numbers for known caregivers / representatives who currently or will assist patient after discharge: Nella Sands [facility] - [phone] * Verbal permission to speak to the caregivers and representatives has been obtained from the patient. No * Community resources currently utilized None * Additional services required to return to the preadmission environment? No * Can the patient safely return to the preadmission environment? Yes * Has this patient been hospitalized within the prior 30 days at any hospital? No Coverage Notice Reviewer: [id number] Bianca Kamara Notice Issued Date-Time: 07/26/2019 12:26 Notice Type: IM Discharge Notice Notice Delivered To: Patient Relationship to Patient: Self Sap Bods Developer Name: Delivery Method: HAND - Hand Delivered Jennifer Days: Prior Verbal Notification: Recipient Understood Notice: Yes Recipient Signature: Yes Med Rec Note Co-signed by Attending: Coverage Notice Comment: IMM explained, signed, given, copy placed in MR Last DP export: 07/23/19 2:55 p Patient Name: VALENTINA WEIR Page 23840 at 1228 All edits/amendments must be made on the electronic document DICTATION DATE: 07/26/191226 DISTRESSER: CATERINA 07/26/191226 RPT#: [id number] DC DATE: STATUS: ADM IN [facility] [address] [place] [address] END OF REPORT
--- NOTE | 2019-07-26 13:27 | NUR ---
DISCHARGE EDUCATION PROVIDED BOTH WRITTEN AND VERBAL. VERBALIZED UNDERSTANDING. DENIES FURTHER QUESTIONS. WAITING FOR IV CALCIUM TO FINISH BEFORE DISCHARGING. WILL CALL TAXI WHEN COMPLETE.
--- NOTE | 2019-07-26 14:35 | NUR ---
IV REMOVED FROM RIGHT WRIST WITH TIP INTACT. PATIENT DC HOME WITH ALL BELONGINGS.
--- NOTE | 2019-07-27 12:57 | MORECARE ---
CASE MANAGEMENT DISCHARGE SUMMARY PATIENT: VALENTINA WEIR SR UNIT: [id number] ADM DATE: 07/19/19 AGE: 69 : 52 SEX: M ROOM/BED: D.2233 AUTHOR: ADINA PAREKH PHYSICIAN: REFERRING PHYSICIAN: FEDERICO CABRERA MD DATE OF SERVICE: 07/27/19 Discharge Plan Patient Name: VALENTINA WEIR Facility: [facility]:[place] : 1950 Planned Disposition: Home Anticipated Discharge Date: 07/24/19 Discharge Date: 07/26/2019 Expected LOS: 5 Initial Reviewer: [email or web address] Initial Review Date: 07/20/2019 Generated: 07/27/19 1:56 pm Comments DCP- Discharge Planning Updated by [email or web address]: Julia Kamara on 07/26/19 11:[address] Patient Name: VALENTINA WEIR Encounter No: [id number] : 1950 Primary Insurance: [employer] ADV Anticipated DC Date: 07-24-2019 Planned Disposition: Home External Planned Provider: : DCP follow-up note: Patient in agreement with discharge plan. No changes to plan. He will need a taxi ride home. I approved taxi to [address] [place] [address] for 8 dollars per [employer]. Nurse to call taxi when ready for discharge. Julianorm Kamara DCP- Discharge Planning Updated by [id number]: Julia Kamara on 07/23/19 2:[address] Patient Name: VALENTINA WEIR Admission Status: Elective Accout number: [id number] Admission Date: 07-19-2019 : 1950 Admission Diagnosis:ELEVATED WHITE BLOOD CELL COUNT, UNSPECIFIED Attending: VICKY CABRERA Current LOS: 4 Anticipated DC Date: 07-24-2019 Planned Disposition: Home Primary Insurance: [employer] ADV Discharge Planning Comments: CM met with patient to complete initial dc planning assessment. CM educated patient on the CM role and verbal consent given by patient to complete assessment. Patient lives at [address] [place] [address] in [place]. He lives alone. At discharge patient plans to return and feels this is a safe discharge. CM discussed availability of home health, rehab services, and medical equipment. Patient denied known discharge needs at this time. States he has friends that probably will transport him home. I informed him that he will be on 2 antibiotics, he states he will be able to get them. CM will continue to follow and will assist as needed with dc plans/needs. Assistant Manager/Embalmer: Julia Kamara DCP- Discharge Planning Updated by [email or web address]: Julia Anh on 07/20/19 3:[address] Patient Name: VALENTINA WEIR Admission Status: Elective Accout number: [id number] Admission Date: 07-19-2019 : 1950 Admission Diagnosis:ELEVATED WHITE BLOOD CELL COUNT, UNSPECIFIED Attending: VICKY CABRERA Current LOS: 1 Anticipated DC Date: Planned Disposition: Primary Insurance: [employer]IC[employer] ADV Discharge Planning Comments: CM met with patient to discuss discharge planning/needs. He states he lives alone at [address] [place] [address] in [place]. Phone number verified [phone]. I attempted to ask other questions and he states he's not in the mood to answer any more questions. I will try and meet with him again at a later date. CM will continue to follow and assist with discharge planning/needs. Assistant Manager/Embalmer: Julia Kamara DCPIA - Discharge Planning Initial Assessment Updated by [email or web address]: Julia Kamara on 07/23/19 3:09 pm * Is the patient Alert and Oriented? Yes * How many steps to enter\exit or inside your home? 0/0 * PCP Dr. Franca Castañeda in [place] * Pharmacy [facility] * Preadmission Environment Home Alone * ADLs Independent * Equipment Ostomy Supplies * List name and contact numbers for known caregivers / representatives who currently or will assist patient after discharge: Nella Sands [facility] - [phone] * Verbal permission to speak to the caregivers and representatives has been obtained from the patient. No * Community resources currently utilized None * Additional services required to return to the preadmission environment? No * Can the patient safely return to the preadmission environment? Yes * Has this patient been hospitalized within the prior 30 days at any hospital? No Coverage Notice Reviewer: [email or web address] - Julia Kamara Notice Issued Date-Time: 07/26/2019 12:26 Notice Type: IM Discharge Notice Notice Delivered To: Patient Relationship to Patient: Self Marketing Analytics Manager Name: Delivery Method: HAND - Hand Delivered Jennifer Days: Prior Verbal Notification: Recipient Understood Notice: Yes Recipient Signature: Yes Med Rec Note Co-signed by Attending: Coverage Notice Comment: IMM explained, signed, given, copy placed in MR Last DP export: 07/26/19 11:27 a Patient Name: VALENTINA WEIR Page 28011 at 1257 All edits/amendments must be made on the electronic document DICTATION DATE: 07/27/19 1256 FIBREGLASS LAMINATOR: CATERINA 07/27/19 1256 RPT#: [id number] DC DATE:07/26/19 STATUS: DIS IN [facility] [address] [place] [address] END OF REPORT
== END 2019-07-26 14:35 | disposition home or self-care (01) | DRG 871 ==
LOC: D.OPS 06:47 → D.PAN 09:45 → D.OPS 10:30 → D.MS 11:25
PROVIDERS: Anesthesiology; ADMIT Urology; ATTEND Urology
DX: A41.9 Sepsis, unspecified organism (principal); R65.21 Severe sepsis with septic shock; E43 Unspecified severe protein-calorie malnutrition; N39.0 Urinary tract infection, site not specified; N17.9 Acute kidney failure, unspecified; E87.1 Hypo-osmolality and hyponatremia; Z68.1 Body mass index [BMI] 19.9 or less, adult; D72.829 Elevated white blood cell count, unspecified; N18.3 Chronic kidney disease, stage 3 (moderate); N40.1 Benign prostatic hyperplasia with lower urinary tract symptoms; R33.8 Other retention of urine; E83.51 Hypocalcemia

== ENCOUNTER 2019-07-29 09:18 | Emergency (ER) | payer MEDICARE, MEDICAID ==
[~2019-07-29] VITALS: Ht 180.3 cm; Wt 58.2 kg
[~2019-07-29 09:18] MED LIST changes: +AMOXICILLIN500 M1 PO
[2019-07-29 09:21] VITALS: Ht 180.3 cm; Wt 58.2 kg
[2019-07-29] MEDS ORDERED: INDOCIN25 MG PO (09:41)
[2019-07-29] MEDS ORDERED: HYDROCODON-ACE1 EA10 PO (09:41)
[2019-07-29 09:56] VITALS: BP 127/90
== END 2019-07-29 11:05 | disposition home or self-care (01) ==
LOC: D.ER 09:18
DX: M10.9 Gout, unspecified (principal); J45.901 Unspecified asthma with (acute) exacerbation; M54.9 Dorsalgia, unspecified; K21.9 Gastro-esophageal reflux disease without esophagitis; N19 Unspecified kidney failure

== ENCOUNTER 2019-08-09 11:26 | Inpatient (IN) | payer MEDICARE, MEDICAID ==
[~2019-08-09] VITALS: Ht 180.3 cm; Wt 62.3 kg
[2019-08-09] VITALS (18 sets, daily range): BP systolic 95–147; BP diastolic 53–93; BMI 15.8
[~2019-08-09 11:26] MED LIST changes: +HYDROCODON-ACE1 EA10 PO; +INDOCIN25 MG PO
--- NOTE | 2019-08-09 11:33 | NUR ---
CODE SEPSIS CALLED UPON PT'S ARRIVAL.
[2019-08-09 11:54] LABS: BASOPHILS 0.1 % (0-2); EOSINOPHILS 0.1 % (0-7); HEMATOCRIT 42.8 % (42.0-54.0); HEMOGLOBIN 13.7 g/dL (13.5-17.5); IMMATURE GRANULOCYTES 1.8 % (0-5); LYMPHOCYTES 3.8 % (15-50); MCH 28.8 pg (26.0-34.0); MCV 89.9 fL (80.0-100.0); MONOCYTES 6.6 % (2-11); NEUTROPHILS 87.6 % (40-80); RBC 4.76 10x6/uL (4.20-6.10); RDW 14.1 % (11.5-14.5); WBC 13.5 10x3/uL (4.8-10.8)
[2019-08-09 12:07] LABS: APTT 34.4 SECONDS (22.8-39.4); INR 1.16 (0.85-1.17); PROTIME 14.7 SECONDS (11.6-15.0)
[2019-08-09 12:08] LABS: PLATELET COUNT 726 10x3/uL (130-400)
[2019-08-09 12:22] LABS: ALBUMIN 4.2 g/dL (3.4-5.0); ALKALINE PHOSPHATASE 112 U/L (30-120); ALT (SGPT) 32 U/L (10-68); BILIRUBIN - TOTAL 0.46 mg/dL (0.2-1.3); CALCIUM 9.3 mg/dL (8.5-10.1); CHLORIDE - SERUM 91 mmol/L (98-107); CKMB 2.9 U/L (0.0-3.6); CREATINE KINASE 128 UL (21-232); CREATININE - SERUM 8.1 mg/dL (0.6-1.3); POTASSIUM - SERUM 5.9 mmol/L (3.5-5.1); PROTEIN - SERUM 10.7 g/dL (6.4-8.2); SODIUM 124 mmol/L (136-145); TROPONIN-I < 0.017 ng/mL (0.000-0.060); UREA NITROGEN 103 mg/dL (7-18); eGFR NON AFRICAN AMERICAN 7 mL/min (90-120)
[2019-08-09 12:23] LABS: CALC OSMOLALITY 286 mosm/kg (275-300); GLUCOSE 181 mg/dL (74-106)
--- NOTE | 2019-08-09 12:24 | NUR ---
STOMA SITE RIGHT LOWER ABDOMEN DOES NOT APPEAR PATENT, SITE CLEANED, SKIN PREPPED AND TEGADERM APPLIED.
[2019-08-09 12:39] LABS: CARBON DIOXIDE 8.5 mmol/L (21.0-32.0)
[2019-08-09 12:42] LABS: BILIRUBIN NEGATIVE (NEGATIVE); GLUCOSE NEGATIVE (NEGATIVE); KETONE NEGATIVE (NEGATIVE); NITRITE NEGATIVE (NEGATIVE); UROBILINOGEN NORMAL (NORMAL)
--- NOTE | 2019-08-09 13:23 | NUR ---
RESTING IN BED WITH EYES CLOSED. NAD NOTED. TO CT VIA STRETCHER WITH CT T ECH
--- NOTE | 2019-08-09 14:15 | NUR ---
LFA IV INFILTRATED. D/C'D INTACT. NEW IV SITED RAC #20 GA X 3 ATTEMPTS
--- NOTE | 2019-08-09 14:30 | NUR ---
LARGE AMT GREEN STOOL FROM RLQ OSTOMY. SKIN CARE PERFORMED AND OSTOMY BAG SECUTRED. AREA AROUND OSTOMY RED AND IRRITATED
--- NOTE | 2019-08-09 14:47 | NUR ---
PT SCREAMS OUT WITH ANY NSG INTERVENTION. WHEN LEFT ALONE PT RESTING WITH EYES CLOSED
[2019-08-09 15:53] LABS: UDS - AMPHET NEGATIVE QUAL (NEGATIVE); UDS - BARB NEGATIVE QUAL (NEGATIVE); UDS - BENZO NEGATIVE QUAL (NEGATIVE); UDS - COCAINE NEGATIVE QUAL (NEGATIVE); UDS - OPIATE POSITIVE QUAL (NEGATIVE); UDS - PCP NEGATIVE QUAL (NEGATIVE); UDS - THC NEGATIVE QUAL (NEGATIVE)
--- NOTE | 2019-08-09 16:05 | NUR ---
REPORT TO LUISA [facility]
--- NOTE | 2019-08-09 16:11 | NUR ---
REPORT RECIEVED FROM FACUNDO.
--- NOTE | 2019-08-09 16:15 | NUR ---
TRANSPORTED TO ICU ROOM #2302. CONDITION STABLE. PT MORE ALERT NOW ANS ANSWERING QUESTIONS
--- NOTE | 2019-08-09 16:27 | NUR ---
patient arrived to unit
--- NOTE | 2019-08-09 16:29 | NUR ---
patient stated "elvi never taken any pills"
--- NOTE | 2019-08-09 16:43 | NUR ---
PATIENT CONFUSED. DIFFERENT TO WHAT I RECIEVED IN REPORT. WAS TOLD HE WAS ALERT AND ORIENTED. PATIENT CAN BEARLY STAY AWAKE WHILE BEING ASKED QUESTIONS. PAYS LITTLE ATTENTION AND DOZES OFF. DISORIENTED TO TIME AND SITUATION. ANSWER MINIMAL QUESTIONS. DIFFICULT TO OBTAIN CLEAR ANSWERS FROM HIM. ADMISSION HISTORY COMPLETED BEST I COULD INFORMATION FROM HIM. HE WAS UNABLE TO PROVIDE ME WITH AN EMREGENCY CONTACT NUMBER OR NAME. WILL REASSES MENTAL STATUS. VSS. SEE ASSESSMENT. WILL CONTINUE TO MONITOR
--- NOTE | 2019-08-09 16:52 | NUR ---
paged dr hernandez
--- NOTE | 2019-08-09 16:53 | NUR ---
dr hernandez aware of consult
--- NOTE | 2019-08-09 18:55 | NUR ---
spoke with family. very angry stated yelling over the phone stating she was the sister and why no one called her. tried to explain that we had no evidence she was the sister as someone previously tried to talk to me about the patient. sister provided with passcode. stated she would call supervisor [facility] because i would not release informatino
--- NOTE | 2019-08-09 19:30 | NUR ---
PT SLEEPING, AROUSES BRIEFLY, CONFUSED, FOLLOWS COMMANDS, RIGHT PIV INTACT WITH D5W /C 3 AMPS NAHCO3 @ 125 CC/HR, COLOSTOMY WITH BAG INTACT, NO DISTRESS NOTED, WILL CONT TO MONITOR
--- NOTE | 2019-08-09 21:15 | NUR ---
PT REMAINS ASLEEP WITH NO CHANGES, VITALS STABLE
--- NOTE | 2019-08-09 23:15 | NUR ---
PT REMAINS ASLEEP WITH NO CHANGES NOTED, WILL CONT TO MONITOR
[2019-08-10] VITALS (7 sets, daily range): BP systolic 84–122; BP diastolic 67–91; Ht 180.3 cm; Wt 62.3 kg
--- NOTE | 2019-08-10 01:00 | NUR ---
PT INCONTINENT OF URINE, BATHED PER STAFF, PT AWAKE,CONFUSED, TOLERATED WELL WITH NO C/O
--- NOTE | 2019-08-10 03:15 | NUR ---
PT SLEEPING WITHOUT DISTRESS, VITALS STABLE
--- NOTE | 2019-08-10 05:42 | NUR ---
PT INCONTINENT OF URINE, BED CHANGED AND PT CLEANED, PLACED GUTIERREZ, RECIEVED IMMEDIATE YELLOW CLEAR URINE, WILL CONT TO MONITOR
[2019-08-10 06:46] LABS: ALBUMIN 3.3 g/dL (3.4-5.0); BILIRUBIN - TOTAL 0.62 mg/dL (0.2-1.3); CALCIUM 7.6 mg/dL (8.5-10.1); MAGNESIUM - SERUM 1.2 mg/dL (1.8-2.4); PHOSPHOROUS 5.7 mg/dL (2.5-4.9); VANCOMYCIN - RANDOM 13.2 ug/mL (10.0-20.0)
[2019-08-10 06:50] LABS: BASOPHILS 0.1 % (0-2); EOSINOPHILS 0 % (0-7); HEMATOCRIT 35.9 % (42.0-54.0); IMMATURE GRANULOCYTES 0.6 % (0-5); LYMPHOCYTES 11.9 % (15-50); MCH 29.7 pg (26.0-34.0); MCHC 33.4 g/dL (31.0-37.0); MCV 88.9 fL (80.0-100.0); MEAN PLATELET VOLUME 9.4 fL (7.4-10.4); MONOCYTES 8.1 % (2-11); NEUTROPHILS 79.3 % (40-80); PLATELET COUNT 504 10x3/uL (130-400); RBC 4.04 10x6/uL (4.20-6.10); RDW 14.2 % (11.5-14.5); WBC 8.9 10x3/uL (4.8-10.8)
[2019-08-10 06:57] LABS: ANION GAP 24.2 mmol/L (8-16); CARBON DIOXIDE 15.5 mmol/L (21.0-32.0); POTASSIUM - SERUM 4.7 mmol/L (3.5-5.1); PROTEIN - SERUM 7.5 g/dL (6.4-8.2)
--- NOTE | 2019-08-10 07:00 | NUR ---
REPORT RECEIVED. ASSESSMENT COMPLETE PER FLOW SHEET. VSS NO NEW CHANGES PT RESTING COMFORTABLY WILL CONTINUE TO MONITOR
--- NOTE | 2019-08-10 14:22 | NUR ---
PT ARRIVED TO FLOOR. VERY CONFUSED. RIGHT FA 20G IV INFILTRATED. DC'D WITH CATH INTACT. TOOK X4 NURSES TO HOLD PT DOWN AND X4 ATTEMPTS WERE MADE FOR ANOTHER PIV. MICK MORANBURRING WHEEL OPERATOR CALLED. PT HAS RIGHT UPPER ARM 26 IV BUT KEEPS OCCULIDING WITH IVF INFUSING. BED ALARM ON. GUTIERREZ CATH DRAINING. PT STATES HE HAS NO FURTHER NEEDS AT THIS TIME. BED LOW.CL IN REACH.
--- NOTE | 2019-08-10 14:35 | NUR ---
RIGHT FA 22G IV INSERTED BY ANOTHER NURSE.
--- NOTE | 2019-08-10 14:59 | MORECARE ---
CASE MANAGEMENT DISCHARGE SUMMARY PATIENT: VALENTINA WEIR SR UNIT: [id number] ADM DATE: 08/09/19 AGE: 69 : 51 SEX: M ROOM/BED: D.2105 AUTHOR: ADINA PAREKH PHYSICIAN: REFERRING PHYSICIAN: RENO CARTER MD DATE OF SERVICE: 08/10/19 Discharge Plan Patient Name: VALENTINA WEIR [facility] : 1950 Planned Disposition: Home Anticipated Discharge Date: Discharge Date: Expected LOS: Initial Reviewer: [email or web address] Initial Review Date: 08/09/2019 Generated: 08/10/19 3:58 pm Patient Name: VALENTINA WEIR Page [id number] at 1455 All edits/amendments must be made on the electronic document DICTATION DATE: 08/10/198 NET FISHER: CATERINA 08/10/198 RPT#: [id number] DC DATE: STATUS: ADM IN [facility] [address] [place] [address] END OF REPORT
--- NOTE | 2019-08-10 15:06 | MORECARE ---
CASE MANAGEMENT DISCHARGE SUMMARY PATIENT: VALENTINA WEIR SR UNIT: [id number] ADM DATE: 08/09/19 AGE: 69 : 51 SEX: M ROOM/BED: D.2105 AUTHOR: ADINA PAREKH PHYSICIAN: REFERRING PHYSICIAN: RENO CARTER MD DATE OF SERVICE: 08/10/19 Discharge Plan Patient Name: VALENTINA WEIR [facility] [facility] 1950 Planned Disposition: Home Anticipated Discharge Date: Discharge Date: Expected LOS: Initial Reviewer: [email or web address] Initial Review Date: 08/09/2019 Generated: 08/10/19 4:06 pm DCPIA - Discharge Planning Initial Assessment Updated by [id number]: Kam Nye on 08/10/19 3:03 pm * Is the patient Alert and Oriented? Yes * How many steps to enter\exit or inside your home? NONE * PCP DR. NADIRA FAN IN [place] * Pharmacy [facility] ON [facility]. * Preadmission Environment Home Alone * ADLs Independent * Equipment Ostomy Supplies * Other Equipment [employer] * List name and contact numbers for known caregivers / representatives who currently or will assist patient after discharge: JED LOVE, SISTER, * Verbal permission to speak to the caregivers and representatives has been obtained from the patient. Yes * Community resources currently utilized None * Please name any agencies selected above. NONE * Additional services required to return to the preadmission environment? No * Can the patient safely return to the preadmission environment? Yes * Has this patient been hospitalized within the prior 30 days at any hospital? No Last DP export: 08/10/19 1:59 pm Patient Name: VALENTINA WEIR Page [phone] at 1506 All edits/amendments must be made on the electronic document DICTATION DATE: 08/10/19 1506 OPERATOR RECEPTIONIST: CATERINA 08/10/19 1506 RPT#: [id number] DC DATE: STATUS: ADM IN [facility] [address] [place] [address] END OF REPORT
--- NOTE | 2019-08-10 15:20 | MORECARE ---
CASE MANAGEMENT DISCHARGE SUMMARY PATIENT: VALENTINA WEIR SR UNIT: [id number] ADM DATE: 08/09/19 AGE: 69 : 51 SEX: M ROOM/BED: D.2105 AUTHOR: IZABELLA,DOC PHYSICIAN: REFERRING PHYSICIAN: RENO CARTER MD DATE OF SERVICE: 08/10/19 Discharge Plan Patient Name: VALENTINA WEIR Facility: [facility]:[place] : 1950 Planned Disposition: Home Anticipated Discharge Date: Discharge Date: Expected LOS: Initial Reviewer: [email or web address] Initial Review Date: 08/09/2019 Generated: 08/10/19 4:19 pm Comments DCP- Discharge Planning Updated by [email or web address]: Kam Nye on 08/10/19 2:[address] Patient Name: VALENTINA WEIR Admission Status: ER Accout number: [id number] Admission Date: 08-09-2019 : 1950 Admission Diagnosis:SEPSIS, UNSPECIFIED ORGANISM Attending: RUBY Current LOS: 1 Anticipated DC Date: Planned Disposition: Home Primary Insurance: [employer] MEDICARE ADV Discharge Planning Comments: CM MET WITH PT IN ROOM TO DISCUSS DISCHARGE PLANNING AND NEEDS. PT REPORTS LIVING AT HOME INDEPENDENTLY AND ALONE; PT THEN STATES HE LIVES WITH HIS SISTER, JED. PT HAS NO MEDICAL EQUIPMENT AND RECEIVES OSTOMY SUPPLIES FROM [employer]. PT HAS NO OUTSIDE SERVICES ASSISTING IN THE HOME. CM DISCUSSED AVAILABILITY OF HOME HEALTH, REHAB SERVICES AND MEDICAL EQUIPMENT. PT DENIES DISCHARGE NEEDS, REPORTS HE WILL HAVE TO CALL "SOMEONE" TO PICK HIM UP FOR DISCHARGE HOME. PT DENIES DRUG OR ALCOHOL USE. PT DOES NOT REMEMBER HOW HE GOT TO THE HOSPITAL AND STATES HE IS HERE BECAUSE HIS BACK HURTS. CM CALLED LISTED EMERGENCY CONTACT NUMBER FOR PT'S SISTER, JED LOVE, , REACHED PT'S COUSIN, BERNADETTE, WHO INFORMED CM THAT THIS NUMBER IS PT'S PHONE, BERNADETTE HAS IT UNTIL PT RETURNS HOME. PT LIVES ALONE IN APARTMENT NEXT TO BERNADETTE WHO CHECKS ON PT AT HOME; BERNADETTE STATES HE DID NOT KNOW THAT PT WAS "THAT BAD" UNTIL HE SAW THE POLICE NEXT DOOR GOING INTO PT'S APARTMENT. BERNADETTE PROVIDED PHONE NUMBER FOR PT'S SISTER, JED LOVE, . PT PLANS TO RETURN HOME ALONE, LIVES NEXT DOOR TO HIS COUSIN WHO CHECKS ON PT AT HOME. PT DENIES DISCHARGE NEEDS AT THIS TIME, REPORTS FAMILY WILL PICK HIM UP AT DISCHARGE. CM TO FOLLOW AND ASSIST NEEDED. Textile Conversion Manager: Kam Khanwell DCPIA - Discharge Planning Initial Assessment Updated by [email or web address]: Kam Nye on 08/10/19 3:03 pm * Is the patient Alert and Oriented? Yes * How many steps to enter\\exit or inside your home? NONE * PCP DR. NADIRA FAN IN [place] * Pharmacy [facility]. * Preadmission Environment Home Alone * ADLs Independent * Equipment Ostomy Supplies * Other Equipment [employer] * List name and contact numbers for known caregivers / representatives who currently or will assist patient after discharge: JED LOVE, SISTER, * Verbal permission to speak to the caregivers and representatives has been obtained from the patient. Yes * Community resources currently utilized None * Please name any agencies selected above. NONE * Additional services required to return to the preadmission environment? No * Can the patient safely return to the preadmission environment? Yes * Has this patient been hospitalized within the prior 30 days at any hospital? No Last DP export: 08/10/19 2:06 pm Patient Name: VALENTINA WEIR Page [id number] at 1520 All edits/amendments must be made on the electronic document DICTATION DATE: 08/10/191518 THERMOSTATIC CONTROLS SUPERVISOR: CATERINA 08/10/19 1519 RPT#: [id number] DC DATE: STATUS: ADM IN [facility] [address] [place] [address] END OF REPORT
--- NOTE | 2019-08-10 16:53 | NUR ---
PT REFUSED TO LET ME TOUCH HIS COLOSTOMY BAG OR GUTIERREZ CATH TUBING TO COLLECT URINE CULTURE.
--- NOTE | 2019-08-10 18:57 | NUR ---
PT PULLED OF COLOSTMY BAG AND FECES SOILED BEDDING. PLACED NEW COLOSTOMY BAG ON AND COMPLETE LINENE CHANGE DONE.
--- NOTE | 2019-08-10 20:19 | NUR ---
PT CONFUSED. SCREAMING AT THIS NURSE. REFUSING VITALS. ATTEMPTED TO REDIRECT PT BUT HE DOES NOT BELEIVE HE IS IN THE HOSPITAL OR ALIVE. WILL CTM.
--- NOTE | 2019-08-10 22:59 | NUR ---
ATTEMPTED TO ADMINISTER IVPB ZOSYN, PER ORDER. PT REFUSED, WOULD NOT ALLOW THIS NURSE TO EXPLAIN WHAT THE MEDICINE WAS AND WHAT IT WAS FOR. STATED, "NO, NO, NO. I KNOW WHAT YOU HAVE THERE AND YOU CAN'T PUT IT IN THERE. I'LL GET UP IF YOU GIVE IT TO ME. I'LL TALK TO THE DOCTOR ABOUT IT." ATTEMPTED TO EXPLAIN MEDICINE AND REASON FOR RECEIVING IT AGAIN, PT REFUSED STATING, "I DON'T WANT TO TALK TO YOU ABOUT IT, PLEASE LEAVE." BED IN LOWEST POSITION, SR X3, CALL LIGHT WITHIN REACH. WILL CONTINUE TO MONITOR.
--- NOTE | 2019-08-11 00:30 | NUR ---
PT REMOVED COLOSTOMY BAG, LINENS SOILED WITH FECES, STATES, "THE LADY ON TV SAID IF YOU HAVE A COLOSTOMY YOU'LL , I DON'T WANT TO ." LINENS CHANGED, NEW COLOSTOMY BAG APPLIED, DENIES ANY OTHER NEEDS AT THIS TIME. BED IN LOWEST POSITION, SR X3, CALL LIGHT WITHIN REACH, BED ALARM ON AND FUNCTIONING PROPERLY. WILL CONTINUE TO MONITOR.
--- NOTE | 2019-08-11 02:39 | NUR ---
PT PULLED OFF COLOSTOMY BAG, FECES SOILED LINENS, STATES "I DON'T WANT THIS ANYMORE." REPLACED COLOSTOMY BAG, LINEN CHANGE COMPLETED, EXPLAINED TO PT HIS COLOSTOMY WAS CHRONIC AND HE HAD TO HAVE THE BAG. PT VERBALLY AGREED NOT TO PULL BAG OFF AGAIN. BED IN LOWEST POSITION, SR X3, CALL LIGHT WITHIN REACH, BED ALARM ON AND FUNCTIONING PROPERLY. WILL CONTINUE TO MONITOR.
[2019-08-11 05:46] VITALS: BP 107/66
--- NOTE | 2019-08-11 06:57 | NUR ---
PT REMOVED COLOSTOMY BAG, SOILED LINENS, DENIES KNOWING WHY HE REMOVED HIS BAG. LINENS CHANGED, NEW COLOSTOMY BAG APPLIED. DENIES ANY OTHER NEEDS AT THIS TIME. BED IN LOWEST POSITION, SR X3, CALL LIGHT WITHIN REACH, BED ALARM ON AND FUNCTIONING. WILL CONTINUE TO MONITOR.
--- NOTE | 2019-08-11 07:00 | NUR ---
RECEIVED REPORT. ASSUMED CARE OF PATIENT. CALL LIGHT WITHIN REACH. PATIENT AWAKE AND LYING IN BED. PATIENT APPEARS PARANOID. PATIENT IS ALERT TO NAME, PLACE AND SITUATION. PATIENT THINKS THE YEAR IS 1998. REORIENTED. DENIES NEEDS. PATIENT IS PARANOID WITH STAFF WEARING MASKS AND GOWNS. REORIENTATION PROVIDED AGAIN.
[2019-08-11 07:19] LABS: BASOPHILS 0.4 % (0-2); EOSINOPHILS 6.8 % (0-7); HEMATOCRIT 29.2 % (42.0-54.0); HEMOGLOBIN 9.8 g/dL (13.5-17.5); IMMATURE GRANULOCYTES 5.6 % (0-5); LYMPHOCYTES 15.5 % (15-50); MCH 28.7 pg (26.0-34.0); MCHC 33.6 g/dL (31.0-37.0); MONOCYTES 7.4 % (2-11); NEUTROPHILS 64.3 % (40-80); PLATELET COUNT 441 10x3/uL (130-400); RBC 3.42 10x6/uL (4.20-6.10); WBC 8.5 10x3/uL (4.8-10.8)
[2019-08-11 07:20] LABS: MCV 85.4 fL (80.0-100.0)
[2019-08-11 07:30] VITALS: BP 112/71
[2019-08-11 07:45] LABS: ALBUMIN 2.9 g/dL (3.4-5.0); BILIRUBIN - TOTAL 0.73 mg/dL (0.2-1.3); PROTEIN - SERUM 6.8 g/dL (6.4-8.2); VANCOMYCIN - RANDOM 19.7 ug/mL (10.0-20.0)
[2019-08-11 07:52] LABS: ANION GAP 8.1 mmol/L (8-16); CALCIUM 6.6 mg/dL (8.5-10.1); CARBON DIOXIDE 31.6 mmol/L (21.0-32.0); CREATININE - SERUM 3.9 mg/dL (0.6-1.3); PHOSPHOROUS 3.4 mg/dL (2.5-4.9)
[2019-08-11 07:53] LABS: MAGNESIUM - SERUM 0.9 mg/dL (1.8-2.4); POTASSIUM - SERUM 2.7 mmol/L (3.5-5.1)
--- NOTE | 2019-08-11 07:54 | NUR ---
LABS RECIEVED. EP INITIATED AT THIS TIME.
--- NOTE | 2019-08-11 08:17 | NUR ---
NOTIFIED PHARMACY OF THE NEED FOR NABICARB. SPOKE TO ANGELA.
--- NOTE | 2019-08-11 10:36 | NUR ---
SODIUM BICARB DISCONTINUED AT THIS TIME. PATIENT RESTING WITH EYES CLOSED.
--- NOTE | 2019-08-11 11:09 | NUR ---
SPOKE WITH LAB AND HAD K+ AND MAG LAB RESCHEDULED FOR 1500 TODAY
--- NOTE | 2019-08-11 11:54 | NUR ---
COMPLETE BED CHANGE AND BATH. NEW COLOSTOMY BAG APPLIED. PATIENT CONTINUES TO PICK AT COLOSTOMY BAG. PATIENT CONSUMING NOON MEAL AT THIS TIME.
[2019-08-11 14:37] LABS: BILIRUBIN NEGATIVE (NEGATIVE); GLUCOSE NEGATIVE (NEGATIVE); KETONE NEGATIVE (NEGATIVE); NITRITE NEGATIVE (NEGATIVE); SPECIFIC GRAVITY 1.015 (1.005-1.020); UROBILINOGEN NORMAL (NORMAL)
[2019-08-11 15:01] LABS: RED CELLS - URINE >50 /hpf (0-5); WHITE CELLS - URINE 0-5 /hpf (NEGATIVE)
[2019-08-11 15:03] LABS: BACTERIA FEW /hpf (NEGATIVE); EPITHELIAL CELLS NSEEN /hpf (0-5); URIC ACID CRYSTALS 0-5 \\hpf (NONE SEEN)
[2019-08-11 15:22] LABS: MAGNESIUM - SERUM 0.9 mg/dL (1.8-2.4); POTASSIUM - SERUM 3.4 mmol/L (3.5-5.1)
[2019-08-11 15:30] VITALS: BP 95/66
--- NOTE | 2019-08-11 15:38 | NUR ---
CONTINUE WITH EP, K+ AND MAG STILL LOW.
[2019-08-11 17:37] LABS: ANION GAP 11.5 mmol/L (8-16); CARBON DIOXIDE 33.1 mmol/L (21.0-32.0); CREATININE - SERUM 3.3 mg/dL (0.6-1.3); POTASSIUM - SERUM 3.6 mmol/L (3.5-5.1)
[2019-08-11 17:40] LABS: CALCIUM 6.3 mg/dL (8.5-10.1)
--- NOTE | 2019-08-11 17:52 | NUR ---
RESTING IN BED, CALL LIGHT WITHIN REACH. NO DISTRESS. PM MEAL CONSUMED. ATTENTION TOWARD TELEVISION AT THIS TIME.
--- NOTE | 2019-08-11 19:10 | NUR ---
BEDSIDE REPORT RECEIVED, PT CARE ASSUMED. INTRODUCED SELF AND WROTE NAME ON BOARD. PT SITTING UP IN BED, AAOX3, REORIENTED TO TIME. DENIES ANY NEEDS AT THIS TIME. BED IN LOWEST POSITION, SR X3, CALL LIGHT WITHIN REACH, BED ALARM ON AND FUNCTIONING. WILL CONTINUE TO MONITOR.
[2019-08-11 20:00] VITALS: BP 105/68
[2019-08-12 04:55] LABS: BASOPHILS 0.2 % (0-2); EOSINOPHILS 0.6 % (0-7); HEMATOCRIT 31.7 % (42.0-54.0); HEMOGLOBIN 10.1 g/dL (13.5-17.5); IMMATURE GRANULOCYTES 0.4 % (0-5); LYMPHOCYTES 7.2 % (15-50); MCH 28.7 pg (26.0-34.0); MCHC 31.9 g/dL (31.0-37.0); MEAN PLATELET VOLUME 9.5 fL (7.4-10.4); MONOCYTES 28.7 % (2-11); NEUTROPHILS 62.9 % (40-80); PLATELET COUNT 403 10x3/uL (130-400); RBC 3.52 10x6/uL (4.20-6.10); RDW 14.4 % (11.5-14.5)
[2019-08-12 05:10] LABS: WBC 10.9 10x3/uL (4.8-10.8)
[2019-08-12 05:11] LABS: MCV 90.1 fL (80.0-100.0)
[2019-08-12 05:33] LABS: ALBUMIN 2.7 g/dL (3.4-5.0); BILIRUBIN - TOTAL 0.74 mg/dL (0.2-1.3); CARBON DIOXIDE 29.8 mmol/L (21.0-32.0); CREATININE - SERUM 2.5 mg/dL (0.6-1.3); PROTEIN - SERUM 6.7 g/dL (6.4-8.2); VANCOMYCIN - RANDOM 11.8 ug/mL (10.0-20.0)
[2019-08-12 05:39] LABS: ANION GAP 10.5 mmol/L (8-16); CALCIUM 6.6 mg/dL (8.5-10.1); MAGNESIUM - SERUM 0.8 mg/dL (1.8-2.4); PHOSPHOROUS 2.3 mg/dL (2.5-4.9); POTASSIUM - SERUM 4.3 mmol/L (3.5-5.1)
--- NOTE | 2019-08-12 12:03 | MORECARE ---
CASE MANAGEMENT DISCHARGE SUMMARY PATIENT: VALENTINA WEIR UNIT: [id number] ADM DATE: 08/09/19 AGE: 69 : 51 SEX: M ROOM/BED: D.2105 AUTHOR: IZABELLA,DOC PHYSICIAN: REFERRING PHYSICIAN: RENO CARTER MD DATE OF SERVICE: 08/12/19 Discharge Plan Patient Name: VALENTINA WEIR Facility: [facility]:[place] : 1950 Planned Disposition: Home Anticipated Discharge Date: Discharge Date: Expected LOS: Initial Reviewer: [email or web address] Initial Review Date: 08/09/2019 Generated: 08/12/19 1:02 pm Comments DCP- Discharge Planning Updated by [id number]: Tereza Louis on 08/12/19 10:[address] CM received order for APS to eval home situation. CM called APS hotline and reported case of self neglect to [place] Case # [id number]. APS will contact CM if they think there is a case. CM will continue to follow and assist as needed with discharge planning needs. DCP- Discharge Planning Updated by [email or web address]: Kam Nye on 08/10/19 2:[address] Patient Name: VALENTINA WEIR Admission Status: ER Accout number: [id number] Admission Date: 08-09-2019 : 1950 Admission Diagnosis:SEPSIS, UNSPECIFIED ORGANISM Attending: RUBY Current LOS: 1 Anticipated DC Date: Planned Disposition: Home Primary [facility] Discharge Planning Comments: CM MET WITH PT IN ROOM TO DISCUSS DISCHARGE PLANNING AND NEEDS. PT REPORTS LIVING AT HOME INDEPENDENTLY AND ALONE; PT THEN STATES HE LIVES WITH HIS SISTER, JED. PT HAS NO MEDICAL EQUIPMENT AND RECEIVES OSTOMY SUPPLIES FROM [employer]. PT HAS NO OUTSIDE SERVICES ASSISTING IN THE HOME. CM DISCUSSED AVAILABILITY OF HOME HEALTH, REHAB SERVICES AND MEDICAL EQUIPMENT. PT DENIES DISCHARGE NEEDS, REPORTS HE WILL HAVE TO CALL "SOMEONE" TO PICK HIM UP FOR DISCHARGE HOME. PT DENIES DRUG OR ALCOHOL USE. PT DOES NOT REMEMBER HOW HE GOT TO THE HOSPITAL AND STATES HE IS HERE BECAUSE HIS BACK HURTS. CM CALLED LISTED EMERGENCY CONTACT NUMBER FOR PT'S SISTER, JED LOVE, , REACHED PT'S COUSIN, BERNADETTE, WHO INFORMED CM THAT THIS NUMBER IS PT'S PHONE, BERNADETTE HAS IT UNTIL PT RETURNS HOME. PT LIVES ALONE IN APARTMENT NEXT TO BERNADETTE WHO CHECKS ON PT AT HOME; BERNADETTE STATES HE DID NOT KNOW THAT PT WAS "THAT BAD" UNTIL HE SAW THE POLICE NEXT DOOR GOING INTO PT'S APARTMENT. BERNADETTE PROVIDED PHONE NUMBER FOR PT'S SISTER, JED LOVE, . PT PLANS TO RETURN HOME ALONE, LIVES NEXT DOOR TO HIS COUSIN WHO CHECKS ON PT AT HOME. PT DENIES DISCHARGE NEEDS AT THIS TIME, REPORTS FAMILY WILL PICK HIM UP AT DISCHARGE. CM TO FOLLOW AND ASSIST NEEDED. Feed Project Engineer: Kam Nye DCPIA - Discharge Planning Initial Assessment Updated by [email or web address]: Kam Nye on 08/10/19 3:03 pm * Is the patient Alert and Oriented? Yes * How many steps to enter\\exit or inside your home? NONE * PCP DR. NADIRA FAN IN [place] * Pharmacy [facility]. * Preadmission Environment Home Alone * ADLs Independent * Equipment Ostomy Supplies * Other Equipment [employer] * List name and contact numbers for known caregivers / representatives who currently or will assist patient after discharge: JED LOVE, SISTER, * Verbal permission to speak to the caregivers and representatives has been obtained from the patient. Yes * Community resources currently utilized None * Please name any agencies selected above. NONE * Additional services required to return to the preadmission environment? No * Can the patient safely return to the preadmission environment? Yes * Has this patient been hospitalized within the prior 30 days at any hospital? No Last DP export: 08/10/19 2:20 pm Patient Name: VALENTINA WEIR Page [phone] at 1203 All edits/amendments must be made on the electronic document DICTATION DATE: 08/12/191201 PAID SEARCH SPECIALIST: CATERINA 08/12/191201 RPT#: [id number] DC DATE: STATUS: ADM IN [facility] [address] [place] [address] END OF REPORT
--- NOTE | 2019-08-12 17:15 | NUR ---
I have reviewed this patient and I concur with the Shift Assessment completed by the Licensed Practical Nurse today this shift.
--- NOTE | 2019-08-12 19:10 | NUR ---
BEDSIDE REPORT RECEIVED, PT CARE ASSUMED. WROTE NAME ON BOARD. PT SITTING UP IN BED, WATCHING TV, AAOX4. REQUESTING VERÓNICA, PROVIDED. DENIES ANY OTHER NEEDS AT THIS TIME. BED IN LOWEST POSITION, SR X2, CALL LIGHT WITHIN REACH, BED ALARM ON AND FUNCTIONING. WILL CONTINUE TO MONITOR.
[2019-08-12 20:00] VITALS: BP 102/69
[2019-08-13 04:23] LABS: BASOPHILS 0.1 % (0-2); EOSINOPHILS 2.6 % (0-7); HEMATOCRIT 32.3 % (42.0-54.0); IMMATURE GRANULOCYTES 0.3 % (0-5); LYMPHOCYTES 17.1 % (15-50); MCH 28.3 pg (26.0-34.0); MCV 91.5 fL (80.0-100.0); MEAN PLATELET VOLUME 9.4 fL (7.4-10.4); MONOCYTES 13.5 % (2-11); NEUTROPHILS 66.4 % (40-80); PLATELET COUNT 407 10x3/uL (130-400); RBC 3.53 10x6/uL (4.20-6.10); RDW 14.6 % (11.5-14.5); WBC 9.7 10x3/uL (4.8-10.8)
[2019-08-13 04:42] LABS: ALBUMIN 2.6 g/dL (3.4-5.0); ANION GAP 12.1 mmol/L (8-16); BILIRUBIN - TOTAL 0.75 mg/dL (0.2-1.3); CREATININE - SERUM 1.9 mg/dL (0.6-1.3); PHOSPHOROUS 2.7 mg/dL (2.5-4.9); POTASSIUM - SERUM 4.1 mmol/L (3.5-5.1); PROTEIN - SERUM 6.8 g/dL (6.4-8.2); VANCOMYCIN - RANDOM 19.5 ug/mL (10.0-20.0)
[2019-08-13 04:43] LABS: MAGNESIUM - SERUM 2.3 mg/dL (1.8-2.4)
[2019-08-13 09:08] VITALS: BP 108/69
[2019-08-13 14:51] VITALS: BP 109/70
--- NOTE | 2019-08-13 15:01 | NUR ---
Nutrition follow-up: Diet: Renal PO intake fair Labs reviewed WT: 115# Pt keeps pulling colostomy bag off; confused per nursing Will continue to provide food choices and honor food preferences within diet restrictions. RDN following.
[2019-08-13 20:43] VITALS: BP 134/74
--- NOTE | 2019-08-14 00:52 | NUR ---
RESTING WITH EYES CLOSED, RESPERATIONS EVEN, NO S/S DISTRESS NOTED.
[2019-08-14 05:27] LABS: BASOPHILS 0.4 % (0-2); EOSINOPHILS 4.7 % (0-7); HEMATOCRIT 27.9 % (42.0-54.0); HEMOGLOBIN 8.4 g/dL (13.5-17.5); IMMATURE GRANULOCYTES 0.5 % (0-5); LYMPHOCYTES 8.7 % (15-50); MCH 28.5 pg (26.0-34.0); MCHC 30.1 g/dL (31.0-37.0); MEAN PLATELET VOLUME 9.8 fL (7.4-10.4); NEUTROPHILS 72.7 % (40-80); PLATELET COUNT 399 10x3/uL (130-400); RBC 2.95 10x6/uL (4.20-6.10); RDW 14.8 % (11.5-14.5); WBC 10.5 10x3/uL (4.8-10.8)
[2019-08-14 05:42] LABS: MCV 94.6 fL (80.0-100.0)
[2019-08-14 05:57] LABS: ALBUMIN 2.4 g/dL (3.4-5.0); ANION GAP 15.4 mmol/L (8-16); BILIRUBIN - TOTAL 0.44 mg/dL (0.2-1.3); CALCIUM 7.8 mg/dL (8.5-10.1); CARBON DIOXIDE 21.2 mmol/L (21.0-32.0); CREATININE - SERUM 1.9 mg/dL (0.6-1.3); POTASSIUM - SERUM 4.6 mmol/L (3.5-5.1); PROTEIN - SERUM 6.4 g/dL (6.4-8.2); VANCOMYCIN - RANDOM 15.9 ug/mL (10.0-20.0)
[2019-08-14 06:03] LABS: MAGNESIUM - SERUM 1.3 mg/dL (1.8-2.4)
--- NOTE | 2019-08-14 07:10 | NUR ---
REPORT RECIEVED FROM RESIDENCE DIRECTOR AND PATIENT CARE ASSUMED. PATIENT LAYING IN BED ON BACK AWAKE, ALERT AND 0RIENTED X 4. PATIENT DENIES ANY NEEDS OR PAIN. WILL CONTINUE WITH PLAN OF CARE. SR UPX 2 BED IN LOW POSITION AND CALL LIGHT IN REACH.
--- NOTE | 2019-08-14 09:21 | NUR ---
ADMINSTERED MEDICATION AT THIS TIME. NO DIFFICULTY SWALLOWING. ADMINSTERED IV MEDICATION, NO PAIN. REQUESTS ICE CREAM, SODA AND PAPER SCRUB PANTS. WILL PROVIDE PROMPTLY. RESTING COMFORTABLY IN BED. DENIES ANY OTHER NEEDS AT THIS TIME. WILL CONTINUE TO MONITOR.
[2019-08-14 09:42] VITALS: BP 127/76
--- NOTE | 2019-08-14 10:18 | NUR ---
HUNG IV ANTIBIOTIC. NO COMPLAINT. DENIES ANY NEEDS. WILL CONTINUE TO MONITOR.
--- NOTE | 2019-08-14 11:38 | NUR ---
PT RESTING COMFORTABLY IN BED. PROVIDED WITH SCRUBS PER REQUEST. DENIES ANY OTHER NEEDS AT THIS TIME. WILL CONTINUE TO MONITOR.
--- NOTE | 2019-08-14 15:05 | NUR ---
HUNG IV ANTIBIOTIC, NO COMPLAINT OF IV PAIN. PROVIDED PT WITH MORTEZA SANCHES UPON REQUEST. RESTING COMFORTABLY IN BED. DENIES ANY NEEDS AT THIS TIME. WILL CONTINUE TO MONITOR.
--- NOTE | 2019-08-14 16:10 | NUR ---
PT RESTING COMFORTABLY IN BED. DENIES ANY NEEDS AT THIS TIME. BED IN LOWEST POSITION AND CALL LIGHT WITHIN REACH. WILL CONTINUE TO MONITOR.
[2019-08-14 17:39] VITALS: BP 99/67
[2019-08-14 20:00] VITALS: BP 92/64
[2019-08-15] VITALS: BP 88/58
--- NOTE | 2019-08-15 00:35 | NUR ---
SENIOR JAVA WEB APPLICATION DEVELOPER AT BED SIDE TO OBTAIN VITALS.
[2019-08-15 04:00] VITALS: BP 83/57
[2019-08-15 05:22] LABS: BASOPHILS 0.3 % (0-2); EOSINOPHILS 4.9 % (0-7); HEMATOCRIT 31.9 % (42.0-54.0); HEMOGLOBIN 9.5 g/dL (13.5-17.5); IMMATURE GRANULOCYTES 0.6 % (0-5); LYMPHOCYTES 11.7 % (15-50); MCH 28.4 pg (26.0-34.0); MCHC 29.8 g/dL (31.0-37.0); MCV 95.2 fL (80.0-100.0); MEAN PLATELET VOLUME 9.8 fL (7.4-10.4); MONOCYTES 11.7 % (2-11); NEUTROPHILS 70.8 % (40-80); PLATELET COUNT 367 10x3/uL (130-400); RBC 3.35 10x6/uL (4.20-6.10); RDW 14.8 % (11.5-14.5); WBC 9.7 10x3/uL (4.8-10.8)
[2019-08-15 05:47] LABS: PHOSPHOROUS 1.9 mg/dL (2.5-4.9); VANCOMYCIN - RANDOM 17.1 ug/mL (10.0-20.0)
[2019-08-15 07:42] LABS: ANION GAP 15.1 mmol/L (8-16); CALCIUM 7.9 mg/dL (8.5-10.1); CARBON DIOXIDE 19.3 mmol/L (21.0-32.0); CREATININE - SERUM 1.7 mg/dL (0.6-1.3)
[2019-08-15 07:43] LABS: POTASSIUM - SERUM 5.4 mmol/L (3.5-5.1)
--- NOTE | 2019-08-15 07:55 | MORECARE ---
CASE MANAGEMENT DISCHARGE SUMMARY PATIENT: VALENTINA WEIR SR UNIT: [id number] ADM DATE: 08/09/19 AGE: 69 : 52 SEX: M ROOM/BED: D.2105 AUTHOR: IZABELLA,DOC PHYSICIAN: REFERRING PHYSICIAN: RENO CARTER MD DATE OF SERVICE: 08/15/19 Discharge Plan Patient Name: VALENTINA WEIR Facility: [facility]:[place] : 1950 Planned Disposition: Home Anticipated Discharge Date: Discharge Date: Expected LOS: Initial Reviewer: [email or web address] Initial Review Date: 08/09/2019 Generated: 08/15/19 8:54 am Comments DCP- Discharge Planning Updated by [email or web address]: Bette Omer on 08/15/19 6:[address] Patient Name: VALENTINA WEIR Encounter No: [id number] : 1950 Primary Insurance: [employer] MEDICARE ADV Anticipated DC Date: Planned Disposition: Home External Planned Provider: : DCP follow-up note: LATE ENTRY 08/14/2019 @1600 CM RECIEVED CALL FROM APS STATING AN ASSESSMENT NEEDED TO BE COMPLETED. CM MET WITH NICHELLE NOLASCO FROM [facility] AND PROVIDED UPDATED CONDITION. Bette Omer MSN,RN,CM DCP- Discharge Planning Updated by [id number]: Tereza Louis on 08/12/19 10:[address] CM received order for APS to eval home situation. CM called APS hotline and reported case of self neglect to [place] Case # [id number]. APS will contact CM if they think there is a case. CM will continue to follow and assist as needed with discharge planning needs. DCP- Discharge Planning Updated by [email or web address]: Kam Nye on 08/10/19 2:[address] Patient Name: VALENTINA WEIR Admission Status: ER Accout number: [id number] Admission Date: 08-09-2019 : 1950 Admission Diagnosis:SEPSIS, UNSPECIFIED ORGANISM Attending: RUBY Current LOS: 1 Anticipated DC Date: Planned Disposition: Home Primary Insurance: [employer] MEDICARE ADV Discharge Planning Comments: CM MET WITH PT IN ROOM TO DISCUSS DISCHARGE PLANNING AND NEEDS. PT REPORTS LIVING AT HOME INDEPENDENTLY AND ALONE; PT THEN STATES HE LIVES WITH HIS SISTER, JED. PT HAS NO MEDICAL EQUIPMENT AND RECEIVES OSTOMY SUPPLIES FROM [employer]. PT HAS NO OUTSIDE SERVICES ASSISTING IN THE HOME. CM DISCUSSED AVAILABILITY OF HOME HEALTH, REHAB SERVICES AND MEDICAL EQUIPMENT. PT DENIES DISCHARGE NEEDS, REPORTS HE WILL HAVE TO CALL "SOMEONE" TO PICK HIM UP FOR DISCHARGE HOME. PT DENIES DRUG OR ALCOHOL USE. PT DOES NOT REMEMBER HOW HE GOT TO THE HOSPITAL AND STATES HE IS HERE BECAUSE HIS BACK HURTS. CM CALLED LISTED EMERGENCY CONTACT NUMBER FOR PT'S SISTER, JED LOVE, , REACHED PT'S COUSIN, BERNADETTE, WHO INFORMED CM THAT THIS NUMBER IS PT'S PHONE, BERNADETTE HAS IT UNTIL PT RETURNS HOME. PT LIVES ALONE IN APARTMENT NEXT TO BERNADETTE WHO CHECKS ON PT AT HOME; BERNADETTE STATES HE DID NOT KNOW THAT PT WAS "THAT BAD" UNTIL HE SAW THE POLICE NEXT DOOR GOING INTO PT'S APARTMENT. BERNADETTE PROVIDED PHONE NUMBER FOR PT'S SISTER, JED LOVE, . PT PLANS TO RETURN HOME ALONE, LIVES NEXT DOOR TO HIS COUSIN WHO CHECKS ON PT AT HOME. PT DENIES DISCHARGE NEEDS AT THIS TIME, REPORTS FAMILY WILL PICK HIM UP AT DISCHARGE. CM TO FOLLOW AND ASSIST NEEDED. Spine Supervisor: Kam Nye [facility] - Discharge Planning Initial Assessment Updated by [id number]: Kam Nye on 08/10/19 3:03 pm * Is the patient Alert and Oriented? Yes * How many steps to enter\\exit or inside your home? NONE * PCP DR. NADIRA FAN IN [place] * Pharmacy [facility]. * Preadmission Environment Home Alone * ADLs Independent * Equipment Ostomy Supplies * Other Equipment [employer] * List name and contact numbers for known caregivers / representatives who currently or will assist patient after discharge: SISTER SANTO, * Verbal permission to speak to the caregivers and representatives has been obtained from the patient. Yes * Community resources currently utilized None * Please name any agencies selected above. NONE * Additional services required to return to the preadmission environment? No * Can the patient safely return to the preadmission environment? Yes * Has this patient been hospitalized within the prior 30 days at any hospital? No Last DP export: 08/12/19 11:03 am Patient Name: VALENTINA WEIR Page [id number] at 0755 All edits/amendments must be made on the electronic document DICTATION DATE: 08/15/19753 FUR JOINER: CATERINA 08/15/194 RPT#: [id number] DC DATE: STATUS: ADM IN [facility] [address] [place] [address] END OF REPORT
[2019-08-15 08:11] VITALS: BP 101/69
--- NOTE | 2019-08-15 14:43 | MORECARE ---
CASE MANAGEMENT DISCHARGE SUMMARY PATIENT: VALENTINA WEIR SR UNIT: [id number] ADM DATE: 08/09/19 AGE: 69 : 52 SEX: M ROOM/BED: D.2102 AUTHOR: IZABELLA,DOC PHYSICIAN: REFERRING PHYSICIAN: RENO CARTER MD DATE OF SERVICE: 08/15/19 Discharge Plan Patient Name: VALENTINA WEIR Facility: [facility]:[place] : 1950 Planned Disposition: Home Anticipated Discharge Date: Discharge Date: Expected LOS: Initial Reviewer: [id number] Initial Review Date: 08/09/2019 Generated: 08/15/19 3:42 pm DCP- Discharge Planning Updated by [id number]: Bette Omer on 08/15/19 1:[address] Patient Name: VALENTINA WEIR Encounter No: [id number] : 1950 Primary Insurance: [employer] MEDICARE ADV Anticipated DC Date: Planned Disposition: Home External Planned Provider: : DCP follow-up note: LATE ENTRY 08/14/2019 @1600 CM RECIEVED CALL FROM [facility] STATING AN ASSESSMENT NEEDED TO BE COMPLETED. CM MET WITH NICHELLE NOLASCO FROM [facility] AND PROVIDED UPDATED CONDITION. 08/15/2019 1129 DCP follow-up note: cm spoke with patient about Home health. Stated he almost used cally in the past. Was in agreement into using [place] services. Pt had concerns with how his ins will pay or will be affected by HH services. Provided pt with explanation of HH services and explanation of mcr benefits for the services. Patient refused HH SERGIO refusal signed.. Stated he needed a nurse to take him to the grocery store, or [employer] if the nurse was not able to drive him around he would just rely on his family. DCC IMM delivered, explained, signed by the patient, and placed in his chart. Signed form also left with patient. CM will continue to follow and assist as needed. Bette Omer MSN, RN,CM DCP- Discharge Planning Updated by [id number]: Bette Omer on 08/15/19 6:[address] Patient Name: VALENTINA WEIR Encounter No: [id number] : 1950 Primary Insurance: [employer] MEDICARE ADV Anticipated DC Date: Planned Disposition: Home External Planned Provider: : DCP follow-up note: LATE ENTRY 08/14/2019 @1600 CM RECIEVED CALL FROM APS STATING AN ASSESSMENT NEEDED TO BE COMPLETED. CM MET WITH NICHELLE NOLASCO FROM APS AND PROVIDED UPDATED CONDITION. Bette Omer MSN,RN,CM DCP- Discharge Planning Updated by [email or web address]: Tereza Louis on 08/12/19 10:[address] CM received order for APS to eval home situation. CM called APS hotline and reported case of self neglect to [place] Case # [id number]. APS will contact CM if they think there is a case. CM will continue to follow and assist as needed with discharge planning needs. DCP- Discharge Planning Updated by [id number]: Kam Nye on 08/10/19 2:[address] Patient Name: VALENTINA WEIR Admission Status: ER Accout number: [id number] Admission Date: 08-09-2019 : 1950 Admission Diagnosis:SEPSIS, UNSPECIFIED ORGANISM Attending: RUBY Current LOS: 1 Anticipated DC Date: Planned Disposition: Home Primary Insurance: [employer] MEDICARE ADV Discharge Planning Comments: CM MET WITH PT IN ROOM TO DISCUSS DISCHARGE PLANNING AND NEEDS. PT REPORTS LIVING AT HOME INDEPENDENTLY AND ALONE; PT THEN STATES HE LIVES WITH HIS SISTER, JED. PT HAS NO MEDICAL EQUIPMENT AND RECEIVES OSTOMY SUPPLIES FROM [employer]. PT HAS NO OUTSIDE SERVICES ASSISTING IN THE HOME. CM DISCUSSED AVAILABILITY OF HOME HEALTH, REHAB SERVICES AND MEDICAL EQUIPMENT. PT DENIES DISCHARGE NEEDS, REPORTS HE WILL HAVE TO CALL "SOMEONE" TO PICK HIM UP FOR DISCHARGE HOME. PT DENIES DRUG OR ALCOHOL USE. PT DOES NOT REMEMBER HOW HE GOT TO THE HOSPITAL AND STATES HE IS HERE BECAUSE HIS BACK HURTS. CM CALLED LISTED EMERGENCY CONTACT NUMBER FOR PT'S SISTER, JED LOVE, , REACHED PT'S COUSIN, BERNADETTE, WHO INFORMED CM THAT THIS NUMBER IS PT'S PHONE, BERNADETTE HAS IT UNTIL PT RETURNS HOME. PT LIVES ALONE IN APARTMENT NEXT TO BERNADETTE WHO CHECKS ON PT AT HOME; BERNADETTE STATES HE DID NOT KNOW THAT PT WAS "THAT BAD" UNTIL HE SAW THE POLICE NEXT DOOR GOING INTO PT'S APARTMENT. BERNADETTE PROVIDED PHONE NUMBER FOR PT'S SISTER, JED LOVE, . PT PLANS TO RETURN HOME ALONE, LIVES NEXT DOOR TO HIS COUSIN WHO CHECKS ON PT AT HOME. PT DENIES DISCHARGE NEEDS AT THIS TIME, REPORTS FAMILY WILL PICK HIM UP AT DISCHARGE. CM TO FOLLOW AND ASSIST NEEDED. Studio Coordinator: Kam Khanwell DCPIA - Discharge Planning Initial Assessment Updated by [id number]: Kam Nye on 08/10/19 3:03 pm * Is the patient Alert and Oriented? Yes * How many steps to enter\\exit or inside your home? NONE * PCP DR. NADIRA FAN IN [place] * Pharmacy [facility]. * Preadmission Environment Home Alone * ADLs Independent * Equipment Ostomy Supplies * Other Equipment [employer] * List name and contact numbers for known caregivers / representatives who currently or will assist patient after discharge: JED LOVE, SISTER, * Verbal permission to speak to the caregivers and representatives has been obtained from the patient. Yes * Community resources currently utilized None * Please name any agencies selected above. NONE * Additional services required to return to the preadmission environment? No * Can the patient safely return to the preadmission environment? Yes * Has this patient been hospitalized within the prior 30 days at any hospital? No Coverage Notice Reviewer: [id number] Bianca Omer Notice Issued Date-Time: 08/15/2019 11:29 Notice Type: Patient Choice Letter Notice Delivered To: Patient Relationship to Patient: Undertaker Helper Name: Delivery Method: HAND - Hand Delivered Jennifer Days: Prior Verbal Notification: Recipient Understood Notice: Yes Recipient Signature: Yes Med Rec Note Co-signed by Attending: Coverage Notice Comment: SERGIO refusal for HH Reviewer: [id number] Bianca Omer Notice Issued Date-Time: 08/15/2019 11:29 Notice Type: IM Discharge Notice Notice Delivered To: Patient Relationship to Patient: Undertaker Helper Name: Delivery Method: HAND - Hand Delivered Jennifer Days: Prior Verbal Notification: Recipient Understood Notice: Yes Recipient Signature: Yes Med Rec Note Co-signed by Attending: Coverage Notice Comment: dc IMM delivered, explained, signed by the patient, and placed in his chart. Signed form also left with patient. Last DP export: 08/15/19 6:55 am Patient Name: VALENTINA WEIR Page [phone] at 1443 All edits/amendments must be made on the electronic document DICTATION DATE: 08/15/191441 SALON DESIGNER: CATERINA 08/15/191441 RPT#: [id number] DC DATE: STATUS: ADM IN [facility] [address] [place] [address] END OF REPORT
--- NOTE | 2019-08-15 14:56 | CN ---
PATIENT NAME:VALENTINA WEIR SR MEDICAL RECORD: [id number] : 52 LOCATION:D. D.2105 ADMIT DATE: 08/09/19 ACCOUNT: [id number] CONSULTING PHYSICIAN: FRANKI REDD MD REFERRING PHYSICIAN: RENO CARTER MD DATE OF CONSULTATION: 08/14/2019 IDENTIFYING DATA: The patient is 69 years old and he is admitted to the hospital on a voluntary basis. CHIEF COMPLAINT: Confusion. HISTORY OF PRESENT ILLNESS: The patient has a long history of chronic kidney disease, urinary tract infections, urinary retentions and alcohol abuse. He says he has not been drinking. He also says that he recognizes he was confused, but thinks he is much better. He denies psychotic symptoms and there is no evidence of acute or direct dangerousness. I was consulted because the patient is well known to the medical service here. He is regular patient there and he was clearly different. Today, he is oriented, although he does have to think for a while before giving me the correct answer. His mood is euthymic. There is no evidence of psychotic symptoms or acute dangerousness. ASSESSMENT: Metabolic encephalopathy, resolving. PLAN: The patient will be maintained on current medicine should be maintained on current medicines as appropriate for his multiple medical problems. I do not see the need for psychoactive medicines at this time. With regard to his general level of capacity, he does have the ability to make basic decisions in an appropriate way. I am concerned about his support system. He says he lives alone and that he does have a girlfriend who lives next door to him. It is unclear how much she helps him. He does not drive. He is dependent on the Medicaid van to get from place to place. In summary, there is no evidence of a severe lack of capacity; however, there are social circumstances that may need to be addressed. There is also no evidence of psychotic symptoms or mood disorder. I do not recommend psychoactive medications or outpatient psychiatric followup. TRANSINT:[id number] Voice Confirmation ID: [id number] DOCUMENT ID: [id number] FRANKI REDD MD at 1456 CC: [id number] DICTATION DATE: 08/14/19 1457 HEATER WORKER: 08/14/19 1521 ADM IN [place] [address] [place] [address]
[2019-08-15 16:42] LABS: MAGNESIUM - SERUM 0.8 mg/dL (1.8-2.4)
--- NOTE | 2019-08-15 17:23 | MORECARE ---
CASE MANAGEMENT DISCHARGE SUMMARY PATIENT: VALENTINA WEIR SR UNIT: [id number] ADM DATE: 08/09/19 AGE: 69 : 52 SEX: M ROOM/BED: D.2103 AUTHOR: IZABELLA,DOC PHYSICIAN: REFERRING PHYSICIAN: RENO CARTER MD DATE OF SERVICE: 08/15/19 Discharge Plan Patient Name: VALENTINA WEIR Facility: [facility]:[place] : 1950 Planned Disposition: Home Anticipated Discharge Date: Discharge Date: Expected LOS: Initial Reviewer: [id number] Initial Review Date: 08/09/2019 Generated: 08/15/19 6:22 pm DCP- Discharge Planning Updated by [id number]: Bette Omer on 08/15/19 1:[address] Patient Name: VALENTINA WEIR Encounter No: [id number] : 1950 Primary Insurance: [employer] MEDICARE ADV Anticipated DC Date: Planned Disposition: Home External Planned Provider: : DCP follow-up note: LATE ENTRY 08/14/2019 @1600 CM RECIEVED CALL FROM [facility] STATING AN ASSESSMENT NEEDED TO BE COMPLETED. CM MET WITH NICHELLE NOLASCO FROM [facility] AND PROVIDED UPDATED CONDITION. 08/15/2019 1129 DCP follow-up note: cm spoke with patient about Home health. Stated he almost used cally in the past. Was in agreement into using [place] services. Pt had concerns with how his ins will pay or will be affected by HH services. Provided pt with explanation of HH services and explanation of mcr benefits for the services. Patient refused HH SERGIO refusal signed.. Stated he needed a nurse to take him to the grocery store, or [employer]. if the nurse was not able to drive him around he would just rely on his family. DCC IMM delivered, explained, signed by the patient, and placed in his chart. Signed form also left with patient. CM will continue to follow and assist as needed. Bette Omer MSN, RN,CM DCP- Discharge Planning Updated by [id number]: Bette Omer on 08/15/19 6:[address] Patient Name: VALENTINA WEIR Encounter No: [id number] : 1950 Primary Insurance: [employer] MEDICARE ADV Anticipated DC Date: Planned Disposition: Home External Planned Provider: : DCP follow-up note: LATE ENTRY 08/14/2019 @1600 CM RECIEVED CALL FROM APS STATING AN ASSESSMENT NEEDED TO BE COMPLETED. CM MET WITH NICHELLE NOLASCO FROM APS AND PROVIDED UPDATED CONDITION. Bette Omer MSN,RN,CM DCP- Discharge Planning Updated by [email or web address]: Tereza Louis on 08/12/19 10:[address] CM received order for APS to eval home situation. CM called APS hotline and reported case of self neglect to [place] Case # [id number]. APS will contact CM if they think there is a case. CM will continue to follow and assist as needed with discharge planning needs. DCP- Discharge Planning Updated by [id number]: Kam Nye on 08/10/19 2:[address] Patient Name: VALENTINA WEIR Admission Status: ER Accout number: [id number] Admission Date: 08-09-2019 : 1950 Admission Diagnosis:SEPSIS, UNSPECIFIED ORGANISM Attending: RUBY Current LOS: 1 Anticipated DC Date: Planned Disposition: Home Primary Insurance: [employer] MEDICARE ADV Discharge Planning Comments: CM MET WITH PT IN ROOM TO DISCUSS DISCHARGE PLANNING AND NEEDS. PT REPORTS LIVING AT HOME INDEPENDENTLY AND ALONE; PT THEN STATES HE LIVES WITH HIS SISTER, JED. PT HAS NO MEDICAL EQUIPMENT AND RECEIVES OSTOMY SUPPLIES FROM [employer]. PT HAS NO OUTSIDE SERVICES ASSISTING IN THE HOME. CM DISCUSSED AVAILABILITY OF HOME HEALTH, REHAB SERVICES AND MEDICAL EQUIPMENT. PT DENIES DISCHARGE NEEDS, REPORTS HE WILL HAVE TO CALL "SOMEONE" TO PICK HIM UP FOR DISCHARGE HOME. PT DENIES DRUG OR ALCOHOL USE. PT DOES NOT REMEMBER HOW HE GOT TO THE HOSPITAL AND STATES HE IS HERE BECAUSE HIS BACK HURTS. CM CALLED LISTED EMERGENCY CONTACT NUMBER FOR PT'S SISTER, JED LOVE, , REACHED PT'S COUSIN, BERNADETTE, WHO INFORMED CM THAT THIS NUMBER IS PT'S PHONE, BERNADETTE HAS IT UNTIL PT RETURNS HOME. PT LIVES ALONE IN APARTMENT NEXT TO BERNADETTE WHO CHECKS ON PT AT HOME; BERNADETTE STATES HE DID NOT KNOW THAT PT WAS "THAT BAD" UNTIL HE SAW THE POLICE NEXT DOOR GOING INTO PT'S APARTMENT. BERNADETTE PROVIDED PHONE NUMBER FOR PT'S SISTER, JED LOVE, . PT PLANS TO RETURN HOME ALONE, LIVES NEXT DOOR TO HIS COUSIN WHO CHECKS ON PT AT HOME. PT DENIES DISCHARGE NEEDS AT THIS TIME, REPORTS FAMILY WILL PICK HIM UP AT DISCHARGE. CM TO FOLLOW AND ASSIST NEEDED. Application Support Technician: Kam Khanwell DCPIA - Discharge Planning Initial Assessment Updated by [id number]: Kam Nye on 08/10/19 3:03 pm * Is the patient Alert and Oriented? Yes * How many steps to enter\\exit or inside your home? NONE * PCP DR. NADIRA FAN IN [place] * Pharmacy [facility] [email or web address] [facility]. * Preadmission Environment Home Alone * ADLs Independent * Equipment Ostomy Supplies * Other Equipment [employer] * List name and contact numbers for known caregivers / representatives who currently or will assist patient after discharge: JED LOVE, SISTER, * Verbal permission to speak to the caregivers and representatives has been obtained from the patient. Yes * Community resources currently utilized None * Please name any agencies selected above. NONE * Additional services required to return to the preadmission environment? No * Can the patient safely return to the preadmission environment? Yes * Has this patient been hospitalized within the prior 30 days at any hospital? No Coverage Notice Reviewer: [id number] Bianca Omer Notice Issued Date-Time: 08/15/2019 11:29 Notice Type: Patient Choice Letter Notice Delivered To: Patient Relationship to Patient: Loom Fixer Apprentice Name: Delivery Method: HAND - Hand Delivered Jennifer Days: Prior Verbal Notification: Recipient Understood Notice: Yes Recipient Signature: Yes Med Rec Note Co-signed by Attending: Coverage Notice Comment: SERGIO refusal for HH Reviewer: [id number] Bianca Omer Notice Issued Date-Time: 08/15/2019 11:29 Notice Type: IM Discharge Notice Notice Delivered To: Patient Relationship to Patient: Loom Fixer Apprentice Name: Delivery Method: HAND - Hand Delivered Jennifer Days: Prior Verbal Notification: Recipient Understood Notice: Yes Recipient Signature: Yes Med Rec Note Co-signed by Attending: Coverage Notice Comment: dc IMM delivered, explained, signed by the patient, and placed in his chart. Signed form also left with patient. Last DP export: 08/15/19 1:43 pm Patient Name: VALENTINA WEIR Page [phone] at 1723 All edits/amendments must be made on the electronic document DICTATION DATE: 08/15/191721 AUTOMATIC OVEN OPERATOR: CATERINA 08/15/191721 RPT#: [id number] DC DATE: STATUS: ADM IN [facility] [address] [place] [address] END OF REPORT
--- NOTE | 2019-08-15 17:30 | MORECARE ---
CASE MANAGEMENT DISCHARGE SUMMARY PATIENT: VALENTINA WEIR SR UNIT: [id number] ADM DATE: 08/09/19 AGE: 69 : 52 SEX: M ROOM/BED: D.2101 AUTHOR: IZABELLA,DOC PHYSICIAN: REFERRING PHYSICIAN: RENO CARTER MD DATE OF SERVICE: 08/15/19 Discharge Plan Patient Name: VALENTINA WEIR Facility: [facility]:[place] : 1950 Planned Disposition: Home Anticipated Discharge Date: Discharge Date: Expected LOS: Initial Reviewer: [email or web address] Initial Review Date: 08/09/2019 Generated: 08/15/19 6:29 pm DCP- Discharge Planning Updated by [id number]: Bette Omer on 08/15/19 1:[address] Patient Name: VALENTINA WEIR Encounter No: [id number] : 1950 Primary Insurance: [employer] MEDICARE ADV Anticipated DC Date: Planned Disposition: Home External Planned Provider: : DCP follow-up note: LATE ENTRY 08/14/2019 @1600 CM RECIEVED CALL FROM [facility] STATING AN ASSESSMENT NEEDED TO BE COMPLETED. CM MET WITH NICHELLE NOLASCO FROM [facility] AND PROVIDED UPDATED CONDITION. 08/15/2019 1129 DCP follow-up note: cm spoke with patient about Home health. Stated he almost used cally in the past. Was in agreement into using [place] services. Pt had concerns with how his ins will pay or will be affected by HH services. Provided pt with explanation of HH services and explanation of mcr benefits for the services. Patient refused HH SERGIO refusal signed.. Stated he needed a nurse to take him to the grocery store, or [employer]. if the nurse was not able to drive him around he would just rely on his family. DCC IMM delivered, explained, signed by the patient, and placed in his chart. Signed form also left with patient. CM will continue to follow and assist as needed. Bette Omer MSN, RN,CM DCP- Discharge Planning Updated by [id number]: Bette Omer on 08/15/19 6:[address] Patient Name: VALENTINA WEIR Encounter No: [id number] : 1950 Primary Insurance: [employer] MEDICARE ADV Anticipated DC Date: Planned Disposition: Home External Planned Provider: : DCP follow-up note: LATE ENTRY 08/14/2019 @1600 CM RECIEVED CALL FROM APS STATING AN ASSESSMENT NEEDED TO BE COMPLETED. CM MET WITH NICHELLE NOLASCO FROM APS AND PROVIDED UPDATED CONDITION. Bette Omer MSN,RN,CM DCP- Discharge Planning Updated by [email or web address]: Tereza Louis on 08/12/19 10:[address] CM received order for APS to eval home situation. CM called APS hotline and reported case of self neglect to [place] Case # [id number]. APS will contact CM if they think there is a case. CM will continue to follow and assist as needed with discharge planning needs. DCP- Discharge Planning Updated by [id number]: Kam Nye on 08/10/19 2:[address] Patient Name: VALENTINA WEIR Admission Status: ER Accout number: [id number] Admission Date: 08-09-2019 : 1950 Admission Diagnosis:SEPSIS, UNSPECIFIED ORGANISM Attending: RUBY Current LOS: 1 Anticipated DC Date: Planned Disposition: Home Primary Insurance: [employer] MEDICARE ADV Discharge Planning Comments: CM MET WITH PT IN ROOM TO DISCUSS DISCHARGE PLANNING AND NEEDS. PT REPORTS LIVING AT HOME INDEPENDENTLY AND ALONE; PT THEN STATES HE LIVES WITH HIS SISTER, JED. PT HAS NO MEDICAL EQUIPMENT AND RECEIVES OSTOMY SUPPLIES FROM [employer]. PT HAS NO OUTSIDE SERVICES ASSISTING IN THE HOME. CM DISCUSSED AVAILABILITY OF HOME HEALTH, REHAB SERVICES AND MEDICAL EQUIPMENT. PT DENIES DISCHARGE NEEDS, REPORTS HE WILL HAVE TO CALL "SOMEONE" TO PICK HIM UP FOR DISCHARGE HOME. PT DENIES DRUG OR ALCOHOL USE. PT DOES NOT REMEMBER HOW HE GOT TO THE HOSPITAL AND STATES HE IS HERE BECAUSE HIS BACK HURTS. CM CALLED LISTED EMERGENCY CONTACT NUMBER FOR PT'S SISTER, JED LOVE, , REACHED PT'S COUSIN, BERNADETTE, WHO INFORMED CM THAT THIS NUMBER IS PT'S PHONE, BERNADETTE HAS IT UNTIL PT RETURNS HOME. PT LIVES ALONE IN APARTMENT NEXT TO BERNADETTE WHO CHECKS ON PT AT HOME; BERNADETTE STATES HE DID NOT KNOW THAT PT WAS "THAT BAD" UNTIL HE SAW THE POLICE NEXT DOOR GOING INTO PT'S APARTMENT. BERNADETTE PROVIDED PHONE NUMBER FOR PT'S SISTER, JED LOVE, . PT PLANS TO RETURN HOME ALONE, LIVES NEXT DOOR TO HIS COUSIN WHO CHECKS ON PT AT HOME. PT DENIES DISCHARGE NEEDS AT THIS TIME, REPORTS FAMILY WILL PICK HIM UP AT DISCHARGE. CM TO FOLLOW AND ASSIST NEEDED. Band Manager: Kam Khanwell DCPIA - Discharge Planning Initial Assessment Updated by [id number]: Kam Nye on 08/10/19 3:03 pm * Is the patient Alert and Oriented? Yes * How many steps to enter\\exit or inside your home? NONE * PCP DR. NADIRA FAN IN [place] * Pharmacy [facility] [employer] [facility]. * Preadmission Environment Home Alone * ADLs Independent * Equipment Ostomy Supplies * Other Equipment [employer] * List name and contact numbers for known caregivers / representatives who currently or will assist patient after discharge: JED LOVE, SISTER, * Verbal permission to speak to the caregivers and representatives has been obtained from the patient. Yes * Community resources currently utilized None * Please name any agencies selected above. NONE * Additional services required to return to the preadmission environment? No * Can the patient safely return to the preadmission environment? Yes * Has this patient been hospitalized within the prior 30 days at any hospital? No Coverage Notice Reviewer: [id number] Bianca Omer Notice Issued Date-Time: 08/15/2019 11:29 Notice Type: Patient Choice Letter Notice Delivered To: Patient Relationship to Patient: Air Force Senior Officer Name: Delivery Method: HAND - Hand Delivered Jennifer Days: Prior Verbal Notification: Recipient Understood Notice: Yes Recipient Signature: Yes Med Rec Note Co-signed by Attending: Coverage Notice Comment: SERGIO refusal for HH Reviewer: [id number] Bianca Omer Notice Issued Date-Time: 08/15/2019 11:29 Notice Type: IM Discharge Notice Notice Delivered To: Patient Relationship to Patient: Air Force Senior Officer Name: Delivery Method: HAND - Hand Delivered Jennifer Days: Prior Verbal Notification: Recipient Understood Notice: Yes Recipient Signature: Yes Med Rec Note Co-signed by Attending: Coverage Notice Comment: dc IMM delivered, explained, signed by the patient, and placed in his chart. Signed form also left with patient. Last DP export: 08/15/19 1:43 pm Patient Name: VALENTINA WEIR Page [phone] at 1730 All edits/amendments must be made on the electronic document DICTATION DATE: 08/15/191728 CAMPUS MONITOR: CATERINA 08/15/191728 RPT#: [id number] DC DATE: STATUS: ADM IN [facility] [address] [place] [address] END OF REPORT
--- NOTE | 2019-08-15 19:15 | NUR ---
REPORT RECEIVED, WILL CONTINUE POC. PATIENT IS AAOX4, LYING IN SEMI-FOWLERS POSITION. NO S/S OF DISTRESS OBSERVED, RR EVEN AND UNLABORED ON ROOM AIR. PATIETN DENIES NEEDS AT THIS TIME. CL IN REACH, BED LOCKED AND LOWERED. WILL CTM.
[2019-08-15 20:00] VITALS: BP 93/68
[2019-08-16] VITALS: BP 90/65
--- NOTE | 2019-08-16 03:49 | NUR ---
I have reviewed this patient and I concur with the Shift Assessment completed by the Licensed Practical Nurse today this shift.
--- NOTE | 2019-08-16 03:54 | NUR ---
SUPPLIED PATIENT WITH NEW OSTOMY BAG.
[2019-08-16 04:00] VITALS: BP 86/54
[2019-08-16 05:41] LABS: BASOPHILS 0.4 % (0-2); EOSINOPHILS 5.1 % (0-7); HEMATOCRIT 26.7 % (42.0-54.0); IMMATURE GRANULOCYTES 0.5 % (0-5); LYMPHOCYTES 8.3 % (15-50); MCH 28.8 pg (26.0-34.0); MEAN PLATELET VOLUME 9.6 fL (7.4-10.4); NEUTROPHILS 72.7 % (40-80); PLATELET COUNT 318 10x3/uL (130-400); RBC 2.78 10x6/uL (4.20-6.10); RDW 14.9 % (11.5-14.5); WBC 7.8 10x3/uL (4.8-10.8)
[2019-08-16 06:10] LABS: ANION GAP 13.4 mmol/L (8-16); CALCIUM 7.5 mg/dL (8.5-10.1); CARBON DIOXIDE 18.6 mmol/L (21.0-32.0); CREATININE - SERUM 1.5 mg/dL (0.6-1.3)
--- NOTE | 2019-08-16 07:58 | NUR ---
PT SITTING UP, RR EVEN AND UNLABORED. DENIES NEEDS OR PAIN AT THIS TIME. CALL LIGHT WITHIN REACH. BED IN LOWEST POSITION. WILL CONTINUE TO MONITOR.
[2019-08-16 09:08] VITALS: BP 117/81
[2019-08-16 12:57] VITALS: BP 99/57
--- NOTE | 2019-08-16 17:16 | NUR ---
I have reviewed this patient and I concur with the Shift Assessment completed by the Licensed Practical Nurse today this shift.
--- NOTE | 2019-08-16 19:47 | NUR ---
REPORT RECIEVD AND ROUNDING COMPLETE. PATIENT LAYING IN BED IN LOW FOWLERS POSITION. PIV TO THE LEFT FOREARM, PATNET RUNNING NS@100 ML/HR. GUTIERREZ CATH IN PLACE WITH SCANT AMOUNT OF YELLOW CLEAR URINE IN THE GUTIERREZ BAG. STILL REFUSING SCD'S, ASKED FOR 2 ICE CREAMS AND A SPRITE, RECIEVED BOTH. NO OTHER NEEDS. NO S/SX OF DISTRESS AT THIS TIME. CALL LIGHT WITHIN REACH AND BED IN LOWEST LOCKED POSITION.
[2019-08-16 20:00] VITALS: BP 99/61
[2019-08-17 03:53] LABS: BASOPHILS 0.4 % (0-2); EOSINOPHILS 4.6 % (0-7); HEMATOCRIT 26.6 % (42.0-54.0); HEMOGLOBIN 7.9 g/dL (13.5-17.5); IMMATURE GRANULOCYTES 0.5 % (0-5); LYMPHOCYTES 13.7 % (15-50); MCH 28.7 pg (26.0-34.0); MCHC 29.7 g/dL (31.0-37.0); MCV 96.7 fL (80.0-100.0); MEAN PLATELET VOLUME 9.5 fL (7.4-10.4); MONOCYTES 12.6 % (2-11); NEUTROPHILS 68.2 % (40-80); PLATELET COUNT 271 10x3/uL (130-400); RBC 2.75 10x6/uL (4.20-6.10); WBC 8.5 10x3/uL (4.8-10.8)
[2019-08-17 04:00] VITALS: BP 108/74
[2019-08-17 04:51] LABS: ANION GAP 13.8 mmol/L (8-16); CALCIUM 6.9 mg/dL (8.5-10.1); CARBON DIOXIDE 16.8 mmol/L (21.0-32.0); CREATININE - SERUM 1.6 mg/dL (0.6-1.3); POTASSIUM - SERUM 4.6 mmol/L (3.5-5.1)
--- NOTE | 2019-08-17 05:33 | NUR ---
I have reviewed this patient and I concur with the Shift Assessment completed by the Licensed Practical Nurse today this shift.
--- NOTE | 2019-08-17 07:50 | NUR ---
ASSESSMENT DONE, DENIES NEEDS
[2019-08-17 10:08] VITALS: BP 103/74
--- NOTE | 2019-08-17 14:03 | NUR ---
I have reviewed this patient and I concur with the Shift Assessment completed by the Licensed Practical Nurse today this shift.
--- NOTE | 2019-08-17 17:25 | NUR ---
WITHOUT CHANGES OR DISTRESS NOTED AT THIS TIME DENIES NEEDS
[2019-08-17 20:00] VITALS: BP 101/66
--- NOTE | 2019-08-17 23:12 | NUR ---
PT LYING IN BED ALERT AND ORIENTED x4. NO SIGNS OF DISTRESS NOTED. RESPIRATIONS EVEN AND UNLABORED. GUTIERREZ CARE. PT REQUEST ICE CREAM, NO COMPLAINTS AT THIS TIME. CALL LIGHT WITH IN REACH. PT ENCOURAGED TO CALL FOR HELP WHEN NEEDED. WILL CONTINUE TO MONITOR
[2019-08-18 00:30] VITALS: BP 105/68
[2019-08-18 04:00] VITALS: BP 102/68
[2019-08-18 05:14] LABS: BASOPHILS 0.2 % (0-2); EOSINOPHILS 2.8 % (0-7); HEMATOCRIT 25.9 % (42.0-54.0); HEMOGLOBIN 7.7 g/dL (13.5-17.5); IMMATURE GRANULOCYTES 0.4 % (0-5); LYMPHOCYTES 10.6 % (15-50); MCH 28.7 pg (26.0-34.0); MCHC 29.7 g/dL (31.0-37.0); MCV 96.6 fL (80.0-100.0); MONOCYTES 8.4 % (2-11); NEUTROPHILS 77.6 % (40-80); PLATELET COUNT 277 10x3/uL (130-400); RBC 2.68 10x6/uL (4.20-6.10); RDW 15.2 % (11.5-14.5); WBC 9.9 10x3/uL (4.8-10.8)
--- NOTE | 2019-08-18 05:22 | NUR ---
I have reviewed this patient and I concur with the Shift Assessment completed by the Licensed Practical Nurse today this shift.
[2019-08-18 05:31] LABS: ANION GAP 12.6 mmol/L (8-16); CALCIUM 7.2 mg/dL (8.5-10.1); CARBON DIOXIDE 16.9 mmol/L (21.0-32.0); CREATININE - SERUM 1.6 mg/dL (0.6-1.3); MAGNESIUM - SERUM 1.1 mg/dL (1.8-2.4); POTASSIUM - SERUM 4.5 mmol/L (3.5-5.1)
--- NOTE | 2019-08-18 06:00 | NUR ---
PT UP IN RESTROOM. NO COMPLAINTS AT THIS TIME. WILL CONTINUE TO MONITOR
[2019-08-18 08:18] VITALS: BP 102/68
--- NOTE | 2019-08-18 09:43 | NUR ---
resting in bed, no distress noted, cont to monitor labs, mooney to gravity
[2019-08-18 11:37] VITALS: BP 94/63
--- NOTE | 2019-08-18 16:09 | NUR ---
UPDATED DR OATES ON PT BP TODAY, NO NEW ORDERS TO NOTE
--- NOTE | 2019-08-18 19:10 | NUR ---
BEDSIDE REPORT RECEIVED, PT CARE ASSUMED. WROTE NAME ON BOARD. PT SITTING UP IN BED, EATING A SALAD, AAOX4. REQUESTING DRINK AND SHERB[place], PROVIDED. DENIES ANY OTHER NEEDS AT THIS TIME. BED IN LOWEST POSITION, SR X1, CALL LIGHT WITHIN REACH. WILL CONTINUE TO MONITOR.
[2019-08-18 20:00] VITALS: BP 91/61
[2019-08-19] VITALS: BP 94/60
[2019-08-19 04:00] VITALS: BP 94/62
[2019-08-19 05:15] LABS: BASOPHILS 0.2 % (0-2); EOSINOPHILS 3.5 % (0-7); HEMATOCRIT 27.8 % (42.0-54.0); HEMOGLOBIN 8.3 g/dL (13.5-17.5); IMMATURE GRANULOCYTES 0.4 % (0-5); LYMPHOCYTES 16.3 % (15-50); MCH 28.5 pg (26.0-34.0); MCHC 29.9 g/dL (31.0-37.0); MCV 95.5 fL (80.0-100.0); MONOCYTES 10.2 % (2-11); NEUTROPHILS 69.4 % (40-80); PLATELET COUNT 277 10x3/uL (130-400); RBC 2.91 10x6/uL (4.20-6.10); RDW 15.3 % (11.5-14.5); WBC 9.3 10x3/uL (4.8-10.8)
[2019-08-19 05:46] LABS: ANION GAP 15.4 mmol/L (8-16); CALCIUM 7.3 mg/dL (8.5-10.1); CARBON DIOXIDE 18.1 mmol/L (21.0-32.0); CREATININE - SERUM 1.5 mg/dL (0.6-1.3); POTASSIUM - SERUM 4.5 mmol/L (3.5-5.1)
[2019-08-19 06:13] VITALS: BP 94/62
[2019-08-19 09:25] VITALS: BP 91/59
[2019-08-19 14:00] VITALS: BP 111/63
--- NOTE | 2019-08-19 19:00 | NUR ---
REPROT RECEIVED. BEDSIDE SHIFT REPORT COMPLETE. PT IN BED WATCHING TV, RR EVEN AND UNLABORED. NO S/SX OF DISTRESS OBSERVED. A&O X4. PROVIDED OSTOMY CARE. NO FURTHER NEEDS EXPRESSED. CALL LIGHT IN REACH. WILL CPOC.
[2019-08-19 20:00] VITALS: BP 91/60
[2019-08-20] VITALS: BP 193/65
[2019-08-20 04:00] VITALS: BP 125/54
[2019-08-20 06:19] LABS: BASOPHILS 0.3 % (0-2); EOSINOPHILS 3.1 % (0-7); HEMATOCRIT 26.1 % (42.0-54.0); HEMOGLOBIN 7.8 g/dL (13.5-17.5); IMMATURE GRANULOCYTES 0.4 % (0-5); LYMPHOCYTES 14.8 % (15-50); MCH 28.4 pg (26.0-34.0); MCHC 29.9 g/dL (31.0-37.0); MCV 94.9 fL (80.0-100.0); MONOCYTES 7.3 % (2-11); NEUTROPHILS 74.1 % (40-80); PLATELET COUNT 242 10x3/uL (130-400); RBC 2.75 10x6/uL (4.20-6.10); RDW 15.6 % (11.5-14.5); WBC 9.2 10x3/uL (4.8-10.8)
[2019-08-20 06:44] LABS: ANION GAP 11.2 mmol/L (8-16); CALCIUM 7.4 mg/dL (8.5-10.1); CARBON DIOXIDE 20.2 mmol/L (21.0-32.0); CREATININE - SERUM 1.4 mg/dL (0.6-1.3); POTASSIUM - SERUM 4.4 mmol/L (3.5-5.1)
[2019-08-20 06:48] LABS: MAGNESIUM - SERUM 1.4 mg/dL (1.8-2.4)
[2019-08-20 09:35] VITALS: BP 112/77
--- NOTE | 2019-08-20 13:24 | NUR ---
Nutrition follow-up: Pt receiving a regular diet with po intake 75-100% of meals labs reviewed Wt: 137# +BM PO intake remains good RDN following.
[2019-08-20 14:23] VITALS: BP 111/75
[2019-08-20 18:45] VITALS: BP 91/50
[2019-08-21] VITALS: BP 101/68
--- NOTE | 2019-08-21 03:46 | NUR ---
I have reviewed this patient and I concur with the Shift Assessment completed by the Licensed Practical Nurse today this shift.
[2019-08-21 04:00] VITALS: BP 105/69
[2019-08-21 05:46] LABS: BASOPHILS 0.2 % (0-2); EOSINOPHILS 2.7 % (0-7); HEMATOCRIT 25.3 % (42.0-54.0); HEMOGLOBIN 7.6 g/dL (13.5-17.5); IMMATURE GRANULOCYTES 0.3 % (0-5); MCH 28.8 pg (26.0-34.0); MCV 95.8 fL (80.0-100.0); MEAN PLATELET VOLUME 10.1 fL (7.4-10.4); MONOCYTES 11.8 % (2-11); PLATELET COUNT 234 10x3/uL (130-400); RBC 2.64 10x6/uL (4.20-6.10); RDW 15.7 % (11.5-14.5); WBC 9.4 10x3/uL (4.8-10.8)
[2019-08-21 06:00] LABS: ALBUMIN 2.2 g/dL (3.4-5.0); ANION GAP 12.3 mmol/L (8-16); BILIRUBIN - TOTAL 0.18 mg/dL (0.2-1.3); CALCIUM 7.7 mg/dL (8.5-10.1); CARBON DIOXIDE 22.6 mmol/L (21.0-32.0); CREATININE - SERUM 1.5 mg/dL (0.6-1.3); POTASSIUM - SERUM 4.9 mmol/L (3.5-5.1); PROTEIN - SERUM 5.2 g/dL (6.4-8.2)
--- NOTE | 2019-08-21 07:20 | NUR ---
ASSESSMENT DONE. DENIES NEEDS
[2019-08-21 08:00] VITALS: BP 100/38
--- NOTE | 2019-08-21 10:26 | NUR ---
I have reviewed this patient and I concur with the Shift Assessment completed by the Licensed Practical Nurse today this shift.
[2019-08-21 10:41] LABS: % SATURATION 16 % (15-55); IRON 49 ug/dl (35-150); TOTAL IRON BIND CAPACITY 295 ug/dl (260-445); UNSAT IRON BIND CAPACITY 246 ug/dl (150-375)
[2019-08-21 10:53] LABS: FERRITIN 236 ng/mL (3-244)
[2019-08-21 13:25] VITALS: BP 107/75
--- NOTE | 2019-08-21 19:30 | NUR ---
PT IN BED, AAO X 3, RESP EVEN AND UNLABORED, NO DISTRESS NOTED, CL IN REACH, SR UP X 2.
--- NOTE | 2019-08-21 20:24 | NUR ---
PT REFUSES TO BE STUCK FOR LAB DRAW AT THIS TIME.
[2019-08-21 21:12] VITALS: BP 97/65
[2019-08-22] VITALS: BP 102/67
[2019-08-22 05:17] VITALS: BP 112/81
[2019-08-22 06:05] LABS: BASOPHILS 0.2 % (0-2); EOSINOPHILS 2.6 % (0-7); IMMATURE GRANULOCYTES 0.3 % (0-5); LYMPHOCYTES 10.9 % (15-50); MCH 29.2 pg (26.0-34.0); MCHC 31.3 g/dL (31.0-37.0); MEAN PLATELET VOLUME 10.2 fL (7.4-10.4); MONOCYTES 11.7 % (2-11); NEUTROPHILS 74.3 % (40-80); PLATELET COUNT 199 10x3/uL (130-400); RDW 15.4 % (11.5-14.5); WBC 10.1 10x3/uL (4.8-10.8)
[2019-08-22 06:12] LABS: HEMATOCRIT 30.4 % (42.0-54.0); HEMOGLOBIN 9.5 g/dL (13.5-17.5); RBC 3.25 10x6/uL (4.20-6.10)
[2019-08-22 06:13] LABS: MCV 93.5 fL (80.0-100.0)
[2019-08-22 07:04] LABS: ALBUMIN 2.5 g/dL (3.4-5.0); ANION GAP 12.3 mmol/L (8-16); BILIRUBIN - TOTAL 1.45 mg/dL (0.2-1.3); CARBON DIOXIDE 24.2 mmol/L (21.0-32.0); MAGNESIUM - SERUM 1.2 mg/dL (1.8-2.4); POTASSIUM - SERUM 4.5 mmol/L (3.5-5.1); PROTEIN - SERUM 5.8 g/dL (6.4-8.2)
[2019-08-22 07:05] LABS: CREATININE - SERUM 1.1 mg/dL (0.6-1.3)
[2019-08-22 08:03] VITALS: BP 133/88
[2019-08-22 11:35] VITALS: BP 99/66
[2019-08-22] MEDS ORDERED: MAG-OX 400 MG400 MG PO (11:53)
--- NOTE | 2019-08-22 13:48 | MORECARE ---
CASE MANAGEMENT DISCHARGE SUMMARY PATIENT: VALENTINA BARAJAS SR UNIT: [id number] ADM DATE: 08/09/19 AGE: 69 : 51 SEX: M ROOM/BED: D.2101 AUTHOR: IZABELLA,DOC PHYSICIAN: REFERRING PHYSICIAN: RENO CARTER MD DATE OF SERVICE: 08/22/19 Discharge Plan Patient Name: VALENTINA BARAJAS Facility: [facility]:[place] : 1950 Planned Disposition: Home Anticipated Discharge Date: Discharge Date: Expected LOS: Initial Reviewer: [id number] Initial Review Date: 08/09/2019 Generated: 08/22/19 2:47 pm DCP- Discharge Planning Updated by [id number]: Bette Omer on 08/15/19 1:[address] Patient Name: VALENTINA BARAJAS Encounter No: [id number] : 1950 Primary Insurance: [email or web address] MEDICARE ADV Anticipated DC Date: Planned Disposition: Home External Planned Provider: : DCP follow-up note: LATE ENTRY 08/14/2019 @1600 CM RECIEVED CALL FROM [facility] [place] STATING AN ASSESSMENT NEEDED TO BE COMPLETED. CM MET WITH NICHELLE NOLASCO FROM [facility] [place] AND PROVIDED UPDATED CONDITION. 08/15/2019 1129 DCP follow-up note: cm spoke with patient about Home health. Stated he almost used cally in the past. Was in agreement into using [place] services. Pt had concerns with how his ins will pay or will be affected by HH services. Provided pt with explanation of HH services and explanation of mcr benefits for the services. Patient refused HH SERGIO refusal signed.. Stated he needed a nurse to take him to the grocery store, or [employer]. if the nurse was not able to drive him around he would just rely on his family. DCC IMM delivered, explained, signed by the patient, and placed in his chart. Signed form also left with patient. CM will continue to follow and assist as needed. Bette Omer MSN, RN,CM DCP- Discharge Planning Updated by [email or web address]: Bette Omer on 08/15/19 6:[address] Patient Name: VALENTINA BARAJAS Encounter No: [id number] : 1950 Primary Insurance: [email or web address] MEDICARE ADV Anticipated DC Date: Planned Disposition: Home External Planned Provider: : DCP follow-up note: LATE ENTRY 08/14/2019 @1600 CM RECIEVED CALL FROM APS STATING AN ASSESSMENT NEEDED TO BE COMPLETED. CM MET WITH NICHELLE NOLASCO FROM APS AND PROVIDED UPDATED CONDITION. Bette Omer MSN,RN,CM DCP- Discharge Planning Updated by [id number]: Tereza Louis on 08/12/19 10:[address] CM received order for APS to eval home situation. CM called APS hotline and reported case of self neglect to [place] Case # [id number]. APS will contact CM if they think there is a case. CM will continue to follow and assist as needed with discharge planning needs. DCP- Discharge Planning Updated by [id number]: Kam Nye on 08/10/19 2:[address] Patient Name: VALENTINA BARAJAS Admission Status: ER Accout number: [id number] Admission Date: 08-09-2019 : 1950 Admission Diagnosis:SEPSIS, UNSPECIFIED ORGANISM Attending: RUBY Current LOS: 1 Anticipated DC Date: Planned Disposition: Home Primary Insurance: [email or web address] MEDICARE ADV Discharge Planning Comments: CM MET WITH PT IN ROOM TO DISCUSS DISCHARGE PLANNING AND NEEDS. PT REPORTS LIVING AT HOME INDEPENDENTLY AND ALONE; PT THEN STATES HE LIVES WITH HIS SISTER, JED. PT HAS NO MEDICAL EQUIPMENT AND RECEIVES OSTOMY SUPPLIES FROM [employer]. PT HAS NO OUTSIDE SERVICES ASSISTING IN THE HOME. CM DISCUSSED AVAILABILITY OF HOME HEALTH, REHAB SERVICES AND MEDICAL EQUIPMENT. PT DENIES DISCHARGE NEEDS, REPORTS HE WILL HAVE TO CALL "SOMEONE" TO PICK HIM UP FOR DISCHARGE HOME. PT DENIES DRUG OR ALCOHOL USE. PT DOES NOT REMEMBER HOW HE GOT TO THE HOSPITAL AND STATES HE IS HERE BECAUSE HIS BACK HURTS. CM CALLED LISTED EMERGENCY CONTACT NUMBER FOR PT'S SISTER, JED LOVE, , REACHED PT'S COUSIN, BERNADETTE, WHO INFORMED CM THAT THIS NUMBER IS PT'S PHONE, BERNADETTE HAS IT UNTIL PT RETURNS HOME. PT LIVES ALONE IN APARTMENT NEXT TO BERNADETTE WHO CHECKS ON PT AT HOME; BERNADETTE STATES HE DID NOT KNOW THAT PT WAS "THAT BAD" UNTIL HE SAW THE POLICE NEXT DOOR GOING INTO PT'S APARTMENT. BERNADETTE PROVIDED PHONE NUMBER FOR PT'S SISTER, JED LOVE, . PT PLANS TO RETURN HOME ALONE, LIVES NEXT DOOR TO HIS COUSIN WHO CHECKS ON PT AT HOME. PT DENIES DISCHARGE NEEDS AT THIS TIME, REPORTS FAMILY WILL PICK HIM UP AT DISCHARGE. CM TO FOLLOW AND ASSIST NEEDED. Caster Operator: Kam Khanwell DCPIA - Discharge Planning Initial Assessment Updated by [id number]: Kam Nye on 08/10/19 3:03 pm * Is the patient Alert and Oriented? Yes * How many steps to enter\\exit or inside your home? NONE * PCP DR. NADIRA FAN IN [place] * Pharmacy [facility]. * Preadmission Environment Home Alone * ADLs Independent * Equipment Ostomy Supplies * Other Equipment [employer] * List name and contact numbers for known caregivers / representatives who currently or will assist patient after discharge: JED LOVE, SISTER, * Verbal permission to speak to the caregivers and representatives has been obtained from the patient. Yes * Community resources currently utilized None * Please name any agencies selected above. NONE * Additional services required to return to the preadmission environment? No * Can the patient safely return to the preadmission environment? Yes * Has this patient been hospitalized within the prior 30 days at any hospital? No External Providers External Provider: [facility] Next Contact Date: Service Request Date: Service Type: Resolution: Reviewer: Comments: Coverage Notice Reviewer: [email or web address] Bianca Omer Notice Issued Date-Time: 08/15/2019 11:29 Notice Type: Patient Choice Letter Notice Delivered To: Patient Relationship to Patient: Family Coach Name: Delivery Method: HAND - Hand Delivered Jennifer Days: Prior Verbal Notification: Recipient Understood Notice: Yes Recipient Signature: Yes Med Rec Note Co-signed by Attending: Coverage Notice Comment: SERGIO refusal for Reviewer: Bianca Omer Notice Issued Date-Time: 08/15/2019 11:29 Notice Type: IM Discharge Notice Notice Delivered To: Patient Relationship to Patient: Family Coach Name: Delivery Method: HAND - Hand Delivered Jennifer Days: Prior Verbal Notification: Recipient Understood Notice: Yes Recipient Signature: Yes Med Rec Note Co-signed by Attending: Coverage Notice Comment: dc IMM delivered, explained, signed by the patient, and placed in his chart. Signed form also left with patient. Reviewer: [id number] Bianca Quintero Notice Issued Date-Time: 08/22/2019 13:21 Notice Type: IM Discharge Notice Notice Delivered To: Patient Relationship to Patient: Self Family Coach Name: Valentina Barajas Delivery Method: HAND - Hand Delivered Jennifer Days: Prior Verbal Notification: Recipient Understood Notice: Recipient Signature: Yes Med Rec Note Co-signed by Attending: Coverage Notice Comment: DC IMM signed by patient and placed on the chart. Refuses his copy. Last DP export: 08/15/19 4:30 pm Patient Name: VALENTINA BARAJAS Page [phone] at 1348 All edits/amendments must be made on the electronic document DICTATION DATE: 08/22/191346 FULL FASHIONED GARMENT KNITTER: CATERINA 08/22/19 1347 RPT#: [id number] DC DATE: STATUS: ADM IN [facility] [address] [place] [address] END OF REPORT
--- NOTE | 2019-08-22 14:05 | MORECARE ---
CASE MANAGEMENT DISCHARGE SUMMARY PATIENT: VALENTINA BARAJAS SR UNIT: [id number] ADM DATE: 08/09/19 AGE: 69 : 52 SEX: M ROOM/BED: D.2104 AUTHOR: IZABELLA,DOC PHYSICIAN: REFERRING PHYSICIAN: RENO CARTER MD DATE OF SERVICE: 08/22/19 Discharge Plan Patient Name: VALENTINA BARAJAS Facility: [facility]:[place] : 1950 Planned Disposition: Home Anticipated Discharge Date: 08/22/19 Discharge Date: Expected LOS: 13 Initial Reviewer: [email or web address] Initial Review Date: 08/09/2019 Generated: 08/22/19 3:04 pm Comments DCP- Discharge Planning Updated by [id number]: Ellyn Quintero on 08/22/19 1:[address] CM contacted [facility] with [facility] #[phone], regarding DC today. Stephanie states [facility], (case #[id number]) ,will check on the patient in a week or two and it is OK to use any HHS that will take [facility]. Patient Choice signed by patient, he refuses to accept a copy. DC IMM signed by patient. By rotation, CM checked with [facility] and they are not in network. Contacted [facility], spoke with environmental marketing representative, provided requested information. Notified patient that I talked to Stephanie and his HHS are set up. Family will drive him home. DCP- Discharge Planning Updated by [email or web address]: Bette Omer on 08/15/19 1:[address] Patient Name: VALENTINA BARAJAS Encounter No: [id number] : 1950 Primary Insurance: [employer] MEDICARE ADV Anticipated DC Date: Planned Disposition: Home External Planned Provider: : DCP follow-up note: LATE ENTRY 08/14/2019 @1600 CM RECIEVED CALL FROM [facility] STATING AN ASSESSMENT NEEDED TO BE COMPLETED. CM MET WITH NICHELLE NOLASCO FROM [facility] AND PROVIDED UPDATED CONDITION. 08/15/2019 1129 DCP follow-up note: cm spoke with patient about Home health. Stated he almost used cally in the past. Was in agreement into using [place] services. Pt had concerns with how his ins will pay or will be affected by HH services. Provided pt with explanation of HH services and explanation of mcr benefits for the services. Patient refused HH SERGIO refusal signed.. Stated he needed a nurse to take him to the grocery store, or [employer]. if the nurse was not able to drive him around he would just rely on his family. DCC IMM delivered, explained, signed by the patient, and placed in his chart. Signed form also left with patient. CM will continue to follow and assist as needed. Bette NUNEZ, RN,CM DCP- Discharge Planning Updated by [email or web address]: Bette Omer on 08/15/19 6:[address] Patient Name: VALENTINA BARAJAS Encounter No: [id number] : 1950 Primary Insurance: [email or web address] MEDICARE ADV Anticipated DC Date: Planned Disposition: Home External Planned Provider: : DCP follow-up note: LATE ENTRY 08/14/2019 @1600 CM RECIEVED CALL FROM APS STATING AN ASSESSMENT NEEDED TO BE COMPLETED. CM MET WITH NICHELLE NOLASCO FROM APS AND PROVIDED UPDATED CONDITION. Bette NUNEZ,RN,CM DCP- Discharge Planning Updated by [id number]: Tereza Louis on 08/12/19 10:[address] CM received order for APS to eval home situation. CM called APS hotline and reported case of self neglect to [place] Case # [id number]. APS will contact CM if they think there is a case. CM will continue to follow and assist as needed with discharge planning needs. DCP- Discharge Planning Updated by [id number]: Kam Nye on 08/10/19 2:[address] Patient Name: VALENTINA BARAJAS Admission Status: ER Accout number: [id number] Admission Date: 08-09-2019 : 1950 Admission Diagnosis:SEPSIS, UNSPECIFIED ORGANISM Attending: RUBY Current LOS: 1 Anticipated DC Date: Planned Disposition: Home Primary Insurance: [email or web address] MEDICARE ADV Discharge Planning Comments: CM MET WITH PT IN ROOM TO DISCUSS DISCHARGE PLANNING AND NEEDS. PT REPORTS LIVING AT HOME INDEPENDENTLY AND ALONE; PT THEN STATES HE LIVES WITH HIS SISTER, JED. PT HAS NO MEDICAL EQUIPMENT AND RECEIVES OSTOMY SUPPLIES FROM [employer]. PT HAS NO OUTSIDE SERVICES ASSISTING IN THE HOME. CM DISCUSSED AVAILABILITY OF HOME HEALTH, REHAB SERVICES AND MEDICAL EQUIPMENT. PT DENIES DISCHARGE NEEDS, REPORTS HE WILL HAVE TO CALL "SOMEONE" TO PICK HIM UP FOR DISCHARGE HOME. PT DENIES DRUG OR ALCOHOL USE. PT DOES NOT REMEMBER HOW HE GOT TO THE HOSPITAL AND STATES HE IS HERE BECAUSE HIS BACK HURTS. CM CALLED LISTED EMERGENCY CONTACT NUMBER FOR PT'S SISTER, JED LOVE, , REACHED PT'S COUSIN, BERNADETTE, WHO INFORMED CM THAT THIS NUMBER IS PT'S PHONE, BERNADETTE HAS IT UNTIL PT RETURNS HOME. PT LIVES ALONE IN APARTMENT NEXT TO BERNADETTE WHO CHECKS ON PT AT HOME; BERNADETTE STATES HE DID NOT KNOW THAT PT WAS "THAT BAD" UNTIL HE SAW THE POLICE NEXT DOOR GOING INTO PT'S APARTMENT. BERNADETTE PROVIDED PHONE NUMBER FOR PT'S SISTER, JED LOVE, . PT PLANS TO RETURN HOME ALONE, LIVES NEXT DOOR TO HIS COUSIN WHO CHECKS ON PT AT HOME. PT DENIES DISCHARGE NEEDS AT THIS TIME, REPORTS FAMILY WILL PICK HIM UP AT DISCHARGE. CM TO FOLLOW AND ASSIST NEEDED. Underwriting Clerks Supervisor: Kam Nye [facility] - Discharge Planning Initial Assessment Updated by [id number]: Kam Nye on 08/10/19 3:03 pm * Is the patient Alert and Oriented? Yes * How many steps to enter\\exit or inside your home? NONE * PCP DR. NADIRA FAN IN [place] * Pharmacy [facility]. * Preadmission Environment Home Alone * ADLs Independent * Equipment Ostomy Supplies * Other Equipment [employer] * List name and contact numbers for known caregivers / representatives who currently or will assist patient after discharge: SISTER SANTO, * Verbal permission to speak to the caregivers and representatives has been obtained from the patient. Yes * Community resources currently utilized None * Please name any agencies selected above. NONE * Additional services required to return to the preadmission environment? No * Can the patient safely return to the preadmission environment? Yes * Has this patient been hospitalized within the prior 30 days at any hospital? No Coverage Notice Reviewer: [id number] Bianca Quintero Notice Issued Date-Time: 08/22/2019 14:01 Notice Type: Patient Choice Letter Notice Delivered To: Patient Relationship to Patient: Self Tong Carrier Name: Valentina Barajas Delivery Method: HAND - Hand Delivered Jennifer Days: Prior Verbal Notification: Recipient Understood Notice: Recipient Signature: Yes Med Rec Note Co-signed by Attending: Coverage Notice Comment: Patient choice for [facility] signed Reviewer: [email or web address] Bianca Quintero Notice Issued Date-Time: 08/22/2019 14:01 Notice Type: IM Discharge Notice Notice Delivered To: Patient Relationship to Patient: Self Tong Carrier Name: Valentina Barajas Delivery Method: HAND - Hand Delivered Jennifer Days: Prior Verbal Notification: Recipient Understood Notice: Recipient Signature: Yes Med Rec Note Co-signed by Attending: Coverage Notice Comment: DC IMM signed by patient, refuses his copy. Original on chart. Reviewer: [id number] Bianca Quintero Notice Issued Date-Time: 08/22/2019 13:21 Notice Type: IM Discharge Notice Notice Delivered To: Patient Relationship to Patient: Self Tong Carrier Name: Valentina Barajas Delivery Method: HAND - Hand Delivered Jennifer Days: Prior Verbal Notification: Recipient Understood Notice: Recipient Signature: Yes Med Rec Note Co-signed by Attending: Coverage Notice Comment: DC IMM signed by patient and placed on the chart. Refuses his copy. Reviewer: [id number] Bianca Omer Notice Issued Date-Time: 08/15/2019 11:29 Notice Type: Patient Choice Letter Notice Delivered To: Patient Relationship to Patient: Tong Carrier Name: Delivery Method: HAND - Hand Delivered Jennifer Days: Prior Verbal Notification: Recipient Understood Notice: Yes Recipient Signature: Yes Med Rec Note Co-signed by Attending: Coverage Notice Comment: SERGIO refusal for HH Reviewer: [id number] Bianca Omer Notice Issued Date-Time: 08/15/2019 11:29 Notice Type: IM Discharge Notice Notice Delivered To: Patient Relationship to Patient: Tong Carrier Name: Delivery Method: HAND - Hand Delivered Jennifer Days: Prior Verbal Notification: Recipient Understood Notice: Yes Recipient Signature: Yes Med Rec Note Co-signed by Attending: Coverage Notice Comment: dc IMM delivered, explained, signed by the patient, and placed in his chart. Signed form also left with patient. Last DP export: 08/22/19 12:48 p Patient Name: VALENTINA BARAJAS Page [id number] at 1405 All edits/amendments must be made on the electronic document DICTATION DATE: 08/22/19 1404 LENS EDGE GRINDER MACHINE: CATERINA 08/22/19 1404 RPT#: [id number] DC DATE: STATUS: ADM IN [facility] [address] [place] [address] END OF REPORT
--- NOTE | 2019-08-22 14:15 | MORECARE ---
CASE MANAGEMENT DISCHARGE SUMMARY PATIENT: VALENTINA BARAJAS SR UNIT: [id number] ADM DATE: 08/09/19 AGE: 69 : 52 SEX: M ROOM/BED: D.2103 AUTHOR: IZABELLA,DOC PHYSICIAN: REFERRING PHYSICIAN: RENO CARTER MD DATE OF SERVICE: 08/22/19 Discharge Plan Patient Name: VALENTINA BARAJAS Facility: [facility]:[place] : 1950 Planned Disposition: Home Anticipated Discharge Date: 08/22/19 Discharge Date: Expected LOS: 13 Initial Reviewer: [email or web address] Initial Review Date: 08/09/2019 Generated: 08/22/19 3:14 pm Comments DCP- Discharge Planning Updated by [email or web address]: Ellyn Quintero on 08/22/19 1:[address] CM contacted Stephanie Nolasco with [facility] #[phone], regarding DC today. Stephanie states [facility], (case #[id number]) ,will check on the patient in a week or two and it is OK to use any HHS that will take Well[employer] Insurance. Patient Choice signed by patient, he refuses to accept a copy. DC IMM signed by patient. By rotation, CM checked with [facility] and they are not in network. Contacted [facility], spoke with herbicide service sales representative, provided requested information, faxed. Notified patient that I talked to Stephanie and his HHS are set up. Family will drive him home. DCP- Discharge Planning Updated by [id number]: Bette Omer on 08/15/19 1:[address] Patient Name: VALENTINA BARAJAS Encounter No: [id number] : 1950 Primary Insurance: WELLCARE MEDICARE ADV Anticipated DC Date: Planned Disposition: Home External Planned Provider: : DCP follow-up note: LATE ENTRY 08/14/2019 @1600 CM RECIEVED CALL FROM APS STATING AN ASSESSMENT NEEDED TO BE COMPLETED. CM MET WITH NICHELLE NOLASCO FROM APS AND PROVIDED UPDATED CONDITION. 08/15/2019 1129 DCP follow-up note: cm spoke with patient about Home health. Stated he almost used [facility] in the past. Was in agreement into using [facility] services. Pt had concerns with how his ins will pay or will be affected by HH services. Provided pt with explanation of HH services and explanation of mcr benefits for the services. Patient refused HH SERGIO refusal signed.. Stated he needed a nurse to take him to the grocery store, or [employer]. if the nurse was not able to drive him around he would just rely on his family. DCC IMM delivered, explained, signed by the patient, and placed in his chart. Signed form also left with patient. CM will continue to follow and assist as needed. Bette NUNEZ, RN,CM DCP- Discharge Planning Updated by [id number]: Bette Omer on 08/15/19 6:[address] Patient Name: VALENTINA BARAJAS Encounter No: [id number] : 1950 Primary Insurance: WE[employer] MEDICARE ADV Anticipated DC Date: Planned Disposition: Home External Planned Provider: : DCP follow-up note: LATE ENTRY 08/14/2019 @1600 CM RECIEVED CALL FROM APS STATING AN ASSESSMENT NEEDED TO BE COMPLETED. CM MET WITH NICHELLE NOLASCO FROM APS AND PROVIDED UPDATED CONDITION. Bette NUNEZ,RN,CM DCP- Discharge Planning Updated by [id number]: Tereza Louis on 08/12/19 10:[address] CM received order for APS to eval home situation. CM called APS hotline and reported case of self neglect to [facility] # [id number]. APS will contact CM if they think there is a case. CM will continue to follow and assist as needed with discharge planning needs. DCP- Discharge Planning Updated by [id number]: Kam Nye on 08/10/19 2:[address] Patient Name: VALENTINA BARAJAS Admission Status: ER Accout number: [id number] Admission Date: 08-09-2019 : 1950 Admission Diagnosis:SEPSIS, UNSPECIFIED ORGANISM Attending: RUBY Current LOS: 1 Anticipated DC Date: Planned Disposition: Home Primary Insurance: [employer] MEDICARE ADV Discharge Planning Comments: CM MET WITH PT IN ROOM TO DISCUSS DISCHARGE PLANNING AND NEEDS. PT REPORTS LIVING AT HOME INDEPENDENTLY AND ALONE; PT THEN STATES HE LIVES WITH HIS SISTER, JED. PT HAS NO MEDICAL EQUIPMENT AND RECEIVES OSTOMY SUPPLIES FROM [employer]. PT HAS NO OUTSIDE SERVICES ASSISTING IN THE HOME. CM DISCUSSED AVAILABILITY OF HOME HEALTH, REHAB SERVICES AND MEDICAL EQUIPMENT. PT DENIES DISCHARGE NEEDS, REPORTS HE WILL HAVE TO CALL "SOMEONE" TO PICK HIM UP FOR DISCHARGE HOME. PT DENIES DRUG OR ALCOHOL USE. PT DOES NOT REMEMBER HOW HE GOT TO THE HOSPITAL AND STATES HE IS HERE BECAUSE HIS BACK HURTS. CM CALLED LISTED EMERGENCY CONTACT NUMBER FOR PT'S SISTER, JED LOVE, , REACHED PT'S COUSIN, BERNADETTE, WHO INFORMED CM THAT THIS NUMBER IS PT'S PHONE, BERNADETTE HAS IT UNTIL PT RETURNS HOME. PT LIVES ALONE IN APARTMENT NEXT TO BERNADETTE WHO CHECKS ON PT AT HOME; BERNADETTE STATES HE DID NOT KNOW THAT PT WAS "THAT BAD" UNTIL HE SAW THE POLICE NEXT DOOR GOING INTO PT'S APARTMENT. BERNADETTE PROVIDED PHONE NUMBER FOR PT'S SISTER, JED LOVE, . PT PLANS TO RETURN HOME ALONE, LIVES NEXT DOOR TO HIS COUSIN WHO CHECKS ON PT AT HOME. PT DENIES DISCHARGE NEEDS AT THIS TIME, REPORTS FAMILY WILL PICK HIM UP AT DISCHARGE. CM TO FOLLOW AND ASSIST NEEDED. Multimedia Producer: Kam Nye [facility] - Discharge Planning Initial Assessment Updated by [email or web address]: Kam Nye on 08/10/19 3:03 pm * Is the patient Alert and Oriented? Yes * How many steps to enter\\exit or inside your home? NONE * PCP DR. NADIRA FAN IN [place] * Pharmacy [facility]. * Preadmission Environment Home Alone * ADLs Independent * Equipment Ostomy Supplies * Other Equipment [employer] * List name and contact numbers for known caregivers / representatives who currently or will assist patient after discharge: SISTER SANTO, * Verbal permission to speak to the caregivers and representatives has been obtained from the patient. Yes * Community resources currently utilized None * Please name any agencies selected above. NONE * Additional services required to return to the preadmission environment? No * Can the patient safely return to the preadmission environment? Yes * Has this patient been hospitalized within the prior 30 days at any hospital? No Coverage Notice Reviewer: [id number] Bianca Quintero Notice Issued Date-Time: 08/22/2019 14:01 Notice Type: Patient Choice Letter Notice Delivered To: Patient Relationship to Patient: Self Data Analytics Specialist Name: Valentina Barajas Delivery Method: HAND - Hand Delivered Jennifer Days: Prior Verbal Notification: Recipient Understood Notice: Recipient Signature: Yes Med Rec Note Co-signed by Attending: Coverage Notice Comment: Patient choice for [facility] signed Reviewer: [email or web address] Quintero Notice Issued Date-Time: 08/22/2019 14:01 Notice Type: IM Discharge Notice Notice Delivered To: Patient Relationship to Patient: Self Data Analytics Specialist Name: Valentina Barajas Delivery Method: HAND - Hand Delivered Jennifer Days: Prior Verbal Notification: Recipient Understood Notice: Recipient Signature: Yes Med Rec Note Co-signed by Attending: Coverage Notice Comment: DC IMM signed by patient, refuses his copy. Original on chart. Reviewer: [id number] Bianca Quintero Notice Issued Date-Time: 08/22/2019 13:21 Notice Type: IM Discharge Notice Notice Delivered To: Patient Relationship to Patient: Self Data Analytics Specialist Name: Valentina Barajas Delivery Method: HAND - Hand Delivered Jennifer Days: Prior Verbal Notification: Recipient Understood Notice: Recipient Signature: Yes Med Rec Note Co-signed by Attending: Coverage Notice Comment: DC IMM signed by patient and placed on the chart. Refuses his copy. Reviewer: [id number] Omer Notice Issued Date-Time: 08/15/2019 11:29 Notice Type: Patient Choice Letter Notice Delivered To: Patient Relationship to Patient: Data Analytics Specialist Name: Delivery Method: HAND - Hand Delivered Jennifer Days: Prior Verbal Notification: Recipient Understood Notice: Yes Recipient Signature: Yes Med Rec Note Co-signed by Attending: Coverage Notice Comment: SERGIO refusal for Reviewer: [id number] Omer Notice Issued Date-Time: 08/15/2019 11:29 Notice Type: IM Discharge Notice Notice Delivered To: Patient Relationship to Patient: Data Analytics Specialist Name: Delivery Method: HAND - Hand Delivered Jennifer Days: Prior Verbal Notification: Recipient Understood Notice: Yes Recipient Signature: Yes Med Rec Note Co-signed by Attending: Coverage Notice Comment: dc IMM delivered, explained, signed by the patient, and placed in his chart. Signed form also left with patient. Last DP export: 08/22/19 12:48 p Patient Name: VALENTINA BARAJAS Page [phone] at 1415 All edits/amendments must be made on the electronic document DICTATION DATE: 08/22/19 1414 MARKER MACHINE: DM 08/22/19 1414 RPT#: [id number] DC DATE: STATUS: ADM IN [facility] [address] [place] [address] END OF REPORT
--- NOTE | 2019-08-22 14:18 | NUR ---
PT DC'D WITH PAPERWORK AND IV REMOVED. PT LEFT IN PRIVATE VEHICLE A/O X4.
--- NOTE | 2019-08-22 15:27 | MORECARE ---
CASE MANAGEMENT DISCHARGE SUMMARY PATIENT: VALENTINA BARAJAS SR UNIT: [id number] ADM DATE: 08/09/19 AGE: 69 : 52 SEX: M ROOM/BED: D.2103 AUTHOR: IZABELLA,DOC PHYSICIAN: REFERRING PHYSICIAN: RENO CARTER MD DATE OF SERVICE: 08/22/19 Discharge Plan Patient Name: VALENTINA BARAJAS Facility: [facility]:[place] : 1950 Planned Disposition: Home Anticipated Discharge Date: 08/22/19 Discharge Date: 08/22/2019 Expected LOS: 13 Initial Reviewer: [email or web address] Initial Review Date: 08/09/2019 Generated: 08/22/19 4:27 pm Comments DCP- Discharge Planning Updated by [email or web address]: Ellyn Quintero on 08/22/19 1:[address] CM contacted Stephanie Nolasco with [facility] #[phone], regarding DC today. Stephanie states [facility], (case #[id number]) ,will check on the patient in a week or two and it is OK to use any HHS that will take Wellcare Insurance. Patient Choice signed by patient, he refuses to accept a copy. DC IMM signed by patient. By rotation, CM checked with [facility] and they are not in network. Contacted [facility], spoke with automotive sales representative, provided requested information, faxed. Notified patient that I talked to Stephanie and his HHS are set up. Family will drive him home. DCP- Discharge Planning Updated by [id number]: Bette Omer on 08/15/19 1:[address] Patient Name: VALENTINA BARAJAS Encounter No: [id number] : 1950 Primary Insurance: WELLCARE MEDICARE ADV Anticipated DC Date: Planned Disposition: Home External Planned Provider: : DCP follow-up note: LATE ENTRY 08/14/2019 @1600 CM RECIEVED CALL FROM APS STATING AN ASSESSMENT NEEDED TO BE COMPLETED. CM MET WITH NICHELLE NOLASCO FROM APS AND PROVIDED UPDATED CONDITION. 08/15/2019 1129 DCP follow-up note: cm spoke with patient about Home health. Stated he almost used [facility] in the past. Was in agreement into using [facility]. Pt had concerns with how his ins will pay or will be affected by HH services. Provided pt with explanation of HH services and explanation of mcr benefits for the services. Patient refused HH SERGIO refusal signed.. Stated he needed a nurse to take him to the grocery store, or [place]. if the nurse was not able to drive him around he would just rely on his family. DCC IMM delivered, explained, signed by the patient, and placed in his chart. Signed form also left with patient. CM will continue to follow and assist as needed. Bette NUNEZ, RN,CM DCP- Discharge Planning Updated by [id number]: Bette Omer on 08/15/19 6:[address] Patient Name: VALENTINA BARAJAS Encounter No: [id number] : 1950 Primary Insurance: [employer] MEDICARE ADV Anticipated DC Date: Planned Disposition: Home External Planned Provider: : DCP follow-up note: LATE ENTRY 08/14/2019 @1600 CM RECIEVED CALL FROM APS STATING AN ASSESSMENT NEEDED TO BE COMPLETED. CM MET WITH NICHELLE NOLASCO FROM APS AND PROVIDED UPDATED CONDITION. Bette NUNEZ,RN,CM DCP- Discharge Planning Updated by [email or web address]: Tereza Louis on 08/12/19 10:[address] CM received order for APS to eval home situation. CM called [facility] hotline and reported case of self neglect to [facility] Case # [id number]. APS will contact CM if they think there is a case. CM will continue to follow and assist as needed with discharge planning needs. DCP- Discharge Planning Updated by [id number]: Kam Nye on 08/10/19 2:[address] Patient Name: VALENTINA BARAJAS Admission Status: ER Accout number: [id number] Admission Date: 08-09-2019 : 1950 Admission Diagnosis:SEPSIS, UNSPECIFIED ORGANISM Attending: RUBY Current LOS: 1 Anticipated DC Date: Planned Disposition: Home Primary Insurance: [employer] MEDICARE ADV Discharge Planning Comments: CM MET WITH PT IN ROOM TO DISCUSS DISCHARGE PLANNING AND NEEDS. PT REPORTS LIVING AT HOME INDEPENDENTLY AND ALONE; PT THEN STATES HE LIVES WITH HIS SISTER, JED. PT HAS NO MEDICAL EQUIPMENT AND RECEIVES OSTOMY SUPPLIES FROM [employer]. PT HAS NO OUTSIDE SERVICES ASSISTING IN THE HOME. CM DISCUSSED AVAILABILITY OF HOME HEALTH, REHAB SERVICES AND MEDICAL EQUIPMENT. PT DENIES DISCHARGE NEEDS, REPORTS HE WILL HAVE TO CALL "SOMEONE" TO PICK HIM UP FOR DISCHARGE HOME. PT DENIES DRUG OR ALCOHOL USE. PT DOES NOT REMEMBER HOW HE GOT TO THE HOSPITAL AND STATES HE IS HERE BECAUSE HIS BACK HURTS. CM CALLED LISTED EMERGENCY CONTACT NUMBER FOR PT'S SISTER, JED LOVE, , REACHED PT'S COUSIN, BERNADETTE, WHO INFORMED CM THAT THIS NUMBER IS PT'S PHONE, BERNADETTE HAS IT UNTIL PT RETURNS HOME. PT LIVES ALONE IN APARTMENT NEXT TO BERNADETTE WHO CHECKS ON PT AT HOME; BERNADETTE STATES HE DID NOT KNOW THAT PT WAS "THAT BAD" UNTIL HE SAW THE POLICE NEXT DOOR GOING INTO PT'S APARTMENT. BERNADETTE PROVIDED PHONE NUMBER FOR PT'S SISTER, JED LOVE, . PT PLANS TO RETURN HOME ALONE, LIVES NEXT DOOR TO HIS COUSIN WHO CHECKS ON PT AT HOME. PT DENIES DISCHARGE NEEDS AT THIS TIME, REPORTS FAMILY WILL PICK HIM UP AT DISCHARGE. CM TO FOLLOW AND ASSIST NEEDED. Tow Picker: Kam Nye [facility] - Discharge Planning Initial Assessment Updated by [email or web address]: Kam Nye on 08/10/19 3:03 pm * Is the patient Alert and Oriented? Yes * How many steps to enter\\exit or inside your home? NONE * PCP DR. NADIRA FAN IN [place] * Pharmacy [facility]. * Preadmission Environment Home Alone * ADLs Independent * Equipment Ostomy Supplies * Other Equipment [employer] * List name and contact numbers for known caregivers / representatives who currently or will assist patient after discharge: SISTER SANTO, * Verbal permission to speak to the caregivers and representatives has been obtained from the patient. Yes * Community resources currently utilized None * Please name any agencies selected above. NONE * Additional services required to return to the preadmission environment? No * Can the patient safely return to the preadmission environment? Yes * Has this patient been hospitalized within the prior 30 days at any hospital? No External Providers External Provider: [facility] Contact Date: Service Request Date: Service Type: Resolution: Reviewer: Comments: Coverage Notice Reviewer: [id number] Bianca Quintero Notice Issued Date-Time: 08/22/2019 14:01 Notice Type: Patient Choice Letter Notice Delivered To: Patient Relationship to Patient: Self Blasting Worker Name: Valentina Barajas Delivery Method: HAND - Hand Delivered Jennifer Days: Prior Verbal Notification: Recipient Understood Notice: Recipient Signature: Yes Med Rec Note Co-signed by Attending: Coverage Notice Comment: Patient choice for [facility] signed Reviewer: [id number] Bianca Quintero Notice Issued Date-Time: 08/22/2019 14:01 Notice Type: IM Discharge Notice Notice Delivered To: Patient Relationship to Patient: Self Blasting Worker Name: Valentina Barajas Delivery Method: HAND - Hand Delivered Jennifer Days: Prior Verbal Notification: Recipient Understood Notice: Recipient Signature: Yes Med Rec Note Co-signed by Attending: Coverage Notice Comment: DC IMM signed by patient, refuses his copy. Original on chart. Reviewer: [id number] Bianca Quintero Notice Issued Date-Time: 08/22/2019 13:21 Notice Type: IM Discharge Notice Notice Delivered To: Patient Relationship to Patient: Self Blasting Worker Name: Valentina Barajas Delivery Method: HAND - Hand Delivered Jennifer Days: Prior Verbal Notification: Recipient Understood Notice: Recipient Signature: Yes Med Rec Note Co-signed by Attending: Coverage Notice Comment: DC IMM signed by patient and placed on the chart. Refuses his copy. Reviewer: [id number] Bianca Omer Notice Issued Date-Time: 08/15/2019 11:29 Notice Type: Patient Choice Letter Notice Delivered To: Patient Relationship to Patient: Blasting Worker Name: Delivery Method: HAND - Hand Delivered Jennifer Days: Prior Verbal Notification: Recipient Understood Notice: Yes Recipient Signature: Yes Med Rec Note Co-signed by Attending: Coverage Notice Comment: SERGIO refusal for HH Reviewer: [id number] Bianca Omer Notice Issued Date-Time: 08/15/2019 11:29 Notice Type: IM Discharge Notice Notice Delivered To: Patient Relationship to Patient: Blasting Worker Name: Delivery Method: HAND - Hand Delivered Jennifer Days: Prior Verbal Notification: Recipient Understood Notice: Yes Recipient Signature: Yes Med Rec Note Co-signed by Attending: Coverage Notice Comment: dc IMM delivered, explained, signed by the patient, and placed in his chart. Signed form also left with patient. Last DP export: 08/22/19 1:15 p Patient Name: VALENTINA BARAJAS Page [id number] at 1527 All edits/amendments must be made on the electronic document DICTATION DATE: 08/22/191526 NEWS VIDEO EDITOR: CATERINA 08/22/191526 RPT#: [id number] DC DATE:08/22/19 STATUS: DIS IN [facility] [address] [place] [address] END OF REPORT
--- NOTE | 2019-08-22 16:04 | MORECARE ---
CASE MANAGEMENT DISCHARGE SUMMARY PATIENT: VALENTINA BARAJAS SR UNIT: [id number] ADM DATE: 08/09/19 AGE: 69 : 52 SEX: M ROOM/BED: D.2101 AUTHOR: IZABELLA,DOC PHYSICIAN: REFERRING PHYSICIAN: RENO CARTER MD DATE OF SERVICE: 08/22/19 Discharge Plan Patient Name: VALENTINA BARAJAS Facility: [facility]:[place] : 1950 Planned Disposition: Home Anticipated Discharge Date: 08/22/19 Discharge Date: 08/22/2019 Expected LOS: 13 Initial Reviewer: [email or web address] Initial Review Date: 08/09/2019 Generated: 08/22/19 5:04 pm Comments DCP- Discharge Planning Updated by [id number]: Ellyn Quintero on 08/22/19 1:[address] CM contacted Stephanie Nolasco with APS #[phone], regarding DC today. Stephanie states [facility], (case #[id number]) ,will check on the patient in a week or two and it is OK to use any HHS that will take Well[employer] Insurance. Patient Choice signed by patient, he refuses to accept a copy. DC IMM signed by patient. By rotation, CM checked with [facility] and they are not in network. Contacted [facility], spoke with client services representative, provided requested information, faxed. Notified patient that I talked to Stephanie and his HHS are set up. Family will drive him home. DCP- Discharge Planning Updated by [email or web address]: Bette Omer on 08/15/19 1:[address] Patient Name: VALENTINA BARAJAS Encounter No: [id number] : 1950 Primary Insurance: WELLCARE MEDICARE ADV Anticipated DC Date: Planned Disposition: Home External Planned Provider: : DCP follow-up note: LATE ENTRY 08/14/2019 @1600 CM RECIEVED CALL FROM APS STATING AN ASSESSMENT NEEDED TO BE COMPLETED. CM MET WITH NICHELLE NOLASCO FROM APS AND PROVIDED UPDATED CONDITION. 08/15/2019 1129 DCP follow-up note: cm spoke with patient about Home health. Stated he almost used cally in the past. Was in agreement into using [place] services. Pt had concerns with how his ins will pay or will be affected by HH services. Provided pt with explanation of HH services and explanation of mcr benefits for the services. Patient refused HH SERGIO refusal signed.. Stated he needed a nurse to take him to the grocery store, or [employer]. if the nurse was not able to drive him around he would just rely on his family. DCC IMM delivered, explained, signed by the patient, and placed in his chart. Signed form also left with patient. CM will continue to follow and assist as needed. Bette NUNEZ, RN,CM DCP- Discharge Planning Updated by [id number]: Bette Omer on 08/15/19 6:[address] Patient Name: VALENTINA BARAJAS Encounter No: [id number] : 1950 Primary Insurance: [place] MED[employer]ARE ADV Anticipated DC Date: Planned Disposition: Home External Planned Provider: : DCP follow-up note: LATE ENTRY 08/14/2019 @1600 CM RECIEVED CALL FROM APS STATING AN ASSESSMENT NEEDED TO BE COMPLETED. CM MET WITH NICHELLE NOLASCO FROM APS AND PROVIDED UPDATED CONDITION. Bette NUNEZ,RN,CM DCP- Discharge Planning Updated by [id number]: Tereza Louis on 08/12/19 10:[address] CM received order for APS to eval home situation. CM called [facility] hotline and reported case of self neglect to [place] Case # [id number]. APS will contact CM if they think there is a case. CM will continue to follow and assist as needed with discharge planning needs. DCP- Discharge Planning Updated by [id number]: Kam Nye on 08/10/19 2:[address] Patient Name: VALENTINA BARAJAS Admission Status: ER Accout number: [id number] Admission Date: 08-09-2019 : 1950 Admission Diagnosis:SEPSIS, UNSPECIFIED ORGANISM Attending: RUBY Current LOS: 1 Anticipated DC Date: Planned Disposition: Home Primary Insurance: [place] MEDICARE ADV Discharge Planning Comments: CM MET WITH PT IN ROOM TO DISCUSS DISCHARGE PLANNING AND NEEDS. PT REPORTS LIVING AT HOME INDEPENDENTLY AND ALONE; PT THEN STATES HE LIVES WITH HIS SISTER, JED. PT HAS NO MEDICAL EQUIPMENT AND RECEIVES OSTOMY SUPPLIES FROM [employer]. PT HAS NO OUTSIDE SERVICES ASSISTING IN THE HOME. CM DISCUSSED AVAILABILITY OF HOME HEALTH, REHAB SERVICES AND MEDICAL EQUIPMENT. PT DENIES DISCHARGE NEEDS, REPORTS HE WILL HAVE TO CALL "SOMEONE" TO PICK HIM UP FOR DISCHARGE HOME. PT DENIES DRUG OR ALCOHOL USE. PT DOES NOT REMEMBER HOW HE GOT TO THE HOSPITAL AND STATES HE IS HERE BECAUSE HIS BACK HURTS. CM CALLED LISTED EMERGENCY CONTACT NUMBER FOR PT'S SISTER, JED LOVE, , REACHED PT'S COUSIN, BERNADETTE, WHO INFORMED CM THAT THIS NUMBER IS PT'S PHONE, BERNADETTE HAS IT UNTIL PT RETURNS HOME. PT LIVES ALONE IN APARTMENT NEXT TO BERNADETTE WHO CHECKS ON PT AT HOME; BERNADETTE STATES HE DID NOT KNOW THAT PT WAS "THAT BAD" UNTIL HE SAW THE POLICE NEXT DOOR GOING INTO PT'S APARTMENT. BERNADETTE PROVIDED PHONE NUMBER FOR PT'S SISTER, JED LOVE, . PT PLANS TO RETURN HOME ALONE, LIVES NEXT DOOR TO HIS COUSIN WHO CHECKS ON PT AT HOME. PT DENIES DISCHARGE NEEDS AT THIS TIME, REPORTS FAMILY WILL PICK HIM UP AT DISCHARGE. CM TO FOLLOW AND ASSIST NEEDED. Director Hedis: Kam Nye DCPIA - Discharge Planning Initial Assessment Updated by [id number]: Kam Nye on 08/10/19 3:03 pm * Is the patient Alert and Oriented? Yes * How many steps to enter\\exit or inside your home? NONE * PCP DR. NADIRA FAN IN [place] * Pharmacy [facility]. * Preadmission Environment Home Alone * ADLs Independent * Equipment Ostomy Supplies * Other Equipment [employer] * List name and contact numbers for known caregivers / representatives who currently or will assist patient after discharge: SISTER SANTO, * Verbal permission to speak to the caregivers and representatives has been obtained from the patient. Yes * Community resources currently utilized None * Please name any agencies selected above. NONE * Additional services required to return to the preadmission environment? No * Can the patient safely return to the preadmission environment? Yes * Has this patient been hospitalized within the prior 30 days at any hospital? No Coverage Notice Reviewer: [id number] Bianca Quintero Notice Issued Date-Time: 08/22/2019 14:01 Notice Type: Patient Choice Letter Notice Delivered To: Patient Relationship to Patient: Self Certified Endoscopy Technician Name: Valentina Barajas Delivery Method: HAND - Hand Delivered Jennifer Days: Prior Verbal Notification: Recipient Understood Notice: Recipient Signature: Yes Med Rec Note Co-signed by Attending: Coverage Notice Comment: Patient choice for [facility] HHS signed Reviewer: [id number] Quintero Notice Issued Date-Time: 08/22/2019 14:01 Notice Type: IM Discharge Notice Notice Delivered To: Patient Relationship to Patient: Self Certified Endoscopy Technician Name: Valentina Barajas Delivery Method: HAND - Hand Delivered Jennifer Days: Prior Verbal Notification: Recipient Understood Notice: Recipient Signature: Yes Med Rec Note Co-signed by Attending: Coverage Notice Comment: DC IMM signed by patient, refuses his copy. Original on chart. Reviewer: [id number] Bianca Quintero Notice Issued Date-Time: 08/22/2019 13:21 Notice Type: IM Discharge Notice Notice Delivered To: Patient Relationship to Patient: Self Certified Endoscopy Technician Name: Valentina Barajas Delivery Method: HAND - Hand Delivered Jennifer Days: Prior Verbal Notification: Recipient Understood Notice: Recipient Signature: Yes Med Rec Note Co-signed by Attending: Coverage Notice Comment: DC IMM signed by patient and placed on the chart. Refuses his copy. Reviewer: [id number] Omer Notice Issued Date-Time: 08/15/2019 11:29 Notice Type: Patient Choice Letter Notice Delivered To: Patient Relationship to Patient: Certified Endoscopy Technician Name: Delivery Method: HAND - Hand Delivered Jennifer Days: Prior Verbal Notification: Recipient Understood Notice: Yes Recipient Signature: Yes Med Rec Note Co-signed by Attending: Coverage Notice Comment: SERGIO refusal for Reviewer: [id number] Omer Notice Issued Date-Time: 08/15/2019 11:29 Notice Type: IM Discharge Notice Notice Delivered To: Patient Relationship to Patient: Certified Endoscopy Technician Name: Delivery Method: HAND - Hand Delivered Jennifer Days: Prior Verbal Notification: Recipient Understood Notice: Yes Recipient Signature: Yes Med Rec Note Co-signed by Attending: Coverage Notice Comment: dc IMM delivered, explained, signed by the patient, and placed in his chart. Signed form also left with patient. Last DP export: 08/22/19 2:27 p Patient Name: VALENTINA BARAJAS Page 20666 at 1604 All edits/amendments must be made on the electronic document DICTATION DATE: 08/22/191603 EXTERMINATOR TERMITE: DM 08/22/19 1604 RPT#: [id number] DC DATE:08/22/19 STATUS: DIS IN [facility] [address] [place] [address] END OF REPORT
--- NOTE | 2019-08-22 18:32 | MORECARE ---
CASE MANAGEMENT DISCHARGE SUMMARY PATIENT: VALENTINA BARAJAS SR UNIT: [id number] ADM DATE: 08/09/19 AGE: 69 : 52 SEX: M ROOM/BED: D.2106 AUTHOR: IZABELLA,DOC PHYSICIAN: REFERRING PHYSICIAN: RENO CARTER MD DATE OF SERVICE: 08/22/19 Discharge Plan Patient Name: VALENTINA BARAJAS Facility: [facility]:[place] : 1950 Planned Disposition: Home Anticipated Discharge Date: 08/22/19 Discharge Date: 08/22/2019 Expected LOS: 13 Initial Reviewer: [email or web address] Initial Review Date: 08/09/2019 Generated: 08/22/19 7:32 pm Comments DCP- Discharge Planning Updated by [id number]: Ellyn Quintero on 08/22/19 5:[address] CM contacted Stephanie Nolasco with APS #[phone], regarding DC today. Stephanie states [facility], (case #[id number]) ,will check on the patient in a week or two and it is OK to use any HHS that will take Wellcare Insurance. Patient Choice signed by patient, he refuses to accept a copy. DC IMM signed by patient. By rotation, CM checked with [facility] and they are not in network. Contacted [facility], spoke with sales donor recruitment representative, provided requested information, faxed. Notified patient that I talked to Stephanie and his [facility] as set up. Family will drive him home. DCP- Discharge Planning Updated by [email or web address]: Bette Omer on 08/15/19 1:[address] Patient Name: VALENTINA BARAJAS Encounter No: [id number] : 1950 Primary Insurance: WELLCARE MEDICARE ADV Anticipated DC Date: Planned Disposition: Home External Planned Provider: : DCP follow-up note: LATE ENTRY 08/14/2019 @1600 CM RECIEVED CALL FROM APS STATING AN ASSESSMENT NEEDED TO BE COMPLETED. CM MET WITH NICHELLE NOLASCO FROM APS AND PROVIDED UPDATED CONDITION. 08/15/2019 1129 DCP follow-up note: cm spoke with patient about Home health. Stated he almost used cally in the past. Was in agreement into using [place] services. Pt had concerns with how his ins will pay or will be affected by HH services. Provided pt with explanation of HH services and explanation of mcr benefits for the services. Patient refused HH SERGIO refusal signed.. Stated he needed a nurse to take him to the grocery store, or [employer]. if the nurse was not able to drive him around he would just rely on his family. DCC IMM delivered, explained, signed by the patient, and placed in his chart. Signed form also left with patient. CM will continue to follow and assist as needed. Bette NUNEZ, RN,CM DCP- Discharge Planning Updated by [id number]: Bette Omer on 08/15/19 6:[address] Patient Name: VALENTINA BARAJAS Encounter No: [id number] : 1950 Primary Insurance: [place] MEDICARE ADV Anticipated DC Date: Planned Disposition: Home External Planned Provider: : DCP follow-up note: LATE ENTRY 08/14/2019 @1600 CM RECIEVED CALL FROM APS STATING AN ASSESSMENT NEEDED TO BE COMPLETED. CM MET WITH NICHELLE NOLASCO FROM APS AND PROVIDED UPDATED CONDITION. Bette NUNEZ,RN,CM DCP- Discharge Planning Updated by [id number]: Tereza Louis on 08/12/19 10:[address] CM received order for APS to eval home situation. CM called [facility] hotline and reported case of self neglect to [place] Case # [id number]. APS will contact CM if they think there is a case. CM will continue to follow and assist as needed with discharge planning needs. DCP- Discharge Planning Updated by [id number]: Kam Nye on 08/10/19 2:[address] Patient Name: VALENTINA BARAJAS Admission Status: ER Accout number: [id number] Admission Date: 08-09-2019 : 1950 Admission Diagnosis:SEPSIS, UNSPECIFIED ORGANISM Attending: RUBY Current LOS: 1 Anticipated DC Date: Planned Disposition: Home Primary Insurance: [place] MEDICARE ADV Discharge Planning Comments: CM MET WITH PT IN ROOM TO DISCUSS DISCHARGE PLANNING AND NEEDS. PT REPORTS LIVING AT HOME INDEPENDENTLY AND ALONE; PT THEN STATES HE LIVES WITH HIS SISTER, JED. PT HAS NO MEDICAL EQUIPMENT AND RECEIVES OSTOMY SUPPLIES FROM [employer]. PT HAS NO OUTSIDE SERVICES ASSISTING IN THE HOME. CM DISCUSSED AVAILABILITY OF HOME HEALTH, REHAB SERVICES AND MEDICAL EQUIPMENT. PT DENIES DISCHARGE NEEDS, REPORTS HE WILL HAVE TO CALL "SOMEONE" TO PICK HIM UP FOR DISCHARGE HOME. PT DENIES DRUG OR ALCOHOL USE. PT DOES NOT REMEMBER HOW HE GOT TO THE HOSPITAL AND STATES HE IS HERE BECAUSE HIS BACK HURTS. CM CALLED LISTED EMERGENCY CONTACT NUMBER FOR PT'S SISTER, JED LOVE, , REACHED PT'S COUSIN, BERNADETTE, WHO INFORMED CM THAT THIS NUMBER IS PT'S PHONE, BERNADETTE HAS IT UNTIL PT RETURNS HOME. PT LIVES ALONE IN APARTMENT NEXT TO BERNADETTE WHO CHECKS ON PT AT HOME; BERNADETTE STATES HE DID NOT KNOW THAT PT WAS "THAT BAD" UNTIL HE SAW THE POLICE NEXT DOOR GOING INTO PT'S APARTMENT. BERNADETTE PROVIDED PHONE NUMBER FOR PT'S SISTER, JED LOVE, . PT PLANS TO RETURN HOME ALONE, LIVES NEXT DOOR TO HIS COUSIN WHO CHECKS ON PT AT HOME. PT DENIES DISCHARGE NEEDS AT THIS TIME, REPORTS FAMILY WILL PICK HIM UP AT DISCHARGE. CM TO FOLLOW AND ASSIST NEEDED. Instructional Systems Specialist: Kam Nye DCPIA - Discharge Planning Initial Assessment Updated by [id number]: Kam Nye on 08/10/19 3:03 pm * Is the patient Alert and Oriented? Yes * How many steps to enter\\exit or inside your home? NONE * PCP DR. NADIRA FAN IN [place] * Pharmacy [facility] ON [facility]. * Preadmission Environment Home Alone * ADLs Independent * Equipment Ostomy Supplies * Other Equipment [employer] * List name and contact numbers for known caregivers / representatives who currently or will assist patient after discharge: SISTER SANTO, * Verbal permission to speak to the caregivers and representatives has been obtained from the patient. Yes * Community resources currently utilized None * Please name any agencies selected above. NONE * Additional services required to return to the preadmission environment? No * Can the patient safely return to the preadmission environment? Yes * Has this patient been hospitalized within the prior 30 days at any hospital? No Coverage Notice Reviewer: [email or web address] Bianca Quintero Notice Issued Date-Time: 08/22/2019 14:01 Notice Type: Patient Choice Letter Notice Delivered To: Patient Relationship to Patient: Self Aircraft Cleaning Supervisor Name: Valentina Barajas Delivery Method: HAND - Hand Delivered Jennifer Days: Prior Verbal Notification: Recipient Understood Notice: Recipient Signature: Yes Med Rec Note Co-signed by Attending: Coverage Notice Comment: Patient choice for [facility] HHS signed Reviewer: [email or web address] Quintero Notice Issued Date-Time: 08/22/2019 14:01 Notice Type: IM Discharge Notice Notice Delivered To: Patient Relationship to Patient: Self Aircraft Cleaning Supervisor Name: Valentina Barajas Delivery Method: HAND - Hand Delivered Jennifer Days: Prior Verbal Notification: Recipient Understood Notice: Recipient Signature: Yes Med Rec Note Co-signed by Attending: Coverage Notice Comment: DC IMM signed by patient, refuses his copy. Original on chart. Reviewer: [id number] Bianca Quintero Notice Issued Date-Time: 08/22/2019 13:21 Notice Type: IM Discharge Notice Notice Delivered To: Patient Relationship to Patient: Self Aircraft Cleaning Supervisor Name: Valentina Barajas Delivery Method: HAND - Hand Delivered Jennifer Days: Prior Verbal Notification: Recipient Understood Notice: Recipient Signature: Yes Med Rec Note Co-signed by Attending: Coverage Notice Comment: DC IMM signed by patient and placed on the chart. Refuses his copy. Reviewer: [id number] Omer Notice Issued Date-Time: 08/15/2019 11:29 Notice Type: Patient Choice Letter Notice Delivered To: Patient Relationship to Patient: Aircraft Cleaning Supervisor Name: Delivery Method: HAND - Hand Delivered Jennifer Days: Prior Verbal Notification: Recipient Understood Notice: Yes Recipient Signature: Yes Med Rec Note Co-signed by Attending: Coverage Notice Comment: SERGIO refusal for Reviewer: [id number] Omer Notice Issued Date-Time: 08/15/2019 11:29 Notice Type: IM Discharge Notice Notice Delivered To: Patient Relationship to Patient: Aircraft Cleaning Supervisor Name: Delivery Method: HAND - Hand Delivered Jennifer Days: Prior Verbal Notification: Recipient Understood Notice: Yes Recipient Signature: Yes Med Rec Note Co-signed by Attending: Coverage Notice Comment: dc IMM delivered, explained, signed by the patient, and placed in his chart. Signed form also left with patient. Last DP export: 08/22/19 3:04 p Patient Name: VALENTINA BARAJAS Page 42375 at 1832 All edits/amendments must be made on the electronic document DICTATION DATE: 08/22/191831 POLICE SPECIALIST: CATERINA 08/22/191831 RPT#: [id number] DC DATE:08/22/19 STATUS: DIS [facility] [address] [address] END OF REPORT
--- NOTE | 2019-08-22 18:39 | MORECARE ---
CASE MANAGEMENT DISCHARGE SUMMARY PATIENT: VALENTINA BARAJAS SR UNIT: [id number] ADM DATE: 08/09/19 AGE: 69 : 51 SEX: M ROOM/BED: D.2100 AUTHOR: IZABELLA,DOC PHYSICIAN: REFERRING PHYSICIAN: RENO CARTER MD DATE OF SERVICE: 08/22/19 Discharge Plan Patient Name: VALENTINA BARAJAS Facility: [facility]:[place] : 1950 Planned Disposition: Home Anticipated Discharge Date: 08/22/19 Discharge Date: 08/22/2019 Expected LOS: 13 Initial Reviewer: [email or web address] Initial Review Date: 08/09/2019 Generated: 08/22/19 7:38 pm Comments DCP- Discharge Planning Updated by [id number]: Ellyn Quintero on 08/22/19 5:[address] Received a phone message from Christine, with [facility] regarding this patient. Contacted O/C nurse Mei and made her aware of the call with unknown reason. Provided information that APS has an open case, #[id number] and that his CW is Stephanie Nolasco #[phone]. Provided my work cell # and that I would be off tomorrow, but Julia will be her on M2. DCP- Discharge Planning Updated by [id number]: Ellyn Quintero on 08/22/19 5:[address] CM contacted Stephanie Nolasco with [facility] #[phone], regarding DC today. Stephanie states APS, (case #[id number]) ,will check on the patient in a week or two and it is OK to use any HHS that will take [employer]. Patient Choice signed by patient, he refuses to accept a copy. DC IMM signed by patient. By rotation, CM checked with [facility] and they are not in network. Contacted [facility], spoke with sales representative door to door, provided requested information, faxed. Notified patient that I talked to Stephanie and his HHS as set up. Family will drive him home. DCP- Discharge Planning Updated by [id number]: Bette Omer on 08/15/19 1:[address] Patient Name: VALENTINA BARAJAS Encounter No: [id number] : 1950 Primary Insurance: [employer] MEDICARE ADV Anticipated DC Date: Planned Disposition: Home External Planned Provider: : DCP follow-up note: LATE ENTRY 08/14/2019 @1600 CM RECIEVED CALL FROM APS STATING AN ASSESSMENT NEEDED TO BE COMPLETED. CM MET WITH NICHELLE NOLASCO FROM [facility] AND PROVIDED UPDATED CONDITION. 08/15/2019 1129 DCP follow-up note: cm spoke with patient about Home health. Stated he almost used [facility] in the past. Was in agreement into using [facility] services. Pt had concerns with how his ins will pay or will be affected by HH services. Provided pt with explanation of HH services and explanation of mcr benefits for the services. Patient refused HH SERGIO refusal signed.. Stated he needed a nurse to take him to the grocery store, or [facility]. if the nurse was not able to drive him around he would just rely on his family. DCC IMM delivered, explained, signed by the patient, and placed in his chart. Signed form also left with patient. CM will continue to follow and assist as needed. Bette NUNEZ, RN,CM DCP- Discharge Planning Updated by [id number]: Bette Omer on 08/15/19 6:[address] Patient Name: VALENTINA BARAJAS Encounter No: [id number] : 1950 Primary Insurance: [employer]ARE ADV Anticipated DC Date: Planned Disposition: Home External Planned Provider: : DCP follow-up note: LATE ENTRY 08/14/2019 @1600 CM RECIEVED CALL FROM APS STATING AN ASSESSMENT NEEDED TO BE COMPLETED. CM MET WITH NICHELLE NOLASCO FROM [facility] AND PROVIDED UPDATED CONDITION. Bette NUNEZ,RN,CM DCP- Discharge Planning Updated by [id number]: Tereza Louis on 08/12/19 10:[address] CM received order for APS to eval home situation. CM called [facility] hotline and reported case of self neglect to Lexi Case # [id number]. APS will contact CM if they think there is a case. CM will continue to follow and assist as needed with discharge planning needs. DCP- Discharge Planning Updated by [id number]: Kam Nye on 08/10/19 2:[address] Patient Name: VALENTINA BARAJAS Admission Status: ER Accout number: [id number] Admission Date: 08-09-2019 : 1950 Admission Diagnosis:SEPSIS, UNSPECIFIED ORGANISM Attending: RUBY Current LOS: 1 Anticipated DC Date: Planned Disposition: Home Primary Insurance: [employer]ARE ADV Discharge Planning Comments: CM MET WITH PT IN ROOM TO DISCUSS DISCHARGE PLANNING AND NEEDS. PT REPORTS LIVING AT HOME INDEPENDENTLY AND ALONE; PT THEN STATES HE LIVES WITH HIS SISTER, JED. PT HAS NO MEDICAL EQUIPMENT AND RECEIVES OSTOMY SUPPLIES FROM [employer]. PT HAS NO OUTSIDE SERVICES ASSISTING IN THE HOME. CM DISCUSSED AVAILABILITY OF HOME HEALTH, REHAB SERVICES AND MEDICAL EQUIPMENT. PT DENIES DISCHARGE NEEDS, REPORTS HE WILL HAVE TO CALL "SOMEONE" TO PICK HIM UP FOR DISCHARGE HOME. PT DENIES DRUG OR ALCOHOL USE. PT DOES NOT REMEMBER HOW HE GOT TO THE HOSPITAL AND STATES HE IS HERE BECAUSE HIS BACK HURTS. CM CALLED LISTED EMERGENCY CONTACT NUMBER FOR PT'S SISTER, JED LOVE, , REACHED PT'S COUSIN, BERNADETTE, WHO INFORMED CM THAT THIS NUMBER IS PT'S PHONE, BERNADETTE HAS IT UNTIL PT RETURNS HOME. PT LIVES ALONE IN APARTMENT NEXT TO BERNADETTE WHO CHECKS ON PT AT HOME; BERNADETTE STATES HE DID NOT KNOW THAT PT WAS "THAT BAD" UNTIL HE SAW THE POLICE NEXT DOOR GOING INTO PT'S APARTMENT. BERNADETTE PROVIDED PHONE NUMBER FOR PT'S SISTER, JED LOVE, . PT PLANS TO RETURN HOME ALONE, LIVES NEXT DOOR TO HIS COUSIN WHO CHECKS ON PT AT HOME. PT DENIES DISCHARGE NEEDS AT THIS TIME, REPORTS FAMILY WILL PICK HIM UP AT DISCHARGE. CM TO FOLLOW AND ASSIST NEEDED. Director Of Parks And Recreation: Kam Nye DCPIA - Discharge Planning Initial Assessment Updated by [id number]: Kam Nye on 08/10/19 3:03 pm * Is the patient Alert and Oriented? Yes * How many steps to enter\\exit or inside your home? NONE * PCP DR. NADIRA FAN IN [place] * Pharmacy [facility]. * Preadmission Environment Home Alone * ADLs Independent * Equipment Ostomy Supplies * Other Equipment [employer] SUPPLIES * List name and contact numbers for known caregivers / representatives who currently or will assist patient after discharge: JED LOVE, , * Verbal permission to speak to the caregivers and representatives has been obtained from the patient. Yes * Community resources currently utilized None * Please name any agencies selected above. NONE * Additional services required to return to the preadmission environment? No * Can the patient safely return to the preadmission environment? Yes * Has this patient been hospitalized within the prior 30 days at any hospital? No Coverage Notice Reviewer: [id number] Bianca Quintero Notice Issued Date-Time: 08/22/2019 14:01 Notice Type: Patient Choice Letter Notice Delivered To: Patient Relationship to Patient: Self Muck Miner Name: Valentina Barajas Delivery Method: HAND - Hand Delivered Jennifer Days: Prior Verbal Notification: Recipient Understood Notice: Recipient Signature: Yes Med Rec Note Co-signed by Attending: Coverage Notice Comment: Patient choice for [facility] HHS signed Reviewer: [id number] Bianca Quintero Notice Issued Date-Time: 08/22/2019 14:01 Notice Type: IM Discharge Notice Notice Delivered To: Patient Relationship to Patient: Self Muck Miner Name: Valentina Barajas Delivery Method: HAND - Hand Delivered Jennifer Days: Prior Verbal Notification: Recipient Understood Notice: Recipient Signature: Yes Med Rec Note Co-signed by Attending: Coverage Notice Comment: DC IMM signed by patient, refuses his copy. Original on chart. Reviewer: [email or web address] Bianca Quintero Notice Issued Date-Time: 08/22/2019 13:21 Notice Type: IM Discharge Notice Notice Delivered To: Patient Relationship to Patient: Self Muck Miner Name: Valentina Barajas Delivery Method: HAND - Hand Delivered Jennifer Days: Prior Verbal Notification: Recipient Understood Notice: Recipient Signature: Yes Med Rec Note Co-signed by Attending: Coverage Notice Comment: DC IMM signed by patient and placed on the chart. Refuses his copy. Reviewer: [email or web address] Bianca Omer Notice Issued Date-Time: 08/15/2019 11:29 Notice Type: Patient Choice Letter Notice Delivered To: Patient Relationship to Patient: Muck Miner Name: Delivery Method: HAND - Hand Delivered Jennifer Days: Prior Verbal Notification: Recipient Understood Notice: Yes Recipient Signature: Yes Med Rec Note Co-signed by Attending: Coverage Notice Comment: SERGIO refusal for HH Reviewer: [id number] - Bette Omer Notice Issued Date-Time: 08/15/2019 11:29 Notice Type: IM Discharge Notice Notice Delivered To: Patient Relationship to Patient: Muck Miner Name: Delivery Method: HAND - Hand Delivered Jennifer Days: Prior Verbal Notification: Recipient Understood Notice: Yes Recipient Signature: Yes Med Rec Note Co-signed by Attending: Coverage Notice Comment: dc IMM delivered, explained, signed by the patient, and placed in his chart. Signed form also left with patient. Last DP export: 08/22/19 5:32 p Patient Name: VALENTINA BARAJAS Page [id number] at 1839 All edits/amendments must be made on the electronic document DICTATION DATE: 08/22/191837 BIT SETTER: CATERINA 08/22/191837 RPT#: [id number] DC DATE:08/22/19 STATUS: DIS IN [facility] [address] [place] [address] END OF REPORT
== END 2019-08-22 14:20 | disposition home health service (06) | DRG 871 ==
LOC: D.ER 11:26 → D.ICU 14:30 → D.M2 14:30 → D.ICU 16:10 → D.M2 08-10 13:37
PROVIDERS: Family Medicine; Internal Medicine Nephrology; ADMIT Family Medicine; ATTEND Family Medicine
DX: A41.9 Sepsis, unspecified organism (principal); E43 Unspecified severe protein-calorie malnutrition; N17.0 Acute kidney failure with tubular necrosis; N39.0 Urinary tract infection, site not specified; E87.2 Acidosis; E87.1 Hypo-osmolality and hyponatremia; Z68.1 Body mass index [BMI] 19.9 or less, adult; K91.2 Postsurgical malabsorption, not elsewhere classified; N18.9 Chronic kidney disease, unspecified; E87.5 Hyperkalemia; R62.7 Adult failure to thrive; G89.29 Other chronic pain

== ENCOUNTER 2020-07-30 12:04 | Inpatient (IN) | payer MEDICARE, MEDICAID ==
[~2020-07-30] VITALS: Ht 180.3 cm; Wt 63.6 kg
[2020-07-30] MEDS ORDERED: ZYLOPRIM100 MG (12:16)
[2020-07-30] MEDS ORDERED: VITAMIN A10000 UNIT (12:17)
[2020-07-30] MEDS ORDERED: PROTONIX40 MG (12:17)
[2020-07-30 12:59] LABS: UDS - AMPHET NEGATIVE QUAL (NEGATIVE); UDS - BARB NEGATIVE QUAL (NEGATIVE); UDS - BENZO NEGATIVE QUAL (NEGATIVE); UDS - COCAINE NEGATIVE QUAL (NEGATIVE); UDS - OPIATE NEGATIVE QUAL (NEGATIVE); UDS - PCP NEGATIVE QUAL (NEGATIVE); UDS - THC NEGATIVE QUAL (NEGATIVE)
[2020-07-30 13:28] LABS: ANION GAP 24.7 mmol/L (8-16); CALCIUM 8.2 mg/dL (8.5-10.1); CARBON DIOXIDE 17.1 mmol/L (21.0-32.0); CREATININE - SERUM 2.7 mg/dL (0.6-1.3); POTASSIUM - SERUM 5.8 mmol/L (3.5-5.1)
[2020-07-30 13:29] LABS: BACTERIA FEW HPF (NONE SEEN); BILIRUBIN NEGATIVE (NEGATIVE); KETONE NEGATIVE (NEGATIVE); NITRITE NEGATIVE (NEGATIVE); SQUAMOUS EPITHELIAL RARE HPF (0-4); UROBILINOGEN NORMAL mg/dL (< 2); WHITE CELLS - URINE RARE HPF (0-1)
[2020-07-30 13:30] VITALS: BP 150/102
[2020-07-30 13:34] LABS: ALBUMIN 4.1 g/dL (3.4-5.0); BILIRUBIN - TOTAL 0.85 mg/dL (0.2-1.3)
[2020-07-30 14:11] LABS: BASOPHILS 0.1 % (0-2); EOSINOPHILS 0 % (0-7); HEMATOCRIT 42.3 % (42.0-54.0); HEMOGLOBIN 13.8 g/dL (13.5-17.5); IMMATURE GRANULOCYTES 0.3 % (0-5); LYMPHOCYTES 8.4 % (15-50); MCH 30.4 pg (26.0-34.0); MCHC 32.6 g/dL (31.0-37.0); MCV 93.2 fL (80.0-100.0); MEAN PLATELET VOLUME 9.7 fL (7.4-10.4); MONOCYTES 5.4 % (2-11); NEUTROPHIL ABS# 10.23 10x3/uL (1.78-5.38); NEUTROPHILS 85.8 % (40-80); PLATELET COUNT 405 10x3/uL (130-400); RBC 4.54 10x6/uL (4.20-6.10); RDW 12.7 % (11.5-14.5); WBC 11.9 10x3/uL (4.8-10.8)
[2020-07-30 14:30] VITALS: BP 125/89
[2020-07-30 15:30] VITALS: BP 119/90
[2020-07-30 16:30] VITALS: BP 119/86
[2020-07-30 18:39] VITALS: BP 128/90; Ht 180.3 cm; Wt 63.6 kg
[2020-07-30 20:00] VITALS: BP 116/83
--- NOTE | 2020-07-30 22:50 | NUR ---
REC'D. WALKING ROUNDS CHGE OF SHIFT.SITTING POSITION IN BED TALKING ON PHONE. DENIES ANY COMPLAINTS AT PRESENT TIME WILL CONTINUE TO MONITOR FOR ANY CHGES AND FOLLOW CURRENT PLAN OF CARE.
[2020-07-31 04:00] VITALS: BP 99/74
[2020-07-31 06:56] LABS: BASOPHILS 0.3 % (0-2); EOSINOPHILS 0.7 % (0-7); HEMATOCRIT 35.4 % (42.0-54.0); HEMOGLOBIN 11.4 g/dL (13.5-17.5); IMMATURE GRANULOCYTES 0.4 % (0-5); LYMPHOCYTE ABS# 0.91 10x3/uL (1.32-3.57); LYMPHOCYTES 10.1 % (15-50); MCH 29.8 pg (26.0-34.0); MCHC 32.2 g/dL (31.0-37.0); MCV 92.4 fL (80.0-100.0); MEAN PLATELET VOLUME 9.5 fL (7.4-10.4); MONOCYTES 14.3 % (2-11); NEUTROPHIL ABS# 6.66 10x3/uL (1.78-5.38); NEUTROPHILS 74.2 % (40-80); PLATELET COUNT 338 10x3/uL (130-400); RBC 3.83 10x6/uL (4.20-6.10); RDW 12.8 % (11.5-14.5)
[2020-07-31 07:16] LABS: ALBUMIN 3.3 g/dL (3.4-5.0); BILIRUBIN - TOTAL 0.4 mg/dL (0.2-1.3); CARBON DIOXIDE 17.6 mmol/L (21.0-32.0); CREATININE - SERUM 2.2 mg/dL (0.6-1.3); PHOSPHOROUS 2.9 mg/dL (2.5-4.9); PROTEIN - SERUM 7.2 g/dL (6.4-8.2)
[2020-07-31 07:17] LABS: ANION GAP 19.9 mmol/L (8-16); POTASSIUM - SERUM 4.5 mmol/L (3.5-5.1)
--- NOTE | 2020-07-31 07:49 | NUR ---
RECEIVED REPORT, PT LAYING ON BACK RESTING WITH EYES CLOSED, NO SIGNS OF DISTRESS, LAB CALL WITH CRITICAL MAGNESIUM OF 1.0, WILL FOLLOW ELECTROLYTE PROTOCOL AND RECHECK IN 2 HOURS
[2020-07-31 09:00] VITALS: BP 110/74
--- NOTE | 2020-07-31 09:42 | NUR ---
NG DC'D PER ORDER, PT TOLERATED WELL, TIP INTACT
[2020-07-31 12:17] VITALS: BP 114/90
[2020-07-31 16:09] VITALS: BP 102/66
[2020-07-31 20:00] VITALS: BP 94/68
[2020-08-01] VITALS: BP 94/59
--- NOTE | 2020-08-01 03:07 | NUR ---
ASSESSED AT THE BEGINNING FO THE SHIFT, PT IS ALERT AND ORIENTED, ABLE TO VERBALIZE NEEDS. HE HAS AN ILEOSTOMY AND A GUTIERREZ CATH , HE IS ON ROOM AIR AND IS UP AD TAMY WHEN NEEDED. VERY PLEASANT AND COOPERATIVE. HIS BLOOD SUGAR WAS UP TO 240 AND HE RECEIVED 4 UNITS SQ. HE HAS BEEN RESTING WELL DURING THE NIGHT.
[2020-08-01 04:00] VITALS: BP 95/62
[2020-08-01 06:40] LABS: ALBUMIN 2.8 g/dL (3.4-5.0); ANION GAP 16.8 mmol/L (8-16); BILIRUBIN - TOTAL 0.14 mg/dL (0.2-1.3); CALCIUM 7.4 mg/dL (8.5-10.1); CARBON DIOXIDE 20.6 mmol/L (21.0-32.0); CREATININE - SERUM 1.7 mg/dL (0.6-1.3); POTASSIUM - SERUM 4.4 mmol/L (3.5-5.1); PROTEIN - SERUM 6.2 g/dL (6.4-8.2)
[2020-08-01 06:47] LABS: BASOPHILS 0.2 % (0-2); EOSINOPHILS 2.1 % (0-7); HEMATOCRIT 31.1 % (42.0-54.0); IMMATURE GRANULOCYTES 0.5 % (0-5); LYMPHOCYTE ABS# 0.83 10x3/uL (1.32-3.57); LYMPHOCYTES 13.5 % (15-50); MCH 29.9 pg (26.0-34.0); MCHC 32.2 g/dL (31.0-37.0); MCV 92.8 fL (80.0-100.0); MEAN PLATELET VOLUME 9.5 fL (7.4-10.4); MONOCYTES 12.6 % (2-11); NEUTROPHIL ABS# 4.36 10x3/uL (1.78-5.38); NEUTROPHILS 71.1 % (40-80); PLATELET COUNT 381 10x3/uL (130-400); RBC 3.35 10x6/uL (4.20-6.10); RDW 12.8 % (11.5-14.5)
[2020-08-01 06:50] LABS: MAGNESIUM - SERUM 1.5 mg/dL (1.8-2.4)
[2020-08-01 06:59] LABS: WBC 6.1 10x3/uL (4.8-10.8)
[2020-08-01 08:57] VITALS: BP 98/69
[2020-08-01 12:21] VITALS: BP 96/66
[2020-08-01] MEDS ORDERED: FLOMAX0.4 MG PO (12:28)
--- NOTE | 2020-08-01 15:34 | NUR ---
HELPED MOVE AROUND IN THE BED REFUSED TO WALK WITH PT TODAY
--- NOTE | 2020-08-01 15:56 | NUR ---
PATIENT CONTINUES TO SCREAM AT STAFF AND TRY TO EXIT ROOM BUT IS EASILY REORIENTED AND RETURNS TO ROOM.
[2020-08-01 16:48] VITALS: BP 100/57
--- NOTE | 2020-08-01 17:32 | NUR ---
GUTIERREZ OUT AT 1245, PATIENT HAS NOT VOIDED, BLADDER SCAN DONE AND 146 SHOWN, GIVEN 2 GLASSES ICE WATER AND ENCOURAGED TO DRINK.
[2020-08-01 20:07] VITALS: BP 118/90
--- NOTE | 2020-08-02 01:03 | NUR ---
ASSESSED AT THE BEGINNING OF THE SHIFT. PT IS ALERT AND ORIENTED, ABLE TO VERBALIZE NEEDS. HE NO LONGER HAS A GUTIERREZ AND WE ARE WAITING TO SEE IS HE IS GOING TO VOID ENOUGH TO KEEP FROM PUTTING IN A GUTIERREZ. HE HAS AN ILEOSTOMY THAT HE GETS UP AND CARES FOR HIMSELF BUT HE IS USING A URINAL FOR US TO MAKE SURE HE VOIDS ENOUGH. HE HAS VOIDED 100 CC'S THREE TIMES SO FAR AND STATES HE DOSEN'T FEEL LIKE HE HAS TO VOID. WE DISCUSSED PUTTING THE GUTIERREZ BACK WHICH HE DID NOT WANT BUT WE WILL SCAN HIS BLADDER BEFORE MORNING AND THEN MAKE THAT DECISION.
--- NOTE | 2020-08-02 05:12 | NUR ---
PT HAS VOIDED 2 MORE TIMES DURING THE NIGHT FOR 100 CC'S EACH. THAT MAKES A TOLTAL OF 500 CC'S SO FAR. A BLADDER SCAN SHOWED 467 STILL IN THE BLADDER BUT HE WAS NOT UNCOMFORTABLE AND DID NOT FEEL HE NEEDED TO VOID. TALKED WITH PATIENT ABOUT A GUTIERREZ BUT HE HAS REFUSED AT THIS TIME. HE HAS BEEN UP WALKING IN THE HALLWAY GETTING COFFEE.
[2020-08-02 05:27] LABS: BASOPHILS 0.3 % (0-2); EOSINOPHILS 1.7 % (0-7); HEMATOCRIT 35.6 % (42.0-54.0); HEMOGLOBIN 11.4 g/dL (13.5-17.5); IMMATURE GRANULOCYTES 0.4 % (0-5); LYMPHOCYTE ABS# 1.53 10x3/uL (1.32-3.57); LYMPHOCYTES 20.2 % (15-50); MCH 29.9 pg (26.0-34.0); MCV 93.4 fL (80.0-100.0); MEAN PLATELET VOLUME 9.9 fL (7.4-10.4); NEUTROPHIL ABS# 5.11 10x3/uL (1.78-5.38); NEUTROPHILS 67.4 % (40-80); PLATELET COUNT 410 10x3/uL (130-400); RBC 3.81 10x6/uL (4.20-6.10); RDW 12.9 % (11.5-14.5); WBC 7.6 10x3/uL (4.8-10.8)
[2020-08-02 05:46] LABS: ALBUMIN 3.2 g/dL (3.4-5.0); ANION GAP 15.8 mmol/L (8-16); BILIRUBIN - TOTAL 0.2 mg/dL (0.2-1.3); CALCIUM 7.9 mg/dL (8.5-10.1); CARBON DIOXIDE 20.5 mmol/L (21.0-32.0); CREATININE - SERUM 1.6 mg/dL (0.6-1.3); MAGNESIUM - SERUM 1.3 mg/dL (1.8-2.4); POTASSIUM - SERUM 4.3 mmol/L (3.5-5.1); PROTEIN - SERUM 7.8 g/dL (6.4-8.2)
[2020-08-02 06:39] VITALS: BP 100/73
--- NOTE | 2020-08-02 06:52 | NUR ---
PT HAS HAD A TOTAL OF 600 CC'S URINE 100 CC' S AT A TIME. HE IS DRINKING COFFE AND WILL TALK TO MD ABOUT GOING HOME BUT HE IS REFUSING A GUTIERREZ.
--- NOTE | 2020-08-02 08:04 | NUR ---
RESTING IN BED, NO DISTRESS NOTED, IV INFUSING, CONT TO MONITOR URINE OUTPUT
[2020-08-02 08:38] VITALS: BP 122/85
--- NOTE | 2020-08-02 11:18 | NUR ---
STUCK PT FOR BLOOD SUGAR, NOT ENOUGH BLOOD FOR SPECIMEN, ASK PT TO TRY HIMSELF TO SQUEEZE UP SOME BLOOD, PT STATES I DONT WANT YOU TO STICK ME AGAIN, UNABLE TO GET PT TO UNDERSTAND THAT I ONLY WANTED HIM TO ASSIST ME, PT ANGRY AND ACCUSING, HONEYCOMB BLANKET MAKER LEFT THE SITUATION AT THIS TIME
[2020-08-02 12:43] VITALS: BP 117/72
[2020-08-02] MEDS ORDERED: PROPECIA1 MG PO (13:03)
--- NOTE | 2020-08-02 13:41 | NUR ---
PATIENT ABLE TO GET UP TO BEDSIDE AND STAND INDEPENDENTLY. PATIENT DIDN'T WANT TO WALK AT THAT TIME HE SAID HE WANTED TO EAT LUNCH. PATIENT LOOKS VERY MOBILE.
--- NOTE | 2020-08-02 14:50 | NUR ---
REVIEWED D/C ORDERS WITH PT, VOICED NO CONCERNS, IV REMOVED, TIP INTACT, AWAITING RIDE
--- NOTE | 2020-08-02 14:59 | MORECARE ---
CASE MANAGEMENT DISCHARGE SUMMARY PATIENT: VALENTINA WEIR SR UNIT: [id number] ADM DATE: 07/30/20 AGE: 70 : 51 SEX: M ROOM/BED: D.2230 AUTHOR: IZABELLA,DOC PHYSICIAN: REFERRING PHYSICIAN: NAMRATA ULLOA MD DATE OF SERVICE: 08/02/20 Case Management Discharge Planning Summary CT Patient Name: VALENTINA WEIR Attending MD : RADHA ULLOA, Medical Record: [id number] Encounter : [id number] Facility : [address] [place] [address] Admission Date : 115:50 Center Discharge Date : [address] [place] [address] Date of : DC Plan ID : [id number] Age/Sex/Martia : 70/ M/W Printed on : 08/02/20 14:58 CT DCP Review Details Anticipated D/C: 08/02/2020 Expected LOS : 3 Case Status : INITIATED - Initial Reviewe: [id number] - Rene Carmona Initial Review: 07/30/2020 Planned Disposi: 01 - Home or Self Care (Routine Discharge) Final Discharge: - Final Reviewer : : Final Review : DCP Focus Questions & Answers [facility] VALENTINA WEIR MR#: [id number] /Age/Sex/[id number]-[id number]-08 /70/M /W Attending Physician Name: Samantha [id number] Patient Account:[id number] [facility] Page -1 of 1 All edits/amendments must be made on the electronic document DICTATION DATE: 08/02/201457 NURSERYMAN ASSISTANT: CATERINA 08/02/201457 RPT#: [id number] DC DATE: STATUS: ADM IN [facility] [address] [place] [address] END OF REPORT
--- NOTE | 2020-08-02 15:09 | NUR ---
TAKEN TO ER TO RIDE HOME
--- NOTE | 2020-08-02 15:13 | MORECARE ---
CASE MANAGEMENT DISCHARGE SUMMARY PATIENT: VALENTINA WEIR SR UNIT: [id number] ADM DATE: 07/30/20 AGE: 70 : 51 SEX: M ROOM/BED: D.2230 AUTHOR: IZABELLA,DOC PHYSICIAN: REFERRING PHYSICIAN: NAMRATA ULLOA MD DATE OF SERVICE: 08/02/20 Case Management Discharge Planning Summary CT Patient Name: VALENTINA WEIR Attending MD : RADHA ULLOA, Medical Record: [id number] Encounter : [id number] Facility : [address] [place] [address] Admission Date : 115:50 Center Discharge Date : 08/02/[address] [place] [address] Date of : DC Plan ID : [id number] Age/Sex/Martia : 70/ M/W Printed on : 08/02/20 15:12 CT DCP Review Details Anticipated D/C: 08/02/2020 Expected LOS : 3 Case Status : INITIATED - Initial Reviewe: [id number] - Rene Carmona Initial Review: 07/30/2020 Planned Disposi: 01 - Home or Self Care (Routine Discharge) Final Discharge: - Final Reviewer : : Final Review : Comments CT Entered Date Type Reviewer 08/02/20 15:12 CT Discharge Planning Rene Carmona Comment CM met with patient to complete DC plan and to evaluate needs. Patient stated he lives alone independently. Patient stated that his primary care physician is Franca Graff in [place]. At discharge, the patient plans to return home and feels this is a safe discharge. CM discussed availability of home health, rehab services, and medical equipment. Patient declined HHS, SNF, IPR, and DME. Patient voiced no other needs at this time and is satisfied with DC plan. Patient stated that he will be able to obtain medications and has no problems with transportation to acquire medications. DC IMM delivered, explained, signed by the patient, and placed in chart. Signed form also left with the patient. CM will continue to follow and will assist as needed with dc plans/needs. DCP Focus Questions & Answers DCP Evaluation Patient gives permission to discuss discharge Nella Sands, Sister, plans with: (name, relationship and number) Patient's ability to cope with chronic illness d. No chronic illness Patient's current cognitive status: *Oriented to person, place, situation, time and present Patient and/or caregiver agree upon recommended Yes discharge plan? Physical Status: Independent with ADL's Functional screen assessment: Basic needs can adequately be met by self Functional screen assessment: No issues identified Does the patient have the ability to pay for or Yes attain post discharge needs / services? Living Arrangements: Home Alone with Support Is there a likelihood that the patient will No require additional services to return to the preadmission environment? Equipment needed for post hospitalization: None Baseline cognitive status: *Oriented to person, place, situation, time and present Patient with capacity for self-care or can be Yes cared for in same environment as prior to hospitalization? Physical environment modification needed / No anticipated for discharge: Medication Management: Patient states can afford medications Medication Management: Patient states can read and understand medication labels [facility]): [facility] Does Patient have transportation to get home and Yes to follow-up medical appointments when discharged from the hospital? Would patient like to participate in any Care Not applicable Coordination programs (if applicable): Does the patient have electricity at home? Yes Does the patient have running water in their Yes house? Equipment in use: None Mental health screen: No mental health history DCP Re-evaluation Would patient like to participate in any Care Not applicable Coordination programs (if applicable): [facility] VALENTINA WEIR MR#: [id number] /Age/Sex/Vwqqzk25-Rmv-89 //M /W Attending Physician Name: LAILA [id number] Patient Account:[id number] [facility] Page -1 of 1 All edits/amendments must be made on the electronic document DICTATION DATE: 08/02/201511 UTILITY SPRAY OPERATOR: CATERINA 08/02/201511 RPT#: [id number] DC DATE:08/02/20 STATUS: DIS IN [facility] [address] [place] [address] END OF REPORT
--- NOTE | 2020-08-04 14:56 | MORECARE ---
CASE MANAGEMENT DISCHARGE SUMMARY PATIENT: VALENTINA WEIR SR UNIT: [id number] ADM DATE: 07/30/20 AGE: 70 : 51 SEX: M ROOM/BED: D.2230 AUTHOR: IZABELLA,DOC PHYSICIAN: REFERRING PHYSICIAN: NAMRATA ULLOA MD DATE OF SERVICE: 08/04/20 Case Management Discharge Planning Summary CT Patient Name: VALENTINA WEIR Attending MD : RADHA ULLOA, Medical Record: [id number] Encounter : [id number] Facility : [address] [place] [address] Admission Date : 115:50 Center Discharge Date : 08/02/[address] [place] [address] Date of : DC Plan ID : [id number] Age/Sex/Martia : 70/ M/W Printed on : 08/04/20 14:54 CT DCP Review Details Anticipated D/C: 08/02/2020 Expected LOS : 3 Case Status : INITIATED - Initial Reviewe: [id number] - Rene Carmona Initial Review: 07/30/2020 Planned Disposi: 01 - Home or Self Care (Routine Discharge) Final Discharge: - Final Reviewer : : Final Review : Comments CT Entered Date Type Reviewer 08/02/20 15:12 CT Discharge Planning Rene Carmona Comment CM met with patient to complete DC plan and to evaluate needs. Patient stated he lives alone independently. Patient stated that his primary care physician is Franca Graff in [place]. At discharge, the patient plans to return home and feels this is a safe discharge. CM discussed availability of home health, rehab services, and medical equipment. Patient declined HHS, SNF, IPR, and DME. Patient voiced no other needs at this time and is satisfied with DC plan. Patient stated that he will be able to obtain medications and has no problems with transportation to acquire medications. DC IMM delivered, explained, signed by the patient, and placed in chart. Signed form also left with the patient. CM will continue to follow and will assist as needed with dc plans/needs. DCP Focus Questions & Answers DCP Evaluation Patient and/or caregiver agree upon recommended Yes discharge plan? Patient's current cognitive status: *Oriented to person, place, situation, time and present Patient's ability to cope with chronic illness d. No chronic illness Patient gives permission to discuss discharge Sister Baig, plans with: (name, relationship and number) Does the patient have the ability to pay for or Yes attain post discharge needs / services? Functional screen assessment: No issues identified Functional screen assessment: Basic needs can adequately be met by self Physical Status: Independent with ADL's Equipment needed for post hospitalization: None Is there a likelihood that the patient will No require additional services to return to the preadmission environment? Living Arrangements: Home Alone with Support Patient with capacity for self-care or can be Yes cared for in same environment as prior to hospitalization? Baseline cognitive status: *Oriented to person, place, situation, time and present Physical environment modification needed / No anticipated for discharge: Medication Management: Patient states can read and understand medication labels Medication Management: Patient states can afford medications [facility] name(s): [facility] Does Patient have transportation to get home and Yes to follow-up medical appointments when discharged from the hospital? Would patient like to participate in any Care Not applicable Coordination programs (if applicable): Does the patient have electricity at home? Yes Does the patient have running water in their Yes house? Equipment in use: None Mental health screen: No mental health history DCP Re-evaluation Would patient like to participate in any Care Not applicable Coordination programs (if applicable): [facility] VALENTINA WEIR MR#: [id number] /Age/Sex/Iuqoze01-Jtz-27 //M /W Attending Physician Name: LAILA [id number] Patient Account:[id number] [facility] Page -1 of 1 All edits/amendments must be made on the electronic document DICTATION DATE: 08/04/201453 DIVORCE LAWYER: CATERINA 08/04/201453 RPT#: [id number] DC DATE:08/02/20 STATUS: DIS IN [facility] [address] [place] [address] END OF REPORT
== END 2020-08-02 15:09 | disposition home or self-care (01) | DRG 389 ==
LOC: D.ER 12:04 → D.MS 15:50
PROVIDERS: Emergency Medicine; ADMIT Family Medicine; ATTEND Family Medicine
DX: K56.601 Complete intestinal obstruction, unspecified as to cause (principal); N17.9 Acute kidney failure, unspecified; K91.2 Postsurgical malabsorption, not elsewhere classified; N39.0 Urinary tract infection, site not specified; Z68.1 Body mass index [BMI] 19.9 or less, adult; R33.9 Retention of urine, unspecified; R62.7 Adult failure to thrive; N18.9 Chronic kidney disease, unspecified; E87.5 Hyperkalemia

== ENCOUNTER 2020-09-26 12:59 | Inpatient (IN) | payer MEDICARE, MEDICAID ==
[~2020-09-26] VITALS: Ht 180.3 cm; Wt 62.7 kg
[~2020-09-26 12:59] MED LIST changes: +PROPECIA1 MG PO; +VITAMIN A10000 UNIT PO
[2020-09-26 13:34] LABS: BASOPHILS 0.2 % (0-2); EOSINOPHILS 0.3 % (0-7); HEMATOCRIT 41.5 % (42.0-54.0); HEMOGLOBIN 13.8 g/dL (13.5-17.5); LYMPHOCYTES 5.6 % (15-50); MCH 30.1 pg (26.0-34.0); MCHC 33.3 g/dL (31.0-37.0); MCV 90.6 fL (80.0-100.0); MEAN PLATELET VOLUME 8.2 fL (7.4-10.4); MONOCYTES 14.2 % (2-11); NEUTROPHILS 79.7 % (40-80); RBC 4.58 10x6/uL (4.20-6.10); RDW 14.7 % (11.5-14.5); WBC 14.1 10x3/uL (4.8-10.8)
[2020-09-26 13:42] LABS: ANION GAP 26.4 mmol/L (8-16); CARBON DIOXIDE 13.4 mmol/L (21.0-32.0); CREATININE - SERUM 4.7 mg/dL (0.6-1.3); POTASSIUM - SERUM 3.8 mmol/L (3.5-5.1)
[2020-09-26 13:45] LABS: PLATELET COUNT 301 10x3/uL (130-400)
[2020-09-26 13:47] LABS: ALBUMIN 4.1 g/dL (3.4-5.0); BILIRUBIN - TOTAL 1.26 mg/dL (0.2-1.3); PROTEIN - SERUM 9.7 g/dL (6.4-8.2)
[2020-09-26 19:20] VITALS: BP 124/92
--- NOTE | 2020-09-26 19:23 | NUR ---
PT ASSISTED UP TO BEDSIDE TO EMPTY COLOSTOMY BAG. APPROX 400 ML DARK GREEN LIQUID EMPTIED FROM BAG.
--- NOTE | 2020-09-26 20:10 | NUR ---
PT SECOND BAG OF LR FINISHED
[2020-09-26 20:33] LABS: BILIRUBIN NEGATIVE (NEGATIVE); KETONE NEGATIVE (NEGATIVE); NITRITE NEGATIVE (NEGATIVE); UROBILINOGEN NORMAL mg/dL (< 2)
--- NOTE | 2020-09-26 20:37 | NUR ---
PT IV FREDO FINISHED
--- NOTE | 2020-09-26 20:50 | NUR ---
PT IV CALCIUM CHLORIDE FINISHED.
--- NOTE | 2020-09-26 20:59 | NUR ---
PT TO ROOM 2105 VIA STRETCHER ACCOMPANIED BY HOSPITAL STAFF.
[2020-09-26 21:15] VITALS: BP 116/90
[2020-09-26 22:08] VITALS: BP 116/90; BMI 18.5
[2020-09-26] MEDS ORDERED: CARAFATE1 G PO (22:55)
[2020-09-26] MEDS ORDERED: CYCLOBENZAPRINE10 MG PO (22:56)
[2020-09-26] MEDS ORDERED: TYLENOL W/CODEI1 TAB PO (22:57)
[2020-09-26 23:31] VITALS: BP 109/84
[2020-09-27 03:59] VITALS: BP 105/81
--- NOTE | 2020-09-27 04:14 | NUR ---
PT C/O ABDOMINAL PAIN OF 10, ON A SCALE OF 0-10. PRN MORPHINE ADMINISTERED, PER ORDERS.
[2020-09-27 06:42] LABS: BASOPHILS 0.3 % (0-2); EOSINOPHILS 0.4 % (0-7); HEMATOCRIT 38.4 % (42.0-54.0); HEMOGLOBIN 12.7 g/dL (13.5-17.5); LYMPHOCYTES 7.4 % (15-50); MCH 30.2 pg (26.0-34.0); MCHC 33.1 g/dL (31.0-37.0); MCV 91.2 fL (80.0-100.0); MEAN PLATELET VOLUME 8.9 fL (7.4-10.4); MONOCYTES 16.6 % (2-11); NEUTROPHILS 75.3 % (40-80); PLATELET COUNT 288 10x3/uL (130-400); RBC 4.21 10x6/uL (4.20-6.10); RDW 14.2 % (11.5-14.5); WBC 10.9 10x3/uL (4.8-10.8)
[2020-09-27 06:52] LABS: UDS - AMPHET NEGATIVE QUAL (NEGATIVE); UDS - BARB NEGATIVE QUAL (NEGATIVE); UDS - BENZO NEGATIVE QUAL (NEGATIVE); UDS - COCAINE NEGATIVE QUAL (NEGATIVE); UDS - OPIATE POSITIVE QUAL (NEGATIVE); UDS - PCP NEGATIVE QUAL (NEGATIVE); UDS - THC NEGATIVE QUAL (NEGATIVE)
--- NOTE | 2020-09-27 07:00 | NUR ---
RECIEVED REPORT. ASSUMED CARE OF PATIENT. PATIENT LYING IN BED WITH EYES OPEN, RESP EVEN AND UNLABORED. PATIENT ASKING FOR FOOD, STATES HE HASN'T EATEN IN 3 DAYS. INFORMED PATIENT HE IS STILL NPO DUE TO SBO. IV FLUIDS INFUSING ORDERED. WHITE BOARD UPDATED, BEDSIDE SHIFT REPORT COMPLETE. NO DISTRESS.
[2020-09-27 07:13] LABS: APTT 30.2 SECONDS (22.8-39.4); INR 1.08 (0.85-1.17)
[2020-09-27 07:28] LABS: ALBUMIN 3.4 g/dL (3.4-5.0); ALKALINE PHOSPHATASE 88 U/L (30-120); ALT (SGPT) 32 U/L (10-68); BILIRUBIN - TOTAL 1.05 mg/dL (0.2-1.3); CHLORIDE - SERUM 93 mmol/L (98-107); CKMB 9.5 U/L (0.0-3.6); CREATININE - SERUM 5.1 mg/dL (0.6-1.3); GLUCOSE 97 mg/dL (74-106); LIPASE 56 U/L (73-393); POTASSIUM - SERUM 3.4 mmol/L (3.5-5.1); PROTEIN - SERUM 8.5 g/dL (6.4-8.2); SODIUM 132 mmol/L (136-145); TROPONIN-I < 0.017 ng/mL (0.000-0.060); eGFR NON AFRICAN AMERICAN 12 mL/min (90-120)
[2020-09-27 08:18] LABS: CALC OSMOLALITY 276 mosm/kg (275-300); CALCIUM 6.8 mg/dL (8.5-10.1); CREATINE KINASE 1534 UL (21-232); UREA NITROGEN 47 mg/dL (7-18)
[2020-09-27 08:25] VITALS: BP 112/83
[2020-09-27 08:53] VITALS: BMI 18.5
[2020-09-27 10:52] VITALS: Ht 180.3 cm; Wt 62.7 kg
--- NOTE | 2020-09-27 12:38 | NUR ---
RESTING IN BED WITH EYES CLOSED, NOW HAPPY THAT HE WAS PROVIDED NOON MEAL TRAY. NO DISTRESS. IV SUPPLEMENTS CONTINUE TO INFUSE AT THIS TIME.
[2020-09-27 15:56] VITALS: BP 105/80
[2020-09-27 20:09] VITALS: BP 104/72
--- NOTE | 2020-09-27 22:10 | NUR ---
INITIAL ROUNDS COMPLETED AT 191 HRS. LEMON OSAGE SODA AND A VIRGILIOWICH GINVE PER REQUEST. ASSESSMENT COMPLETED AT 1954 HRS. VSS. SR PER CM HR 90. ALERT AND ORIENTED TO PRESON, PLACE AND TIME. [place]. PALPABLE PERIPHERAL PULSES. IV TO LFA WITH BICARB AT 100CC/HR. IV PATENT. LUNGS ESSENTIALLY CTA. ILEOSTOMY NOTED. PT CURRENTLY WATCHING TV. CALL LIGHT WITHIN REACH.
[2020-09-28 00:01] VITALS: BP 94/67
--- NOTE | 2020-09-28 00:20 | NUR ---
PT RESTING WITH EYES CLOSED. RESP EVEN AND REGULAR. CALL LIGHT WITHIN REACH.
--- NOTE | 2020-09-28 02:14 | NUR ---
PT RESTING WITH EYES CLOSED. RESP EVEN AND REGULAR. CALL LIGHT WITHIN REACH.
--- NOTE | 2020-09-28 04:33 | NUR ---
PT AWAKE. VSS. NO DISTRESS NOTED. CALL LIGHT WITHIN REACH.
[2020-09-28 04:49] VITALS: BP 112/44
--- NOTE | 2020-09-28 06:06 | NUR ---
VSS THROUGHOUT NIGHT. PT STATED IV MORPHINE MADE HIS PAIN TOLERABLE. NEEDS MET; WILL CONTINUE TO MONITOR.
--- NOTE | 2020-09-28 07:00 | NUR ---
RECEIVED REPORT. ASSUMED CARE OF PATIENT. PATIENT RESTING WITH EYES OPEN, NO DISTRESS. DENIES NEEDS. WHITE BOARD UPDATED, BEDSIDE SHIFT REPORT COMPLETE. CALL LIGHT WITHIN REACH.
--- NOTE | 2020-09-28 07:33 | NUR ---
TEMPERATURE LOGGING OPERATOR REPORTS THAT PATIENT VERY RUDE AND DEMANDED THAT SHE GET OUT OF HIS ROOM WHILE SHE WAS TRYING TO TAKE HIS BLOOD PRESSURE THIS AM. TEMPERATURE LOGGING OPERATOR STATES THAT PATIENT STARTING PULLING ARM OUT OF BP CUFF IT WAS INFLATING AND TEMPERATURE LOGGING OPERATOR TRYING TO GUIDE PATIENT WITH DIRECTION OF LEAVING ARM STILL TO GET AN ACCURATE READING ON HIS BLOOD PRESSURE AND STATES THAT THE PATIENT "FLIPPED OUT" AND STARTED SCREAMING AT HER AND BECOMING RUDE AND DEMANDED SHE LEAVE HIS ROOM. SIMILAR INCIDENT OCCURED WITH THIS MOUNTER SOUSAPHONES YESTERDAY WHEN ASKING PATIENT TO SIT AND REST WHILE HE WAS UP WALKING IN ROOM HE WAS VERY TACHYCARDIAC (144). PATIENT BECAME BELIGERENT AND TOLD THIS MOUNTER SOUSAPHONES TO GET OUT OF HIS ROOM THAT HE DOESN'T HAVE TO DEAL WITH ANYONE ATTITUDE. EPISODE ONLY LASTED A FEW SECONDS AND PATIENT BEHAVIOR RETURNED TO CALM, COOPERATIVE, VERY PLEASANT. WILL CONTINUE TO MONITOR FOR BEHAVIORAL OUTBURSTS.
[2020-09-28 08:00] VITALS: BP 104/62
[2020-09-28 11:08] LABS: BASOPHILS 0.5 % (0-2); EOSINOPHILS 1.4 % (0-7); HEMATOCRIT 34.4 % (42.0-54.0); HEMOGLOBIN 11.5 g/dL (13.5-17.5); MCH 30.4 pg (26.0-34.0); MCHC 33.4 g/dL (31.0-37.0); MCV 90.8 fL (80.0-100.0); MEAN PLATELET VOLUME 9.3 fL (7.4-10.4); MONOCYTES 18.4 % (2-11); NEUTROPHILS 71.7 % (40-80); PLATELET COUNT 260 10x3/uL (130-400); RBC 3.79 10x6/uL (4.20-6.10); WBC 9.6 10x3/uL (4.8-10.8)
[2020-09-28 11:10] LABS: CREATININE - SERUM 4.8 mg/dL (0.6-1.3); POTASSIUM - SERUM 3.7 mmol/L (3.5-5.1)
[2020-09-28 11:11] LABS: ANION GAP 12.7 mmol/L (8-16)
[2020-09-28 11:14] LABS: CALCIUM 6.4 mg/dL (8.5-10.1)
[2020-09-28 12:00] VITALS: BP 96/73
[2020-09-28 12:47] LABS: PHOSPHOROUS 5.8 mg/dL (2.5-4.9)
--- NOTE | 2020-09-28 13:35 | NUR ---
20 GAUGE IV PLACED TO RIGHT FOREARM X 1 STICK. GOOD BLOOD RETURN, EASY FLUSH. TAPED, DATED AND SECURED. PATIENT TOLERATED IV PLACEDMENT WELL. IV FLUIDS INFUSING ORDERED AT THIS TIME. NO DISTRESS. 20 GAUGE IV REMOVED FROM LEFT FOREARM, UNABLE TO FLUSH IV. CATHETER TIP INTACT. NO BLEEDING FROM SITE, 2X2 GAUZE APPLIED AND SECURED WITH TAPE. PATIENT TOLERATED IV REMOVAL WELL. NO DISTRESS.
[2020-09-28 16:00] VITALS: BP 93/66
[2020-09-28 21:00] VITALS: BP 99/66
--- NOTE | 2020-09-28 22:17 | NUR ---
INITIAL ROUNDS COMPLETED A 1914 HRS. PT RESTING WITH EYES CLOSED. RESP EVEN AND REGULAR. ASSESSMENT COMPLETED AT 1954 HRS. VSS. SR PER CMHR 90. ALERT AND ORIENTED TO PERSON,PLACE AND TIME. [place]. PALPABLE PERIPHERAL PULSES. LUNGS ESSENTIALLY CTA. ILEOSTOMY NOTED. IV TO RFA WITH NS AT 100CC/HR. IV PATENT. PM MEDS GIVEN. PT CURRENTLY WATCHING TV. CALL LIGHT WITHIN REACH.
[2020-09-29] VITALS (7 sets, daily range): BP systolic 97–153; BP diastolic 56–73
--- NOTE | 2020-09-29 00:30 | NUR ---
PT RESTING WITH EYES CLOSED. RESP EVEN AND REGULAR. CALL LIGHT WITHIN REACH.
--- NOTE | 2020-09-29 03:17 | NUR ---
PT RESTING WITH EYES CLOSED. RESP EVEN AND REGULAR. CALL LIGHT WITHIN REACH.
--- NOTE | 2020-09-29 05:55 | NUR ---
VSS THROUGHOUT NSHIFT. PT DENIED ANY DISCOMFORT. NEEDS MET; WILL CONTINUE TO MONITOR.
[2020-09-29 06:45] LABS: BASOPHILS 0.1 % (0-2); EOSINOPHILS 1.4 % (0-7); LYMPHOCYTES 11.6 % (15-50); MCH 30.2 pg (26.0-34.0); MCHC 33.3 g/dL (31.0-37.0); MCV 90.7 fL (80.0-100.0); MEAN PLATELET VOLUME 9.4 fL (7.4-10.4); MONOCYTES 19.1 % (2-11); NEUTROPHILS 67.8 % (40-80); PLATELET COUNT 246 10x3/uL (130-400); RBC 3.64 10x6/uL (4.20-6.10); RDW 13.7 % (11.5-14.5); WBC 7.2 10x3/uL (4.8-10.8)
--- NOTE | 2020-09-29 07:00 | NUR ---
RECEIVED REPORT. ASSUMED CARE OF PATIENT. PATIENT UP AMBULATING IN ROOM. WHITE BOARD UPDATED, BEDSIDE SHIFT REPORT COMPLETE. NO DISTRESS.
[2020-09-29 07:25] LABS: CARBON DIOXIDE 29.6 mmol/L (21.0-32.0); MAGNESIUM - SERUM 1.8 mg/dL (1.8-2.4)
[2020-09-29 07:26] LABS: ANION GAP 16.5 mmol/L (8-16); CREATININE - SERUM 3.4 mg/dL (0.6-1.3); POTASSIUM - SERUM 3.1 mmol/L (3.5-5.1)
[2020-09-29 07:30] LABS: CALCIUM 6.5 mg/dL (8.5-10.1)
--- NOTE | 2020-09-29 10:45 | NUR ---
COLOSTOMY SUPPLIES PROVIDED TO PATIENT. PATIENT DOES SELF CARE ON ILEOSTOMY AND REQUESTED NEW WAFFER. PATIENT THANKED THIS NURSE FOR SUPPLIES PROVIDED.
--- NOTE | 2020-09-29 15:20 | NUR ---
SCDS REFUSED. PATIENT INFORMED OF WHY WE USE SCDs, PATIENT STATES HE DOES NOT WANT THEM BECAUSE HE LIKE TO WALK AROUND IN THE ROOM AND THEY GET IN HIS WAY. PATIENT VERBALIZED UNDERSTANDING OF SCD USE AND CONTINUE TO REFUSE BILATERAL SCDs.
--- NOTE | 2020-09-29 20:00 | NUR ---
REPORT RECEIVED. PT A&O, UP IN BED WATCHING TV. NO S/S OF DISTRESS OBSERVED. RR EVEN & UNLABORED ON RA. SR 74 ON TELE. IV TO R FA WITH NS INFUSING AT 100. BED LOCKED AND LOWERED, CL IN REACH. ASSESSMENT COMPLETE. WILL CONT POC.
[2020-09-30 04:00] VITALS: BP 107/74
[2020-09-30 05:15] LABS: BASOPHILS 0.3 % (0-2); EOSINOPHILS 2.7 % (0-7); HEMATOCRIT 30.5 % (42.0-54.0); HEMOGLOBIN 10.1 g/dL (13.5-17.5); LYMPHOCYTES 16.1 % (15-50); MCH 30.4 pg (26.0-34.0); MCHC 33.2 g/dL (31.0-37.0); MCV 91.7 fL (80.0-100.0); NEUTROPHILS 60.9 % (40-80); PLATELET COUNT 246 10x3/uL (130-400); RBC 3.33 10x6/uL (4.20-6.10); RDW 13.7 % (11.5-14.5); WBC 5.9 10x3/uL (4.8-10.8)
[2020-09-30 05:37] LABS: CALCIUM 7.1 mg/dL (8.5-10.1); CARBON DIOXIDE 27.2 mmol/L (21.0-32.0); CREATININE - SERUM 2.8 mg/dL (0.6-1.3); MAGNESIUM - SERUM 1.7 mg/dL (1.8-2.4); POTASSIUM - SERUM 3.2 mmol/L (3.5-5.1)
[2020-09-30 07:55] VITALS: BP 119/79
--- NOTE | 2020-09-30 12:24 | NUR ---
Nutrition Reassessment/Follow-up: Eating well. Ate 100% of breakfast this AM. Denies N/V, chewing/swallowing difficulties. Diet: Regular PO intake: 75-100% Wt: 138# (09/29)BMI: 19.2 Labs noted: Na 132, K+ 3.2, BUN 29, Cre 2.8, GFR 29, Ca 7.1, Mg 1.7 Meds noted: Tums, vit D, Calcitriol, electrolyte protocol Est needs: 0279-9405 kcal/day (25-35 kcal/kg) 40-50 g protein/day (0.6-0.8 g/kg) 9011-3357 mL fluid/day (1 mL/kcal) or per MD Nutrition Diagnosis: -Using the following GLIM criteria, pt assessed with moderate malnutrition: 1. Phenotypic -Low BMI -BMI 19.2 in a 70 year old 2. Etiologic -Inflammation -CKD, short gut syndrome Nutrition Goals: -PO intake >=75% avg of meals/snacks. -Stable dry wt. Nutrition Intervention: -Encourage PO intake and honor food preferences. -+Ensure BID. -Monitor wt. -RD will follow up within 7 days if pt still admitted.
[2020-09-30 21:04] VITALS: BP 102/70
--- NOTE | 2020-09-30 23:08 | NUR ---
RESTING IN ROOM. PLEASANT. DENIES ANY C/O AT PRESENT. UP AD TAMY TO BATHROOM.
[2020-10-01 00:14] VITALS: BP 97/71
[2020-10-01 04:36] VITALS: BP 105/59
[2020-10-01 05:25] LABS: BASOPHILS 0.5 % (0-2); RBC 3.65 10x6/uL (4.20-6.10)
[2020-10-01 05:29] LABS: EOSINOPHILS 3.9 % (0-7); HEMATOCRIT 33.7 % (42.0-54.0); LYMPHOCYTES 13.3 % (15-50); MCH 30.2 pg (26.0-34.0); MCHC 32.8 g/dL (31.0-37.0); MCV 92.3 fL (80.0-100.0); MEAN PLATELET VOLUME 8.7 fL (7.4-10.4); MONOCYTES 12.9 % (2-11); NEUTROPHILS 69.4 % (40-80); RDW 13.9 % (11.5-14.5)
[2020-10-01 05:35] LABS: PLATELET COUNT 298 10x3/uL (130-400); WBC 8.1 10x3/uL (4.8-10.8)
[2020-10-01 05:38] LABS: ANION GAP 15.9 mmol/L (8-16); CALCIUM 8.1 mg/dL (8.5-10.1); CARBON DIOXIDE 27.3 mmol/L (21.0-32.0); CREATININE - SERUM 2.5 mg/dL (0.6-1.3); MAGNESIUM - SERUM 1.8 mg/dL (1.8-2.4); POTASSIUM - SERUM 3.2 mmol/L (3.5-5.1)
--- NOTE | 2020-10-01 07:00 | NUR ---
PT LYING IN BED WITH EYES CLOSED. RESP EVEN AND UNLABORED. AAO X4. DENIES NEEDS AT THIS TIME. CLIR. BED IN LOWEST POSITION. SIDE RAILS X2
[2020-10-01 08:10] VITALS: BP 95/66
[2020-10-01] MEDS ORDERED: TUMS PO (08:50)
[2020-10-01] MEDS ORDERED: MAG-OX 400 MG400 MG PO (08:50)
[2020-10-01] MEDS ORDERED: ROCALTROL0.25 MCG PO (08:51)
[2020-10-01] MEDS ORDERED: VITAMIN D325 MC1 PO (08:51)
[2020-10-01] MEDS ORDERED: VITAMIN D21250 MC1 PO (08:51)
--- NOTE | 2020-10-01 09:23 | NUR ---
I have reviewed this patient and I concur with the Shift Assessment completed by the Licensed Practical Nurse today this shift.
--- NOTE | 2020-10-01 11:19 | NUR ---
PT DISCHARGED HOME WITH FAMILY MEMBER. DISCHARGE INSTRUCTIONS PROVIDED VERBALLY AND WRITTEN. PT VERBALIZED UNDERSTANDING. IV DC. IV CATH TIP INTACT.
--- NOTE | 2020-10-01 11:50 | MORECARE ---
CASE MANAGEMENT DISCHARGE SUMMARY PATIENT: VALENTINA WEIR SR UNIT: [id number] ADM DATE: 09/26/20 AGE: 70 : 51 SEX: M ROOM/BED: D.2105 AUTHOR: IZABELLA,DOC PHYSICIAN: REFERRING PHYSICIAN: JERMAIN ORTIZ MD DATE OF SERVICE: 10/01/20 Case Management Discharge Planning Summary DCP REVIEW SUMMARY ANTICIPATED D/C DATE: 10/01/2020 EXPECTED LOS : 5 CASE STATUS: DCP Initiated INITIAL REVIEW: 09/26/2020 INITIAL REVIEWER: Bri Argueta FINAL DISCHARGE DISPOSITION: 01 : Home or Self Care (Routine Discharge) FINAL REVIEWER: FINAL REVIEW DATE: DCP Focus Questions & Answers DCP Evaluation QUESTION: ANSWER Patient's ability to cope with chronic illness : d. No chronic illness Patient's current cognitive status: : *Oriented to person, place, situation, time and present Family / Caregiver's ability to cope with chronic illness: : a. Adequate (ability to meet patient's medical needs, ensures patient attends medical appts.) Patient and/or caregiver agree upon recommended discharge plan? : Yes Physical Status: : Independent with ADL's Family / Caregiver's ability to cope with chronic illness: : a. Adequate (ability to meet patient's medical needs, ensures patient attends medical appts.) Functional screen assessment: : Basic needs can adequately be met by self Does the patient have the ability to pay for or attain post discharge needs / services? : N/A Living Arrangements: : Home Alone with Support Is there a likelihood that the patient will require additional services to return to the preadmission environment? : N/A Equipment needed for post hospitalization: : None Baseline cognitive status: : *Oriented to person, place, situation, time and present Patient with capacity for self-care or can be cared for in same environment as prior to hospitalization? 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 : N/A Does Patient have transportation to get home and to follow-up medical appointments when discharged from the hospital? : Yes Planned post hospital services covered by insurance plan? : N/A Would patient like to participate in any Care Coordination programs (if applicable): : Not applicable Does the patient have electricity at home? : Yes Does the patient have running water in their house? : Yes Equipment in use: : None Mental health screen: : No mental health history Psychosocial status: : Independent adult (65+) Abuse/Neglect: : None Resources / Services in place: : None DCP Re-evaluation QUESTION: ANSWER Would patient like to participate in any Care Coordination programs (if applicable): : Not applicable PATIENT: VALENTINA WEIR ENCOUNTER: [id number] MEDICAL RECORD#: [id number] ADMISSION DATE: 09/26/2020 DISCHARGE DATE: 10/01/2020 ATTENDING MD: JERMAIN ANDREW : AGE: 70 MARITAL STATUS: W DC PLAN ID: [id number] FACILITY: [facility] PRINTED ON: 10/01/20 11:50 CT All edits/amendments must be made on the electronic document DICTATION DATE: 10/01/20 115 RENEWABLE ENERGY TRADER: CATERINA 10/01/20 1150 RPT#: [id number] DC DATE:10/01/20 STATUS: DIS IN [facility] [address] [place] [address] END OF REPORT
--- NOTE | 2020-10-01 12:01 | MORECARE ---
CASE MANAGEMENT DISCHARGE SUMMARY PATIENT: VALENTINA WEIR SR UNIT: [id number] ADM DATE: 09/26/20 AGE: 70 : 51 SEX: M ROOM/BED: D.2105 AUTHOR: IZABELLA,DOC PHYSICIAN: REFERRING PHYSICIAN: JERMAIN ORTIZ MD DATE OF SERVICE: 10/01/20 Case Management Discharge Planning Summary COMMENTS ENTERED DATE: 10/01/20 11:45 CT COMMENT TYPE: Discharge Planning REVIEWER: Bri Argueta CM met with patient to complete discharge planning assessment and offer availability of needed services. Patient states that he lives independently at home prior to admission. Pt verified that home environment is safe and has electricity and running water. Patient denies need for transportation and states that he has funds for services and medications if needed. PCP is Maddy and patient uses [facility]. CM offered and discussed home health, rehab services, and need for any medical equipment. Patient did not express need for offered services at this time.Transportation home will be provided by domingo Mehean if she is available, otherwise he will use the [facility] services. Patient verbalized understanding of signed form. IMM served signed copy placed on chart. Pt verbalized understanding of DCP and is agreeable. DCP REVIEW SUMMARY ANTICIPATED D/C DATE: 10/01/2020 EXPECTED LOS : 5 CASE STATUS: DCP Initiated INITIAL REVIEW: 09/26/2020 INITIAL REVIEWER: Bri Argueta FINAL DISCHARGE DISPOSITION: 01 : Home or Self Care (Routine Discharge) FINAL REVIEWER: FINAL REVIEW DATE: DCP Focus Questions & Answers DCP Evaluation QUESTION: ANSWER Patient's ability to cope with chronic illness : d. No chronic illness Patient's current cognitive status: : *Oriented to person, place, situation, time and present Family / Caregiver's ability to cope with chronic illness: : a. Adequate (ability to meet patient's medical needs, ensures patient attends medical appts.) Patient and/or caregiver agree upon recommended discharge plan? : Yes Physical Status: : Independent with ADL's Family / Caregiver's ability to cope with chronic illness: : a. Adequate (ability to meet patient's medical needs, ensures patient attends medical appts.) Functional screen assessment: : Basic needs can adequately be met by self Does the patient have the ability to pay for or attain post discharge needs / services? : N/A Living Arrangements: : Home Alone with Support Is there a likelihood that the patient will require additional services to return to the preadmission environment? : N/A Equipment needed for post hospitalization: : None Baseline cognitive status: : *Oriented to person, place, situation, time and present Patient with capacity for self-care or can be cared for in same environment as prior to hospitalization? : Yes Results of this evaluation have been discussed with: : Patient Physical environment modification needed / anticipated for discharge: : N/A Medication Management: : Patient states can afford medications Medication Management: : Patient states they do have transportation to spanish moss picker medications Pharmacy name(s): : [facility] Planned post hospital services available for patient? : N/A Does Patient have transportation to get home and to follow-up medical appointments when discharged from the hospital? : Yes Planned post hospital services covered by insurance plan? : N/A Would patient like to participate in any Care Coordination programs (if applicable): : Not applicable Does the patient have electricity at home? : Yes Does the patient have running water in their house? : Yes Equipment in use: : None Mental health screen: : No mental health history Psychosocial status: : Independent adult (65+) Abuse/Neglect: : None Resources / Services in place: : None DCP Re-evaluation QUESTION: ANSWER Would patient like to participate in any Care Coordination programs (if applicable): : Not applicable PATIENT: VALENTINA WEIR ENCOUNTER: [id number] MEDICAL RECORD#: [id number] ADMISSION DATE: 09/26/2020 DISCHARGE DATE: 10/01/2020 ATTENDING MD: JERMAIN ANDREW : AGE: 70 MARITAL STATUS: W DC PLAN ID: [id number] FACILITY: [facility] PRINTED ON: 10/01/20 12:01 CT All edits/amendments must be made on the electronic document DICTATION DATE: 10/01/201200 COFFEE HOST: CATERINA 10/01/201200 RPT#: [id number] DC DATE:10/01/20 STATUS: DIS IN [facility] [address] [place] [address] END OF REPORT
--- NOTE | 2020-10-01 21:43 | MORECARE ---
CASE MANAGEMENT DISCHARGE SUMMARY PATIENT: VALENTINA WEIR SR UNIT: [id number] ADM DATE: 09/26/20 AGE: 70 : 51 SEX: M ROOM/BED: D.2105 AUTHOR: IZABELLA,DOC PHYSICIAN: REFERRING PHYSICIAN: JERMAIN ORTIZ MD DATE OF SERVICE: 10/01/20 Case Management Discharge Planning Summary COMMENTS ENTERED DATE: 10/01/20 11:45 CT COMMENT TYPE: Discharge Planning REVIEWER: Bri Argueta CM met with patient to complete discharge planning assessment and offer availability of needed services. Patient states that he lives independently at home prior to admission. Pt verified that home environment is safe and has electricity and running water. Patient denies need for transportation and states that he has funds for services and medications if needed. PCP is Maddy and patient uses [facility]. CM offered and discussed home health, rehab services, and need for any medical equipment. Patient did not express need for offered services at this time.Transportation home will be provided by domingo Meehan if she is available, otherwise he will use the [facility] services. Patient verbalized understanding of signed form. IMM served signed copy placed on chart. Pt verbalized understanding of DCP and is agreeable. DCP REVIEW SUMMARY ANTICIPATED D/C DATE: 10/01/2020 EXPECTED LOS : 5 CASE STATUS: DCP Initiated INITIAL REVIEW: 09/26/2020 INITIAL REVIEWER: Bri Argueta FINAL DISCHARGE DISPOSITION: 01 : Home or Self Care (Routine Discharge) FINAL REVIEWER: FINAL REVIEW DATE: DCP Focus Questions & Answers DCP Evaluation QUESTION: ANSWER Family / Caregiver's ability to cope with chronic illness: : a. Adequate (ability to meet patient's medical needs, ensures patient attends medical appts.) Patient's ability to cope with chronic illness : d. No chronic illness Patient's current cognitive status: : *Oriented to person, place, situation, time and present Patient and/or caregiver agree upon recommended discharge plan? : Yes Physical Status: : Independent with ADL's Family / Caregiver's ability to cope with chronic illness: : a. Adequate (ability to meet patient's medical needs, ensures patient attends medical appts.) Functional screen assessment: : Basic needs can adequately be met by self Does the patient have the ability to pay for or attain post discharge needs / services? : N/A Living Arrangements: : Home Alone with Support Is there a likelihood that the patient will require additional services to return to the preadmission environment? : N/A Equipment needed for post hospitalization: : None Baseline cognitive status: : *Oriented to person, place, situation, time and present Patient with capacity for self-care or can be cared for in same environment as prior to hospitalization? 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 : N/A Does Patient have transportation to get home and to follow-up medical appointments when discharged from the hospital? : Yes Planned post hospital services covered by insurance plan? : N/A Would patient like to participate in any Care Coordination programs (if applicable): : Not applicable Does the patient have electricity at home? : Yes Does the patient have running water in their house? : Yes Equipment in use: : None Mental health screen: : No mental health history Psychosocial status: : Independent adult (65+) Abuse/Neglect: : None Resources / Services in place: : None DCP Re-evaluation QUESTION: ANSWER Would patient like to participate in any Care Coordination programs (if applicable): : Not applicable PATIENT: VALENTINA WEIR ENCOUNTER: [id number] MEDICAL RECORD#: [id number] ADMISSION DATE: 09/26/2020 DISCHARGE DATE: 10/01/2020 ATTENDING MD: JERMAIN ANDREW : AGE: 70 MARITAL STATUS: W DC PLAN ID: [id number] FACILITY: [facility] PRINTED ON: 10/01/20 21:43 CT All edits/amendments must be made on the electronic document DICTATION DATE: 10/01/202142 HARD TILE SETTER: CATERINA 10/01/202142 RPT#: [id number] DC DATE:10/01/20 STATUS: DIS IN [facility] [address] [place] [address] END OF REPORT
== END 2020-10-01 11:23 | disposition home or self-care (01) | DRG 389 ==
LOC: D.ER 12:59 → D.M2 17:12 → D.EDHOLD 19:15 → D.ICU 20:01 → D.EDHOLD 20:21 → D.M2 20:27
PROVIDERS: Emergency Medicine; Internal Medicine; ADMIT Family Medicine Adult Medicine; ATTEND Family Medicine Adult Medicine
DX: K56.609 Unspecified intestinal obstruction, unspecified as to partial versus complete obstruction (principal); N17.9 Acute kidney failure, unspecified; Z94.0 Kidney transplant status; E87.2 Acidosis; E87.1 Hypo-osmolality and hyponatremia; K91.2 Postsurgical malabsorption, not elsewhere classified; Z68.1 Body mass index [BMI] 19.9 or less, adult; E44.0 Moderate protein-calorie malnutrition; E86.0 Dehydration; E83.51 Hypocalcemia; N18.30 Chronic kidney disease, stage 3 unspecified; R62.7 Adult failure to thrive

== ENCOUNTER 2020-10-04 00:11 | Inpatient (IN) | payer MEDICARE, MEDICAID ==
[~2020-10-04] VITALS: Ht 180.3 cm; Wt 59.0 kg
[2020-10-04] VITALS (9 sets, daily range): BP systolic 106–139; BP diastolic 73–101; Ht 180.3 cm; Wt 59.0 kg
[~2020-10-04 00:11] MED LIST changes: +ROCALTROL0.25 MCG PO; +TUMS PO; +TYLENOL W/CODEI1 TAB PO; +VITAMIN D21250 MC1 PO; +VITAMIN D325 MC1 PO
[2020-10-04 00:41] LABS: BASOPHILS 0.4 % (0-2); CALC OSMOLALITY 284 mosm/kg (275-300); CALCIUM 8.5 mg/dL (8.5-10.1); CARBON DIOXIDE 25.9 mmol/L (21.0-32.0); CHLORIDE - SERUM 102 mmol/L (98-107); CREATININE - SERUM 1.9 mg/dL (0.6-1.3); EOSINOPHILS 0.2 % (0-7); GLUCOSE 108 mg/dL (74-106); HEMATOCRIT 36.5 % (42.0-54.0); HEMOGLOBIN 11.7 g/dL (13.5-17.5); MCH 29.6 pg (26.0-34.0); MCHC 31.9 g/dL (31.0-37.0); MCV 92.9 fL (80.0-100.0); MEAN PLATELET VOLUME 8.1 fL (7.4-10.4); MONOCYTES 8.2 % (2-11); NEUTROPHILS 87.2 % (40-80); PLATELET COUNT 338 10x3/uL (130-400); POTASSIUM - SERUM 4.8 mmol/L (3.5-5.1); RBC 3.93 10x6/uL (4.20-6.10); RDW 13.8 % (11.5-14.5); SODIUM 139 mmol/L (136-145); UREA NITROGEN 28 mg/dL (7-18); WBC 15.8 10x3/uL (4.8-10.8); eGFR NON AFRICAN AMERICAN 37 mL/min (90-120)
[2020-10-04 00:49] LABS: ALBUMIN 3.7 g/dL (3.4-5.0); ALKALINE PHOSPHATASE 76 U/L (30-120); ALT (SGPT) 24 U/L (10-68); AMYLASE - SERUM 175 U/L (25-115); BILIRUBIN - TOTAL 0.47 mg/dL (0.2-1.3); LIPASE 229 U/L (73-393); PROTEIN - SERUM 8.3 g/dL (6.4-8.2)
[2020-10-04 00:50] LABS: TROPONIN-I < 0.017 ng/mL (0.000-0.060)
[2020-10-04 01:30] LABS: BILIRUBIN NEGATIVE (NEGATIVE); KETONE NEGATIVE (NEGATIVE); NITRITE NEGATIVE (NEGATIVE); UROBILINOGEN NORMAL mg/dL (< 2)
[2020-10-04 01:31] LABS: BACTERIA FEW HPF (NONE SEEN); WHITE CELLS - URINE 2 HPF (0-1)
[2020-10-04 02:02] LABS: MAGNESIUM - SERUM 1.1 mg/dL (1.8-2.4); PHOSPHOROUS 2.1 mg/dL (2.5-4.9)
--- NOTE | 2020-10-04 19:26 | NUR ---
PATIENT RESTING IN BED WITH NO S/S OF DISTRESS. BROUGHT PATIENT ICE PER REQUEST. BED IN LOWEST POSITION AND CALL LIGHT IN REACH. ENCOURAGED PATIENT TO CALL WITH NEEDS.
[2020-10-05 05:00] VITALS: BP 140/60
[2020-10-05 06:19] LABS: BASOPHILS 0.2 % (0-2); EOSINOPHILS 0 % (0-7); HEMATOCRIT 34.3 % (42.0-54.0); HEMOGLOBIN 10.9 g/dL (13.5-17.5); LYMPHOCYTES 5.3 % (15-50); MCH 29.8 pg (26.0-34.0); MCHC 31.9 g/dL (31.0-37.0); MCV 93.5 fL (80.0-100.0); MEAN PLATELET VOLUME 8.7 fL (7.4-10.4); MONOCYTES 13.6 % (2-11); NEUTROPHILS 80.9 % (40-80); PLATELET COUNT 303 10x3/uL (130-400); RBC 3.67 10x6/uL (4.20-6.10); RDW 14.1 % (11.5-14.5)
[2020-10-05 06:45] LABS: ALBUMIN 3.2 g/dL (3.4-5.0); ANION GAP 17.9 mmol/L (8-16); BILIRUBIN - TOTAL 0.64 mg/dL (0.2-1.3); CALCIUM 7.6 mg/dL (8.5-10.1); CARBON DIOXIDE 21.6 mmol/L (21.0-32.0); CREATININE - SERUM 2.3 mg/dL (0.6-1.3); MAGNESIUM - SERUM 1.2 mg/dL (1.8-2.4); POTASSIUM - SERUM 4.5 mmol/L (3.5-5.1); PROTEIN - SERUM 7.6 g/dL (6.4-8.2); WBC 11.8 10x3/uL (4.8-10.8)
[2020-10-05 06:51] LABS: PHOSPHOROUS 2.8 mg/dL (2.5-4.9)
[2020-10-05 12:04] VITALS: BP 119/80
[2020-10-05 17:32] VITALS: BP 133/93
--- NOTE | 2020-10-05 19:46 | NUR ---
PATIENT RESTING IN BED WITH EYES CLOSED AND NO S/S OF DISTRESS. BED IN LOWEST POSITION AND CALL LIGHT IN REACH.
--- NOTE | 2020-10-05 20:04 | NUR ---
ADMINISTERED MEDS PER ORDERS. PATIENT MALA WELL. ENCOURAGED TO CALL WITH NEEDS.
[2020-10-06 04:00] VITALS: BP 132/85
--- NOTE | 2020-10-06 05:30 | NUR ---
ATTEMPTED TO OBTAIN CONSENTS AND GIVE PATIENT CHG BATH. PATIENT REFUSED BOTH STATING HE FEELS "MUCH BETTER TODAY AND I'M NOT HURTING." PATIENT STATED HE IS "NOT HAVING SURGERY TODAY." I ASKED IF THE PATIENT WOULD LIKE TO SPEAK WITH THE DOCTORS FIRST AND THE PATIENT STATED "YES", HOWEVER, PATIENT CONTINUES TO REFUSE CHG BATH AND CONSENT FOR SURGERY TODAY.
[2020-10-06 06:33] LABS: BASOPHILS 0.1 % (0-2); EOSINOPHILS 0.8 % (0-7); HEMATOCRIT 30.7 % (42.0-54.0); HEMOGLOBIN 9.9 g/dL (13.5-17.5); LYMPHOCYTES 9.4 % (15-50); MCHC 32.4 g/dL (31.0-37.0); MCV 92.6 fL (80.0-100.0); MEAN PLATELET VOLUME 8.1 fL (7.4-10.4); MONOCYTES 15.4 % (2-11); NEUTROPHILS 74.3 % (40-80); PLATELET COUNT 266 10x3/uL (130-400); RBC 3.31 10x6/uL (4.20-6.10); RDW 14.3 % (11.5-14.5); WBC 9.5 10x3/uL (4.8-10.8)
[2020-10-06 06:48] LABS: ALBUMIN 2.5 g/dL (3.4-5.0); ANION GAP 14.1 mmol/L (8-16); BILIRUBIN - TOTAL 0.6 mg/dL (0.2-1.3); CARBON DIOXIDE 22.6 mmol/L (21.0-32.0); PHOSPHOROUS 2.3 mg/dL (2.5-4.9); PROTEIN - SERUM 6.3 g/dL (6.4-8.2)
[2020-10-06 06:49] LABS: POTASSIUM - SERUM 3.7 mmol/L (3.5-5.1)
--- NOTE | 2020-10-06 07:45 | NUR ---
PT SITTING UP ON SIDE OF BED. NO ACUTE DISTRESS NOTED. TALKED WITH PT REGARDING PROCEDURE SCHEDULED FOR TODAY. PT VOICES "I'M FEELING BETTER, I'M NOT HURTING. I DON'T NEED THAT PROCEDURE." INFORMED PT THAT STAFF WOULD NOTIFY SURGERY OF REFUSAL FOR PROCEDURE. PT VOICES UNDERSTANDING. IV TO LEFT FOREARM WITH NS @ 150ML/HR INFUSING VIA PUMP. SITE WITHOUT REDNESS OR EDEMA. ZOFRAN @ 4.7ML/HR INFUSING VIA PUMP. PT DENIES FURTHER NEEDS AT THIS TIME. CL WITHIN REACH. ENCOURAGED TO CALL WITH NEEDS. CONTINUE POC
[2020-10-06 08:51] VITALS: BP 104/61
[2020-10-06 12:37] VITALS: BP 126/84
[2020-10-06 18:03] VITALS: BP 131/70
--- NOTE | 2020-10-06 19:41 | NUR ---
PATIENT RESTING IN BED WITH NO S/S OF DISTRESS AND DENIES NEEDS AT THIS TIME. BED IN LOWEST POSITION AND CALL LIGHT IN REACH. ENCOURAGED PATIENT TO CALL WITH NEEDS.
[2020-10-06 20:00] VITALS: BP 124/76
--- NOTE | 2020-10-06 20:33 | NUR ---
ADMINISTERED MEDS PER ORDERS. PATIENT MALA WELL. ENCOURAGED TO CALL WITH NEEDS.
[2020-10-07] VITALS: BP 122/72
[2020-10-07 04:00] VITALS: BP 110/73
[2020-10-07 07:18] LABS: ALBUMIN 2.8 g/dL (3.4-5.0); ANION GAP 14.3 mmol/L (8-16); BASOPHILS 0.4 % (0-2); BILIRUBIN - TOTAL 0.48 mg/dL (0.2-1.3); CALCIUM 8.1 mg/dL (8.5-10.1); CARBON DIOXIDE 23.2 mmol/L (21.0-32.0); CREATININE - SERUM 1.9 mg/dL (0.6-1.3); EOSINOPHILS 1.7 % (0-7); HEMATOCRIT 33.9 % (42.0-54.0); HEMOGLOBIN 10.9 g/dL (13.5-17.5); LYMPHOCYTES 12.3 % (15-50); MAGNESIUM - SERUM 1.6 mg/dL (1.8-2.4); MCH 30.2 pg (26.0-34.0); MCHC 32.2 g/dL (31.0-37.0); MCV 93.6 fL (80.0-100.0); MEAN PLATELET VOLUME 8.5 fL (7.4-10.4); MONOCYTES 11.8 % (2-11); NEUTROPHILS 73.8 % (40-80); PHOSPHOROUS 2.6 mg/dL (2.5-4.9); PLATELET COUNT 292 10x3/uL (130-400); POTASSIUM - SERUM 3.5 mmol/L (3.5-5.1); PROTEIN - SERUM 6.9 g/dL (6.4-8.2); RBC 3.62 10x6/uL (4.20-6.10); WBC 8.9 10x3/uL (4.8-10.8)
--- NOTE | 2020-10-07 07:33 | NUR ---
RESTING IN BED WITH EYES CLOSED, EASILY AROUSED TO SPEECH. IV LOCATED TO LEFT FOREARM CURRENTLY RUNNING NS @ 100, AND ZOFRAN @ 4.7. ALERT AND ORIENTED WITH NO CURRENT S/S OF DISTRESS AT THIS TIME, DENIES CURRENT NEEDS, WILL CONT TO MONITOR.
[2020-10-07 08:36] VITALS: BP 113/72
[2020-10-07 12:05] VITALS: BP 116/74
--- NOTE | 2020-10-07 15:31 | NUR ---
Nutrition Follow-up: Diet: Clear Liquid PO intake: 100% patient states that he is hungry and is wanting his diet advanced. He denies any +N/V. Last BM: 10/07/20 x 5 (colostomy) Wt: 130# (10/04/20) Meds noted: NS@50, abx Labs noted: GFR 45(L) Recommend MD to advance diet as soon as medically feasible. If unable to advance diet within 24-48hrs recommend MD to consider supplemental nutrition support. RD will follow-up within 3 days.
[2020-10-07 17:04] VITALS: BP 111/75
[2020-10-07 20:00] VITALS: BP 100/68
--- NOTE | 2020-10-07 20:00 | NUR ---
ALERT RESTING IN BED, DENIES PAIN OR NEEDS AT THIS TIME, SEE SHIFT ASSESSMENT, CALL LIGHT IN REACH
[2020-10-08] VITALS: BP 107/67
[2020-10-08 04:00] VITALS: BP 98/68
[2020-10-08 07:06] LABS: BASOPHILS 0.5 % (0-2); EOSINOPHILS 1.8 % (0-7); HEMATOCRIT 34.6 % (42.0-54.0); LYMPHOCYTES 14.8 % (15-50); MCH 29.6 pg (26.0-34.0); MCHC 31.7 g/dL (31.0-37.0); MCV 93.4 fL (80.0-100.0); MEAN PLATELET VOLUME 7.9 fL (7.4-10.4); MONOCYTES 9.2 % (2-11); NEUTROPHILS 73.7 % (40-80); PLATELET COUNT 285 10x3/uL (130-400); RBC 3.71 10x6/uL (4.20-6.10); RDW 14.3 % (11.5-14.5); WBC 9.8 10x3/uL (4.8-10.8)
[2020-10-08 07:09] LABS: ALBUMIN 2.9 g/dL (3.4-5.0); ANION GAP 14.7 mmol/L (8-16); BILIRUBIN - TOTAL 0.3 mg/dL (0.2-1.3); CALCIUM 8.3 mg/dL (8.5-10.1); CARBON DIOXIDE 19.9 mmol/L (21.0-32.0); CREATININE - SERUM 1.7 mg/dL (0.6-1.3); MAGNESIUM - SERUM 1.5 mg/dL (1.8-2.4); PHOSPHOROUS 2.6 mg/dL (2.5-4.9); POTASSIUM - SERUM 3.6 mmol/L (3.5-5.1); PROTEIN - SERUM 7.1 g/dL (6.4-8.2)
[2020-10-08 08:11] VITALS: BP 114/84
--- NOTE | 2020-10-08 09:09 | NUR ---
PT SITTING UP IN BED. DENIES PAIN AT THIS TIME. IV TO LEFT FOREARM WITH NS @ 50ML/HR INFUSING VIA PUMP. SITE WITHOUT REDNESS OR EDEMA. PT DENIES FUTHER NEEDS AT THIS TIME. PT REPORTS COLOSTOMY WORKING "ALRIGHT". CL WITHIN REACH. ENCOURAGED TO CALL WITH NEEDS. CONTINUE POC
[2020-10-08 12:25] VITALS: BP 95/68
--- NOTE | 2020-10-08 14:59 | MORECARE ---
CASE MANAGEMENT DISCHARGE SUMMARY PATIENT: VALENTINA WEIR SR UNIT: [id number] ADM DATE: 10/04/20 AGE: 70 : 51 SEX: M ROOM/BED: D.2206 AUTHOR: IZABELLA,DOC PHYSICIAN: REFERRING PHYSICIAN: GREG TOBIAS MD DATE OF SERVICE: 10/08/20 Case Management Discharge Planning Summary DCP REVIEW SUMMARY ANTICIPATED D/C DATE: EXPECTED LOS : CASE STATUS: DCP Initiated INITIAL REVIEW: 10/04/2020 INITIAL REVIEWER: Tracey Tolbert FINAL DISCHARGE DISPOSITION: 01 : Home or Self Care (Routine Discharge) FINAL REVIEWER: FINAL REVIEW DATE: DCP Focus Questions & Answers QUESTION: ANSWER : PATIENT: VALENTINA WEIR ENCOUNTER: [id number] MEDICAL RECORD#: [id number] ADMISSION DATE: 10/04/2020 DISCHARGE DATE: ATTENDING MD: GREG CHOE : AGE: 70 MARITAL STATUS: W DC PLAN ID: [id number] FACILITY: [facility] PRINTED ON: 10/08/20 14:59 CT All edits/amendments must be made on the electronic document DICTATION DATE: 10/08/201458 PROPERTY ADMINISTRATOR: DM 10/08/20 145 RPT#: [id number] DC DATE: STATUS: ADM IN [facility] [address] [place] [address] END OF REPORT
--- NOTE | 2020-10-08 15:27 | MORECARE ---
CASE MANAGEMENT DISCHARGE SUMMARY PATIENT: VALENTINA EWIR SR UNIT: [id number] ADM DATE: 10/04/20 AGE: 70 : 51 SEX: M ROOM/BED: D.2206 AUTHOR: IZABELLA,DOC PHYSICIAN: REFERRING PHYSICIAN: GREG TOBIAS MD DATE OF SERVICE: 10/08/20 Case Management Discharge Planning Summary COMMENTS ENTERED DATE: 10/08/20 15:20 CT COMMENT TYPE: Discharge Planning REVIEWER: Tracey Tolbert CM met with patient to complete initial dc planning assessment. CM educated patient on the CM role and verbal consent given by patient to complete assessment. Patient lives at home by himself where he states he is independent with his care. At discharge patient plans to return home and feels this is a safe discharge. [facility] will pay for a taxi to take him home, the cost will be 6.50. CM discussed availability of home health, rehab services, and medical equipment. Patient denied known discharge needs at this time. IMM served and explained. I have given the patient 2 bus tickets to get to and from the md. I called the [facility] on [address] and spoke to the pharmacist about his medications and he stated that he has picked up all of them but one. He said that they should be covered should not cost much, if there is out pf pocket cost it is due to his deductible. He is on the cheaper version of this medication ( FINASTERIDE) dECLINATION FOR HOME HEALTH SIGNED. IMM served and explained. CM will continue to follow and will assist as needed with dc plans/needs. DCP REVIEW SUMMARY ANTICIPATED D/C DATE: EXPECTED LOS : CASE STATUS: DCP Initiated INITIAL REVIEW: 10/04/2020 INITIAL REVIEWER: Tracey Tolbert FINAL DISCHARGE DISPOSITION: 01 : Home or Self Care (Routine Discharge) FINAL REVIEWER: FINAL REVIEW DATE: DCP Focus Questions & Answers QUESTION: ANSWER : PATIENT: VALENTINA WEIR ENCOUNTER: [id number] MEDICAL RECORD#: [id number] ADMISSION DATE: 10/04/2020 DISCHARGE DATE: ATTENDING MD: GREG CHOE : AGE: 70 MARITAL STATUS: W DC PLAN ID: [id number] FACILITY: [facility] PRINTED ON: 10/08/20 15:26 CT All edits/amendments must be made on the electronic document DICTATION DATE: 10/08/201525 HUC OB: CATERINA 10/08/20 152 RPT#: [id number] DC DATE: STATUS: ADM IN [facility] [address] [place] [address] END OF REPORT
== END 2020-10-08 15:40 | disposition home or self-care (01) | DRG 388 ==
LOC: D.ER 00:11 → D.EDHOLD 01:34 → D.MS 01:34
PROVIDERS: Family Medicine; ADMIT Emergency Medicine; ATTEND Emergency Medicine
DX: K56.609 Unspecified intestinal obstruction, unspecified as to partial versus complete obstruction (principal); E43 Unspecified severe protein-calorie malnutrition; N13.8 Other obstructive and reflux uropathy; K91.2 Postsurgical malabsorption, not elsewhere classified; Z68.1 Body mass index [BMI] 19.9 or less, adult; N18.30 Chronic kidney disease, stage 3 unspecified; N40.1 Benign prostatic hyperplasia with lower urinary tract symptoms; K20.90 Esophagitis, unspecified without bleeding; F10.21 Alcohol dependence, in remission; E53.8 Deficiency of other specified B group vitamins; Z91.120 Patient's intentional underdosing of medication regimen due to financial hardship; R62.7 Adult failure to thrive; R33.9 Retention of urine, unspecified

== ENCOUNTER 2020-10-13 03:58 | Inpatient (IN) | payer MEDICARE, MEDICAID ==
[~2020-10-13] VITALS: Ht 180.3 cm; Wt 63.2 kg
[2020-10-13 04:58] LABS: BASOPHILS 0.2 % (0-2); EOSINOPHILS 0.2 % (0-7); HEMATOCRIT 45.9 % (42.0-54.0); HEMOGLOBIN 14.9 g/dL (13.5-17.5); LYMPHOCYTES 8.7 % (15-50); MCH 30.2 pg (26.0-34.0); MCHC 32.5 g/dL (31.0-37.0); MCV 92.9 fL (80.0-100.0); MEAN PLATELET VOLUME 8.4 fL (7.4-10.4); MONOCYTES 8.8 % (2-11); NEUTROPHILS 82.1 % (40-80); RBC 4.94 10x6/uL (4.20-6.10); RDW 14.2 % (11.5-14.5); WBC 9.9 10x3/uL (4.8-10.8)
[2020-10-13 05:02] LABS: PLATELET COUNT 395 10x3/uL (130-400)
[2020-10-13 05:16] LABS: CALC OSMOLALITY 277 mosm/kg (275-300); CALCIUM 9.1 mg/dL (8.5-10.1); CARBON DIOXIDE 20.1 mmol/L (21.0-32.0); CHLORIDE - SERUM 92 mmol/L (98-107); CREATININE - SERUM 9.4 mg/dL (0.6-1.3); GLUCOSE 94 mg/dL (74-106); POTASSIUM - SERUM 5.3 mmol/L (3.5-5.1); SODIUM 131 mmol/L (136-145); UREA NITROGEN 55 mg/dL (7-18); eGFR NON AFRICAN AMERICAN 6 mL/min (90-120)
[2020-10-13 05:25] LABS: ALBUMIN 4.6 g/dL (3.4-5.0); ALKALINE PHOSPHATASE 115 U/L (30-120); ALT (SGPT) 27 U/L (10-68); BILIRUBIN - TOTAL 0.61 mg/dL (0.2-1.3); LIPASE 189 U/L (73-393); PROTEIN - SERUM 10.4 g/dL (6.4-8.2)
[2020-10-13 05:28] LABS: TROPONIN-I < 0.017 ng/mL (0.000-0.060)
--- NOTE | 2020-10-13 05:43 | NUR ---
BLADDER SCAN INDICATED 301 ML OF URINE IN BLADDER.
--- NOTE | 2020-10-13 06:22 | NUR ---
CALLED [phone] TO [facility]. PT REPORTS HAVING DOG BITE AT FRIENDS RESIDENCE AND A NEIGHBOR WALKING BY HAD A HUSKY THAT LOUNGE AT PATIENTS DOG AND PT GOT IN BETWEEN TO BREAK THE DOGS UP AND HAD INJURY TO RIGHT WRIST. NOTICEABLE HEMATOMA AND SOME BLEEDING FROM THE PUNCTURE SITE. PT HAS DRAWN LINES AND CIRCLES WITH TIMES ON ARM. PT C/O OF INCREASED, SHARP PAIN AND SHOULDER PAIN.
[2020-10-13 06:44] VITALS: BP 105/77
--- NOTE | 2020-10-13 10:05 | NUR ---
GUTIERREZ PLACED FOR ACURATE I&O'S PER RENAL BY LEBRON RETANA RN.
--- NOTE | 2020-10-13 10:34 | NUR ---
PT'S PROSCAR WAS NOT GIVEN D/T NOT HAVING 1MG TABLETS. PT INFORMED THAT HE WOULD NEED TO BRING HIS OWN MEDICATION TO BE ABLE TO TAKE HIS PROSCAR 1MG WHILE HE IS HERE D/T NOT CARRYING THE STRENGTH OF THE MEDICATION IN OUR FACILITY.
[2020-10-13 11:08] LABS: BILIRUBIN NEGATIVE (NEGATIVE); KETONE SMALL mg/dL (NEGATIVE); NITRITE NEGATIVE (NEGATIVE); UROBILINOGEN NORMAL mg/dL (< 2); WHITE CELLS - URINE 0-5 HPF (0-1)
[2020-10-13 11:09] LABS: BACTERIA FEW HPF (NONE SEEN); GRANULAR CAST OCC LPF (NONE SEEN); SQUAMOUS EPITHELIAL OCC HPF (0-4)
[2020-10-13 11:10] LABS: POTASSIUM - URINE 36.2 MMOL/L (12.0-62.0)
[2020-10-13 15:33] LABS: ANION GAP 32.6 mmol/L (8-16); CALCIUM 9.3 mg/dL (8.5-10.1); CREATININE - SERUM 9.5 mg/dL (0.6-1.3); POTASSIUM - SERUM 5.5 mmol/L (3.5-5.1)
[2020-10-13 15:34] LABS: CARBON DIOXIDE 12.9 mmol/L (21.0-32.0)
[2020-10-13] MEDS ORDERED: ZYLOPRIM100 MG PO (15:57)
[2020-10-13] MEDS ORDERED: VITAMIN B-121000 MCG PO (15:58)
--- NOTE | 2020-10-13 16:00 | NUR ---
ARRIVE TO ROOM VIA BED FROM ER. AMBULATE TO BED FROM STRETCHER. REPORTS PAIN. REQUEST PAIN MEDICATION. PAIN MEDICATION ADMINISTERED ORDERED FOR PAIN MANAGEMENT. UNABLE TO COMPLETE ORDER FOR TELEMETRY, PER CHLOÉ WITH MONITORS. GUTIERREZ BAG PLACED IN ICE TO INITIATE 24 HOUR URINE COLLECTION. CONTINUE ADMISSION PROCESS AND SAFETY PRECAUTIONS.
[2020-10-13 16:23] VITALS: BP 101/74; BMI 18.1
[2020-10-13 16:32] LABS: BASOPHILS 0.3 % (0-2); EOSINOPHILS 0.2 % (0-7); HEMATOCRIT 45.6 % (42.0-54.0); HEMOGLOBIN 14.5 g/dL (13.5-17.5); LYMPHOCYTES 10.8 % (15-50); MCH 29.9 pg (26.0-34.0); MCHC 31.8 g/dL (31.0-37.0); MEAN PLATELET VOLUME 8.5 fL (7.4-10.4); MONOCYTES 10.8 % (2-11); NEUTROPHILS 77.9 % (40-80); PLATELET COUNT 357 10x3/uL (130-400); RBC 4.86 10x6/uL (4.20-6.10); RDW 14.4 % (11.5-14.5); WBC 10.7 10x3/uL (4.8-10.8)
--- NOTE | 2020-10-13 19:28 | NUR ---
RECIEVED UP IN BED WITH EYES OPEN AND TV ON. ALERT AND ORIENTED X4. UP AD TAMY. F/C INTACT AND DRAINAGE BAG IN ICE. DENIES ANY NEEDS AT THIS TIME.
[2020-10-13 23:07] VITALS: BP 99/66
[2020-10-14 00:57] VITALS: BP 97/67
[2020-10-14 04:51] VITALS: BP 93/58
[2020-10-14 06:31] LABS: BILIRUBIN - TOTAL 0.53 mg/dL (0.2-1.3); CALCIUM 7.1 mg/dL (8.5-10.1); CREATININE - SERUM 8.4 mg/dL (0.6-1.3); MAGNESIUM - SERUM 1.3 mg/dL (1.8-2.4); PHOSPHOROUS 7.4 mg/dL (2.5-4.9)
[2020-10-14 06:34] LABS: BASOPHILS 0.5 % (0-2); EOSINOPHILS 0.9 % (0-7); LYMPHOCYTES 16.6 % (15-50); MCH 29.6 pg (26.0-34.0); MCHC 32.2 g/dL (31.0-37.0); MEAN PLATELET VOLUME 8.7 fL (7.4-10.4); PLATELET COUNT 316 10x3/uL (130-400); RBC 3.91 10x6/uL (4.20-6.10); RDW 13.7 % (11.5-14.5)
[2020-10-14 06:48] LABS: HEMATOCRIT 35.8 % (42.0-54.0); HEMOGLOBIN 11.5 g/dL (13.5-17.5); MCV 91.8 fL (80.0-100.0); WBC 5.8 10x3/uL (4.8-10.8)
[2020-10-14 06:51] LABS: ALBUMIN 3.4 g/dL (3.4-5.0); ANION GAP 19.5 mmol/L (8-16); CARBON DIOXIDE 18.7 mmol/L (21.0-32.0); POTASSIUM - SERUM 4.2 mmol/L (3.5-5.1); PROTEIN - SERUM 7.5 g/dL (6.4-8.2)
--- NOTE | 2020-10-14 07:20 | NUR ---
RECIEVE REPORT. RESTING IN BED WITH EYES CLOSED. NO SIGNS OF DISTRESS. CONTINUE PLAN OF CARE AND SAFETY PRECAUTIONS.
[2020-10-14 08:00] VITALS: BP 94/63
[2020-10-14 12:00] VITALS: BP 88/59
[2020-10-14 12:10] VITALS: BMI 18.1
--- NOTE | 2020-10-14 14:02 | NUR ---
Placed in Enteric Isolation pending CDT results, Tracie notified.
[2020-10-14 15:54] LABS: PROTEIN - URINE 76.2 mg/dL (0.0-11.9)
[2020-10-14 15:57] LABS: CREATININE - URINE 415.2 mg/dL (30-125); PRO/CRE RATIO URINE 0.2 mg/g
[2020-10-14 16:00] VITALS: BP 100/69
--- NOTE | 2020-10-14 16:00 | NUR ---
ALERT AND ORIENTED X4. SITTING UP IN BED. STOOL AND 24HOUR URINE COLLECTED AND TAKEN TO LAB. IV FLUIDS INFUSING ORDERED. DENIES ANY NEEDS. CONTINUE PLAN OF CARE AND SAFETY PRECAUTIONS.
[2020-10-14 16:21] VITALS: Ht 180.3 cm; Wt 63.2 kg
[2020-10-14 21:31] VITALS: BP 91/64
--- NOTE | 2020-10-14 22:47 | NUR ---
RESTING QUIETLY. CO ABD PAIN. MEDICATED ACCORDINGLY. PAIN HAS BEEN RELEIVED BY IV MED.
--- NOTE | 2020-10-14 23:57 | NUR ---
IV INFILTRATED. RESTARTED IV X2 STICKS ON L ARM WITH 22 G.
[2020-10-15 00:15] VITALS: BP 100/63
[2020-10-15 05:05] VITALS: BP 94/59
--- NOTE | 2020-10-15 06:12 | NUR ---
PT STATED THAT THRU THE NIGHT, HE HAD 7 LIQUID STOOLS
[2020-10-15 06:15] LABS: BASOPHILS 0.6 % (0-2); EOSINOPHILS 1.7 % (0-7); HEMOGLOBIN 9.7 g/dL (13.5-17.5); LYMPHOCYTES 18.8 % (15-50); MCH 30.3 pg (26.0-34.0); MCHC 33.6 g/dL (31.0-37.0); MCV 90.2 fL (80.0-100.0); MEAN PLATELET VOLUME 8.7 fL (7.4-10.4); MONOCYTES 15.7 % (2-11); NEUTROPHILS 63.2 % (40-80); PLATELET COUNT 266 10x3/uL (130-400); RBC 3.21 10x6/uL (4.20-6.10)
[2020-10-15 06:24] LABS: BILIRUBIN - TOTAL 0.65 mg/dL (0.2-1.3); CALCIUM 7.1 mg/dL (8.5-10.1); PROTEIN - SERUM 6.4 g/dL (6.4-8.2)
[2020-10-15 06:25] LABS: ANION GAP 15.6 mmol/L (8-16); CARBON DIOXIDE 23.5 mmol/L (21.0-32.0); MAGNESIUM - SERUM 1.7 mg/dL (1.8-2.4); PHOSPHOROUS 4.8 mg/dL (2.5-4.9); POTASSIUM - SERUM 3.1 mmol/L (3.5-5.1)
[2020-10-15 06:58] LABS: WBC 4.1 10x3/uL (4.8-10.8)
[2020-10-15 08:00] VITALS: BP 97/64
--- NOTE | 2020-10-15 10:02 | NUR ---
CDT negative. May discontinue Enteric Isolation.
[2020-10-15 16:00] VITALS: BP 101/57
[2020-10-15 20:50] VITALS: BP 87/59
[2020-10-16 00:23] VITALS: BP 84/59
--- NOTE | 2020-10-16 02:37 | NUR ---
PT RESTING IN BED WITH EYES OPEN WATCHING TV. PT HAS NO REQUEST AT THE MOMENT WILL CONT TO MONITOR.
--- NOTE | 2020-10-16 03:45 | NUR ---
I have reviewed this patient and I concur with the Shift Assessment completed by the Licensed Practical Nurse today this shift.
[2020-10-16 04:58] VITALS: BP 91/58
[2020-10-16 06:04] LABS: BASOPHILS 0.4 % (0-2); EOSINOPHILS 1.7 % (0-7); HEMATOCRIT 33.1 % (42.0-54.0); HEMOGLOBIN 10.8 g/dL (13.5-17.5); LYMPHOCYTES 18.3 % (15-50); MCH 29.9 pg (26.0-34.0); MCHC 32.8 g/dL (31.0-37.0); MCV 91.4 fL (80.0-100.0); MEAN PLATELET VOLUME 8.7 fL (7.4-10.4); MONOCYTES 12.6 % (2-11); PLATELET COUNT 267 10x3/uL (130-400); RBC 3.62 10x6/uL (4.20-6.10); RDW 14.1 % (11.5-14.5); WBC 5.1 10x3/uL (4.8-10.8)
[2020-10-16 06:18] LABS: ALBUMIN 3.3 g/dL (3.4-5.0); ANION GAP 12.5 mmol/L (8-16); BILIRUBIN - TOTAL 0.49 mg/dL (0.2-1.3); CALCIUM 7.5 mg/dL (8.5-10.1); CARBON DIOXIDE 25.1 mmol/L (21.0-32.0); MAGNESIUM - SERUM 1.4 mg/dL (1.8-2.4); PROTEIN - SERUM 7.1 g/dL (6.4-8.2)
[2020-10-16 06:20] LABS: CREATININE - SERUM 3.3 mg/dL (0.6-1.3); PHOSPHOROUS 2.8 mg/dL (2.5-4.9); POTASSIUM - SERUM 3.6 mmol/L (3.5-5.1)
--- NOTE | 2020-10-16 07:50 | NUR ---
PT IS RESTING IN BED WITH EYES OPEN. RESPIRAITONS ARE EVEN AND UNLABORED. PT IS AAO X 4 AND ANSWERS ALL QUESTIONS APPROPRIATELY. GUTIERREZ CATHETER NOTED AND DRAINING WITHOUT COMPROMISE. CLEAR YELLOW URINE NOTED TO COLLECTION BAG. STAT LOCK TO RIGHT THIGH. ILEOSTOMY BAG NOTED AND WITHOUT COMPROMISE. PT DENIES NEEDS TO CARE OF ILEOSTOMY AND STATES "I TAKE CARE OF IT MYSELF AND I HAVE EVERYTHING I NEED RIGHT NOW". PT DENIES PRESENCE OF PAIN/N/V/DYSPNEA/SOB AT THIS TIME. LEFT FA PIV NOTED AND INFUSING PER ORDER WITHOUT DIFFICULTY. BED IS IN THE LOWEST POSITION. CALL LIGHT AND BEDSIDE TABLE ARE WITHIN REACH. SIDE RAILS X 2. PT DENIES FURTHER NEEDS. WILL CONT TO MONITOR.
[2020-10-16 08:09] VITALS: BP 95/66
--- NOTE | 2020-10-16 09:00 | NUR ---
GUTIERREZ CATHETER CLAMPED AT THIS TIME. PT EDUCATED ON GUTIERREZ CLAMPPING AND PURPOSE. PT VERBALIZES UNDERSTANDING AND WAS INFORMED TO NOTIFY NURSE WHEN URGE TO VOID IS PRESENT. BED IS IN THE LOWEST POSITION. CALL LIGHT AND BEDSIDE TABLE ARE WITHIN REACH. SIDE RAILS X 2. PT DENIES FURTHER NEEDS. WILL CONT TO MONITOR.
[2020-10-16 11:00] VITALS: BP 99/62
--- NOTE | 2020-10-16 12:20 | NUR ---
PT GUTIERREZ CATHETER UNCLAMMPED. PT DENIES PRESENCE OF URGE TO VOID AT THIS TIME.
--- NOTE | 2020-10-16 12:32 | NUR ---
Nutrition Follow-up: Tolerating solids. Ate 100% of breakfast. Requesting more food; order placed for cream of wheat. Denies N/V. Diet: Regular WT: 139.6# (10/15) Labs noted: Na 134, K+ 3.6, BUN 40, Cre 3.3, GFR 24, Glu 135, Ca 7.5, PO4 2.8, Mg 1.4, Alb 3.3 Meds noted: Calcitriol, vit D, KCl/NS @ 75 -Encourage PO intake and honor food preferences. -Monitor wt. -RD will follow up within 5-7 days.
--- NOTE | 2020-10-16 13:15 | NUR ---
GUTIERREZ CATHEETER CLAMPED. PT EDUCATED ON NOTIFY WHEN URGE TO VOID IS PRESENT. PT VERBALIZES UNDERSTANDING AND DENIES FURTHER QUESTIONS/CONCERNS. BED IS IN THE LOWEST POSITION. CALL LIGHT AND BEDSIDE TABLE ARE WITHIN REACH. SIDE RAILS X 2. PT DENIES FURTHER NEEDS. WILL CONT TO MONITOR.
--- NOTE | 2020-10-16 14:19 | NUR ---
PT DENIES PRESENCE OF URGE TO VOID AT THIS TIME. PT DENIES NEEDS. BED IS IN THE LOWEST POSITION. CALL LIGHT AND BEDSIDE TABLE ARE WITHIN REACH. SIDE RAILS X 2. WILL CONT TO MONITOR.
--- NOTE | 2020-10-16 14:58 | NUR ---
PT DENIES PRESENCE OF URGE TO VOID AT THIS TIME. PT DENIES QUESTIONS/CONCERNS. GUTIERREZ TO REMAIN CLAMPED AT THIS TIME. BED IS IN THE LOWEST POSITION. CALL LIGHT AND BEDSIDE TABLE ARE WITHIN REACH. SIDE RAILS X 2. PT DENIES FURTHER NEEDS. WILL CONT TO MONITOR.
[2020-10-16 15:30] VITALS: BP 94/66
--- NOTE | 2020-10-16 15:56 | NUR ---
PT DENIES PURGE TO VOID. GUTIERREZ CATHETER UNCLAMPED AT THIS TIME AND CLEAR YELLOW URINE FLOWS WITHOUT DIFFICULTY INTO COLLECTION BAG. PT STATES "YOUR STRESSING ME OUT WITH DOING THIS AND ASKING ABOUT IF I NEED TO PEE ALL OF THE TIME". PT EDUCATED ON GUTIERREZ CATHETER AND BLADDER TRAINING PRIOR TO DC GUTIERREZ. PT STATES "I DONT UNDERSTAND WHAT YOU ARE DOING AND LAST TIME THEY NEVER DID THIS WITH THAT CAP THING". PT INFORMED AGAIN OF IMPORTANCE OF BLADDER TRAINING WHEN THE PT DOES NOT HAVE URGE TO VOID WITH CLAMPED CATHETER. PT CONTINUES WITH AGITATION AND STATES "I DONT KNOW WHY YOUR ARE DOING THAT. THEY NEVER DID THAT LAST TIME. YOUR ARE STRESSING ME OUT. LEAVE ME A LONE FOR A LITTLE BIT". BED IS IN THE LOWEST POSITION. CALL LIGHT AND BEDSIDE TABLE ARE WITHIN REACH. SIDE RAILS X 2. GUTIERREZ CLAMPED. WILL CONT TO MONITOR.
--- NOTE | 2020-10-16 18:00 | NUR ---
PT DENIES URGE TO VOID. PT WITH INCREASED IRRITATION WITH BLADDER TRAINING. GUTIERREZ CATHETER UNCLAMPED AT THIS TIME AND CLEAR YELLOW URINE FLOWS INTO COLLECTION BAG WITHOUT DIFFICULTY. GUTIERREZ CATHETER LEFT UNCLAMPPED AT THIS TIME PER PT REQUEST. BED IS IN THE LOWEST POSITION. CALL IGHT AND BEDSIDE TABLE ARE WITHIN REACH. SIDE RAILS X 2. PT DENIES FURTHER NEEDS. WILL CONT TO MONITOR.
[2020-10-16 21:34] VITALS: BP 102/56
[2020-10-17 04:32] VITALS: BP 97/70
[2020-10-17 07:50] VITALS: BP 112/80
[2020-10-17 10:55] VITALS: BP 95/68
[2020-10-17 12:20] LABS: BASOPHILS 0.8 % (0-2); EOSINOPHILS 2.6 % (0-7); HEMATOCRIT 37.5 % (42.0-54.0); LYMPHOCYTES 16.4 % (15-50); MCH 29.6 pg (26.0-34.0); MCHC 32.1 g/dL (31.0-37.0); MEAN PLATELET VOLUME 8.8 fL (7.4-10.4); MONOCYTES 13.6 % (2-11); NEUTROPHILS 66.6 % (40-80); PLATELET COUNT 284 10x3/uL (130-400); RBC 4.07 10x6/uL (4.20-6.10); RDW 14.1 % (11.5-14.5); WBC 6.9 10x3/uL (4.8-10.8)
[2020-10-17 12:33] LABS: ALBUMIN 3.7 g/dL (3.4-5.0); ANION GAP 15.4 mmol/L (8-16); BILIRUBIN - TOTAL 0.4 mg/dL (0.2-1.3); CALCIUM 9.2 mg/dL (8.5-10.1); CREATININE - SERUM 2.5 mg/dL (0.6-1.3); MAGNESIUM - SERUM 1.7 mg/dL (1.8-2.4); PHOSPHOROUS 2.9 mg/dL (2.5-4.9); PROTEIN - SERUM 8.4 g/dL (6.4-8.2)
[2020-10-17 12:34] LABS: POTASSIUM - SERUM 4.4 mmol/L (3.5-5.1)
[2020-10-17] MEDS ORDERED: FLOMAX0.4 MG PO (13:24)
[2020-10-17] MEDS ORDERED: VITAMIN D325 MC1 PO (13:24)
[2020-10-17] MEDS ORDERED: PROSCAR5 MG PO (13:25)
--- NOTE | 2020-10-17 14:20 | NUR ---
IV AND TELEMETRY DCD. DC PLANS GIVEN. UNDERSTANDING VOICED.
== END 2020-10-17 14:33 | disposition home or self-care (01) | DRG 682 ==
LOC: D.ER 03:58 → D.M2 08:13 → D.EDHOLD 08:13 → D.M2 14:47
PROVIDERS: Emergency Medicine; Internal Medicine Nephrology; ADMIT Emergency Medicine; ATTEND Emergency Medicine
DX: N17.9 Acute kidney failure, unspecified (principal); E43 Unspecified severe protein-calorie malnutrition; E87.1 Hypo-osmolality and hyponatremia; E87.2 Acidosis; Z68.1 Body mass index [BMI] 19.9 or less, adult; R10.9 Unspecified abdominal pain; G35 Multiple sclerosis; K21.9 Gastro-esophageal reflux disease without esophagitis; N18.30 Chronic kidney disease, stage 3 unspecified; N40.1 Benign prostatic hyperplasia with lower urinary tract symptoms; R33.8 Other retention of urine